=== PATIENT | male | born 1950 | race Caucasian/White ===

== ENCOUNTER 2021-12-19 13:52 | Outpatient (CLI) | payer MEDICARE, SELFPAY ==
[2021-12-19 14:27] LABS: Basophils Percent Auto 0.5 % (0.2-1.2); Eosinophils Absolute Auto 0.2 K/mm3 (0-0.3); Eosinophils Percent Auto 2.2 % (0-4.4); Hematocrit 44.2 % (42.0-52.0); Hemoglobin 14.2 g/dL (14.0-18.0); Immature Granulocyte Absolute 0.04 K/mm3 (0.00-0.031); Immature Granulocyte Percent A 0.5 % (0-0.5); Lymphocytes Absolute Auto 3.14 K/mm3 (0.9-3.2); Lymphocytes Percent Auto 37.6 % (18.3-44.2); Mean Corpuscular HGB Conc 32.1 g/dl (32-36); Mean Corpuscular Hemoglobin 26.9 pg (26-34); Mean Corpuscular Volume 83.9 fl (80-100); Mean Platelet Volume 9.1 fl (7.4-10.4); Monocytes Absolute Auto 0.8 K/mm3 (0.1-0.6); Monocytes Percent Auto 9.6 % (2.6-8.5); Neutrophils Absolute Auto 4.2 K/mm3 (1.3-6.7); Neutrophils Percent Auto 49.6 % (45.5-73.1); Platelet Count Result 243 k/mm3 (150-375); Red Blood Count 5.27 M/mm3 (4.6-6.20); Red Cell Distribution Width 14.4 % (11.5-14.5); White Blood Count 8.4 K/mm3 (4.5-10.0)
[2021-12-19 14:46] LABS: Hemoglobin A1C 7.7 % (<5.7)
[2021-12-19 14:48] LABS: Alanine Aminotransferase 40 U/L (6-50); Albumin Level 4.5 g/dL (3.5-5.1); Alkaline Phosphatase 60 U/L (38-126); Anion Gap 12 mmol/L (8-16); Aspartate Amino Transferase 33 U/L (17-59); Bilirubin,Total 0.4 mg/dL (0.2-1.3); Blood Urea Nitrogen 21 mg/dL (9-20); Calcium 9.4 mg/dL (8.4-10.2); Carbon Dioxide 25 mmol/L (22-30); Chloride 100 mmol/L (98-107); Cholesterol 183 mg/dL (0-200); Estimated Glomerular Filt Rate 46; Glucose 138 mg/dL (65-110); HDL Direct 29 mg/dL; Potassium 4.3 mmol/L (3.4-5.0); Sodium 137 mmol/L (137-145)
[2021-12-19 14:49] LABS: LDL Cholesterol Direct 67 mg/dL
[2021-12-19 15:07] LABS: Prostate Specific Antigen 0.9 ng/mL (< OR = 4.0)
[2021-12-19 15:39] LABS: Triglycerides 569 mg/dL (<150)
== END 2021-12-19 13:53 | disposition home or self-care (01) ==
PROVIDERS: PCP Internal Medicine; Visit Provider Clinical Nurse Specialist
DX: R97.20 Elevated prostate specific antigen [PSA] (principal); E11.9 Type 2 diabetes mellitus without complications
CPT/HCPCS: 36415; 80053; 80061; 83036; 84153; 85025

== ENCOUNTER 2022-04-18 13:02 | Outpatient (CLI) | payer MEDICARE, SELFPAY ==
[2022-04-18 19:33] LABS: Hemoglobin A1C 7.2 % (<5.7)
[2022-04-18 19:50] LABS: Alanine Aminotransferase 38 U/L (6-50); Albumin Level 4.6 g/dL (3.5-5.1); Alkaline Phosphatase 70 U/L (38-126); Anion Gap 11 mmol/L (8-16); Aspartate Amino Transferase 64 U/L (17-59); Bilirubin,Total 0.5 mg/dL (0.2-1.3); Blood Urea Nitrogen 22 mg/dL (9-20); Calcium 9.1 mg/dL (8.4-10.2); Carbon Dioxide 29 mmol/L (22-30); Chloride 101 mmol/L (98-107); Cholesterol 196 mg/dL (0-200); Estimated Glomerular Filt Rate 43; Glucose 130 mg/dL (65-110); HDL Direct 28 mg/dL; Potassium 4.2 mmol/L (3.4-5.0); Sodium 141 mmol/L (137-145); Triglycerides 502 mg/dL (<150)
[2022-04-18 20:03] LABS: LDL Cholesterol Direct 80 mg/dL
[2022-04-18 20:19] LABS: Prostate Specific Antigen 1.3 ng/mL (< OR = 4.0); Thyroid Stimulating Hormone 0.863 uIU/mL (0.465-4.680)
[2022-04-18 21:37] LABS: Creatinine Urine 189.5 mg/dL
[2022-04-18 21:41] LABS: MALB Creatinine Ratio 9.4 mg/g (0-30); Microalbumin Urine Random 17.9 mg/L (0-16.7)
== END 2022-04-18 13:03 | disposition home or self-care (01) ==
PROVIDERS: PCP Internal Medicine; Visit Provider Clinical Nurse Specialist
DX: I10 Essential (primary) hypertension (principal); E11.9 Type 2 diabetes mellitus without complications; R97.20 Elevated prostate specific antigen [PSA]; E55.9 Vitamin D deficiency, unspecified
CPT/HCPCS: 36415; 80053; 80061; 82043; 82306; 82607; 83036; 84153; 84443

== ENCOUNTER 2022-06-21 10:40 | Outpatient (CLI) | payer MEDICARE, SELFPAY ==
[2022-06-21 19:47] LABS: Basophils Absolute Auto 0.1 K/mm3 (0.0-0.1); Basophils Percent Auto 0.8 % (0.2-1.2); Eosinophils Absolute Auto 0.2 K/mm3 (0-0.3); Eosinophils Percent Auto 2.6 % (0-4.4); Hematocrit 45.2 % (42.0-52.0); Hemoglobin 14.7 g/dL (14.0-18.0); Immature Granulocyte Absolute 0.05 K/mm3 (0.00-0.031); Immature Granulocyte Percent A 0.5 % (0-0.5); Lymphocytes Absolute Auto 3.28 K/mm3 (0.9-3.2); Lymphocytes Percent Auto 35.6 % (18.3-44.2); Mean Corpuscular HGB Conc 32.5 g/dl (32-36); Mean Corpuscular Hemoglobin 27.5 pg (26-34); Mean Corpuscular Volume 84.6 fl (80-100); Mean Platelet Volume 9.6 fl (7.4-10.4); Monocytes Absolute Auto 0.9 K/mm3 (0.1-0.6); Monocytes Percent Auto 9.9 % (2.6-8.5); Neutrophils Absolute Auto 4.7 K/mm3 (1.3-6.7); Neutrophils Percent Auto 50.6 % (45.5-73.1); Platelet Count Result 278 k/mm3 (150-375); Red Blood Count 5.34 M/mm3 (4.6-6.20); Red Cell Distribution Width 14.4 % (11.5-14.5); White Blood Count 9.2 K/mm3 (4.5-10.0)
[2022-06-21 19:54] LABS: Alanine Aminotransferase 35 U/L (6-50); Albumin Level 4.5 g/dL (3.5-5.1); Alkaline Phosphatase 64 U/L (38-126); Anion Gap 9 mmol/L (8-16); Aspartate Amino Transferase 34 U/L (17-59); Bilirubin,Total 0.5 mg/dL (0.2-1.3); Blood Urea Nitrogen 23 mg/dL (9-20); Calcium 9.4 mg/dL (8.4-10.2); Carbon Dioxide 27 mmol/L (22-30); Chloride 103 mmol/L (98-107); Cholesterol 182 mg/dL (0-200); Estimated Glomerular Filt Rate 43; Glucose 129 mg/dL (65-110); HDL Direct 24 mg/dL; Potassium 4.2 mmol/L (3.4-5.0); Sodium 139 mmol/L (137-145); Triglycerides 497 mg/dL (<150)
[2022-06-21 20:06] LABS: LDL Cholesterol Direct 75 mg/dL
[2022-06-21 20:09] LABS: Hemoglobin A1C 6.9 % (<5.7)
== END 2022-06-21 10:41 | disposition home or self-care (01) ==
PROVIDERS: PCP Internal Medicine; Visit Provider Clinical Nurse Specialist
DX: E55.9 Vitamin D deficiency, unspecified (principal); N18.9 Chronic kidney disease, unspecified; E11.9 Type 2 diabetes mellitus without complications
CPT/HCPCS: 36415; 80053; 80061; 82306; 82607; 83036; 85025

== ENCOUNTER 2022-07-05 16:20 | Outpatient (CLI) | payer MEDICARE, SELFPAY ==
--- NOTE | ~2022-07-05 | MR_ITS ---
EXAMINATION: MR brain/brain stem wo/w con DATE: 07/05/2022 17:00 INDICATION: Tremors. TECHNIQUE: Magnetic resonance imaging (MRI) of the brain and brainstem was performed without and with 20 mL MultiHance intravenous contrast. COMPARISON: None. FINDINGS: There are scattered areas of nonspecific increased T2-weighted signal intensity in the cere bral white matter, which is within normal limits for the patient's age. There is no intracranial hemo rrhage, acute infarction, or abnormal intracranial mass lesion. The ventricles are normal in size. Th e mastoid air cells are normal. There is mild mucosal thickening in the ethmoid sinuses. The orbits a re normal. IMPRESSION: 1. Normal aging brain. Reviewed, dictated and finalized at location A. RVISOR SOLDER MAKING IMPRESSION: 1. Normal aging brain.
== END 2022-07-05 16:21 | disposition home or self-care (01) ==
LOC: ANHIMG 16:21
PROVIDERS: PCP Internal Medicine; Visit Provider Clinical Nurse Specialist
DX: G25.0 Essential tremor (principal)
CPT/HCPCS: 70553; A9577

== ENCOUNTER 2022-09-18 14:21 | Outpatient (CLI) | payer MEDICARE, SELFPAY ==
[2022-09-18 20:27] LABS: Basophils Absolute Auto 0.1 K/mm3 (0.0-0.1); Basophils Percent Auto 0.7 % (0.2-1.2); Eosinophils Absolute Auto 0.2 K/mm3 (0-0.3); Eosinophils Percent Auto 2.2 % (0-4.4); Hematocrit 42.7 % (42.0-52.0); Hemoglobin 13.7 g/dL (14.0-18.0); Immature Granulocyte Absolute 0.04 K/mm3 (0.00-0.031); Immature Granulocyte Percent A 0.5 % (0-0.5); Lymphocytes Absolute Auto 2.62 K/mm3 (0.9-3.2); Lymphocytes Percent Auto 35.8 % (18.3-44.2); Mean Corpuscular HGB Conc 32.1 g/dl (32-36); Mean Corpuscular Hemoglobin 27.1 pg (26-34); Mean Corpuscular Volume 84.4 fl (80-100); Mean Platelet Volume 9.7 fl (7.4-10.4); Monocytes Absolute Auto 0.9 K/mm3 (0.1-0.6); Monocytes Percent Auto 12.7 % (2.6-8.5); Neutrophils Absolute Auto 3.5 K/mm3 (1.3-6.7); Neutrophils Percent Auto 48.1 % (45.5-73.1); Platelet Count Result 239 k/mm3 (150-375); Red Blood Count 5.06 M/mm3 (4.6-6.20); Red Cell Distribution Width 14.3 % (11.5-14.5); White Blood Count 7.3 K/mm3 (4.5-10.0)
[2022-09-18 21:48] LABS: LDL Cholesterol Direct 98 mg/dL
[2022-09-18 21:49] LABS: Alanine Aminotransferase 47 U/L (6-50); Albumin Level 4.3 g/dL (3.5-5.1); Alkaline Phosphatase 61 U/L (38-126); Anion Gap 9 mmol/L (8-16); Aspartate Amino Transferase 57 U/L (17-59); Bilirubin,Total 0.4 mg/dL (0.2-1.3); Blood Urea Nitrogen 24 mg/dL (9-20); Calcium 9.1 mg/dL (8.4-10.2); Carbon Dioxide 26 mmol/L (22-30); Chloride 102 mmol/L (98-107); Cholesterol 219 mg/dL (0-200); Estimated Glomerular Filt Rate 46; Glucose 150 mg/dL (65-110); Potassium 4.5 mmol/L (3.4-5.0); Sodium 137 mmol/L (137-145)
[2022-09-18 22:18] LABS: Hemoglobin A1C 7.3 % (<5.7)
[2022-09-18 22:24] LABS: Triglycerides 651 mg/dL (<150)
[2022-09-18 22:36] LABS: Creatinine Urine 134.5 mg/dL
[2022-09-18 22:41] LABS: MALB Creatinine Ratio 11.4 mg/g (0-30); Microalbumin Urine Random 15.3 mg/L (0-16.7)
== END 2022-09-18 14:22 | disposition home or self-care (01) ==
PROVIDERS: PCP Internal Medicine; Visit Provider Clinical Nurse Specialist
DX: N18.9 Chronic kidney disease, unspecified (principal); E11.9 Type 2 diabetes mellitus without complications
CPT/HCPCS: 36415; 80053; 80061; 82043; 83036; 85025

== ENCOUNTER 2022-11-04 16:25 | Emergency (ER) | payer MEDICARE, SELFPAY ==
[2022-11-04 16:32] VITALS: BP 115/69; PULSE 84; RESP 18; TEMP 37.3; O2SAT 97
--- NOTE | 2022-11-04 16:48 | ED.URI ---
HPI - URI/Sore Throat General Chief Complaint: Upper Respiratory Infection Stated Complaint: Shortness of Breath/Chest Congestion History of Present Illness HPI Narrative: Patient here for complaints of cough and short of breath at times. No fever no chest pain. Patient states he does have a history of COPD and has an albuterol inhaler at home but he has not used it as prescribed. Related Data Home Medications Medication Instructions Recorded Confirmed aspirin 81 mg tablet,delayed 81 mg PO DAILY 06/10/19 11/04/22 release (Adult Low Dose Aspirin) blood sugar diagnostic (Easy Touch #10 ea 06/10/19 09/23/22 Test Strip) blood-glucose meter (Easy Touch #1 ea 06/10/19 09/23/22 Glucose Monitor) bupropion HCl 150 mg 24 hr tablet, 450 mg PO QAM 06/10/19 11/04/22 extended release (Wellbutrin XL) escitalopram oxalate 20 mg tablet 10 mg PO DAILY 06/10/19 11/04/22 (Lexapro) lancets 28 gauge (Easy Touch #25 ea 06/10/19 09/23/22 Lancets) trazodone 50 mg tablet 50 mg PO BID PRN Sleep 09/07/19 11/04/22 cetirizine 10 mg tablet (Zyrtec) 5 mg PO DAILY 04/11/20 09/23/22 Allergies Allergy/AdvReac Type Severity Reaction Status Date / Time diltiazem Allergy Rash Verified 11/04/22 16:30 Review of Systems Review of Systems: CONSTITUTIONAL: Denies chills, or sweats. Reports fever and generalized body aches EYES: Denies visual changes, redness, or discharge. ENT: Denies otalgia. Reports nasal congestion runny nose and sore throat CARDIOVASCULAR: Denies chest pain, palpitations, or edema. RESPIRATORY: Denies dyspnea. Reports occasional cough GASTROINTESTINAL: Denies abdominal pain, nausea, vomiting, or diarrhea. GENITOURINARY: Denies dysuria or hematuria. SKIN: Denies rash or itching. MUSCULOSKELETAL: Denies back pain, joint pain, or myalgia. Reports generalized body aches NEUROLOGIC: Denies headache, numbness, or weakness. PSYCHIATRIC: Denies anxiety or depression. [facility] Past Medical History Medical History Allergies Anxiety Asthma Chronic kidney disease COPD (chronic obstructive pulmonary disease) Depression Diabetes DM renal manif type II Dysmetabolic syndrome X Essential hypertension HLD (hyperlipidemia) DARVIN (obstructive sleep apnea) Shingles Family History Family History Father Hypertension Sibling Malignant neoplasm of prostate Liver cancer Social History Social History Smoking status: Former smoker Smoking end date: 05/12/98 Alcohol intake: current Alcohol use details: rarely Lack of Transportation: No Lack of Food: Never True Current Housing: I Have Housing Concerned About Future Housing: No Difficulty Paying Gas/Electric Bills: No Difficulty Paying for Meds: No Currently Unemployed: No Education: High School Diploma/GED Difficulty w/ Childcare or Family Care: No Comments At time of signature, agree with nursing past medical, surgical, social and family history. There is no relevant family history pertinent to the presenting complaint Exam Narrative: The patient is a well-developed, well-nourished in no acute distress. SKIN: Skin is warm and dry without erythema, swelling or exudate. There is good turgor. No tenting. HEAD: Atraumatic. Normocephalic. No temporal or scalp tenderness. EYES: Moist and bright. Sclera and conjunctivae normal. No discharge. PERRLA. Extraocular motions intact. Gross visual acuity intact. EARS: Pinna is normal shape and contour. Clear external auditory canals. TM pearly woods with good cone of light, no erythema or suppuration. Bilateral cerumen noted no gross hearing deficit. NOSE: pink, moist mucosa with good air movement. Clear rhinorrhea without nasal flaring. Septum midline. Mouth: moist mucous membranes. THROAT; mild erythema noted to posterior oropharynx with moderate
== END 2022-11-04 16:56 | disposition home or self-care (01) ==
PROVIDERS: Emergency Provider Nurse Practitioner Family; PCP Internal Medicine
DX: J44.0 Chronic obstructive pulmonary disease with (acute) lower respiratory infection (principal); J20.9 Acute bronchitis, unspecified; Z87.891 Personal history of nicotine dependence; I12.9 Hypertensive chronic kidney disease with stage 1 through stage 4 chronic kidney disease, or unspecified chronic kidney disease; E11.22 Type 2 diabetes mellitus with diabetic chronic kidney disease; N18.9 Chronic kidney disease, unspecified; Z79.84 Long term (current) use of oral hypoglycemic drugs; E78.5 Hyperlipidemia, unspecified; E88.81 Metabolic syndrome and other insulin resistance; F41.9 Anxiety disorder, unspecified; F32.A Depression, unspecified; Z79.82 Long term (current) use of aspirin
CPT/HCPCS: 99213; G0463

== ENCOUNTER 2023-02-21 10:12 | Outpatient (CLI) | payer MEDICARE, SELFPAY ==
[2023-02-21 19:51] LABS: Anion Gap 9 mmol/L (8-16); Blood Urea Nitrogen 26 mg/dL (9-20); Calcium 9.6 mg/dL (8.4-10.2); Carbon Dioxide 28 mmol/L (22-30); Chloride 103 mmol/L (98-107); Cholesterol 173 mg/dL (0-200); Estimated Glomerular Filt Rate 40; Glucose 116 mg/dL (65-110); HDL Direct 26 mg/dL; Potassium 4.3 mmol/L (3.4-5.0); Sodium 140 mmol/L (137-145); Triglycerides 519 mg/dL (<150)
[2023-02-21 20:03] LABS: LDL Cholesterol Direct 66 mg/dL
[2023-02-21 20:21] LABS: Creatinine Urine 177.8 mg/dL; MALB Creatinine Ratio 9.1 mg/g (0-30); Microalbumin Urine Random 16.1 mg/L (0-16.7)
[2023-02-21 20:42] LABS: Hemoglobin A1C 6.9 % (<5.7)
== END 2023-02-21 10:13 | disposition home or self-care (01) ==
PROVIDERS: PCP Internal Medicine; Visit Provider Clinical Nurse Specialist
DX: E11.9 Type 2 diabetes mellitus without complications (principal)
CPT/HCPCS: 36415; 80048; 80061; 82043; 82607; 83036

== ENCOUNTER 2024-01-19 09:37 | Outpatient (CLI) | payer MEDICARE, SELFPAY ==
[2024-01-19 18:51] LABS: Hematocrit 44.6 % (42.0-52.0); Hemoglobin 13.8 g/dL (14.0-18.0); Mean Corpuscular HGB Conc 30.9 g/dl (32-36); Mean Corpuscular Hemoglobin 27.3 pg (26-34); Mean Corpuscular Volume 88.3 fl (80-100); Red Blood Count 5.05 M/mm3 (4.6-6.20); Red Cell Distribution Width 14.6 % (11.5-14.5); White Blood Count 8.9 K/mm3 (4.5-10.0)
[2024-01-19 19:33] LABS: Creatinine Urine 107.5 mg/dL
[2024-01-19 19:39] LABS: Lymphocytes Absolute Manual 3.82 K/mm3 (1.1-4.5); Monocytes Absolute Manual 1.33 K/mm3 (0.1-0.90); Monocytes Percent Manual 15 % (3-9); Neutrophils Percent Manual 42 % (46-73); Platelet Estimate Adequate (Adequate); Total Cells Counted 100
[2024-01-19 19:40] LABS: Schistocytes None Seen
[2024-01-19 19:58] LABS: Alanine Aminotransferase 19 U/L (6-50); Albumin Level 4.3 g/dL (3.5-5.1); Alkaline Phosphatase 77 U/L (38-126); Aspartate Amino Transferase 49 U/L (17-59); Bilirubin,Total 0.3 mg/dL (0.2-1.3); Blood Urea Nitrogen 33 mg/dL (9-20); Calcium 9.4 mg/dL (8.4-10.2); Carbon Dioxide 21 mmol/L (22-30); Cholesterol 154 mg/dL (0-200); Estimated Glomerular Filt Rate 31; Glucose 95 mg/dL (65-110); HDL Direct 23 mg/dL; Potassium 4.8 mmol/L (3.4-5.0); Sodium 133 mmol/L (137-145)
[2024-01-19 20:14] LABS: Prostate Specific Antigen 1.3 ng/mL (< OR = 4.0)
[2024-01-19 20:26] LABS: LDL Cholesterol Direct 56 mg/dL
[2024-01-19 20:51] LABS: MALB Creatinine Ratio < 5.6 mg/g (0-30); Microalbumin Urine Random < 6.0 mg/L (0-16.7)
[2024-01-19 21:20] LABS: Anion Gap 7 mmol/L (4-12); Chloride 105 mmol/L (98-107)
[2024-01-19 21:21] LABS: Triglycerides 641 mg/dL (<150)
[2024-01-20 00:50] LABS: Hemoglobin A1C 6.6 % (<5.7)
[2024-01-26 18:34] LABS: Testosterone Free 60.9 pg/mL (30.0-135.0); Testosterone Total 267 ng/dL (250-1100)
== END 2024-01-19 09:38 | disposition home or self-care (01) ==
PROVIDERS: PCP Internal Medicine; Visit Provider Clinical Nurse Specialist
DX: R53.83 Other fatigue (principal); E11.9 Type 2 diabetes mellitus without complications; N18.9 Chronic kidney disease, unspecified; Z12.5 Encounter for screening for malignant neoplasm of prostate
CPT/HCPCS: 36415; 80053; 80061; 82043; 83036; 84153; 84402; 84403; 85025; G0103

== ENCOUNTER 2024-01-29 09:26 | Outpatient (CLI) | payer MEDICARE, SELFPAY ==
[2024-01-29 20:05] LABS: Creatinine Urine 89.2 mg/dL
[2024-01-29 20:11] LABS: MALB Creatinine Ratio 9.1 mg/g (0-30); Microalbumin Urine Random 8.1 mg/L (0-16.7)
[2024-01-29 23:15] LABS: Anion Gap 13 mmol/L (4-12); Blood Urea Nitrogen 27 mg/dL (9-20); Calcium 9.6 mg/dL (8.4-10.2); Carbon Dioxide 24 mmol/L (22-30); Chloride 101 mmol/L (98-107); Estimated Glomerular Filt Rate 33; Glucose 139 mg/dL (65-110); Sodium 138 mmol/L (137-145)
== END 2024-01-29 09:27 | disposition home or self-care (01) ==
PROVIDERS: PCP Internal Medicine; Visit Provider Clinical Nurse Specialist
DX: G25.0 Essential tremor (principal); E11.9 Type 2 diabetes mellitus without complications
CPT/HCPCS: 36415; 80048; 82043; 82607; 84443

== ENCOUNTER 2024-06-02 13:57 | Outpatient (CLI) | payer MEDICARE, SELFPAY ==
--- NOTE | ~2024-06-02 | CT_ITS ---
EXAMINATION: CT brain wo con DATE: 06/02/2024 14:11 INDICATION: Essential tremor TECHNIQUE: Computed tomography (CT) of the head was performed without intravenous contrast. Sagittal and coronal reconstructions were performed. Automated exposure control and iterative reconstruction t echnique were employed. The dose-length product was 645.69 mGy-cm. COMPARISON: Brain MR dated 07/05/2022 FINDINGS: No acute intracranial hemorrhage, acute infarction or abnormal extra axial fluid collection. There is mild scattered white matter hypoattenuation consistent with chronic small vessel ischemic disease. S ymmetric prominence of the sulci consistent with mild age-appropriate diffuse cerebral volume loss. V entricles are normal and symmetric. No mass/mass effect. Changes of left intraocular lens replacement . The paranasal sinuses and mastoid air cells are normal. IMPRESSION: 1. Normal aging brain. No acute intracranial process. Reviewed, dictated and finalized at location A. RNET MANAGER
== END 2024-06-02 13:58 | disposition home or self-care (01) ==
LOC: GOSHIMG 13:59
PROVIDERS: PCP Internal Medicine; Visit Provider Clinical Nurse Specialist
DX: G25.0 Essential tremor (principal)
CPT/HCPCS: 70450

== ENCOUNTER 2024-09-09 08:46 | Outpatient (CLI) | payer MEDICARE, SELFPAY ==
--- OUTSIDE RECORDS SUMMARY | 2024-09-09 08:55 | XMS_ITS ---
Author Organization [facility] Address [address] [place] [address] Phone Care Team Providers Care Band Shover Name Role Phone LAURA GUZMAN, FRITZ SAUCEDA [facility] [phone] Problems Includes: Active, inactive, and resolved Problems All Visits Onset Date Resolved Date Provider Condition S tatus Restless Legs Syndrome 02/05/2023 METOD FORTUNATO MASSEY MD Active Last Documented On 3 3:54PM ; [facility] Post-traumatic Stress Disorder 01/10/2022 Active Last Documented On 3 5:53PM ; [facility] Tremor 01/10/2019 Active Last Documented On 3 5:52PM ; [facility] Diabetes Mellitus Type 2 02/25/2017 Active Last Documented On 3 5:51PM ; [facility] Psychophysiological Insomnia 04/11/2016 Active Last Documented On 3 5:50PM ; [facility] Asthma 07/10/2012 Inactive Last Documented On 3 5:44PM ; [facility] Unspecified asthma, uncomplicated 07/10/2012 Active Last Documented On 3 5:48PM ; [facility] Nonorganic Sleep Apnea Obstructive 07/10/2012 Inactive Last Documented On 3 5:44PM ; [facility] Note: Using CPAP 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 FRITZ WORTHY MD Active Last Documented On 3 2:02PM ; [facility] Major Depression 06/22/2012 FRITZ MASSEY MD Active Last Documented On 3 2:02PM ; [facility] Major Depression, Recurrent 06/22/2012 Inactive Last Documented On 3 5:44PM ; [facility] Generalized Anxiety Disorder 06/10/2012 Inactive Last Documented On 3 5:43PM ; [facility] Generalized Anxiety Disorder 06/10/2012 FRITZ MASSEY MD Active Last Documented On 3 2:02PM ; [facility] Essential (primary) hypertension 06/10/2012 Active Last Documented On 3 5:48PM ; [facility] Hypertension Systemic 06/10/2012 Karen ctive Last Documented On 3 5:43PM ; [facility] Pure hypercholesterolemia 06/10/2012 Active Last Documented On 3 5:48PM ; [facility] Pure Hypercholesterolemia 06/10/2012 Inactive Last Documented On 3 5:43PM ; [facility] Plan of Treatment Education and Decision Aids were provided during visit for: I recommended cognitive exer cises such as reading and/or word search puzzles, etc.. Last Documented On 4 2:06PM ; [facility] Calming techniques such as b reathing exercises/meditation and other relaxation techniques Last Documented On 4 12:20AM ; [facility] Discussed good sleep hygiene habits , guided meditation, breathing exercises if and when anxious Last Documented On 3 5:28PM ; [facility] Assessments Includes: Assessments for all patient encounters Findings Encounter Date Generalized anxiety disorder TELEHEALTH ADULT PSYCH ESTABLISHED with FRITZ MASSEY MD 10/15/2023 Last Documented On 4 12:25AM ; [facility] Major depressive disorder TELEHEALTH RADHA LT PSYCH ESTABLISHED with FRITZ MASSEY MD 10/15/2023 Last Documented On 4 12:25AM ; [facility] Nonorganic sleep apnea TELEHEALTH ADULT PSYCH ESTABLISHED with FRITZ MASSEY MD 10/15/2023 Last Documented On 4 12:25AM ; [facility] Post-traumatic stress disorder TELEHEALT H ADULT PSYCH ESTABLISHED with FRITZ MASSEY MD 10/15/2023 Last Documented On 4 12:25AM ; [facility] Psychophysiological insomnia TELEHEALTH ADULT PSYCH ESTABLISHED with FRITZ MASSEY MD 10/15/2023 Last Documented On 4 12:25AM ; [facility] Tremor TELEHEALTH ADULT PSYCH ESTABLISH ED with FRITZ MASSEY MD 10/15/2023 Last Documented On 4 12:25AM ; [facility] Generalized anxiety disorder TELEHEALTH ADULT PSYCH ESTABLISHED with FRITZ MASSEY MD 06/11/2023 Last Documented On 4 2:57PM ; [facility] Major depressive disorder TELEHEALTH RADHA LT PSYCH ESTABLISHED with FRITZ MASSEY MD 06/11/2023 Last Documented On 4 2:57PM ; [facility] Nonorganic sleep apnea TELEHEALTH ADULT PSYCH ESTABLISHED with FRITZ MASSEY MD 06/11/2023 Last Documented On 4 2:57PM ; [facility] Post-traumatic stress disorder TELEHEALT H ADULT PSYCH ESTABLISHED with FRITZ MASSEY MD 06/11/2023 Last Documented On 4 2:57PM ; [facility] Psychophysiological insomnia TELEHEALTH ADULT PSYCH ESTABLISHED with FRITZ MASSEY MD 06/11/2023 Last Documented On 4 2:57PM ; [facility] Tremor TELEHEALTH ADULT PSYCH ESTABLISH ED with FRITZ MASSEY MD 06/11/2023 Last Documented On 4 2:57PM ; [facility] Restless legs syndrome * PHONE CALL with FRITZ MASSEY MD 02/05/2023 Last Documented On 3 5:27PM ; [facility] Generalized anxiety disorder TELEHEALTH ADULT PSYCH ESTABLISHED with FRITZ MASSEY MD 02/05/2023 Last Documented On 3 5:32PM ; [facility] Major depressive disorder TELEHEALTH RADHA LT PSYCH ESTABLISHED with FRITZ MASSEY MD 02/05/2023 Last Documented On 3 5:32PM ; [facility] Nonorganic sleep apnea TELEHEALTH ADULT PSYCH ESTABLISHED with FRITZ MASSEY MD 02/05/2023 Last Documented On 3 5:32PM ; [facility] Post-traumatic stress disorder TELEHEALT H ADULT PSYCH ESTABLISHED with FRITZ MASSEY MD 02/05/2023 Last Documented On 3 5:32PM ; [facility] Psychophysiological insomnia TELEHEALTH ADULT PSYCH ESTABLISHED with FRITZ MASSEY MD 02/05/2023 Last Documented On 3 5:32PM ; [facility] Tremor TELEHEALTH ADULT PSYCH ESTABLISH ED with FRITZ MASSEY MD 02/05/2023 Last Documented On 3 5:32PM ; [facility] Generalized anxiety disorder TELEHEALTH with MET ANTONIO MASSEY MD 09/11/2022 Last Documented On 3 9:32AM ; [facility] Major depressive disorder TELEHEALTH with ROSALIA MASSEY MD 09/11/2022 Last Documented On 3 9:32AM ; [facility] Nonorganic sleep apnea TELEHEALTH with FRITZ MASSEY MD 09/11/2022 Last Documented On 3 9:32AM ; [facility] Post-traumatic stress disorder TELEHEALTH with Luis Eduardo MASSEY MD 09/11/2022 Last Documented On 3 9:32AM ; [facility] Psychophysiological insomnia TELEHEALTH with MET ANTONIO MASSEY MD 09/11/2022 Last Documented On 3 9:32AM ; [facility] Tremor TELEHEALTH with FRITZ HILLS MD 09/11/2022 Last Documented On 3 9:32AM ; [facility] Instructions Includes: Instructions for all patient encounters Education and Decision Aids were provided during visit for: I recommended cognitive exer cises such as reading and/or word search puzzles, etc.. Last Documented On 4 2:06PM ; [facility] Calming techniques such as b reathing exercises/meditation and other relaxation techniques Last Documented On 4 12:20AM ; [facility] Discussed good sleep hygiene habits , guided meditation, breathing exercises if and when anxious Last Documented On 3 5:28PM ; [facility] Medical Equipment - Implanted Devices Includes: Current and historical Devices No Medical Equipment Recorded Medications Includes: Current and historical Medications Current Medications (continue as prescribed) busPIRone HCl 10 MG Oral Tablet 10/15/2023 Provider: FRITZ MASSEY MD Diagnosis: Generalized anxi ety disorder One tablet daily Last Documented On 10/15/2023 2:46PM By Teresa Massey MD ; [facility] ZyrTEC Allergy 10 MG Oral Tablet 10/15/2023 Provider : Diagnosis: 1 tab daily prn Last Documented On 10/15/2023 1:59PM By ILANA POOLE ; [facility] traZODone HCl 50 MG Oral Tablet 06/20/2023 Provider: FRITZ MASSEY MD Diagnosis: Psychophysiologi c insomnia DIRECTED 1 TAB 2 TIMES A DAY AND 1 TAB AT BEDTIME NEEDED Last Documented On 06/20/2023 8:48AM By Teresa Massey MD ; [facility] Escitalopram Oxalate 20 MG Oral Tablet 06/11/2023 Provider: FRITZ MASSEY MD Diagnosis: Generalized anxi ety disorder One tablet daily Last Documented On 06/11/2023 2:33PM By Teresa Massey MD ; [facility] buPROPion HCl ER (XL) 150 MG Oral Tablet Extended Release 24 Hour 06/11/2023 Provider: FRITZ MASSEY MD Diagnosis: Major depressive disorder, recurrent, moderate TAKE 3 TABLETS BY MOUTH IN T MORNING Last Documented On 06/11/2023 2:31PM By Teresa Massey MD ; [facility] Atorvastatin Calcium 80 MG Oral Tablet 01/08/2023 Pr ovider: CESAR CASTANO APN Diagnosis: 1 tab daily Last Documented On 02/05/2023 1:45PM By ILANA POOLE ; [facility] Lisinopril 40 MG Oral Tablet 09/11/2022 Provider: Diagnosis: 1 daily Last Documented On 09/11/2022 2:48PM By ILANA POOLE ; [facility] metFORMIN HCl 500 MG TABS 07/11/2020 Provider: Diagnosis: 4 daily Last Documented On 09/07/2022 5:28PM By ILANA POOLE ; [facility] ProAir HFA 108 (90 Base) MCG/ACT IN AERS 05/13/2018 Provider: Diagnosis: 1-2 puffs every 4-6 hours prn Last Documented On 09/07/2022 5:28PM By ILANA POOLE ; [facility] Indapamide 2.5 MG OR TABS 03/02/2015 Provider: Diagnosis: from Dr. Figueroa Last Documented On 09/07/2022 5:28PM By Teresa Massey MD ; [facility] Aspirin 81 MG OR TABS 07/10/2012 Provider: Diagnosis: Last Documented On 09/07/2022 5:28PM By LEXIE HERNANDEZ ; [facility] Past Medications on file rOPINIRole HCl 3 MG Oral Tablet 02/05/2023 - 10/15/2023 Provider: FRITZ MASSEY MD Diagnosis: Restless legs syndrome as directed - 2 tabs in the evening Last Documented On 10/15/2023 2:46PM By Teresa Massey MD ; [facility] Escitalopram Oxalate 20 MG Oral Tablet 11/29/2022 - 06/11/2023 Provider: FRITZ MASSEY MD Diagnosis: Generalized anxi ety disorder One tablet daily Last Documented On 06/11/2023 2:33PM By Teresa Massey MD ; [facility] Escitalopram Oxalate 20 MG Oral Tablet 11/29/2022 - 11/29/2022 Provider: Diagnosis: Generalized anxi ety disorder 1 tablet daily Last Documented On 11/29/2022 4:43PM By ROSEMARY PINZON ; [facility] traZODone HCl 50 MG Oral Tablet 11/29/2022 - Provider: Diagnosis: Psychophysiologi c insomnia 1 tab 2 times a day and 1 tab at bedtime as need ed Last Documented On 11/29/2022 4:43PM By ROSEMARY PINZON ; [facility] traZODone HCl 50 MG Oral Tablet 11/29/2022 - 06/20/2023 Provider: FRITZ MASSEY MD Diagnosis: Psychophysiologi c insomnia as directed 1 tab 2 times a day and 1 tab at bedtime as needed Last Documented On 06/20/2023 8:48AM By Teresa Massey MD ; [facility] traZODone HCl 50 MG Oral Tablet 09/11/2022 - 11/29/2022 Provider: FRITZ MASSEY MD Diagnosis: Psychophysiologi c insomnia as directed -- 1 tab 2 x a d ay, 1 tab at bedtime as needed Last Documented On 11/29/2022 4:43PM By ROSEMARY PINZON ; [facility] traZODone HCl 50 MG OR TABS 06/11/2022 - 09/11/2022 Provider: FRITZ MASSEY MD Diagnosis: Psychophysiologi c insomnia TAKE 1/2 (ONE-HALF) TABLET B Y MOUTH TWICE DAILY NEEDED FOR ANXIETY AND 1 TABLET AT BEDTIME NEEDED FOR SLEEP DIRECTED Last Documented On 09/11/2022 2:33PM By Teresa Massey MD ; [facility] Escitalopram Oxalate 20 MG OR TABS 06/11/2022 - 11/29/2022 Provider: FRITZ MASSEY MD Diagnosis: Generalized anxi ety disorder One tablet daily Last Documented On 11/29/2022 4:43PM By ROSEMARY PINZON ; [facility] buPROPion HCl ER (XL) 150 MG OR TB24 06/11/2022 - 06/11/2023 Provider: FRITZ MASSEY MD Diagnosis: Major depressive disorder, recurrent, moderate TAKE 3 TABLETS BY MOUTH IN THE MORNING Last Documented On 06/11/2023 2:31PM By Teresa Massey MD ; [facility] traZODone HCl 50 MG OR TABS 05/26/2022 - 06/11/2022 Provider: FRITZ MASSEY MD Diagnosis: Psychophysiologi c insomnia TAKE 1/2 (ONE-HALF) TABLET B Y MOUTH TWICE DAILY NEEDED FOR ANXIETY AND 1 TABLET AT BEDTIME NEEDED FOR SLEEP DIRECTED Last Documented On 09/07/2022 5:28PM By Teresa Massey MD ; [facility] Azelastine HCl 137 MCG/SPRAY NA SOLN 04/23/2022 - 09/11/2022 Provider: Diagnosis: Acute sinusitis, unspecified 1 spray to each nostril 2 x a day -- Hua Castano Last Documented On 09/11/2022 1:55PM By ILANA POOLE ; [facility] traZODone HCl 50 MG OR TABS 03/06/2022 - 05/26/2022 Provider: FRITZ MASSEY MD Diagnosis: Psychophysiologi c insomnia TAKE 1/2 (ONE-HALF) TABLET B Y MOUTH TWICE DAILY NEEDED FOR ANXIETY AND 1 AT BEDTIME NEEDED ONLY FOR SLEEP DIRECTED Last Documented On 09/07/2022 5:28PM By Teresa Massey MD ; [facility] Viibryd 20 MG OR TABS 12/04/2021 - 03/04/2022 Provider : FRITZ MASSEY MD Diagnosis: Major depressive disorder, recurrent, moderate as directed -- 1 tab in am with food Last Documented On 09/07/2022 5:28PM By Teresa Massey MD ; [facility] Escitalopram Oxalate 20 MG OR TABS 12/04/2021 - 06/11/2022 Provider: FRITZ MASSEY MD Diagnosis: Generalized anxi ety disorder One tablet daily Last Documented On 09/07/2022 5:28PM By Teresa Massey MD ; [facility] Escitalopram Oxalate 20 MG OR TABS 10/09/2021 - 12/04/2021 Provider: FRITZ HILLS MD Diagnosis: Take 1 tablet by mouth once daily Last Documented On 09/07/2022 5:28PM By Teresa Massey MD ; [facility] traZODone HCl 50 MG OR TABS 09/17/2021 - 03/06/2022 Provider: FRITZ MASSEY MD Diagnosis: Psychophysiologi c insomnia TAKE 1/2 (ONE-HALF) TABLET B Y MOUTH TWICE DAILY NEEDED FOR ANXIETY AND 1 TABLET AT BEDTIME NEEDED ONLY FOR SLEEP DIRECTED Last Documented On 09/07/2022 5:28PM By Teresa Massey MD ; [facility] Escitalopram Oxalate 20 MG OR TABS 09/03/2021 - 03/05/2022 Provider: FRITZ MASSEY MD Diagnosis: Generalized anxi ety disorder Take 1 tablet by mouth once daily Last Documented On 09/07/2022 5:28PM By Teresa Massey MD ; [facility] Escitalopram Oxalate 20 MG OR TABS 05/23/2021 - 09/03/2021 Provider: FRITZ MASSEY MD Diagnosis: Generalized anxi ety disorder One tablet daily Last Documented On 09/07/2022 5:28PM By Teresa Massey MD ; [facility] buPROPion HCl ER (XL) 150 MG OR TB24 05/23/2021 - 06/11/2022 Provider: FRITZ MASSEY MD Diagnosis: Major depressive disorder, recurrent, moderate TAKE 3 TABLETS BY MOUTH IN THE MORNING Last Documented On 09/07/2022 5:28PM By Teresa Massey MD ; [facility] traZODone HCl 50 MG OR TABS 04/09/2021 - 09/17/2021 Provider: FRITZ MASSEY MD Diagnosis: Psychophysiologi c insomnia TAKE 1/2 (ONE-HALF) TABLET B Y MOUTH TWICE DAILY NEEDED FOR ANXIETY AND 1 TABLET AT BEDTIME NEEDED ONLY FOR SLEEP DIRECTED Last Documented On 09/07/2022 5:28PM By Teresa Massey MD ; [facility] Escitalopram Oxalate 20 MG OR TABS 02/15/2021 - 05/23/2021 Provider: FRITZ MASSEY MD Diagnosis: Generalized anxi ety disorder Take 1 tablet by mouth once daily Last Documented On 09/07/2022 5:28PM By Teresa Massey MD ; [facility] traZODone HCl 50 MG OR TABS 10/12/2020 - 04/09/2021 Provider: FRITZ MASSEY MD Diagnosis: Psychophysiologi c insomnia TAKE ONE-HALF TO ONE TABLETS BY MOUTH TWICE DAILY NEEDED FOR ANXIETY AND ONE AT BEDTIME NEEDED ONLY FOR SLEEP DIRECTED Last Documented On 09/07/2022 5:28PM By Teresa Massey MD ; [facility] buPROPion HCl ER (XL) 150 MG OR TB24 05/10/2020 - 05/23/2021 Provider: FRITZ HILLS MD Diagnosis: TAKE 3 TABLETS BY MOUTH IN THE MORNING Last Documented On 09/07/2022 5:28PM By Teresa Massey MD ; [facility] buPROPion HCl ER (XL) 150 MG OR TB24 05/06/2020 - 03/12/2021 Provider: FRITZ MASSEY MD Diagnosis: Major depressive disorder, recurrent, moderate as directed - 3 tabs in am Last Documented On 09/07/2022 5:28PM By Teresa Massey MD ; [facility] traZODone HCl 50 MG OR TABS 10/22/2019 - 10/12/2020 Provider: FRITZ MASSEY MD Diagnosis: Psychophysiologi c insomnia TAKE ONE-HALF TO ONE TABLET BY MOUTH TWO TIMES DAILY NEEDED FOR ANXIETY AND ONE TABLET AT BEDTIME NEEDED ONLY FOR SLEEP DIRECTED Last Documented On 09/07/2022 5:28PM By Teresa Massey MD ; [facility] Lexapro 20 MG OR TABS 10/03/2019 - 02/15/2021 Provider: FRITZ HILLS MD Diagnosis: Generalized anxi ety disorder Take 1 tablet by mouth once daily Last Documented On 09/07/2022 5:28PM By Teresa Massey MD ; [facility] Atorvastatin Calcium 40 MG OR TABS 09/14/2019 - 2022 Provider: Diagnosis: Last Documented On 02/05/2023 1:45PM By ILANA POOLE ; [facility] Atorvastatin Calcium 20 MG OR TABS 03/10/2019 - 2019 Provider: Diagnosis: 1 tab at bedtime Last Documented On 09/07/2022 5:28PM By ILANA POOLE ; [facility] Wellbutrin XL 150 MG OR TB24 11/04/2018 - 05/06/2020 Provider: FRITZ MASSEY MD Diagnosis: Major depressive disorder, recurrent, moderate as directed 3 every am Last Documented On 09/07/2022 5:28PM By Teresa Massey MD ; [facility] Lexapro 20 MG OR TABS 11/04/2018 - 10/03/2019 Provider: FRITZ HILLS MD Diagnosis: Generalized anxi ety disorder One tablet daily Last Documented On 09/07/2022 5:28PM By Teresa Massey MD ; [facility] traZODone HCl 50 MG OR TABS 11/04/2018 - 10/22/2019 Provider: FRITZ MASSEY MD Diagnosis: Psychophysiologi c insomnia as directed TAKE 1/2 TO 1 TA BLET BY MOUTH 2 TIMES DAILY NEEDED FOR ANXIETY, 1 TAB at bedtime as needed only for sleep Last Documented On 09/07/2022 5:28PM By Teresa Massey MD ; [facility] Wellbutrin XL 150 MG OR TB24 09/10/2018 - 11/04/2018 Provider: FRITZ MASSEY MD Diagnosis: Major depressive disorder, recurrent, moderate as directed 3 every am Last Documented On 09/07/2022 5:28PM By Teresa Massey MD ; [facility] Lexapro 20 MG OR TABS 09/04/2018 - 11/04/2018 Provider: FRITZ HILLS MD Diagnosis: Generalized anxi ety disorder One tablet daily Last Documented On 09/07/2022 5:28PM By Teresa Massey MD ; [facility] traZODone HCl 50 MG OR TABS 08/12/2018 - 11/04/2018 Provider: FRITZ MASSEY MD Diagnosis: Psychophysiologi c insomnia as directed TAKE 1/2 TO 1 TA BLET BY MOUTH 2 TIMES DAILY NEEDED FOR ANXIETY, 1 TAB at bedtime as needed only for sleep Last Documented On 09/07/2022 5:28PM By Teresa Massey MD ; [facility] traZODone HCl 50 MG OR TABS 06/08/2018 - 08/12/2018 Provider: FRITZ MASSEY MD Diagnosis: Psychophysiologi c insomnia as directed TAKE 1/2 TO 1 TA BLET BY MOUTH 2 TIMES DAILY NEEDED FOR ANXIETY, 1 TAB at bedtime as needed only for sleep Last Documented On 09/07/2022 5:28PM By Teresa Massey MD ; [facility] Viibryd 20 MG OR TABS 06/08/2018 - 09/17/2021 Provider: FRITZ HILLS MD Diagnosis: Major depressive disorder, recurrent, unspecified 1 tablet every morning with food -- may take as needed only Last Documented On 09/07/2022 5:28PM By Teresa Massey MD ; [facility] Lexapro 20 MG OR TABS 06/08/2018 - 09/04/2018 Provider: FRITZ HILLS MD Diagnosis: Generalized anxi ety disorder One tablet daily Last Documented On 09/07/2022 5:28PM By Teresa Massey MD ; [facility] Wellbutrin XL 150 MG OR TB24 06/08/2018 - 09/10/2018 Provider: FRITZ MASSEY MD Diagnosis: Major depressive disorder, recurrent, moderate as directed 3 every am Last Documented On 09/07/2022 5:28PM By Teresa Massey MD ; [facility] Crestor 20 MG OR TABS 05/13/2018 - 11/04/2018 Provider : Diagnosis: 1 tab daily Last Documented On 09/07/2022 5:28PM By ILANA POOLE ; [facility] traZODone HCl 50 MG OR TABS 08/31/2017 - 05/13/2018 Provider: FRITZ MASSEY MD Diagnosis: Psychophysiologi c insomnia as directed TAKE 1/2 TO 1 TA BLET BY MOUTH 2 TIMES DAILY NEEDED FOR ANXIETY, 1 TAB at bedtime as needed only for sleep Last Documented On 09/07/2022 5:28PM By Teresa Massey MD ; [facility] Viibryd 20 MG OR TABS 08/31/2017 - 05/13/2018 Provider: FRITZ HILLS MD Diagnosis: Major depressive disorder, recurrent, unspecified 1 tablet every morning with food Last Documented On 09/07/2022 5:28PM By Teresa Massey MD ; [facility] Lexapro 20 MG OR TABS 08/31/2017 - 05/13/2018 Provider: FRITZ HILLS MD Diagnosis: Generalized anxi ety disorder One tablet daily Last Documented On 09/07/2022 5:28PM By Teresa Massey MD ; [facility] Wellbutrin XL 150 MG OR TB24 08/31/2017 - 05/13/2018 Provider: FRITZ MASSEY MD Diagnosis: Major depressive disorder, recurrent, moderate as directed 3 every am Last Documented On 09/07/2022 5:28PM By Teresa Massey MD ; [facility] traZODone HCl 50 MG OR TABS 07/16/2017 - 08/26/2017 Provider: FRITZ MASSEY MD Diagnosis: Psychophysiologi c insomnia as directed TAKE 1/2 TO 1 TA BLET BY MOUTH 2 TIMES DAILY NEEDED FOR ANXIETY, 1 TAB at bedtime as needed only for sleep Last Documented On 09/07/2022 5:28PM By Teresa Massey MD ; [facility] Lexapro 20 MG OR TABS 07/16/2017 - 08/26/2017 Provider: FRITZ HILLS MD Diagnosis: Generalized anxi ety disorder One tablet daily Last Documented On 09/07/2022 5:28PM By Teresa Massey MD ; [facility] Wellbutrin XL 150 MG OR TB24 07/16/2017 - 08/26/2017 Provider: FRITZ MASSEY MD Diagnosis: Major depressive disorder, recurrent, moderate as directed 3 every am Last Documented On 09/07/2022 5:28PM By Teresa Massey MD ; [facility] Viibryd 20 MG OR TABS 07/16/2017 - 08/26/2017 Provider: FRITZ HILLS MD Diagnosis: Major depressive disorder, recurrent, unspecified 1 tablet every morning with food Last Documented On 09/07/2022 5:28PM By Teresa Massey MD ; [facility] Lexapro 20 MG OR TABS 03/10/2017 - 07/16/2017 Provider: FRITZ HILLS MD Diagnosis: Generalized anxi ety disorder One tablet daily Last Documented On 09/07/2022 5:28PM By Teresa Massey MD ; [facility] traZODone HCl 50 MG OR TABS 02/25/2017 - 07/16/2017 Provider: FRITZ MASSEY MD Diagnosis: Psychophysiologi c insomnia as directed TAKE 1/2 TO 1 TA BLET BY MOUTH 2 TIMES DAILY NEEDED FOR ANXIETY, 1 TAB at bedtime as needed only for sleep Last Documented On 09/07/2022 5:28PM By Teresa Massey MD ; [facility] Wellbutrin XL 150 MG OR TB24 02/25/2017 - 07/16/2017 Provider: FRITZ MASSEY MD Diagnosis: Major depressive disorder, recurrent, moderate as directed 3 every am Last Documented On 09/07/2022 5:28PM By Teresa Massey MD ; [facility] Viibryd 20 MG OR TABS 02/25/2017 - 07/16/2017 Provider: FRITZ HILLS MD Diagnosis: Major depressive disorder, recurrent, unspecified 1 tablet every morning with food Last Documented On 09/07/2022 5:28PM By Teresa Massey MD ; [facility] Lexapro 20 MG OR TABS 02/21/2017 - 02/25/2017 Provider: FRITZ HILLS MD Diagnosis: Generalized anxi ety disorder One tablet daily Last Documented On 09/07/2022 5:28PM By Teresa Massey MD ; [facility] [facility] metFORMIN HCl ER (MOD) 500 MG TB24 02/15/2017 - 2020 Provider: Diagnosis: 4 daily Last Documented On 09/07/2022 5:28PM By REBA GARZA LPN ; [facility] Atorvastatin Calcium 10 MG OR TABS 02/14/2017 - 2018 Provider: Diagnosis: 1 daily Last Documented On 09/07/2022 5:28PM By REBA GARZA LPN ; [facility] traZODone HCl 50 MG OR TABS 01/21/2017 - 02/25/2017 Provider: FRITZ MASSEY MD Diagnosis: Psychophysiologi c insomnia as directed TAKE 1/2 TO 1 TA BLET BY MOUTH 3 TIMES DAILY NEEDED FOR ANXIETY, 1 TAB at bedtime as needed only Last Documented On 09/07/2022 5:28PM By Teresa Massey MD ; [facility] Wellbutrin XL 150 MG OR TB24 11/14/2016 - 02/25/2017 Provider: FRITZ MASSEY MD Diagnosis: Major depressive disorder, recurrent, moderate as directed 3 every am Last Documented On 09/07/2022 5:28PM By Teresa Massey MD ; [facility] Wellbutrin XL 150 MG OR TB24 09/16/2016 - 11/14/2016 Provider: FRITZ MASSEY MD Diagnosis: Major depressive disorder, recurrent, moderate as directed 3 every am Last Documented On 09/07/2022 5:28PM By Teresa Massey MD ; [facility] Lexapro 20 MG OR TABS 08/28/2016 - 02/21/2017 Provider: FRITZ HILLS MD Diagnosis: Generalized anxi ety disorder One tablet daily Last Documented On 09/07/2022 5:28PM By Teresa Massey MD ; [facility] modafinil 100mg OR TABS 08/28/2016 - 02/25/2017 Provider: FRITZ MASSEY MD Diagnosis: Obstructive slee p apnea (adult) (pediatric) as directed -- 1 tab in am Last Documented On 09/07/2022 5:28PM By Teresa Massey MD ; [facility] Viibryd 20 MG OR TABS 08/28/2016 - 02/25/2017 Provider: FRITZ MASSEY MD Diagnosis: Major depressive disorder, recurrent, unspecified 1 tablet every morning with food -- given discount coupon on 02/29/16 Last Documented On 09/07/2022 5:28PM By Teresa Massey MD ; [facility] traZODone HCl 50 MG OR TABS 08/28/2016 - 01/21/2017 Provider: FRITZ MASSEY MD Diagnosis: Psychophysiologi c insomnia as directed TAKE 1/2 TO 1 TA BLET BY MOUTH 3 TIMES DAILY NEEDED FOR ANXIETY, 1 TAB at bedtime as needed only Last Documented On 09/07/2022 5:28PM By Teresa Massey MD ; [facility] Wellbutrin XL 150 MG OR TB24 08/28/2016 - 09/16/2016 Provider: FRITZ MASSEY MD Diagnosis: Major depressive disorder, recurrent, moderate as directed 3 every am Last Documented On 09/07/2022 5:28PM By Teresa Massey MD ; [facility] Wellbutrin XL 150 MG OR TB24 07/23/2016 - 08/28/2016 Provider: FRITZ MASSEY MD Diagnosis: Major depressive disorder, recurrent, unspecified as directed 3 every am Last Documented On 09/07/2022 5:28PM By Teresa Massey MD ; [facility] Wellbutrin XL 150 MG OR TB24 05/01/2016 - 07/23/2016 Provider: FRITZ MASSEY MD Diagnosis: Major depressive disorder, recurrent, unspecified as directed 3 every am Last Documented On 09/07/2022 5:28PM By Teresa Massey MD ; [facility] Viibryd 20 MG OR TABS 02/29/2016 - 08/28/2016 Provider: FRITZ MASSEY MD Diagnosis: Major depressive disorder, recurrent, unspecified 1 tablet every morning with food -- given discount coupon on 02/29/16 Last Documented On 09/07/2022 5:28PM By Teresa Massey MD ; [facility] traZODone HCl 50 MG OR TABS 02/29/2016 - 08/28/2016 Provider: FRITZ MASSEY MD Diagnosis: Generalized anxi ety disorder as directed TAKE 1/2 TO 1 TA BLET BY MOUTH 3 TIMES DAILY NEEDED FOR ANXIETY, 1 TAB at bedtime as needed only Last Documented On 09/07/2022 5:28PM By Teresa Massey MD ; [facility] Wellbutrin XL 150 MG OR TB24 02/29/2016 - 05/01/2016 Provider: FRITZ MASSEY MD Diagnosis: Major depressive disorder, recurrent, unspecified as directed 3 every am Last Documented On 09/07/2022 5:28PM By Teresa Massey MD ; [facility] Lexapro 20 MG OR TABS 02/29/2016 - 08/28/2016 Provider: FRITZ HILLS MD Diagnosis: Generalized anxi ety disorder One tablet daily Last Documented On 09/07/2022 5:28PM By Teresa Massey MD ; [facility] Wellbutrin XL 150 MG OR TB24 02/21/2016 - 02/29/2016 Provider: FRITZ MASSEY MD Diagnosis: Major depressive disorder, recurrent, unspecified as directed 3 every am Last Documented On 09/07/2022 5:28PM By Teresa Massey MD ; [facility] Wellbutrin XL 150 MG OR TB24 11/10/2015 - 02/21/2016 Provider: FRITZ MASSEY MD Diagnosis: Major depressive disorder, recurrent, unspecified as directed 3 every am Last Documented On 09/07/2022 5:28PM By Teresa Massey MD ; [facility] traZODone HCl 50 MG OR TABS 08/30/2015 - 02/29/2016 Provider: FRITZ MASSEY MD Diagnosis: Generalized anxi ety disorder as directed TAKE 1/2 TO 1 TA BLET BY MOUTH 3 TIMES DAILY NEEDED FOR ANXIETY, 1 TAB at bedtime as needed only Last Documented On 09/07/2022 5:28PM By Teresa Massey MD ; [facility] Lexapro 20 MG OR TABS 08/30/2015 - 02/29/2016 Provider: FRITZ HILLS MD Diagnosis: Generalized anxi ety disorder One tablet daily Last Documented On 09/07/2022 5:28PM By Teresa Massey MD ; [facility] Wellbutrin XL 150 MG OR TB24 08/30/2015 - 11/10/2015 Provider: FRITZ MASSEY MD Diagnosis: Major depressive disorder, recurrent, unspecified as directed 3 every am Last Documented On 09/07/2022 5:28PM By Teresa Massey MD ; [facility] Viibryd 20 MG OR TABS 08/30/2015 - 02/29/2016 Provider: FRITZ HILLS MD Diagnosis: Major depressive disorder, recurrent, unspecified 1 tablet every morning with food Last Documented On 09/07/2022 5:28PM By Teresa Massey MD ; [facility] Lexapro 20 MG OR TABS 08/24/2015 - 08/30/2015 Provider: FRITZ HILLS MD Diagnosis: Generalized anxi ety disorder One tablet daily Last Documented On 09/07/2022 5:28PM By Teresa Massey MD ; [facility] traZODone HCl 50 MG OR TABS 08/03/2015 - 08/30/2015 Provider: FRITZ MASSEY MD Diagnosis: Generalized anxi ety disorder as directed TAKE 1/2 TO 1 TA BLET BY MOUTH 3 TIMES DAILY NEEDED FOR ANXIETY, 1 TAB at bedtime as needed only Last Documented On 09/07/2022 5:28PM By Teresa Massey MD ; [facility] Triamcinolone Acetonide 0.1% EX OINT 07/20/2015 - 02/09 Provider: Diagnosis: Use as directed Last Documented On 09/07/2022 5:28PM By REBA GARZA LPN ; [facility] Crestor 20 MG OR TABS 03/02/2015 - 02/25/2017 Provider : Diagnosis: Take 1 tablet by mouth daily Last Documented On 09/07/2022 5:28PM By REBA GARZA LPN ; [facility] traZODone HCl 50 MG OR TABS 03/02/2015 - 08/03/2015 Provider: FRITZ MASSEY MD Diagnosis: Generalized anxi ety disorder as directed TAKE 1/2 TO 1 TA BLET BY MOUTH 3 TIMES DAILY NEEDED FOR ANXIETY, 1 TAB at bedtime as needed only Last Documented On 09/07/2022 5:28PM By Teresa Massey MD ; [facility] Viibryd 20 MG OR TABS 03/02/2015 - 08/30/2015 Provider: FRITZ HILLS MD Diagnosis: Major depressive disorder, recurrent, unspecified 1 tablet every morning with food Last Documented On 09/07/2022 5:28PM By Teresa Massey MD ; [facility] Lexapro 20 MG OR TABS 03/02/2015 - 08/24/2015 Provider: FRITZ HILLS MD Diagnosis: Generalized anxi ety disorder One tablet daily Last Documented On 09/07/2022 5:28PM By Teresa Massey MD ; [facility] Wellbutrin XL 150 MG OR TB24 03/02/2015 - 08/30/2015 Provider: FRITZ MASSEY MD Diagnosis: Major depressive disorder, recurrent, unspecified as directed 3 every am Last Documented On 09/07/2022 5:28PM By Teresa Massey MD ; [facility] Wellbutrin XL 150 MG OR TB24 02/27/2015 - 03/02/2015 Provider: FRITZ MASSEY MD Diagnosis: Major depressive disorder, recurrent, unspecified as directed 3 every am Last Documented On 09/07/2022 5:28PM By Teresa Massey MD ; [facility] traZODone HCl 50 MG OR TABS 01/30/2015 - 03/02/2015 Provider: FRITZ MASSEY MD Diagnosis: Generalized anxi ety disorder as directed TAKE 1/2 TO 1 TA BLET BY MOUTH 3 TIMES DAILY NEEDED FOR ANXIETY. Last Documented On 09/07/2022 5:28PM By Teresa Massey MD ; [facility] Lexapro 20 MG OR TABS 12/20/2014 - 03/02/2015 Provider: FRITZ HILLS MD Diagnosis: GENERALIZED ANXI ETY DIS One tablet daily Last Documented On 09/07/2022 5:28PM By Teresa Massey MD ; [facility] Viibryd 20 MG OR TABS 11/09/2014 - 03/02/2015 Provider: FRITZ HILLS MD Diagnosis: MAJOR DEPRESSION DISORDER/RECURRENT 1 tablet every morning with food Last Documented On 09/07/2022 5:28PM By Teresa Massey MD ; [facility] Viibryd 20 MG OR TABS 07/19/2014 - 11/09/2014 Provider: FRITZ HILLS MD Diagnosis: MAJOR DEPRESSION DISORDER/RECURRENT 1 tablet every morning with food Last Documented On 09/07/2022 5:28PM By Teresa Massey MD ; [facility] Lexapro 20 MG OR TABS 07/19/2014 - 12/20/2014 Provider: FRITZ HILLS MD Diagnosis: GENERALIZED ANXI ETY DIS One tablet daily Last Documented On 09/07/2022 5:28PM By Teresa Massey MD ; [facility] Wellbutrin XL 150 MG OR TB24 07/19/2014 - 02/27/2015 Provider: FRITZ MASSEY MD Diagnosis: MAJOR DEPRESSION DISORDER/RECURRENT as directed 3 every am Last Documented On 09/07/2022 5:28PM By Teresa Massey MD ; [facility] Nuvigil 150 MG OR TABS 07/19/2014 - 03/02/2015 Provider: FRITZ HILLS MD Diagnosis: OBSTRUCTIVE SLEE P APNEA 1 tablet every morning with food Last Documented On 09/07/2022 5:28PM By Teresa Massey MD ; [facility] traZODone HCl 50 MG OR TABS 07/19/2014 - 01/30/2015 Provider: FRITZ MASSEY MD Diagnosis: GENERALIZED ANXI ETY DIS as directed TAKE 1/2 TO 1 TA BLET BY MOUTH 3 TIMES DAILY NEEDED FOR ANXIETY. Last Documented On 09/07/2022 5:28PM By Teresa Massey MD ; [facility] Viibryd 20 MG OR TABS 02/15/2014 - 07/19/2014 Provider: FRITZ HILLS MD Diagnosis: MAJOR DEPRESSION DISORDER/RECURRENT will try another extra 20 mg in am with food to equal 40 mg in am. Last Documented On 09/07/2022 5:28PM By Teresa Massey MD ; [facility] Lexapro 20 MG OR TABS 02/15/2014 - 07/19/2014 Provider: FRITZ HILLS MD Diagnosis: GENERALIZED ANXI ETY DIS Last Documented On 09/07/2022 5:28PM By Teresa Massey MD ; [facility] Wellbutrin XL 150 MG OR TB24 02/15/2014 - 07/19/2014 Provider: FRITZ MASSEY MD Diagnosis: MAJOR DEPRESSION DISORDER/RECURRENT 3 every am Last Documented On 09/07/2022 5:28PM By Teresa Massey MD ; [facility] Nuvigil 150 MG OR TABS 02/15/2014 - 07/19/2014 Provider: FRITZ HILLS MD Diagnosis: OBSTRUCTIVE SLEE P APNEA Last Documented On 09/07/2022 5:28PM By Teresa Massey MD ; [facility] traZODone HCl 50 MG OR TABS 02/15/2014 - 07/19/2014 Provider: FRITZ MASSEY MD Diagnosis: GENERALIZED ANXI ETY DIS TAKE 1/2 TO 1 TABLET BY MOUT H 3 TIMES DAILY NEEDED FOR ANXIETY. Last Documented On 09/07/2022 5:28PM By Teresa Massey MD ; [facility] traZODone HCl 50 MG OR TABS 02/09/2014 - 02/15/2014 Provider: FRITZ MASSEY MD Diagnosis: GENERALIZED ANXI ETY DIS TAKE 1/2 TO 1 TABLET BY MOUT H 3 TIMES DAILY NEEDED FOR ANXIETY. Last Documented On 09/07/2022 5:28PM By Teresa Massey MD ; [facility] Viibryd 20 MG OR TABS 02/09/2014 - 02/15/2014 Provider: FRITZ HILLS MD Diagnosis: MAJOR DEPRESSION DISORDER/RECURRENT Last Documented On 09/07/2022 5:28PM By Teresa Massey MD ; [facility] Lexapro 20 MG OR TABS 10/05/2013 - 02/15/2014 Provider: FRITZ HILLS MD Diagnosis: GENERALIZED ANXI ETY DIS Last Documented On 09/07/2022 5:28PM By Teresa Massey MD ; [facility] Wellbutrin XL 150 MG OR TB24 10/05/2013 - 02/15/2014 Provider: FRITZ MASSEY MD Diagnosis: MAJOR DEPRESSION DISORDER/RECURRENT 3 every am Last Documented On 09/07/2022 5:28PM By Teresa Massey MD ; [facility] Nuvigil 150 MG OR TABS 10/05/2013 - 10/05/2013 Provider: FRITZ HLILS MD Diagnosis: OBSTRUCTIVE SLEE P APNEA 1 in the morning as needed Last Documented On 09/07/2022 5:28PM By Teresa Massey MD ; [facility] traZODone HCl 50 MG OR TABS 10/05/2013 - 02/09/2014 Provider: FRTIZ MASSEY MD Diagnosis: GENERALIZED ANXI ETY DIS 1/2 to 1 tablet 3 times a da y as needed for anxiety Last Documented On 09/07/2022 5:28PM By Teresa Massey MD ; [facility] Nuvigil 150 MG OR TABS 10/05/2013 - 02/15/2014 Provider: FRITZ HILLS MD Diagnosis: OBSTRUCTIVE SLEE P APNEA 1 in the morning as needed Last Documented On 09/07/2022 5:28PM By Teresa Massey MD ; [facility] Viibryd 20 MG OR TABS 10/05/2013 - 02/09/2014 Provider: FRITZ HILLS MD Diagnosis: MAJOR DEPRESSION DISORDER/RECURRENT Last Documented On 09/07/2022 5:28PM By Teresa Massey MD ; [facility] Viibryd 20 MG OR TABS 06/07/2013 - 10/05/2013 Provider: FRITZ HILSL MD Diagnosis: MAJOR DEPRESSION DISORDER/RECURRENT Last Documented On 09/07/2022 5:28PM By Teresa Massey MD ; [facility] traZODone HCl 50 MG OR TABS 06/07/2013 - 10/05/2013 Provider: FRITZ MASSEY MD Diagnosis: GENERALIZED ANXI ETY DIS 1/2 to 1 tablet 3 times a da y as needed for anxiety Last Documented On 09/07/2022 5:28PM By Teresa Massey MD ; [facility] Lexapro 20 MG OR TABS 06/07/2013 - 10/05/2013 Provider: FRITZ HILLS MD Diagnosis: GENERALIZED ANXI ETY DIS Last Documented On 09/07/2022 5:28PM By Teresa Massey MD ; [facility] Wellbutrin XL 150 MG OR TB24 06/07/2013 - 10/05/2013 Provider: FRITZ MASSEY MD Diagnosis: MAJOR DEPRESSION DISORDER/RECURRENT 3 every am Last Documented On 09/07/2022 5:28PM By Teresa Massey MD ; [facility] Nuvigil 150 MG OR TABS 06/07/2013 - 10/05/2013 Provider: FRITZ HILLS MD Diagnosis: OBSTRUCTIVE SLEE P APNEA 1 in the morning as needed Last Documented On 09/07/2022 5:28PM By Teresa Massey MD ; [facility] Symbicort 80-4.5 MCG/ACT IN AERO 06/07/2013 - 03/02/20 15 Provider: Diagnosis: 2 puffs bid Last Documented On 09/07/2022 5:28PM By Teresa Massey MD ; [facility] Nuvigil 150 MG OR TABS 01/19/2013 - 06/07/2013 Provider: FRITZ HILLS MD Diagnosis: OBSTRUCTIVE SLEE P APNEA 1 in the morning as needed Last Documented On 09/07/2022 5:28PM By Teresa Massey MD ; [facility] Wellbutrin XL 150 MG OR TB24 01/19/2013 - 06/07/2013 Provider: FRITZ MASSEY MD Diagnosis: MAJOR DEPRESSION DISORDER/RECURRENT 3 every am Last Documented On 09/07/2022 5:28PM By Teresa Massey MD ; [facility] traZODone HCl 50 MG OR TABS 01/19/2013 - 06/07/2013 Provider: FRITZ MASSEY MD Diagnosis: GENERALIZED ANXI ETY DIS as needed Last Documented On 09/07/2022 5:28PM By Teresa Massey MD ; [facility] Lexapro 20 MG OR TABS 01/19/2013 - 06/07/2013 Provider: FRITZ HILLS MD Diagnosis: MAJOR DEPRESSION DISORDER/RECURRENT Last Documented On 09/07/2022 5:28PM By Teresa Massey MD ; [facility] Viibryd 20 MG OR TABS 01/19/2013 - 06/07/2013 Provider: FRITZ HILLS MD Diagnosis: MAJOR DEPRESSION DISORDER/RECURRENT Last Documented On 09/07/2022 5:28PM By Teresa Massey MD ; [facility] Viibryd 10 & 20 & 40 MG OR KIT 01/19/2013 - 03/02/2015 Provider: FRITZ HILLS MD Diagnosis: MAJOR DEPRESSION DISORDER/RECURRENT 10 mg in am for 1 week then 20 mg in am with food--gave 12 weeks of samples Last Documented On 09/07/2022 5:28PM By Teresa Massey MD ; [facility] Nuvigil 150 MG OR TABS 07/10/2012 - 07/10/2012 Provide r: Diagnosis: 1 in the morning as needed Last Documented On 09/07/2022 5:28PM By LEXIE HERNANDEZ ; [facility] Viibryd 10 MG OR TABS 07/10/2012 - 07/10/2012 Provider : Diagnosis: 1 in the morning-pt takes it as needed Last Documented On 09/07/2022 5:28PM By LEXIE HERNANDEZ ; [facility] Wellbutrin XL 150 MG OR TB24 07/10/2012 - 01/19/2013 Provider: FRITZ MASSEY MD Diagnosis: MAJOR DEPRESSION DISORDER/RECURRENT 3 every am Last Documented On 09/07/2022 5:28PM By Teresa Massey MD ; [facility] Viibryd 10 MG OR TABS 07/10/2012 - 06/07/2013 Provider: FRITZ HILLS MD Diagnosis: MAJOR DEPRESSION DISORDER/RECURRENT 1 in the morning-pt takes it as needed when he has bouts of down days or feeling short tempered--3 weeks sapmles given Last Documented On 09/07/2022 5:28PM By Teresa Massey MD ; [facility] Allergy 10 MG OR TABS 07/10/2012 - 09/11/2022 P rovider: Diagnosis: Last Documented On 09/11/2022 1:56PM By ILANA POOLE ; [facility] Wellbutrin XL 150 MG OR TB24 07/10/2012 - 07/10/2012 P rovider: Diagnosis: 3 every am Last Documented On 09/07/2022 5:28PM By Teresa Massey MD ; [facility] Albuterol Sulfate POWD 07/10/2012 - 05/13/2018 Provide r: Diagnosis: as needed Last Documented On 09/07/2022 5:28PM By LEXIE HERNANDEZ ; [facility] traZODone HCl 50 MG OR TABS 07/10/2012 - 01/19/2013 Pr ovider: FRITZ MASSEY MD Diagnosis: as needed Last Documented On 09/07/2022 5:28PM By Teresa Massey MD ; [facility] Lexapro 20 MG OR TABS 07/10/2012 - 01/19/2013 Provider: FRITZ HILLS MD Diagnosis: MAJOR DEPRESSION DISORDER/RECURRENT Last Documented On 09/07/2022 5:28PM By Teresa Massey MD ; [facility] Nuvigil 150 MG OR TABS 07/10/2012 - 01/19/2013 Provider: FRITZ HILLS MD Diagnosis: OBSTRUCTIVE SLEE P APNEA 1 in the morning as needed Last Documented On 09/07/2022 5:28PM By Teresa Massey MD ; [facility] Quinapril HCl 40 MG OR TABS 07/05/2012 - 09/11/2022 Pr ovider: Diagnosis: Last Documented On 09/11/2022 2:48PM By ILANA POOLE ; [facility] Indapamide 1.25 MG OR TABS 07/05/2012 - 03/02/2015 Pro vider: Diagnosis: Last Documented On 09/07/2022 5:28PM By LEXIE HERNANDEZ ; [facility] Crestor 40 MG OR TABS 07/03/2012 - 03/02/2015 Provider : Diagnosis: Last Documented On 09/07/2022 5:28PM By LEXIE HERNANDEZ ; [facility] Lexapro 20 MG OR TABS 06/10/2012 - 07/10/2012 Provider : Diagnosis: Last Documented On 09/07/2022 5:28PM By ALISSON NICOLE ; [facility] traZODone HCl 50 MG OR TABS 06/10/2012 - 07/10/2012 Pr ovider: Diagnosis: Last Documented On 09/07/2022 5:28PM By ALISSON NICOLE ; [facility] Medications Administered Includes: Administered Medications in patient's chart No Administered Medications Recorded Vital Signs Includes: Vital Signs from 09/10/2023 through 09/09/2024 Vital Name 10/15/2023 02:01P Blood Pressure Sitting L 118/64 BP Cuff Size Regular Pulse Rate-Sitting (bpm) 82 Pulse Rhythm Regular Height (in) 65.5 Weight (lb) 240 Body Mass Index 39.3 Body Surface Area 2.1 Note: self reported vitals Last Documented: On 10/15/2023 2:01PM ; [facility] Results Includes: Results from 09/10/2023 through 09/09/2024 No Results Recorded For Specified Dates History of Present Illness History of Present Illness not supported for this document type No History of Present Illness Recorded Social History Description Last Updated Current smoker for smoked for 25 years 0 10/15/2023 Last Documented On 4 12:25AM ; [facility] Former smoker - quit smoking in 09/2023 Last Documented On 4 12:25AM ; [facility] Stopped smoking years ago 10/15/2023 Last Documented On 4 12:25AM ; [facility] Alcohol 06/11/2023 Last Documented On 4 2:57PM ; [facility] Currently not in school 06/11/2023 Last Documented On 4 2:57PM ; [facility] Daily coffee consumption 06/11/2023 Last Documented On 4 2:57PM ; [facility] Lives with spouse 06/11/2023 Last Documented On 4 2:57PM ; [facility] Tobacco non-user 02/05/2023 Last Documented On 3 5:32PM ; [facility] Smoking Status Unknown Procedures and Surgical History Includes: Procedures from 09/10/2023 through 09/09/2024 Procedures Code Diagnosis Performing Provider Service Location Service Date TELEHEALTH VISIT [facility] (POLICY CRITERIA APPLIED) [id number] Major depressive disorder, recurrent, unspecified, Generalized anxiety disorder, Psychophysiologic insomnia FRITZ MASSEY MD [facility] 10/15/2023 Last Documented On 4 1:52PM ; [facility] PSYCHOTHERAPY 45 MIN W/ PT-WHEN PERFMD WITH E/ [id number] Major depressive disorder, recurrent, unspecified, Generalized anxiety disorder, Psychophysiologic insomnia FRITZ MASSEY MD [facility] 10/15/2023 Last Documented On 4 1:52PM ; [facility] Medical History Includes: Medical History in patient's chart No Medical History Recorded Family History Includes: Family History in patient's chart No Family History Recorded Review of Systems Review of Systems not supported for this document type No Review of Systems Recorded Mental Status Description Mini-mental status was perfo rmed 30/30 Was able to copy a design Oriented correctly to year Oriented correctly to season Oriented correctly to date Oriented correctly to day Oriented correctly to month Oriented correctly to state Oriented correctly to county Oriented correctly to town Oriented correctly to buildi ng Oriented correctly to floor Normal recent memory for reg istration Calculation was impaired for serial sevens Recent memory was impaired i n recall 3/3 MMSE language testing was in tact Was able to read and obey a written sentence Able to name parts of object s Was able to say no ifs, and s, or buts Was able to follow a 3-stage command Major depressive disorder Functional Status No Functional Status Recorded Physical Exam Physical Exam not supported for this document type No Physical Exam Recorded Allergies Includes: Active, inactive, and resolved Allergies Substance Type Reaction Onset Date Resolved Date Statu s Niacin Allergy skin turned red, got hot, had fever, made him anxious 08/30/2015 Active Last Documented On 10/15/2023 1:46PM ; [facility] Note: Imported from external source. Cardizem Allergy 11/04/2018 Active Last Documented On 10/15/2023 1:46PM ; [facility] Note: Imported from external source. Encounters Includes: Encounters from 09/10/2023 through 09/09/2024 Encounter Provider Location Date Check-In Time Check-Out Time Diagnosis TELEHEALTH ADULT PSYCH ESTABLISHED FRITZ MASSEY MD [facility] 10/15/19 1:42PM 12/28/2004 11:59PM Generalized Anxiety Disorder,Nonor ganic Sleep Apnea,Psychoph ysiological Insomnia,Post- traumatic Stress Disorder,Tremo r,Major Depression Insurance Includes: Active Insurance Policies Plan Name Member ID Group # Subscriber Relationship Effect marlen Dates 1 - MEDICARE PART A CLAIMS/NGS [id number] DEDE PRINGLE Self 05/12/2018 - Unknown 2 - [employer] [id number] DEDE PRINGLE Self Clinical Notes Includes: Signed Clinical Notes starting from 05/31/2022 * Progress note Date Encounter Last Documented by 10/15/2023 TELEHEALTH ADULT PSYCH ESTABLISH ED Last documented on 10/20/2023; 12:25 AM, FRITZ MASSEY MD; [facility] Top of Document Medication psychotherapy 45 minutes Patient gave verbal consent for Telehealth 10/15/23. Location of patient: patient's home Location of provider: provider's office Patient was alone for the session. This visit was conducted with use of interactive audio and video telecommunication system with real time communication between the patient and the provider. Patient consent for virtual visit obtained today. Total time spent with patient via audio and 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 Active Problems & Conditions - Diabetes Mellitus Type 2 - Essential (primary) hypertension - Generalized Anxiety Disorder - Major Depression - Nonorganic Sleep Apnea - Post-traumatic Stress Disorder - Psychophysiological Insomnia - Pure hypercholesterolemia - Restless Legs Syndrome - Tremor - Unspecified asthma, uncomplicated Chief Complaint The Chief Complaint is: Follow up for depression and anxiety. History of Present Illness DEDE PRINGLE is a 72 year old male. - Allergy list reviewed - Past medical history reviewed - Medication list reviewed Pt denied feeling down. Some days he is tired and not as motivated. Sleep is good but at times he has trouble falling asleep. He gets tired during the day. Appetite is good but at times he may overeat. At times he gets anxious and impatient. He admits to getting short tempered lately. He talked about how his has been having more memory/cognitive issues after her accident and once he relays something to her, she tends to forget since his is now having trouble absorbing things. I recommended that he accompanies his to her next dr's visit and relay his concerns about his 's issues. Otherwise he felt that the meds are still helping with his mood. He just needs to learn to be more patient with his . He denied suicidal thoughts. Although at times he can get forgetful himself, he is still able to focus and concentrate for the most part. 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 I discussed about adding Buspar to see if this will help reduce some of his stress/short temperedness. MENTAL STATUS EXAM: Sensorium - alert, oriented to name, place, and time Attitude - cooperative Gait - ambulatory Sleep - occasional difficulty falling asleep - 1 time a month -- compliant with CPAP therapy Interest/Energy/Motivation - good Guilt/Worthlessness - absent Concentration/Attention Span - able to focus and concentrate Memory Recall - fairly at times forgetful, memory recall - 07/12 MMSE - Clock - 08/13 Word Fluency - 10 Appetite - good - on 06/11/23 pt weighed 238 lbs and on 10/15/23 he weighed 240 lbs so he gained 2 lbs Suicidal Thoughts - absent Homicidal Thoughts - absent Delusions - absent Hallucinations - absent Appearance - casually groomed Motor Behavior - calm Eye Contact - intermittent Speech - fluent Mood - not depressed, getting short tempered towards Affect - occ anxious Thought Process - coherent Insight and Judgment - intact Current Medication - Aspirin 81 MG Tablet One tablet daily 0 days, 0 refills - Atorvastatin Calcium 80 MG Oral Tablet as directed 1 tab daily, 90 days, 0 refills - buPROPion HCl ER (XL) 150 MG Oral Tablet Extended Release 24 Hour TAKE 3 TABLETS BY MOUTH IN THE MORNING, 90 days, 3 refills - Escitalopram Oxalate 20 MG Oral Tablet One tablet daily, 90 days, 3 refills - Indapamide 2.5 MG Tablet One tablet daily from Dr. Figueroa, 0 days, 0 refills - Lisinopril 40 MG Oral Tablet as directed 1 daily, 0 days, 0 refills - metFORMIN HCl 500 MG Tablet as directed 4 daily, 90 days, 0 refills - ProAir HFA 108 (90 Base) MCG/ACT Aerosol Solution as directed 1-2 puffs every 4-6 hours prn, 0 days, 0 refills - traZODone HCl 50 MG Oral Tablet DIRECTED 1 TAB 2 TIMES A DAY AND 1 TAB AT BEDTIME NEEDED , 90 days, 1 refills - ZyrTEC Allergy 10 MG Oral Tablet as directed 1 tab daily prn, 0 days, 0 refills - - No side effects reported Past Medical/Surgical History Primary Care Provider: Dr. Jose Joseph Diagnoses: Bronchitis -- given Prednisone 20 mg and Doxycycline 100 mg 11/04/22 Muscle spasm in back -- 01/2023 Systemic hypertension. Asthma Obstructive sleep apnea --using CPAP had a sleep study in 2018 and as of 04/01/19 he wears his CPAP every night. Hyperlipidemia. Type 2 diabetes mellitus. Eczema Dyshidrosis -- h/o. COVID-19 infection - tested positive 01/25/21 -- fatigue. Crush injury of thumb - right thumb 09/23/18 Procedural: - Coronavirus 2019-nCoV vaccine - Pfizer #1 08/02/20 #2 08/24/20 #3 04/19/21 Surgical: - Prior Surgery: Removal of ganglion cyst from left wrist. Removal of granuloma from left upper arm User Defined 4 PREVIOUS PSYCHIATRIC HOSPITALIZATIONS: none PREVIOUS PSYCHIATRIC TREATMENT: none PREVIOUS PSYCHIATRIC MEDICATIONS: Wellbutrin SR 150mg PO BID in 1998 to help quit smoking. Viibryd 20 mg -- 11/2021 -- not taking/felt he did not need it Ropinirole 3 mg -- 04/21/23 -- did not notice a change Social History Tobacco use: Current smoker for smoked for 25 years, former smoker - quit smoking in 1999, and stopped smoking years ago 24. Caffeine use: Daily coffee consumption -- He drinks 1 cup of coffee a day, 1 glass of tea a day and an occasional soda Alcohol: Alcohol use -- none Drug Use: Not using drugs (Illicit). Work: Work history -- He retired from [employer] in 2018. Marital: Marital history Pt at 21. Housing and Economic Circumstances: Lives with spouse He was born in [place], [place] and raised in [place], [place]. He was close to his parents while growing up, they had a good relationship and they were supportive of him. He graduated high school. He worked at [employer]. He first got in 1972 at the age of 21 and had 2 children. He reported no history of verbal, physical or sexual abuse. Allergies - Cardizem - Niacin Reaction: skin turned red, got hot, had fever, made him anxious Family History Family medical history: No significant family history Review Of Systems Systemic: Feeling poorly (malaise) - occasionally tired. No fever, no chills, and no night sweats. Head: No headache. Sinus pain. Neck: No neck pain and no neck stiffness. Eyes: Vision problems and itching of the eyes. No eye pain. Otolaryngeal: No hearing loss and no earache. Tinnitus. No nasal discharge. Postnasal drip. No hoarseness and no sore throat. Cardiovascular: No chest pain or discomfort, no palpitations, and the heart rate was not fast. Pulmonary: No dyspnea. Cough and coughing up sputum. No wheezing. Gastrointestinal: No heartburn. No nausea and no vomiting. Diarrhea. No constipation. Genitourinary: No increase in urinary frequency. No dysuria. Endocrine: No polydipsia and no excessive sweating. Musculoskeletal: No muscle aches. Pain localized to one or more joints and joint stiffness localized to one or more joints. Neurological: No dizziness, no vertigo, no fainting, and no motor disturbances. Skin: No pruritus. No skin lesions and no rash. Physical Findings - Vitals taken 10/15/2023 02:01 pm self reported vitals BP-Sitting L 118/64 mmHg BP Cuff Size Regular Pulse Rate-Sitting 82 bpm Pulse Rhythm Regular Height 65.5 in Weight 240 lbs Body Mass Index 39.3 kg/m2 Body Surface Area 2.1 m2 Neurological: - Mini-mental status was performed . - Calculation was impaired for serial sevens. - Recent memory was impaired in recall 07/12. - Oriented correctly to year. - Oriented correctly to season. - Oriented correctly to date. - Oriented correctly to day. - Oriented correctly to month. - Oriented correctly to state. - Oriented correctly to county. - Oriented correctly to town. - Oriented correctly to building. - Oriented correctly to floor. - Normal recent memory for registration. - Was able to copy a design. - MMSE language testing was intact. - Able to name parts of objects. - Was able to say no ifs, ands, or buts . - Was able to follow a 3-stage command. - Was able to read and obey a written sentence. Tests Educational Testing: Questionnaires PHQ-9: Value PHQ-9: total score 5 Assessment - Nonorganic sleep apnea - Tremor - Major depressive disorder - Psychophysiological insomnia - Generalized anxiety disorder - Post-traumatic stress disorder Therapy - Dangerousness assessment: no suicide risk. - Counseling on new medication: I discussed the risks, benefits and side effects ofBuspar. Patient verbalized understanding and agreed to treatment. - Encouragement to exercise - balanced meal plan, low fat low carb diet. - Supportive care and encouragement--given positive reinforcement to keep patient motivated and active. - Education and instructions. - I recommended cognitive exercises such as reading and/or word search puzzles, etc.. - Assessment of suicide risk performed - not suicidal - Clinical summary provided to patient. * Call [phone] and /or go to the nearest emergency room or call me if suicidal/homicidal ideation or other serious concerns arise. * I gave instructions to call me should there be any questions or concerns. * Patient voiced understanding and agreed to treatment plan. Counseling/Education - Calming techniques such as breathing exercises/meditation and other relaxation techniques Plan StartCited - Generalized anxiety disorder busPIRone HCl 10 MG tablet One tablet daily, 30 days, 3 refills EndCited StartCited - Other Follow-up 03/15/24 EndCited Major Depressive disorder, recurrent - Wellbutrin XL 150 mg 3 tablets in the morning Generalized Anxiety Disorder -- Buspar 10 mg 1 tab daily, Lexapro 20 mg a day Post Traumatic Stress Disorder - Trazodone 50 mg 1 tab 2 x a day as needed for anxiety Psychophysiological Insomnia - Trazodone 50 mg 1 tab at bedtime as needed for sleep DARVIN - continue CPAP therapy Practice Management Use of tobacco assessment performed and patient screened for future fall risk documentation of any fall with injury in past year - no recent falls Review of medications documented; Standardized depression screening: positive for symptoms and for adult impression and score - please see above treatment and PHQ score.
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
--- OUTSIDE RECORDS SUMMARY | 2024-09-09 08:55 | XMS_ITS | Clinical Summary ---
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 Name Role Phone LAURA GUZMAN, FRITZ SAUCEDA [facility] [phone] Reason for Visit and Chief Complaint The Chief Complaint is: follow up for depression and anxiety Problems Includes: Problems addressed during this encounter and other active Problems Current Visit Onset Date Resolved Date Provider Conditio n Status Post-traumatic Stress Disorder 01/10/2022 Active Last Documented On 3 5:53PM ; [facility] Tremor 01/10/2019 Active Last Documented On 3 5:52PM ; [facility] Psychophysiological Insomnia 04/11/2016 Active Last Documented On 3 5:50PM ; [facility] 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 FRITZ WORTHY MD Active Last Documented On 3 2:02PM ; [facility] Major Depression 06/22/2012 FRITZ MASSEY MD Active Last Documented On 3 2:02PM ; [facility] Generalized Anxiety Disorder 06/10/2012 Inactive Last Documented On 3 5:43PM ; [facility] Generalized Anxiety Disorder 06/10/2012 FRITZ MASSEY MD Active Last Documented On 3 2:02PM ; [facility] Past Visits Onset Date Resolved Date Provider Condition Status Restless Legs Syndrome 02/05/2023 BRANDON MASSEY MD Active Last Documented On 3 3:54PM ; [facility] Diabetes Mellitus Type 2 02/25/2017 Active Last Documented On 3 5:51PM ; [facility] Unspecified asthma, uncomplicated 07/10/2012 Active Last Documented On 3 5:48PM ; [facility] Essential (primary) hypertension 06/10/2012 Active Last Documented On 3 5:48PM ; [facility] Pure hypercholesterolemia 06/10/2012 Active Last Documented On 3 5:48PM ; [facility] Plan of Treatment Major Depressive disorder, recurrent - Wellbutrin XL 150 mg 3 tablets in the morning Generalized Anxiety Disorder -- Lexapro 20 mg 1 tab daily Post Traumatic Stress Disorder - Trazodone 50 mg 1 tab 2 x a day as needed for anxiety Psychophysiological Insomnia - Trazodone 50 mg 1 tab at bedtime as needed for sleep DARVIN - continue CPAP therapy - Last Documented On 09/24/2022 9:32AM ; [facility] Assessments Includes: Assessments from this encounter Findings - Nonorganic sleep apnea - Last Documented On 09/24/2022 9:32AM ; [facility] - Tremor - Last Documented On 09/24/2022 9:32AM ; [facility] - Major depressive disorder - Last Documented On 09/24/2022 9:32AM ; [facility] - Psychophysiological insomnia - Last Documented On 09/24/2022 9:32AM ; [facility] - Generalized anxiety disorder - Last Documented On 09/24/2022 9:32AM ; [facility] - Post-traumatic stress disorder - Last Documented On 09/24/2022 9:32AM ; [facility] Medical Equipment - Implanted Devices Includes: Current Devices No Medical Equipment Recorded Medications Includes: Medications discussed during this encounter and other current Medications Discontinued / Stopped on this date on 04/23/2022 Azelastine HCl 137 MCG/SPRAY NA SOLN Prov ider: Diagnosis: Acute sinusitis, unspecified Last Documented On 09/11/2022 1:55PM By ILANA POOLE ; [facility] ZyrTEC Allergy 10 MG OR TABS Provider: Diagnosis: Last Documented On 09/11/2022 1:56PM By ILANA POOLE ; [facility] Quinapril HCl 40 MG OR TABS Provider: Diagnosis: Last Documented On 09/11/2022 2:48PM By ILANA POOLE ; [facility] New / Renewed during this visit FRITZ MASSEY MD on 09/11/2022 traZODone HCl 50 MG Oral Tablet Provider: METODIA SOHAIL MASSEY MD day supply: 240 tablet, 1 refills Diagnosis: Psychophysiologic insomnia as directed -- 1 tab 2 x a d ay, 1 tab at bedtime as needed Pharmacy: [address] [address] - Last Documented On 11/29/2022 4:43PM By ROSEMARY PINZON ; [facility] Current Medications (continue as prescribed) busPIRone HCl 10 MG Oral Tablet 10/15/2023 Provider: FRITZ MASSEY MD Diagnosis: Generalized anxi ety disorder One tablet daily Last Documented On 10/15/2023 2:46PM By Sohail Massey MD ; [facility] ZyrTEC Allergy 10 MG Oral Tablet 10/15/2023 Provider : Diagnosis: 1 tab daily prn Last Documented On 10/15/2023 1:59PM By ILANA POOLE ; [facility] traZODone HCl 50 MG Oral Tablet 06/20/2023 Provider: FRITZ MASSEY MD Diagnosis: Psychophysiologi c insomnia DIRECTED 1 TAB 2 TIMES A DAY AND 1 TAB AT BEDTIME NEEDED Last Documented On 06/20/2023 8:48AM By Sohail Massey MD ; [facility] Escitalopram Oxalate 20 MG Oral Tablet 06/11/2023 Provider: FRITZ MASSEY MD Diagnosis: Generalized anxi ety disorder One tablet daily Last Documented On 06/11/2023 2:33PM By Sohail Massey MD ; [facility] buPROPion HCl ER (XL) 150 MG Oral Tablet Extended Release 24 Hour 06/11/2023 Provider: FRITZ MASSEY MD Diagnosis: Major depressive disorder, recurrent, moderate TAKE 3 TABLETS BY MOUTH IN T HE MORNING Last Documented On 06/11/2023 2:31PM By Sohail Massey MD ; [facility] Atorvastatin Calcium 80 MG Oral Tablet 01/08/2023 Pr ovider: CESAR CASTANO APN Diagnosis: 1 tab daily Last Documented On 02/05/2023 1:45PM By ILANA POOLE ; [facility] Lisinopril 40 MG Oral Tablet 09/11/2022 Provider: Diagnosis: 1 daily Last Documented On 09/11/2022 2:48PM By ILANA POOLE ; [facility] metFORMIN HCl 500 MG TABS 07/11/2020 Provider: Diagnosis: 4 daily Last Documented On 09/07/2022 5:28PM By ILANA POOLE ; [facility] ProAir HFA 108 (90 Base) MCG/ACT IN AERS 05/13/2018 Provider: Diagnosis: 1-2 puffs every 4-6 hours prn Last Documented On 09/07/2022 5:28PM By ILANA POOLE ; [facility] Indapamide 2.5 MG OR TABS 03/02/2015 Provider: Diagnosis: from Dr. Figueroa Last Documented On 09/07/2022 5:28PM By Sohail Massey MD ; [facility] Aspirin 81 MG OR TABS 07/10/2012 Provider: Diagnosis: Last Documented On 09/07/2022 5:28PM By LEXIE HERNANDEZ ; [facility] Medications Administered Includes: Administered Medications from this encounter No Administered Medications Recorded Vital Signs Includes: Vital Signs from this encounter Vital Name 09/11/2022 02:06P Blood Pressure Sitting L 125/72 BP Cuff Size Regular Pulse Rate-Sitting (bpm) 76 Pulse Rhythm Regular Height (in) 65.5 Weight (lb) 246 Body Mass Index 40.3 Body Surface Area 2.2 Note: self reported vitals Last Documented: On 09/11/2022 2:24PM ; [facility] Results Includes: Results discussed during this encounter No Results Recorded For Specified Dates History of Present Illness Includes: History of Present Illness from this encounter DANNI PRINGLE is a 71 year old male. - Allergy list reviewed - Past medical history reviewed - Medication list reviewed Dede reported that he seemed to be coping with his current situation with his 's previous accident. His seemed to be recovering well. The combination of Bupropion XL 450 mg in the morning and Lexapro 20 mg a day seemed to be helping with his mood and anxiety. Occasionally, he may get tired. He said that he is trying his best to follow through a low fat low carb diet. He is still overweight at 245 pounds and he is diabetic. He said that he likes his sweets and bad carbohydrates and I encouraged him to follow through a low fat low carb diet and exercise. His hemoglobin A1C was 7.3 and he said that it has gone down to 6.8. He takes Trazodone 50 mg one tablet three times a day which seems to help with anxiety and sleep. He has had tremors for quite some time and he spoke to his primary care physician Dr. Joseph who ordered MRI of the brain which was essentially normally and was referred to a neurologist but has not done so. He denied having any suicidal thoughts. No delusions or hallucinations. He denied having any mood swings. There are days that he is motivated but occasionally he gets tired. He denied feeling bad about himself. He is able to focus and concentrate. He denied having any psychomotor restlessness. MENTAL STATUS EXAM: Sensorium - alert, oriented to name, place, and time Attitude - cooperative Gait - ambulatory Sleep - good - compliant with CPAP therapy Interest/Energy/Motivation - good, occ tired Guilt/Worthlessness - absent Concentration/Attention Span - able to focus and concentrate Memory Recall - fairly good Appetite - good - on 06/11/22 pt weighed 245 lbs and on 09/11/22 he weighed 246 lbs so he gained 1 lb Suicidal Thoughts - absent Homicidal Thoughts - absent Delusions - absent Hallucinations - absent Appearance - casually groomed Motor Behavior - calm Eye Contact - intermittent Speech - fluent Mood - not as depressed Affect - less anxious Thought Process - coherent Insight and Judgment - intact Social History Description Last Updated Tobacco non-user 09/12/2022 Last Documented On 3 9:32AM ; [facility] Caffeine use: Daily coffee c onsumption -- He drinks 0 - 4 cups of coffee a day, 2 glasses of tea a week and rarely, a botlle of Ski.Alcohol: Alcohol use -- <2 - 4 beers a month.Drug Use: Not using drugs (Illicit).Work: Work history -- He retired from [employer] in 2018.Marital: Marital history Pt at 21.He was born in [place], [place] and raised in [place], [place]. He was close to his parents while growing up, they had a good relationship and they were supportive of him. He graduated high school. He worked at [employer]. He first got in 1972 at the age of 21 and had 2 children. He reported no history of verbal, physical or sexual abuse. 09/12/2022 Last Documented On 3 10:33AM ; [facility] Smoking Status Unknown Procedures and Surgical History Includes: Procedures from this encounter Procedures Code Diagnosis Performing Provider Service L ocation Service Date education and instructions Last Documented On 3 1:50PM ; [facility] ~* Call [phone] and /or go t o the nearest emergency room or call me if suicidal/homicidal ideation or other serious concerns arise. ~ ~* I gave instructions to call me should there be any questions or concerns. ~ ~* Patient voiced understanding and agreed to treatment plan Last Documented On 3 2:04PM ; [facility] dangerousness assessment: no suicide risk - not suicidal 3085F Last Documented On 3 2:26PM ; [facility] use of tobacco assessment performed 1000F Last Documented On 3 2:05PM ; [facility] patient screened for future fall risk: documentation of any fall with injury in past year - no recent falls 1100F Last Documented On 3 2:04PM ; [facility] screening for adult depressi on: impression and score - please see above for treatment and PHQ score Last Documented On 3 2:05PM ; [facility] standardized depression screening: posit marlen for symptoms Last Documented On 3 2:05PM ; [facility] encouragement to exercise Last Documented On 3 1:50PM ; [facility] Clinical summary provided to patient Last Documented On 3 1:50PM ; [facility] PHQ-9: total score 4 Last Documented On 3 9:31AM ; [facility] Medical History Includes: Medical History addressed during this encounter Description Last Updated Primary Care Provider: Dr. Isaiah JosephDiagnoses: Systemic hypertension. AsthmaObstructive sleep apnea --using CPAP had a sleep study in 2018 and as of 04/01/19 he wears his CPAP every night. Hyperlipidemia. Type 2 diabetes mellitus. EczemaDyshidrosis -- h/o. COVID-19 infection - tested positive 01/25/21 -- fatigue. Crush injury of thumb - right thumb 09/23/18Procedural: Coronavirus 2019-nCoV vaccine - Clari #1 08/02/20 #2 08/24/20 #3 04/19/21Surgical: Prior Surgery: Removal of ganglion cyst from left wrist. Removal of granuloma from left upper arm 09/18/2022 Last Documented On 3 11:15AM ; [facility] Family History Includes: Family History addressed during this encounter Description Last Updated Family medical history: No significant f amily history 09/18/2022 Last Documented On 3 11:16AM ; [facility] Review of Systems Includes: Review of Systems from this encounter Systemic: Not feeling poorly (malaise). No fever, no chills, and no night sweats. Head: Headache associated with head congestion and sinus pain. Neck: No neck pain and no neck stiffness. Eyes: No vision problems, no itching of the eyes, and no eye pain. Otolaryngeal: No hearing loss, no earache, and no nasal discharge. Postnasal drip. No hoarseness and no sore throat. Bleeding gums. Cardiovascular: No chest pain or discomfort, no palpitations, and the heart rate was not fast. Pulmonary: No dyspnea, no cough, and no wheezing. Gastrointestinal: No heartburn. No nausea, no vomiting, no diarrhea, and no constipation. Genitourinary: No increase in urinary frequency. No dysuria. Endocrine: No polydipsia and no excessive sweating. Musculoskeletal: No muscle aches, no localized joint pain, and no localized joint stiffness. Neurological: No dizziness, no vertigo, and no fainting. Motor disturbances. Skin: No pruritus. No skin lesions and no rash. Mental Status Includes: Mental Status from this encounter Description Major depressive disorder Functional Status Includes: Functional Status from this encounter No Functional Status Recorded Physical Exam Includes: Physical Exam from this encounter Allergies Includes: Active Allergies Substance Type Reaction Onset Date Resolved Date Statu s Niacin Allergy skin turned red, got hot, had fever, made him anxious 08/30/2015 Active Last Documented On 10/15/2023 1:46PM ; [facility] Note: Imported from external source. Cardizem Allergy 11/04/2018 Active Last Documented On 10/15/2023 1:46PM ; [facility] Note: Imported from external source. Encounters Encounter Provider Location Date Check-In Time Check-Out Time Diagnosis TELEHEALTH FRITZ MASSEY MD [facility] 09/12/19 1:49PM 11:59PM Generalized Anxiety Disorder,Major Depression,Post -traumatic Stress Disorder,Psycho physiological Insomnia,Nonorg anic Sleep Apnea,Tremor Insurance Includes: Active Insurance Policies Plan Name Member ID Group # Subscriber Relationship Effect marlen Dates 1 - MEDICARE PART A CLAIMS/NGS [id number] DEDE PRINGLE Self 05/12/2018 - Unknown 2 - [employer] [id number] DEDE PRINGLE Self Clinical Notes Includes: Clinical Notes from this encounter * Progress note Date Encounter Last Documented by 09/11/2022 TELEHEALTH Last documented on 09/24/2022; 9:32 AM, FRITZ MASSEY MD; [facility] Top of Document Medication psychotherapy 30 minutes Patient gave verbal consent for Telehealth 09/11/22. Location of patient: patient's home Location of provider: provider's office Patient was alone for the session. This visit was conducted with use of interactive audio and video telecommunication system with real time communication between the patient and the provider. Patient consent for virtual visit obtained today. Total time spent with patient via audio and video telecommunication 30 minutes. Active Problems & Conditions - Diabetes Mellitus Type 2 - Essential (primary) hypertension - Generalized Anxiety Disorder - Major Depression - Nonorganic Sleep Apnea - Post-traumatic Stress Disorder - Psychophysiological Insomnia - Pure hypercholesterolemia - Tremor - Unspecified asthma, uncomplicated Chief Complaint The Chief Complaint is: Follow up for depression and anxiety. History of Present Illness DEDE PRINGLE is a 71 year old male. - Allergy list reviewed - Past medical history reviewed - Medication list reviewed Dede reported that he seemed to be coping with his current situation with his 's previous accident. His seemed to be recovering well. The combination of Bupropion XL 450 mg in the morning and Lexapro 20 mg a day seemed to be helping with his mood and anxiety. Occasionally, he may get tired. He said that he is trying his best to follow through a low fat low carb diet. He is still overweight at 245 pounds and he is diabetic. He said that he likes his sweets and bad carbohydrates and I encouraged him to follow through a low fat low carb diet and exercise. His hemoglobin A1C was 7.3 and he said that it has gone down to 6.8. He takes Trazodone 50 mg one tablet three times a day which seems to help with anxiety and sleep. He has had tremors for quite some time and he spoke to his primary care physician Dr. Joseph who ordered MRI of the brain which was essentially normally and was referred to a neurologist but has not done so. He denied having any suicidal thoughts. No delusions or hallucinations. He denied having any mood swings. There are days that he is motivated but occasionally he gets tired. He denied feeling bad about himself. He is able to focus and concentrate. He denied having any psychomotor restlessness. MENTAL STATUS EXAM: Sensorium - alert, oriented to name, place, and time Attitude - cooperative Gait - ambulatory Sleep - good - compliant with CPAP therapy Interest/Energy/Motivation - good, occ tired Guilt/Worthlessness - absent Concentration/Attention Span - able to focus and concentrate Memory Recall - fairly good Appetite - good - on 06/11/22 pt weighed 245 lbs and on 09/11/22 he weighed 246 lbs so he gained 1 lb Suicidal Thoughts - absent Homicidal Thoughts - absent Delusions - absent Hallucinations - absent Appearance - casually groomed Motor Behavior - calm Eye Contact - intermittent Speech - fluent Mood - not as depressed Affect - less anxious Thought Process - coherent Insight and Judgment - intact Current Medication - Aspirin 81 MG Tablet One tablet daily 0 days, 0 refills - Atorvastatin Calcium 40 MG Tablet One tablet daily 0 days, 0 refills - buPROPion HCl ER (XL) 150 MG Tablet Extended Release 24 Hour TAKE 3 TABLETS BY MOUTH IN THE MORNING, 90 days, 3 refills - Escitalopram Oxalate 20 MG Tablet One tablet daily One tablet daily, 90 days, 1 refills - Indapamide 2.5 MG Tablet One [...] 0 refills - traZODone HCl 50 MG Tablet TAKE 1/2 (ONE-HALF) TABLET BY MOUTH TWICE DAILY NEEDED FOR ANXIETY AND 1 TABLET AT BEDTIME NEEDED FOR SLEEP DIRECTED, 90 days, 1 refills - - No side effects reported Past Medical/Surgical History Primary Care Provider: Dr. Jose Joseph Diagnoses: Systemic hypertension. Asthma Obstructive sleep apnea --using [...] not taking/felt he did not need it Social History Tobacco use: Tobacco non-user. Caffeine use: Daily coffee consumption -- He drinks 0 - 4 cups of coffee a day, 2 glasses of tea a week and rarely, a botlle of Ski. Alcohol: Alcohol use -- <2 - 4 beers a month. Drug Use: Not using drugs (Illicit). Work: Work history -- He retired from [employer] in 2018. Marital: Marital history Pt at 21. He was born in [place], [place] and raised in [place], [place]. He was close to his parents while growing up, they had a good relationship and they were supportive of him. He graduated high school. He worked at [employer]. He first got in 1972 at the age of 21 and had 2 children. He reported no history of verbal, physical or sexual abuse. Allergies - Cardizem - Niacin Reaction: skin turned red, got hot, had fever, made him anxious Family History Family medical history: No significant family history Review Of Systems Systemic: Not feeling poorly (malaise). No fever, no chills, and no night sweats. Head: Headache associated with head congestion and sinus pain. Neck: No neck pain and no neck stiffness. Eyes: No vision problems, no itching of the eyes, and no eye pain. Otolaryngeal: No hearing loss, no earache, and no nasal discharge. Postnasal drip. No hoarseness and no sore throat. Bleeding gums. Cardiovascular: No chest pain or discomfort, no palpitations, and the heart rate was not fast. Pulmonary: No dyspnea, no cough, and no wheezing. Gastrointestinal: No heartburn. No nausea, no vomiting, no diarrhea, and no constipation. Genitourinary: No increase in urinary frequency. No dysuria. Endocrine: No polydipsia and no excessive sweating. Musculoskeletal: No muscle aches, no localized joint pain, and no localized joint stiffness. Neurological: No dizziness, no vertigo, and no fainting. Motor disturbances. Skin: No pruritus. No skin lesions and no rash. Physical Findings - Vitals taken 09/11/2022 02:06 pm self reported vitals BP-Sitting L 125/72 mmHg BP Cuff Size Regular Pulse Rate-Sitting 76 bpm Pulse Rhythm Regular Height 65.5 in Weight 246 lbs Body Mass Index 40.3 kg/m2 Body Surface Area 2.2 m2 Tests Educational Testing: Questionnaires PHQ-9: Value PHQ-9: total score 4 Assessment - Nonorganic sleep apnea - Tremor - Major depressive disorder - Psychophysiological insomnia - Generalized anxiety disorder - Post-traumatic stress disorder Therapy - Dangerousness assessment: no suicide risk - not suicidal. - Encouragement to exercise. - Education and instructions. - Clinical summary provided to patient. * Call [phone] and /or go to the nearest emergency room or call me if suicidal/homicidal ideation or other serious concerns arise. * I gave instructions to call me should there be any questions or concerns. * Patient voiced understanding and agreed to treatment plan. Counseling/Education - Supportive care and encouragement--given positive reinforcement to keep patient motivated and active Plan StartCited - Other Follow-up 02/05/23 EndCited StartCited - Psychophysiologic insomnia traZODone HCl 50 MG tablet as directed -- 1 tab 2 x a day, 1 tab at bedtime as needed, 90 days, 1 refills EndCited Major Depressive disorder, recurrent - Wellbutrin XL 150 mg 3 tablets in the morning Generalized Anxiety Disorder -- Lexapro 20 mg 1 tab daily Post Traumatic Stress Disorder - Trazodone 50 mg 1 tab 2 x a day as needed for anxiety Psychophysiological Insomnia - Trazodone 50 mg 1 tab at bedtime as needed for sleep DARVIN - continue CPAP therapy Practice Management Use of tobacco assessment performed and patient screened for future fall risk documentation of any fall with injury in past year - no recent falls; Standardized depression screening: positive for symptoms and for adult impression and score - please see above for treatment and PHQ score.
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
--- OUTSIDE RECORDS SUMMARY | 2024-09-09 08:55 | XMS_ITS ---
Author Organization [facility] Address [address] [place] [id number] Phone Care Team Providers Care Cloth Printer Name Role Phone LAURA GUZMAN, FRIZT SAUCEDA Unavailable [phone] Problems Includes: Active, inactive, and resolved Problems All Visits Onset Date Resolved Date Provider Condition S tatus Post-traumatic Stress Disorder 01/10/2022 FRITZ MASSEY MD Active Last Documented On 2 9:19PM ; [facility] T[facility] 01/10/2019 FRITZ MASSEY MD Ac tive Last Documented On 9 3:00AM ; [facility] Diabetes Mellitus Type 2 02/25/2017 FRITZ MASSEY MD Active Last Documented On 7 4:30PM ; [facility] Psychophysiological Insomnia 04/11/2016 FRITZ MASSEY MD Active Last Documented On 7 9:35PM ; [facility] Asthma 07/10/2012 FRITZ MASSEY MD In active Last Documented On 5 10:27AM ; [facility] Unspecified asthma, uncomplicated 07/10/2012 ME MERVAT MASSEY MD Active Last Documented On 5 10:26AM ; [facility] Nonorganic Sleep Apnea Obstructive 07/10/2012 Luis Eduardo MASSEY MD Inactive Last Documented On 5 10:26AM ; [facility] Note: Using CPAP Sleep apnea, unspecified 07/10/2012 FRITZ MASSEY MD Active Last Documented On 5 10:26AM ; [facility] Major depressive disorder, r ecurrent, unspecified 06/22/2012 FRITZ MASSEY MD Active Last Documented On 5 10:25AM ; [facility] Major Depression, Recurrent 06/22/2012 FRITZ MASSEY MD Inactive Last Documented On 5 10:25AM ; [facility] Generalized anxiety disorder 06/10/2012 FRITZ MASSEY MD Active Last Documented On 5 10:23AM ; [facility] Generalized Anxiety Disorder 06/10/2012 FRITZ MASSEY MD Inactive Last Documented On 5 10:23AM ; [facility] Essential (primary) hypertension 06/10/2012 MET ANTONIO MASSEY MD Active Last Documented On 5 10:24AM ; [facility] Hypertension Systemic 06/10/2012 FRITZ GAGNON MD Inactive Last Documented On 5 10:24AM ; [facility] Pure hypercholesterolemia 06/10/2012 FRITZ MASSEY MD Active Last Documented On 5 10:23AM ; [facility] Pure Hypercholesterolemia 06/10/2012 FRITZ MASSEY MD Inactive Last Documented On 5 10:24AM ; [facility] Plan of Treatment Instructions to patient Lose weight - pt lost 5 lbs Last Documented On 2 8:27AM ; [facility] Lose weight - portion contro l, balanced meals Last Documented On 2 2:03PM ; [facility] Lose weight Last Documented On 2 1:53PM ; [facility] Lose weight Last Documented On 1 2:06PM ; [facility] Lose weight Last Documented On 1 2:17PM ; [facility] Lose weight Last Documented On 0 1:55PM ; [facility] Education and Decision Aids were provided during visit for: Patient education about medi cation ---Education was given on medication(s) and diagnosis. I reviewed the risks, benefits and side effects of patient's medications Last Documented On 3 1:49PM ; [facility] Discussed calming techniques such as breathing exercises and other relaxation techniques Last Documented On 3 1:49PM ; [facility] Patient education about medi cation ---Education was given on medication(s) and diagnosis. I reviewed the risks, benefits and side effects of patient's medications Last Documented On 2 1:44PM ; [facility] Discussed calming techniques such as breathing exercises and other relaxation techniques Last Documented On 2 1:44PM ; [facility] Patient education about medi cation --- I educated patient on medication(s) and diagnosis. I reviewed the risks, benefits and side effects of patient's medications Last Documented On 2 1:36PM ; [facility] Discussed calming techniques such as breathing exercises and other relaxation techniques Last Documented On 2 1:36PM ; [facility] Counseling for nutrition/maci ght management provided Last Documented On 2 1:50PM ; [facility] Discussed good sleep hygiene habits Last Documented On 2 1:50PM ; [facility] Patient education about medi cation --- I educated patient on medication(s) and diagnosis. I reviewed the risks, benefits and side effects of patient's medications Last Documented On 2 1:48PM ; [facility] Discussed calming techniques such as breathing exercises and other relaxation techniques Last Documented On 2 1:48PM ; [facility] Counseling for nutrition/maci ght management provided Last Documented On 2 1:56PM ; [facility] Discussed good sleep hygiene habits Last Documented On 2 1:56PM ; [facility] Patient education about medi cation --- I educated patient on medication(s) and diagnosis. I reviewed the risks, benefits and side effects of patient's medications Last Documented On 2 1:41PM ; [facility] Discussed calming techniques such as breathing exercises and other relaxation techniques Last Documented On 2 1:41PM ; [facility] Counseling for nutrition/maci ght management provided Last Documented On 2 1:53PM ; [facility] Discussed good sleep hygiene habits Last Documented On 2 1:53PM ; [facility] Patient education about medi cation --- I educated patient on medication(s) and diagnosis. I reviewed the risks, benefits and side effects of patient's medications Last Documented On 1 1:42PM ; [facility] Discussed calming techniques such as breathing exercises and other relaxation techniques Last Documented On 1 1:42PM ; [facility] Counseling for nutrition/maci ght management provided Last Documented On 1 2:06PM ; [facility] Discussed good sleep hygiene habits Last Documented On 1 2:06PM ; [facility] Patient education about medi cation --- I educated patient on medication(s) and diagnosis. I reviewed the risks, benefits and side effects of patient's medications Last Documented On 1 1:37PM ; [facility] Discussed calming techniques such as breathing exercises and other relaxation techniques Last Documented On 1 1:37PM ; [facility] Counseling for nutrition/maci ght management provided Last Documented On 1 2:17PM ; [facility] Discussed good sleep hygiene habits Last Documented On 1 2:17PM ; [facility] Patient education about medi cation --- I educated patient on medication(s) and diagnosis. I reviewed the risks, benefits and side effects of patient's medications Last Documented On 0 1:44PM ; [facility] Discussed calming techniques such as breathing exercises and other relaxation techniques Last Documented On 0 1:44PM ; [facility] Counseling for nutrition/maci ght management provided Last Documented On 0 1:55PM ; [facility] Patient education about a pr oper diet Last Documented On 0 3:33PM ; [facility] Patient education about medi cation --- I educated patient on medication(s) and diagnosis. I reviewed the risks, benefits and side effects of patient's medications Last Documented On 0 2:48PM ; [facility] Discussed calming techniques such as breathing exercises and other relaxation techniques Last Documented On 0 2:48PM ; [facility] Counseling for nutrition/maci ght management provided Last Documented On 0 3:33PM ; [facility] Patient education about a pr oper diet Last Documented On 9 10:07AM ; [facility] Patient education about medi cation --- I educated patient on medication(s) and diagnosis. I reviewed the risks, benefits and side effects of patient's medications Last Documented On 9 9:55AM ; [facility] Discussed calming techniques such as breathing exercises and other relaxation techniques Last Documented On 9 9:55AM ; [facility] Counseling for nutrition/maci ght management provided Last Documented On 9 10:07AM ; [facility] Discussed good sleep hygiene habits Last Documented On 9 3:01AM ; [facility] Patient education about a pr oper diet Last Documented On 9 1:52PM ; [facility] Patient education about medi cation --- I educated patient on medication(s) and diagnosis. I reviewed the risks, benefits and side effects of patient's medications Last Documented On 9 1:33PM ; [facility] Discussed calming techniques such as breathing exercises and other relaxation techniques Last Documented On 9 1:33PM ; [facility] Counseling for nutrition/maci ght management provided Last Documented On 9 1:52PM ; [facility] Patient education about a pr oper diet Last Documented On 9 2:59PM ; [facility] Patient education about medi cation --- I educated patient on medication(s) and diagnosis. I reviewed the risks, benefits and side effects of patient's medications Last Documented On 9 2:57PM ; [facility] Discussed calming techniques such as breathing exercises and other relaxation techniques Last Documented On 9 2:57PM ; [facility] Counseling for nutrition/maci ght management provided Last Documented On 9 2:59PM ; [facility] Discussed good sleep hygiene habits Last Documented On 9 6:48AM ; [facility] Patient education about medi cation --- I educated patient on medication(s) and diagnosis. I reviewed the risks, benefits and side effects of patient's medications Last Documented On 8 4:45PM ; [facility] Discussed calming techniques such as breathing exercises and other relaxation techniques Last Documented On 8 4:45PM ; [facility] Counseling for nutrition/maci ght management provided Last Documented On 8 9:30AM ; [facility] Patient education about medi cation --- I educated patient on medication(s) and diagnosis. I reviewed the risks, benefits and side effects of patient's medications Last Documented On 7 4:07PM ; [facility] Discussed calming techniques such as breathing exercises and other relaxation techniques Last Documented On 7 4:07PM ; [facility] Counseling for nutrition/maci ght management provided Last Documented On 7 7:51AM ; [facility] Patient education about medi cation --- I educated patient on medication(s) and diagnosis. I reviewed the risks, benefits and side effects of patient's medications Last Documented On 7 3:59PM ; [facility] Discussed calming techniques such as breathing exercises/meditation and other relaxation techniques Last Documented On 7 3:59PM ; [facility] Counseling for nutrition/maci ght management provided Last Documented On 7 9:30PM ; [facility] Discussed good sleep hygiene habits Last Documented On 7 9:30PM ; [facility] Patient education about medi cation --- I educated patient on medication(s) and diagnosis. I reviewed the risks, benefits and side effects of patient's medications Last Documented On 6 4:25PM ; [facility] Discussed calming techniques such as breathing exercises/meditation and other relaxation techniques Last Documented On 6 4:25PM ; [facility] Counseling for nutrition/maci ght management provided Last Documented On 6 1:06AM ; [facility] Patient education about medi cation --- I educated patient on medication(s) and diagnosis. I reviewed the risks, benefits and side effects of patient's medications Last Documented On 6 4:13PM ; [facility] Discussed calming techniques such as breathing exercises/meditation and other relaxation techniques Last Documented On 6 4:13PM ; [facility] Counseling for nutrition/maci ght management provided Last Documented On 6 2:32AM ; [facility] Patient education about medi cation --- I educated patient on medication(s) and diagnosis. I reviewed the risks, benefits and side effects of patient's medications Last Documented On 5 3:53PM ; [facility] Discussed calming techniques such as breathing exercises/meditation and other relaxation techniques Last Documented On 5 3:53PM ; [facility] Counseling for nutrition/maci ght management provided Last Documented On 5 4:38PM ; [facility] Discussed good sleep hygiene habits Last Documented On 5 4:38PM ; [facility] Patient education about medi cation --- I educated patient on medication(s) and diagnosis. I reviewed the risks, benefits and side effects of patient's medications Last Documented On 5 5:22PM ; [facility] Discussed calming techniques such as breathing exercises/meditation and other relaxation techniques Last Documented On 5 4:08PM ; [facility] Counseling for nutrition/maci ght management provided Last Documented On 5 5:22PM ; [facility] Patient education about medi cation --- I educated patient on medication(s) and diagnosis. I reviewed the risks, benefits and side effects of patient's medications Last Documented On 4 8:59PM ; [facility] Discussed calming techniques such as breathing exercises/meditation and other relaxation techniques Last Documented On 4 4:36PM ; [facility] Counseling for nutrition/maci ght management provided Last Documented On 4 8:59PM ; [facility] Patient education about medi cation --- I educated patient on medication(s) and diagnosis. I reviewed the risks, benefits and side effects of patient's medications Last Documented On 4 5:28PM ; [facility] Discussed calming techniques such as breathing exercises/meditation and other relaxation techniques Last Documented On 4 3:37PM ; [facility] Counseling for nutrition/maci ght management provided Last Documented On 4 5:28PM ; [facility] Patient education about medi cation --- I educated patient on medication(s) and diagnosis. I reviewed the risks, benefits and side effects of patient's medications Last Documented On 4 1:14PM ; [facility] Discussed calming techniques such as breathing exercises/meditation and other relaxation techniques Last Documented On 4 3:28PM ; [facility] Counseling for nutrition/maci ght management provided Last Documented On 4 1:14PM ; [facility] Patient education about medi cation --- I educated patient on medication(s) and diagnosis Last Documented On 3 10:42PM ; [facility] Discussed calming techniques such as breathing exercises/meditation and other relaxation techniques Last Documented On 3 2:33PM ; [facility] Counseling for nutrition/maci ght management provided Last Documented On 3 10:42PM ; [facility] Reviewed side effects and Ri sks/Benefits analysis Last Documented On 3 10:42PM ; [facility] Patient education about medi cation --- I educated patient on medication(s) and diagnosis Last Documented On 3 11:22AM ; [facility] Discussed calming techniques such as breathing exercises and other relaxation techniques Last Documented On 3 10:50AM ; [facility] Assessments Includes: Assessments for all patient encounters Findings Encounter Date Generalized anxiety disorder TELEHEALTH with MET ANTONIO MASSEY MD 06/11/2022 Last Documented On 3 8:00AM ; [facility] Major depression, recurrent TELEHEALTH with ERUM MASSEY MD 06/11/2022 Last Documented On 3 8:00AM ; [facility] Obstructive sleep apnea TELEHEALTH with FRITZ MASSEY MD 06/11/2022 Last Documented On 3 8:00AM ; [facility] Post-traumatic stress disorder TELEHEALTH with Luis Eduardo MASSEY MD 06/11/2022 Last Documented On 3 8:00AM ; [facility] Psychophysiological insomnia TELEHEALTH with MET ANTONIO MASSEY MD 06/11/2022 Last Documented On 3 8:00AM ; [facility] Tremor TELEHEALTH with FRITZ HILLS MD 06/11/2022 Last Documented On 3 8:00AM ; [facility] Generalized anxiety disorder TELEHEALTH with MET ANTONIO MASSEY MD 03/04/2022 Last Documented On 2 9:22PM ; [facility] Major depression, recurrent TELEHEALTH with ERUM MASSEY MD 03/04/2022 Last Documented On 2 9:22PM ; [facility] Obstructive sleep apnea TELEHEALTH with FRITZ MASSEY MD 03/04/2022 Last Documented On 2 9:22PM ; [facility] Post-traumatic stress disorder TELEHEALTH with Luis Eduardo MASSEY MD 03/04/2022 Last Documented On 2 9:22PM ; [facility] Psychophysiological insomnia TELEHEALTH with MET ANTONIO MASSEY MD 03/04/2022 Last Documented On 2 9:22PM ; [facility] Tremor TELEHEALTH with FRITZ HILLS MD 03/04/2022 Last Documented On 2 9:22PM ; [facility] Generalized anxiety disorder TELEHEALTH with MET ANTONIO MASSEY MD 12/04/2021 Last Documented On 2 8:28AM ; [facility] Major depression, recurrent TELEHEALTH with ERUM MASSEY MD 12/04/2021 Last Documented On 2 8:28AM ; [facility] Obstructive sleep apnea TELEHEALTH with FRITZ MASSEY MD 12/04/2021 Last Documented On 2 8:28AM ; [facility] Psychophysiological insomnia TELEHEALTH with MET ANTONIO MASSEY MD 12/04/2021 Last Documented On 2 8:28AM ; [facility] Tremor TELEHEALTH with FRITZ HILLS MD 12/04/2021 Last Documented On 2 8:28AM ; [facility] Generalized anxiety disorder TELEHEALTH with MET ANTONIO MASSEY MD 09/17/2021 Last Documented On 2 2:07PM ; [facility] Major depression, recurrent TELEHEALTH with ERUM MASSEY MD 09/17/2021 Last Documented On 2 2:07PM ; [facility] Obstructive sleep apnea TELEHEALTH with FRITZ MASSEY MD 09/17/2021 Last Documented On 2 2:07PM ; [facility] Psychophysiological insomnia TELEHEALTH with MET ANTONIO MASSEY MD 09/17/2021 Last Documented On 2 2:07PM ; [facility] Tremor TELEHEALTH with FRITZ HILLS MD 09/17/2021 Last Documented On 2 2:07PM ; [facility] Generalized anxiety disorder TELEHEALTH with MET ANTONIO MASSEY MD 05/23/2021 Last Documented On 2 8:29AM ; [facility] Major depression, recurrent TELEHEALTH with ERUM MASSEY MD 05/23/2021 Last Documented On 2 8:29AM ; [facility] Obstructive sleep apnea TELEHEALTH with FRITZ MASSEY MD 05/23/2021 Last Documented On 2 8:29AM ; [facility] Psychophysiological insomnia TELEHEALTH with MET ANTONIO MASSEY MD 05/23/2021 Last Documented On 2 8:29AM ; [facility] Tremor TELEHEALTH with FRITZ HILLS MD 05/23/2021 Last Documented On 2 8:29AM ; [facility] Generalized anxiety disorder TELEHEALTH with MET ANTONIO MASSEY MD 03/12/2021 Last Documented On 1 2:57PM ; [facility] Major depression, recurrent TELEHEALTH with ERUM MASSEY MD 03/12/2021 Last Documented On 1 2:57PM ; [facility] Obstructive sleep apnea TELEHEALTH with FRITZ MASSEY MD 03/12/2021 Last Documented On 1 2:57PM ; [facility] Psychophysiological insomnia TELEHEALTH with MET ANTONIO MASSEY MD 03/12/2021 Last Documented On 1 2:57PM ; [facility] Tremor TELEHEALTH with FRITZ HILLS MD 03/12/2021 Last Documented On 1 2:57PM ; [facility] Generalized anxiety disorder TELEHEALTH with MET ANTONIO MASSEY MD 09/13/2020 Last Documented On 1 8:25AM ; [facility] Major depression, recurrent TELEHEALTH with ERUM MASSEY MD 09/13/2020 Last Documented On 1 8:25AM ; [facility] Obstructive sleep apnea TELEHEALTH with FRITZ MASSEY MD 09/13/2020 Last Documented On 1 8:25AM ; [facility] Psychophysiological insomnia TELEHEALTH with MET ANTONIO MASSEY MD 09/13/2020 Last Documented On 1 8:25AM ; [facility] Tremor TELEHEALTH with FRITZ HILLS MD 09/13/2020 Last Documented On 1 8:25AM ; [facility] Generalized anxiety disorder GENERAL OFF ICE VISIT with FRITZ MASSEY MD 03/15/2020 Last Documented On 0 3:57AM ; [facility] Major depression, recurrent GENERAL OFFI CE VISIT with FRITZ MASSEY MD 03/15/2020 Last Documented On 0 3:57AM ; [facility] Obstructive sleep apnea GENERAL OFFICE VISIT wit h FRITZ MASSEY MD 03/15/2020 Last Documented On 0 3:57AM ; [facility] Psychophysiological insomnia GENERAL OFF ICE VISIT with FRITZ MASSEY MD 03/15/2020 Last Documented On 0 3:57AM ; [facility] Tremor GENERAL OFFICE VISIT with ROSALIA MASSEY MD 03/15/2020 Last Documented On 0 3:57AM ; [facility] Generalized anxiety disorder GENERAL OFF ICE VISIT with FRITZ MASSEY MD 09/14/2019 Last Documented On 0 8:40AM ; [facility] Major depression, recurrent GENERAL OFFI CE VISIT with FRITZ MASSEY MD 09/14/2019 Last Documented On 0 8:40AM ; [facility] Obstructive sleep apnea GENERAL OFFICE VISIT wit h FRITZ MASSEY MD 09/14/2019 Last Documented On 0 8:40AM ; [facility] Psychophysiological insomnia GENERAL OFF ICE VISIT with FRITZ MASSEY MD 09/14/2019 Last Documented On 0 8:40AM ; [facility] T[facility]or GENERAL OFFICE VISIT with ROSALIA MASSEY MD 09/14/2019 Last Documented On 0 8:40AM ; [facility] Generalized anxiety disorder GENERAL OFF ICE VISIT with FRITZ MASSEY MD 04/01/2019 Last Documented On 9 3:02AM ; [facility] Major depression, recurrent GENERAL OFFI CE VISIT with FRITZ MASSEY MD 04/01/2019 Last Documented On 9 3:02AM ; [facility] Obstructive sleep apnea GENERAL OFFICE VISIT wit h FRITZ MASSEY MD 04/01/2019 Last Documented On 9 3:02AM ; [facility] Psychophysiological insomnia GENERAL OFF ICE VISIT with FRITZ MASSEY MD 04/01/2019 Last Documented On 9 3:02AM ; [facility] T[facility]or GENERAL OFFICE VISIT with ROSALIA MASSEY MD 04/01/2019 Last Documented On 9 3:02AM ; [facility] Generalized anxiety disorder GENERAL OFF ICE VISIT with FRITZ MASSEY MD 11/04/2018 Last Documented On 9 8:20AM ; [facility] Major depression, recurrent GENERAL OFFI CE VISIT with FRITZ MASSEY MD 11/04/2018 Last Documented On 9 8:20AM ; [facility] Obstructive sleep apnea GENERAL OFFICE VISIT wit h FRITZ MASSEY MD 11/04/2018 Last Documented On 9 8:20AM ; [facility] Psychophysiological insomnia GENERAL OFF ICE VISIT with FRITZ MASSEY MD 11/04/2018 Last Documented On 9 8:20AM ; [facility] Generalized anxiety disorder GENERAL OFF ICE VISIT with FRITZ MASSEY MD 05/13/2018 Last Documented On 9 6:49AM ; [facility] Major depression, recurrent GENERAL OFFI CE VISIT with FRITZ MASSEY MD 05/13/2018 Last Documented On 9 6:49AM ; [facility] Obstructive sleep apnea GENERAL OFFICE VISIT wit h FRITZ MASSEY MD 05/13/2018 Last Documented On 9 6:49AM ; [facility] Psychophysiological insomnia GENERAL OFF ICE VISIT with FRITZ MASSEY MD 05/13/2018 Last Documented On 9 6:49AM ; [facility] Generalized anxiety disorder GENERAL OFF ICE VISIT with FRITZ MASSEY MD 08/26/2017 Last Documented On 8 9:37AM ; [facility] Major depression, recurrent GENERAL OFFI CE VISIT with FRITZ MASSEY MD 08/26/2017 Last Documented On 8 9:37AM ; [facility] Obstructive sleep apnea GENERAL OFFICE VISIT wit h FRITZ MASSEY MD 08/26/2017 Last Documented On 8 9:37AM ; [facility] Psychophysiological insomnia GENERAL OFF ICE VISIT with FRITZ MASSEY MD 08/26/2017 Last Documented On 8 9:37AM ; [facility] Generalized anxiety disorder GENERAL OFF ICE VISIT with FRITZ MASSEY MD 02/25/2017 Last Documented On 7 7:53AM ; [facility] Major depression, recurrent GENERAL OFFI CE VISIT with FRITZ MASSEY MD 02/25/2017 Last Documented On 7 7:53AM ; [facility] Obstructive sleep apnea GENERAL OFFICE VISIT wit h FRITZ MASSEY MD 02/25/2017 Last Documented On 7 7:53AM ; [facility] Psychophysiological insomnia GENERAL OFF ICE VISIT with FRITZ MASSEY MD 02/25/2017 Last Documented On 7 7:53AM ; [facility] Generalized anxiety disorder GENERAL OFF ICE VISIT with FRITZ MASSEY MD 08/28/2016 Last Documented On 7 9:52PM ; [facility] Major depression, recurrent GENERAL OFFI CE VISIT with FRITZ MASSEY MD 08/28/2016 Last Documented On 7 9:52PM ; [facility] Obstructive sleep apnea GENERAL OFFICE VISIT wit h FRITZ MASSEY MD 08/28/2016 Last Documented On 7 9:52PM ; [facility] Psychophysiological insomnia GENERAL OFF ICE VISIT with FRITZ MASSEY MD 08/28/2016 Last Documented On 7 9:52PM ; [facility] Generalized anxiety disorder GENERAL OFF ICE VISIT with FRITZ MASSEY MD 02/29/2016 Last Documented On 6 1:09AM ; [facility] Major depression, recurrent GENERAL OFFI CE VISIT with FRITZ MASSEY MD 02/29/2016 Last Documented On 6 1:09AM ; [facility] Obstructive sleep apnea GENERAL OFFICE VISIT wit h FRITZ MASSEY MD 02/29/2016 Last Documented On 6 1:09AM ; [facility] Generalized anxiety disorder GENERAL OFF ICE VISIT with FRITZ MASSEY MD 08/30/2015 Last Documented On 6 2:33AM ; [facility] Major depression, recurrent GENERAL OFFI CE VISIT with FRITZ MASSEY MD 08/30/2015 Last Documented On 6 2:33AM ; [facility] Obstructive sleep apnea GENERAL OFFICE VISIT wit joss MASSEY MD 08/30/2015 Last Documented On 6 2:33AM ; [facility] Generalized anxiety disorder GENERAL OFF ICE VISIT with FRITZ MASSEY MD 03/02/2015 Last Documented On 5 10:40AM ; [facility] Major depression, recurrent GENERAL OFFI CE VISIT with FRITZ MASSEY MD 03/02/2015 Last Documented On 5 10:40AM ; [facility] Obstructive sleep apnea GENERAL OFFICE VISIT wit h FRITZ MASSEY MD 03/02/2015 Last Documented On 5 10:40AM ; [facility] Generalized anxiety disorder GENERAL OFF ICE VISIT with FRITZ MASSEY MD 07/19/2014 Last Documented On 5 7:10AM ; [facility] Major depression, recurrent GENERAL OFFI CE VISIT with FRITZ MASSEY MD 07/19/2014 Last Documented On 5 7:10AM ; [facility] Obstructive sleep apnea GENERAL OFFICE VISIT wit joss MASSEY MD 07/19/2014 Last Documented On 5 7:10AM ; [facility] Generalized anxiety disorder GENERAL OFF ICE VISIT with FRITZ MASSEY MD 02/15/2014 Last Documented On 4 9:00PM ; [facility] Major depression, recurrent GENERAL OFFI CE VISIT with FRITZ MASSEY MD 02/15/2014 Last Documented On 4 9:00PM ; [facility] Obstructive sleep apnea GENERAL OFFICE VISIT wit h FRITZ MASSEY MD 02/15/2014 Last Documented On 4 9:00PM ; [facility] Generalized anxiety disorder GENERAL OFF ICE VISIT with FRITZ MASSEY MD 10/05/2013 Last Documented On 4 5:30PM ; [facility] Major depression, recurrent GENERAL OFFI CE VISIT with FRITZ MASSEY MD 10/05/2013 Last Documented On 4 5:30PM ; [facility] Obstructive sleep apnea GENERAL OFFICE VISIT wit h FRITZ MASSEY MD 10/05/2013 Last Documented On 4 5:30PM ; [facility] Generalized anxiety disorder GENERAL OFF ICE VISIT with FRITZ MASSEY MD 06/07/2013 Last Documented On 4 1:21PM ; [facility] Major depression, recurrent GENERAL OFFI CE VISIT with FRITZ MASSEY MD 06/07/2013 Last Documented On 4 1:21PM ; [facility] Obstructive sleep apnea GENERAL OFFICE VISIT wit FRITZ MASSEY MD 06/07/2013 Last Documented On 4 1:21PM ; [facility] Generalized anxiety disorder GENERAL OFF ICE VISIT with FRITZ MASSEY MD 01/19/2013 Last Documented On 3 10:53PM ; [facility] Major depression, recurrent GENERAL OFFI CE VISIT with FRITZ MASSEY MD 01/19/2013 Last Documented On 3 10:53PM ; [facility] Obstructive sleep apnea GENERAL OFFICE VISIT wit FRITZ MASSEY MD 01/19/2013 Last Documented On 3 10:53PM ; [facility] Generalized anxiety disorder GENERAL OFF ICE VISIT with FRITZ MASSEY MD 07/10/2012 Last Documented On 3 11:25AM ; [facility] Major depression, recurrent GENERAL OFFI CE VISIT with FRITZ MASSEY MD 07/10/2012 Last Documented On 3 11:25AM ; [facility] Obstructive sleep apnea GENERAL OFFICE VISIT wit h FRITZ MASSEY MD 07/10/2012 Last Documented On 3 11:25AM ; [facility] Instructions Includes: Instructions for all patient encounters Instructions to patient Lose weight - pt lost 5 lbs Last Documented On 2 8:27AM ; [facility] Lose weight - portion contro l, balanced meals Last Documented On 2 2:03PM ; [facility] Lose weight Last Documented On 2 1:53PM ; [facility] Lose weight Last Documented On 1 2:06PM ; [facility] Lose weight Last Documented On 1 2:17PM ; [facility] Lose weight Last Documented On 0 1:55PM ; [facility] Education and Decision Aids were provided during visit for: Patient education about medi cation ---Education was given on medication(s) and diagnosis. I reviewed the risks, benefits and side effects of patient's medications Last Documented On 3 1:49PM ; [facility] Discussed calming techniques such as breathing exercises and other relaxation techniques Last Documented On 3 1:49PM ; [facility] Patient education about medi cation ---Education was given on medication(s) and diagnosis. I reviewed the risks, benefits and side effects of patient's medications Last Documented On 2 1:44PM ; [facility] Discussed calming techniques such as breathing exercises and other relaxation techniques Last Documented On 2 1:44PM ; [facility] Patient education about medi cation --- I educated patient on medication(s) and diagnosis. I reviewed the risks, benefits and side effects of patient's medications Last Documented On 2 1:36PM ; [facility] Discussed calming techniques such as breathing exercises and other relaxation techniques Last Documented On 2 1:36PM ; [facility] Counseling for nutrition/maci ght management provided Last Documented On 2 1:50PM ; [facility] Discussed good sleep hygiene habits Last Documented On 2 1:50PM ; [facility] Patient education about medi cation --- I educated patient on medication(s) and diagnosis. I reviewed the risks, benefits and side effects of patient's medications Last Documented On 2 1:48PM ; [facility] Discussed calming techniques such as breathing exercises and other relaxation techniques Last Documented On 2 1:48PM ; [facility] Counseling for nutrition/maci ght management provided Last Documented On 2 1:56PM ; [facility] Discussed good sleep hygiene habits Last Documented On 2 1:56PM ; [facility] Patient education about medi cation --- I educated patient on medication(s) and diagnosis. I reviewed the risks, benefits and side effects of patient's medications Last Documented On 2 1:41PM ; [facility] Discussed calming techniques such as breathing exercises and other relaxation techniques Last Documented On 2 1:41PM ; [facility] Counseling for nutrition/maci ght management provided Last Documented On 2 1:53PM ; [facility] Discussed good sleep hygiene habits Last Documented On 2 1:53PM ; [facility] Patient education about medi cation --- I educated patient on medication(s) and diagnosis. I reviewed the risks, benefits and side effects of patient's medications Last Documented On 1 1:42PM ; [facility] Discussed calming techniques such as breathing exercises and other relaxation techniques Last Documented On 1 1:42PM ; [facility] Counseling for nutrition/maci ght management provided Last Documented On 1 2:06PM ; [facility] Discussed good sleep hygiene habits Last Documented On 1 2:06PM ; [facility] Patient education about medi cation --- I educated patient on medication(s) and diagnosis. I reviewed the risks, benefits and side effects of patient's medications Last Documented On 1 1:37PM ; [facility] Discussed calming techniques such as breathing exercises and other relaxation techniques Last Documented On 1 1:37PM ; [facility] Counseling for nutrition/maci ght management provided Last Documented On 1 2:17PM ; [facility] Discussed good sleep hygiene habits Last Documented On 1 2:17PM ; [facility] Patient education about medi cation --- I educated patient on medication(s) and diagnosis. I reviewed the risks, benefits and side effects of patient's medications Last Documented On 0 1:44PM ; [facility] Discussed calming techniques such as breathing exercises and other relaxation techniques Last Documented On 0 1:44PM ; [facility] Counseling for nutrition/maci ght management provided Last Documented On 0 1:55PM ; [facility] Patient education about a pr oper diet Last Documented On 0 3:33PM ; [facility] Patient education about medi cation --- I educated patient on medication(s) and diagnosis. I reviewed the risks, benefits and side effects of patient's medications Last Documented On 0 2:48PM ; [facility] Discussed calming techniques such as breathing exercises and other relaxation techniques Last Documented On 0 2:48PM ; [facility] Counseling for nutrition/maci ght management provided Last Documented On 0 3:33PM ; [facility] Patient education about a pr oper diet Last Documented On 9 10:07AM ; [facility] Patient education about medi cation --- I educated patient on medication(s) and diagnosis. I reviewed the risks, benefits and side effects of patient's medications Last Documented On 9 9:55AM ; [facility] Discussed calming techniques such as breathing exercises and other relaxation techniques Last Documented On 9 9:55AM ; [facility] Counseling for nutrition/maci ght management provided Last Documented On 9 10:07AM ; [facility] Discussed good sleep hygiene habits Last Documented On 9 3:01AM ; [facility] Patient education about a pr oper diet Last Documented On 9 1:52PM ; [facility] Patient education about medi cation --- I educated patient on medication(s) and diagnosis. I reviewed the risks, benefits and side effects of patient's medications Last Documented On 9 1:33PM ; [facility] Discussed calming techniques such as breathing exercises and other relaxation techniques Last Documented On 9 1:33PM ; [facility] Counseling for nutrition/maci ght management provided Last Documented On 9 1:52PM ; [facility] Patient education about a pr oper diet Last Documented On 9 2:59PM ; [facility] Patient education about medi cation --- I educated patient on medication(s) and diagnosis. I reviewed the risks, benefits and side effects of patient's medications Last Documented On 9 2:57PM ; [facility] Discussed calming techniques such as breathing exercises and other relaxation techniques Last Documented On 9 2:57PM ; [facility] Counseling for nutrition/maci ght management provided Last Documented On 9 2:59PM ; [facility] Discussed good sleep hygiene habits Last Documented On 9 6:48AM ; [facility] Patient education about medi cation --- I educated patient on medication(s) and diagnosis. I reviewed the risks, benefits and side effects of patient's medications Last Documented On 8 4:45PM ; [facility] Discussed calming techniques such as breathing exercises and other relaxation techniques Last Documented On 8 4:45PM ; [facility] Counseling for nutrition/maci ght management provided Last Documented On 8 9:30AM ; [facility] Patient education about medi cation --- I educated patient on medication(s) and diagnosis. I reviewed the risks, benefits and side effects of patient's medications Last Documented On 7 4:07PM ; [facility] Discussed calming techniques such as breathing exercises and other relaxation techniques Last Documented On 7 4:07PM ; [facility] Counseling for nutrition/maci ght management provided Last Documented On 7 7:51AM ; [facility] Patient education about medi cation --- I educated patient on medication(s) and diagnosis. I reviewed the risks, benefits and side effects of patient's medications Last Documented On 7 3:59PM ; [facility] Discussed calming techniques such as breathing exercises/meditation and other relaxation techniques Last Documented On 7 3:59PM ; [facility] Counseling for nutrition/maci ght management provided Last Documented On 7 9:30PM ; [facility] Discussed good sleep hygiene habits Last Documented On 7 9:30PM ; [facility] Patient education about medi cation --- I educated patient on medication(s) and diagnosis. I reviewed the risks, benefits and side effects of patient's medications Last Documented On 6 4:25PM ; [facility] Discussed calming techniques such as breathing exercises/meditation and other relaxation techniques Last Documented On 6 4:25PM ; [facility] Counseling for nutrition/maci ght management provided Last Documented On 6 1:06AM ; [facility] Patient education about medi cation --- I educated patient on medication(s) and diagnosis. I reviewed the risks, benefits and side effects of patient's medications Last Documented On 6 4:13PM ; [facility] Discussed calming techniques such as breathing exercises/meditation and other relaxation techniques Last Documented On 6 4:13PM ; [facility] Counseling for nutrition/maci ght management provided Last Documented On 6 2:32AM ; [facility] Patient education about medi cation --- I educated patient on medication(s) and diagnosis. I reviewed the risks, benefits and side effects of patient's medications Last Documented On 5 3:53PM ; [facility] Discussed calming techniques such as breathing exercises/meditation and other relaxation techniques Last Documented On 5 3:53PM ; [facility] Counseling for nutrition/maci ght management provided Last Documented On 5 4:38PM ; [facility] Discussed good sleep hygiene habits Last Documented On 5 4:38PM ; [facility] Patient education about medi cation --- I educated patient on medication(s) and diagnosis. I reviewed the risks, benefits and side effects of patient's medications Last Documented On 5 5:22PM ; [facility] Discussed calming techniques such as breathing exercises/meditation and other relaxation techniques Last Documented On 5 4:08PM ; [facility] Counseling for nutrition/maci ght management provided Last Documented On 5 5:22PM ; [facility] Patient education about medi cation --- I educated patient on medication(s) and diagnosis. I reviewed the risks, benefits and side effects of patient's medications Last Documented On 4 8:59PM ; [facility] Discussed calming techniques such as breathing exercises/meditation and other relaxation techniques Last Documented On 4 4:36PM ; [facility] Counseling for nutrition/maci ght management provided Last Documented On 4 8:59PM ; [facility] Patient education about medi cation --- I educated patient on medication(s) and diagnosis. I reviewed the risks, benefits and side effects of patient's medications Last Documented On 4 5:28PM ; [facility] Discussed calming techniques such as breathing exercises/meditation and other relaxation techniques Last Documented On 4 3:37PM ; [facility] Counseling for nutrition/maci ght management provided Last Documented On 4 5:28PM ; [facility] Patient education about medi cation --- I educated patient on medication(s) and diagnosis. I reviewed the risks, benefits and side effects of patient's medications Last Documented On 4 1:14PM ; [facility] Discussed calming techniques such as breathing exercises/meditation and other relaxation techniques Last Documented On 4 3:28PM ; [facility] Counseling for nutrition/maci ght management provided Last Documented On 4 1:14PM ; [facility] Patient education about medi cation --- I educated patient on medication(s) and diagnosis Last Documented On 3 10:42PM ; [facility] Discussed calming techniques such as breathing exercises/meditation and other relaxation techniques Last Documented On 3 2:33PM ; [facility] Counseling for nutrition/maci ght management provided Last Documented On 3 10:42PM ; [facility] Reviewed side effects and Ri sks/Benefits analysis Last Documented On 3 10:42PM ; [facility] Patient education about medi cation --- I educated patient on medication(s) and diagnosis Last Documented On 3 11:22AM ; [facility] Discussed calming techniques such as breathing exercises and other relaxation techniques Last Documented On 3 10:50AM ; [facility] Medical Equipment - Implanted Devices Includes: Current and historical Devices No Medical Equipment Recorded Medications Includes: Current and historical Medications Current Medications (continue as prescribed) Escitalopram Oxalate 20 MG Oral Tablet 06/11/2022 Provider: FRITZ MASSEY MD Diagnosis: Generalized anxi ety disorder One tablet daily Last Documented On 06/11/2022 1:53PM By Teresa Massey MD ; [facility] buPROPion HCl ER (XL) 150 MG Oral Tablet Extended Release 24 Hour 06/11/2022 Provider: FRITZ MASSEY MD Diagnosis: Major depressive disorder, recurrent, moderate TAKE 3 TABLETS BY MOUTH IN T MORNING Last Documented On 06/11/2022 1:52PM By Teresa Massey MD ; [facility] traZODone HCl 50 MG Oral Tablet 06/11/2022 Provider: FRITZ MASSEY MD Diagnosis: Psychophysiologi c insomnia TAKE 1/2 (ONE-HALF) TABLET B Y MOUTH TWICE DAILY NEEDED FOR ANXIETY AND 1 TABLET AT BEDTIME NEEDED FOR SLEEP DIRECTED Last Documented On 06/11/2022 1:50PM By Teresa Massey MD ; [facility] Azelastine HCl 137 MCG/SPRAY Nasal Solution 04/23/2022 Provider: NALINI CASTANO APN Diagnosis: Acute sinusitis, unspecified 1 spray to each nostril 2 x a day -- Nalini Castano Last Documented On 06/11/2022 1:42PM By Teresa Massey MD ; [facility] metFORMIN HCl 500 MG Oral Tablet 07/11/2020 Provider : ERNESTO PIMENTEL MD Diagnosis: 4 daily Last Documented On 09/13/2020 1:51PM By ILANA POOLE ; [facility] Atorvastatin Calcium 40 MG Oral Tablet 09/14/2019 Pr ovider: Diagnosis: Last Documented On 09/14/2019 2:54PM By Teresa Massey MD ; [facility] ProAir HFA 108 (90 Base)MCG/ ACT Inhalation Aerosol Solution 05/13/2018 Provider: ERNESTO PIMENTEL MD Diagnosis: 1-2 puffs every 4-6 hours prn Last Documented On 05/13/2018 2:56PM By ILANA POOLE ; [facility] Indapamide 2.5 MG Tablet 03/02/2015 Provider: Diagnosis: from Dr. Figueroa Last Documented On 03/02/2015 4:30PM By Teresa Massey MD ; [facility] Aspirin 81 MG OR TABS 07/10/2012 Provider: Diagnosis: Last Documented On 3 10:24AM By LEXIE HERNANDEZ ; [facility] ZyrTEC Allergy 10 MG OR TABS 07/10/2012 Provider: Diagnosis: Last Documented On 3 10:24AM By LEXIE HERNANDEZ ; [facility] Quinapril HCl 40 MG OR TABS 07/05/2012 Provider: ERNESTO PIMENTEL MD Diagnosis: Last Documented On 3 10:22AM By LEXIE HERNANDEZ ; [facility] Past Medications on file traZODone HCl 50 MG Oral Tablet 05/26/2022 - 06/11/2022 Provider: FRITZ MASSEY MD Diagnosis: Psychophysiologi c insomnia TAKE 1/2 (ONE-HALF) TABLET B Y MOUTH TWICE DAILY NEEDED FOR ANXIETY AND 1 TABLET AT BEDTIME NEEDED FOR SLEEP DIRECTED Last Documented On 06/11/2022 1:50PM By Teresa Massey MD ; [facility] traZODone HCl 50 MG Oral Tablet 03/06/2022 - 05/26/2022 Provider: FRITZ MASSEY MD Diagnosis: Psychophysiologi c insomnia TAKE 1/2 (ONE-HALF) TABLET B Y MOUTH TWICE DAILY NEEDED FOR ANXIETY AND 1 AT BEDTIME NEEDED ONLY FOR SLEEP DIRECTED Last Documented On 05/26/2022 6:59PM By Teresa Massey MD ; [facility] Escitalopram Oxalate 20 MG Oral Tablet 12/04/2021 - 06/11/2022 Provider: FRITZ MASSEY MD Diagnosis: Generalized anxi ety disorder One tablet daily Last Documented On 06/11/2022 1:53PM By Teresa Massey MD ; [facility] Viibryd 20 MG Oral Tablet 12/04/2021 - 03/04/2022 Provider: FRITZ HILLS MD Diagnosis: Major depressive disorder, recurrent, moderate as directed -- 1 tab in am with food Last Documented On 03/04/2022 2:33PM By Teresa Massey MD ; [facility] Escitalopram Oxalate 20 MG Oral Tablet 10/09/2021 - 12/04/2021 Provider: FRITZ HILLS MD Diagnosis: Take 1 tablet by mouth once daily Last Documented On 12/04/2021 2:45PM By Teresa Massey MD ; [facility] traZODone HCl 50 MG Oral Tablet 09/17/2021 - 03/06/2022 Provider: FRITZ MASSEY MD Diagnosis: Psychophysiologi c insomnia TAKE 1/2 (ONE-HALF) TABLET B Y MOUTH TWICE DAILY NEEDED FOR ANXIETY AND 1 TABLET AT BEDTIME NEEDED ONLY FOR SLEEP DIRECTED Last Documented On 11:15AM By Teresa Massey MD ; [facility] Escitalopram Oxalate 20 MG Oral Tablet 09/03/2021 - 03/05/2022 Provider: FRITZ MASSEY MD Diagnosis: Generalized anxi ety disorder Take 1 tablet by mouth once daily Last Documented On 03/05/2022 9:12PM By Teresa Massey MD ; [facility] Escitalopram Oxalate 20 MG Oral Tablet 05/23/2021 - 09/03/2021 Provider: FRITZ MASSEY MD Diagnosis: Generalized anxi ety disorder One tablet daily Last Documented On 09/03/2021 7:45AM By Teresa Massey MD ; [facility] buPROPion HCl ER (XL) 150 MG Oral Tablet Extended Release 24 Hour 05/23/2021 - 06/11/2022 Provider: FRITZ MASSEY MD Diagnosis: Major depressive disorder, recurrent, moderate TAKE 3 TABLETS BY MOUTH IN THE MORNING Last Documented On 06/11/2022 1:51PM By Teresa Massey MD ; [facility] traZODone HCl 50 MG Oral Tablet 04/09/2021 - 09/17/2021 Provider: FRITZ MASSEY MD Diagnosis: Psychophysiologi c insomnia TAKE 1/2 (ONE-HALF) TABLET B Y MOUTH TWICE DAILY NEEDED FOR ANXIETY AND 1 TABLET AT BEDTIME NEEDED ONLY FOR SLEEP DIRECTED Last Documented On 09/17/2021 2:39PM By Teresa Massey MD ; [facility] Escitalopram Oxalate 20 MG Oral Tablet 02/15/2021 - 05/23/2021 Provider: FRITZ MASSEY MD Diagnosis: Generalized anxi ety disorder Take 1 tablet by mouth once daily Last Documented On 05/23/2021 2:40PM By Teresa Massey MD ; [facility] traZODone HCl 50 MG Oral Tablet 10/12/2020 - 04/09/2021 Provider: FRITZ MASSEY MD Diagnosis: Psychophysiologi c insomnia TAKE ONE-HALF TO ONE TABLETS BY MOUTH TWICE DAILY NEEDED FOR ANXIETY AND ONE AT BEDTIME NEEDED ONLY FOR SLEEP DIRECTED Last Documented On 04/09/2021 7:14AM By Teresa Massey MD ; [facility] buPROPion HCl ER (XL) 150 MG Oral Tablet Extended Release 24 Hour 05/10/2020 - 05/23/2021 Provider: FRITZ HILLS MD Diagnosis: TAKE 3 TABLETS BY MOUTH IN THE MORNING Last Documented On 05/23/2021 2:37PM By Teresa Massey MD ; [facility] buPROPion HCl ER (XL) 150 MG Oral Tablet Extended Release 24 Hour 05/06/2020 - 03/12/2021 Provider: FRITZ MASSEY MD Diagnosis: Major depressive disorder, recurrent, moderate as directed - 3 tabs in am Last Documented On 03/12/2021 2:05PM By ILANA POOLE ; [facility] traZODone HCl 50 MG Oral Tablet 10/22/2019 - 10/12/2020 Provider: FRITZ MASSEY MD Diagnosis: Psychophysiologi c insomnia TAKE ONE-HALF TO ONE TABLET BY MOUTH TWO TIMES DAILY NEEDED FOR ANXIETY AND ONE TABLET AT BEDTIME NEEDED ONLY FOR SLEEP DIRECTED Last Documented On 10/12/2020 8:08AM By Teresa Massey MD ; [facility] Lexapro 20 MG Oral Tablet 10/03/2019 - 02/15/2021 Provider: FRITZ HILLS MD Diagnosis: Generalized anxi ety disorder Take 1 tablet by mouth once daily Last Documented On 02/15/2021 9:32AM By Teresa Massey MD ; [facility] Atorvastatin Calcium 20 MG Oral Tablet 03/10/2019 - 09/14/2019 Provider: ERNESTO Caceres MD Diagnosis: 1 tab at bedtime Last Documented On 09/14/2019 2:54PM By Teresa Massey MD ; [facility] traZODone HCl 50MG Oral Tablet 11/04/2018 - 10/22/2019 Provider: FRITZ MASSEY MD Diagnosis: Psychophysiologi c insomnia as directed TAKE 1/2 TO 1 TA BLET BY MOUTH 2 TIMES DAILY NEEDED FOR ANXIETY, 1 TAB at bedtime as needed only for sleep Last Documented On 0 11:33AM By Teresa Massey MD ; [facility] Lexapro 20MG Oral Tablet 11/04/2018 - 10/03/2019 Provider: FRITZ HILLS MD Diagnosis: Generalized anxi ety disorder One tablet daily Last Documented On 10/03/2019 5:10PM By Teresa Massey MD ; [facility] Wellbutrin XL 150MG Oral Tablet Extended Release 24 Hour 11/04/2018 - 05/06/2020 Provider: FRITZ MASSEY MD Diagnosis: Major depressive disorder, recurrent, moderate as directed 3 every am Last Documented On 05/06/2020 8:15PM By Teresa Massey MD ; [facility] Wellbutrin XL 150MG Oral Tablet Extended Release 24 Hour 09/10/2018 - 11/04/2018 Provider: FRITZ MASSEY MD Diagnosis: Major depressive disorder, recurrent, moderate as directed 3 every am Last Documented On 11/04/2018 2:59PM By Teresa Massey MD ; [facility] Lexapro 20MG Oral Tablet 09/04/2018 - 11/04/2018 Provider: FRITZ HILLS MD Diagnosis: Generalized anxi ety disorder One tablet daily Last Documented On 11/04/2018 2:59PM By Teresa Massey MD ; [facility] traZODone HCl 50MG Oral Tablet 08/12/2018 - 11/04/2018 Provider: FRITZ MASSEY MD Diagnosis: Psychophysiologi c insomnia as directed TAKE 1/2 TO 1 TA BLET BY MOUTH 2 TIMES DAILY NEEDED FOR ANXIETY, 1 TAB at bedtime as needed only for sleep Last Documented On 11/04/2018 2:59PM By Teresa Massey MD ; [facility] Lexapro 20MG Oral Tablet 06/08/2018 - 09/04/2018 Provider: FRITZ HILLS MD Diagnosis: Generalized anxi ety disorder One tablet daily Last Documented On 9 11:42AM By Teresa Massey MD ; [facility] Viibryd 20MG Oral Tablet 06/08/2018 - 09/17/2021 Provider: FRITZ HILLS MD Diagnosis: Major depressive disorder, recurrent, unspecified 1 tablet every morning with food -- may take as needed only Last Documented On 09/17/2021 2:49PM By Teresa Massey MD ; [facility] TraZODone HCl 50MG Oral Tablet 06/08/2018 - 08/12/2018 Provider: FRITZ MASSEY MD Diagnosis: Psychophysiologi c insomnia as directed TAKE 1/2 TO 1 TA BLET BY MOUTH 2 TIMES DAILY NEEDED FOR ANXIETY, 1 TAB at bedtime as needed only for sleep Last Documented On 08/12/2018 6:37PM By Teresa Massey MD ; [facility] Wellbutrin XL 150MG Oral Tablet Extended Release 24 Hour 06/08/2018 - 09/10/2018 Provider: FRITZ MASSEY MD Diagnosis: Major depressive disorder, recurrent, moderate as directed 3 every am Last Documented On 09/10/2018 9:54AM By Teresa Massey MD ; [facility] Crestor 20MG Oral Tablet 05/13/2018 - 11/04/2018 Provi davis: ERNESTO PIMENTEL MD Diagnosis: 1 tab daily Last Documented On 11/04/2018 2:13PM By Teresa Massey MD ; [facility] Viibryd 20MG Oral Tablet 08/31/2017 - 05/13/2018 Provider: FRITZ HILLS MD Diagnosis: Major depressive disorder, recurrent, unspecified 1 tablet every morning with food Last Documented On 06/08/2018 6:32AM By Teresa Massey MD ; [facility] TraZODone HCl 50MG Oral Tablet 08/31/2017 - 05/13/2018 Provider: FRITZ MASSEY MD Diagnosis: Psychophysiologi c insomnia as directed TAKE 1/2 TO 1 TA BLET BY MOUTH 2 TIMES DAILY NEEDED FOR ANXIETY, 1 TAB at bedtime as needed only for sleep Last Documented On 06/08/2018 6:32AM By Teresa Massey MD ; [facility] Lexapro 20MG Oral Tablet 08/31/2017 - 05/13/2018 Provider: FRITZ HILLS MD Diagnosis: Generalized anxi ety disorder One tablet daily Last Documented On 06/08/2018 6:32AM By Teresa Massey MD ; [facility] Wellbutrin XL 150MG Oral Tablet Extended Release 24 Hour 08/31/2017 - 05/13/2018 Provider: FRITZ MASSEY MD Diagnosis: Major depressive disorder, recurrent, moderate as directed 3 every am Last Documented On 06/08/2018 6:32AM By Teresa Massey MD ; [facility] Viibryd 20MG Oral Tablet 07/16/2017 - 08/26/2017 Provider: FRITZ HILLS MD Diagnosis: Major depressive disorder, recurrent, unspecified 1 tablet every morning with food Last Documented On 08/31/2017 4:42PM By Teresa Massey MD ; [facility] TraZODone HCl 50MG Oral Tablet 07/16/2017 - 08/26/2017 Provider: FRITZ MASSEY MD Diagnosis: Psychophysiologi c insomnia as directed TAKE 1/2 TO 1 TA BLET BY MOUTH 2 TIMES DAILY NEEDED FOR ANXIETY, 1 TAB at bedtime as needed only for sleep Last Documented On 08/31/2017 4:42PM By Teresa Massey MD ; [facility] Wellbutrin XL 150MG Oral Tablet Extended Release 24 Hour 07/16/2017 - 08/26/2017 Provider: FRITZ MASSEY MD Diagnosis: Major depressive disorder, recurrent, moderate as directed 3 every am Last Documented On 08/31/2017 4:42PM By Teresa Massey MD ; [facility] Lexapro 20MG Oral Tablet 07/16/2017 - 08/26/2017 Provider: FRITZ HILLS MD Diagnosis: Generalized anxi ety disorder One tablet daily Last Documented On 08/31/2017 4:42PM By Teresa Massey MD ; [facility] Lexapro 20MG Oral Tablet 03/10/2017 - 07/16/2017 Provider: FRITZ HILLS MD Diagnosis: Generalized anxi ety disorder One tablet daily Last Documented On 07/16/2017 4:03PM By Teresa Massey MD ; [facility] Viibryd 20MG Oral Tablet 02/25/2017 - 07/16/2017 Provider: FRITZ HILLS MD Diagnosis: Major depressive disorder, recurrent, unspecified 1 tablet every morning with food Last Documented On 07/16/2017 4:05PM By Teresa Massey MD ; [facility] TraZODone HCl 50MG Oral Tablet 02/25/2017 - 07/16/2017 Provider: FRITZ MASSEY MD Diagnosis: Psychophysiologi c insomnia as directed TAKE 1/2 TO 1 TA BLET BY MOUTH 2 TIMES DAILY NEEDED FOR ANXIETY, 1 TAB at bedtime as needed only for sleep Last Documented On 07/16/2017 4:04PM By Teresa Massey MD ; [facility] Wellbutrin XL 150MG Oral Tablet Extended Release 24 Hour 02/25/2017 - 07/16/2017 Provider: FRITZ MASSEY MD Diagnosis: Major depressive disorder, recurrent, moderate as directed 3 every am Last Documented On 07/16/2017 4:04PM By Teresa Massey MD ; [facility] Lexapro 20MG Oral Tablet 02/21/2017 - 02/25/2017 Provider: FRITZ HILLS MD Diagnosis: Generalized anxi ety disorder One tablet daily Last Documented On 03/10/2017 7:52AM By Teresa Massey MD ; [facility] MetFORMIN HCl ER (MOD) 500MG Oral Tablet Extended Release 24 Hour 02/15/2017 - 09/13/2020 Provider: ERNESTO Caceres MD Diagnosis: 4 daily Last Documented On 09/13/2020 1:50PM By ILANA POOLE ; [facility] Atorvastatin Calcium 10MG Or al Tablet 02/14/2017 - 05/13/2018 Provider: ERNESTO Caceres MD Diagnosis: 1 daily Last Documented On 05/13/2018 2:49PM By ILANA POOLE ; [facility] TraZODone HCl 50MG Oral Tablet 01/21/2017 - 02/25/2017 Provider: FRITZ MASSEY MD Diagnosis: Psychophysiologi c insomnia as directed TAKE 1/2 TO 1 TA BLET BY MOUTH 3 TIMES DAILY NEEDED FOR ANXIETY, 1 TAB at bedtime as needed only Last Documented On 02/25/2017 5:23PM By Teresa Massey MD ; [facility] Wellbutrin XL 150MG Oral Tablet, extended-release 24 hour 11/14/2016 - 02/25/2017 Provider: FRITZ MASSEY MD Diagnosis: Major depressive disorder, recurrent, moderate as directed 3 every am Last Documented On 02/25/2017 5:23PM By Teresa Massey MD ; [facility] Wellbutrin XL 150MG Oral Tablet Extended Release 24 Hour 09/16/2016 - 11/14/2016 Provider: FRITZ MASSEY MD Diagnosis: Major depressive disorder, recurrent, moderate as directed 3 every am Last Documented On 11/14/2016 8:08PM By Teresa Massey MD ; [facility] TraZODone HCl 50MG Oral Tablet 08/28/2016 - 01/21/2017 Provider: FRITZ MASSEY MD Diagnosis: Psychophysiologi c insomnia as directed TAKE 1/2 TO 1 TA BLET BY MOUTH 3 TIMES DAILY NEEDED FOR ANXIETY, 1 TAB at bedtime as needed only Last Documented On 01/21/2017 6:28PM By Teresa Massey MD ; [facility] Lexapro 20MG Oral Tablet 08/28/2016 - 02/21/2017 Provider: FRITZ HILLS MD Diagnosis: Generalized anxi ety disorder One tablet daily Last Documented On 02/21/2017 6:30PM By Teresa Massey MD ; [facility] Wellbutrin XL 150MG Oral Tablet Extended Release 24 Hour 08/28/2016 - 09/16/2016 Provider: FRITZ MASSEY MD Diagnosis: Major depressive disorder, recurrent, moderate as directed 3 every am Last Documented On 09/16/2016 3:44PM By Teresa Massey MD ; [facility] Viibryd 20MG Oral Tablet 08/28/2016 - 02/25/2017 Provider: FRITZ MASSEY MD Diagnosis: Major depressive disorder, recurrent, unspecified 1 tablet every morning with food -- given discount coupon on 02/29/16 Last Documented On 02/25/2017 5:23PM By Teresa Massey MD ; [facility] modafinil 100mg Oral Tablet 08/28/2016 - 02/25/2017 Provider: FRITZ MASSEY MD Diagnosis: Obstructive slee p apnea (adult) (pediatric) as directed -- 1 tab in am Last Documented On 7 4:33PM By REBA GARZA LPN ; [facility] Wellbutrin XL 150MG Oral Tablet, extended-release 24 hour 07/23/2016 - 08/28/2016 Provider: FRITZ MASSEY MD Diagnosis: Major depressive disorder, recurrent, unspecified as directed 3 every am Last Documented On 08/28/2016 9:38PM By Teresa Massey MD ; [facility] Wellbutrin XL 150 MG Tablet Extended Release 24 Hour 05/01/2016 - 07/23/2016 Provider: FRITZ MASSEY MD Diagnosis: Major depressive disorder, recurrent, unspecified as directed 3 every am Last Documented On 07/23/2016 5:46PM By Teresa Massey MD ; [facility] Wellbutrin XL 150 MG Tablet, extended-release 24 hour 02/29/2016 - 05/01/2016 Provider: FRITZ MASSEY MD Diagnosis: Major depressive disorder, recurrent, unspecified as directed 3 every am Last Documented On 05/01/2016 4:23PM By Teresa Massey MD ; [facility] Viibryd 20 MG Tablet 02/29/2016 - 08/28/2016 Provider: FRITZ MASSEY MD Diagnosis: Major depressive disorder, recurrent, unspecified 1 tablet every morning with food -- given discount coupon on 02/29/16 Last Documented On 08/28/2016 5:21PM By Teresa Massey MD ; [facility] TraZODone HCl 50 MG Tablet 02/29/2016 - 08/28/2016 Provider: FRITZ MASSEY MD Diagnosis: Generalized anxi ety disorder as directed TAKE 1/2 TO 1 TA BLET BY MOUTH 3 TIMES DAILY NEEDED FOR ANXIETY, 1 TAB at bedtime as needed only Last Documented On 08/28/2016 9:38PM By Teresa Massey MD ; [facility] Lexapro 20 MG Tablet 02/29/2016 - 08/28/2016 Provider: FRITZ MASSEY MD Diagnosis: Generalized anxi ety disorder One tablet daily Last Documented On 08/28/2016 9:38PM By Teresa Massey MD ; [facility] Wellbutrin XL 150 MG Tablet, extended-release 24 hour 02/21/2016 - 02/29/2016 Provider: FRITZ MASSEY MD Diagnosis: Major depressive disorder, recurrent, unspecified as directed 3 every am Last Documented On 02/29/2016 5:28PM By Teresa Massey MD ; [facility] Wellbutrin XL 150 MG Tablet, extended-release 24 hour 11/10/2015 - 02/21/2016 Provider: FRITZ MASSEY MD Diagnosis: Major depressive disorder, recurrent, unspecified as directed 3 every am Last Documented On 02/21/2016 9:17AM By Teresa Massey MD ; [facility] Wellbutrin XL 150 MG Tablet Extended Release 24 Hour 08/30/2015 - 11/10/2015 Provider: FRITZ MASSEY MD Diagnosis: Major depressive disorder, recurrent, unspecified as directed 3 every am Last Documented On 11/10/2015 4:24PM By Teresa Massey MD ; [facility] Viibryd 20 MG Tablet 08/30/2015 - 02/29/2016 Provider: FRITZ MASSEY MD Diagnosis: Major depressive disorder, recurrent, unspecified 1 tablet every morning with food Last Documented On 02/29/2016 5:28PM By Teresa Massey MD ; [facility] TraZODone HCl 50 MG Tablet 08/30/2015 - 02/29/2016 Provider: FRITZ MASSEY MD Diagnosis: Generalized anxi ety disorder as directed TAKE 1/2 TO 1 TA BLET BY MOUTH 3 TIMES DAILY NEEDED FOR ANXIETY, 1 TAB at bedtime as needed only Last Documented On 02/29/2016 5:28PM By Teresa Massey MD ; [facility] Lexapro 20 MG Tablet 08/30/2015 - 02/29/2016 Provider: FRITZ MASSEY MD Diagnosis: Generalized anxi ety disorder One tablet daily Last Documented On 02/29/2016 5:28PM By Teresa Massey MD ; [facility] Lexapro 20 MG Tablet 08/24/2015 - 08/30/2015 Provider: FRITZ MASSEY MD Diagnosis: Generalized anxi ety disorder One tablet daily Last Documented On 08/30/2015 5:02PM By Teresa Massey MD ; [facility] TraZODone HCl 50 MG Tablet 08/03/2015 - 08/30/2015 Provider: FRITZ MASSEY MD Diagnosis: Generalized anxi ety disorder as directed TAKE 1/2 TO 1 TA BLET BY MOUTH 3 TIMES DAILY NEEDED FOR ANXIETY, 1 TAB at bedtime as needed only Last Documented On 08/30/2015 5:02PM By Teresa Massey MD ; [facility] Triamcinolone Acetonide 0.1 % Ointment 07/20/2015 - 02/25/2017 Provider: GALINDO RAMIREZ MD Diagnosis: Use as directed Last Documented On 7 4:21PM By REBA GARZA LPN ; [facility] TraZODone HCl 50 MG Tablet 03/02/2015 - 08/03/2015 Provider: FRITZ MASSEY MD Diagnosis: Generalized anxi ety disorder as directed TAKE 1/2 TO 1 TA BLET BY MOUTH 3 TIMES DAILY NEEDED FOR ANXIETY, 1 TAB at bedtime as needed only Last Documented On 6 10:11AM By Teresa Massey MD ; [facility] Lexapro 20 MG Tablet 03/02/2015 - 08/24/2015 Provider: FRITZ MASSEY MD Diagnosis: Generalized anxi ety disorder One tablet daily Last Documented On 08/24/2015 7:14PM By Teresa Massey MD ; [facility] Viibryd 20 MG Tablet 03/02/2015 - 08/30/2015 Provider: FRITZ MASSEY MD Diagnosis: Major depressive disorder, recurrent, unspecified 1 tablet every morning with food Last Documented On 08/30/2015 5:02PM By Teresa Massey MD ; [facility] Wellbutrin XL 150 MG Tablet Extended Release 24 Hour 03/02/2015 - 08/30/2015 Provider: FRITZ MASSEY MD Diagnosis: Major depressive disorder, recurrent, unspecified as directed 3 every am Last Documented On 08/30/2015 5:02PM By Teresa Massey MD ; [facility] Crestor 20 MG Tablet 03/02/2015 - 02/25/2017 Provider: ERNESTO PIMENTEL MD Diagnosis: Take 1 tablet by mouth daily Last Documented On 7 4:32PM By REBA GARZA LPN ; [facility] Wellbutrin XL 150 MG Tablet Extended Release 24 Hour 02/27/2015 - 03/02/2015 Provider: FRITZ MASSEY MD Diagnosis: Major depressive disorder, recurrent, unspecified as directed 3 every am Last Documented On 03/02/2015 4:24PM By Teresa Massey MD ; [facility] TraZODone HCl 50 MG Tablet 01/30/2015 - 03/02/2015 Provider: FRITZ MASSEY MD Diagnosis: Generalized anxi ety disorder as directed TAKE 1/2 TO 1 TA BLET BY MOUTH 3 TIMES DAILY NEEDED FOR ANXIETY. Last Documented On 03/02/2015 4:24PM By Teresa Massey MD ; [facility] Lexapro 20 MG Tablet 12/20/2014 - 03/02/2015 Provider: FRITZ MASSEY MD Diagnosis: GENERALIZED ANXI ETY DIS One tablet daily Last Documented On 03/02/2015 4:24PM By Teresa Massey MD ; [facility] Viibryd 20 MG Tablet 11/09/2014 - 03/02/2015 Provider: FRITZ MASSEY MD Diagnosis: MAJOR DEPRESSION DISORDER/RECURRENT 1 tablet every morning with food Last Documented On 03/02/2015 4:24PM By Teresa Massey MD ; [facility] Lexapro 20 MG Tablet 07/19/2014 - 12/20/2014 Provider: FRITZ MASSEY MD Diagnosis: GENERALIZED ANXI ETY DIS One tablet daily Last Documented On 12/20/2014 2:02PM By Teresa Massey MD ; [facility] TraZODone HCl 50 MG Tablet 07/19/2014 - 01/30/2015 Provider: FRITZ MASSEY MD Diagnosis: GENERALIZED ANXI ETY DIS as directed TAKE 1/2 TO 1 TA BLET BY MOUTH 3 TIMES DAILY NEEDED FOR ANXIETY. Last Documented On 01/30/2015 4:18PM By Teresa Massey MD ; [facility] Wellbutrin XL 150 MG Tablet, extended-release 24 hour 07/19/2014 - 02/27/2015 Provider: FRITZ MASSEY MD Diagnosis: MAJOR DEPRESSION DISORDER/RECURRENT as directed 3 every am Last Documented On 02/27/2015 4:27PM By Teresa Massey MD ; [facility] Nuvigil 150 MG Tablet 07/19/2014 - 03/02/2015 Provider: FRITZ HILLS MD Diagnosis: OBSTRUCTIVE SLEE P APNEA 1 tablet every morning with food Last Documented On 03/02/2015 4:27PM By Teresa Massey MD ; [facility] Viibryd 20 MG Tablet 07/19/2014 - 11/09/2014 Provider: FRITZ MASSEY MD Diagnosis: MAJOR DEPRESSION DISORDER/RECURRENT 1 tablet every morning with food Last Documented On 11/09/2014 7:46PM By Teresa Massey MD ; [facility] Lexapro 20 MG OR TABS 02/15/2014 - 07/19/2014 Provider: FRITZ HILLS MD Diagnosis: GENERALIZED ANXI ETY DIS Last Documented On 07/19/2014 5:09PM By Teresa Massey MD ; [facility] Wellbutrin XL 150 MG OR TB24 02/15/2014 - 07/19/2014 Provider: FRITZ MASSEY MD Diagnosis: MAJOR DEPRESSION DISORDER/RECURRENT 3 every am Last Documented On 07/19/2014 5:09PM By Teresa Massey MD ; [facility] Viibryd 20 MG OR TABS 02/15/2014 - 07/19/2014 Provider: FRITZ HILLS MD Diagnosis: MAJOR DEPRESSION DISORDER/RECURRENT will try another extra 20 mg in am with food to equal 40 mg in am. Last Documented On 07/19/2014 5:09PM By Teresa Massey MD ; [facility] Nuvigil 150 MG OR TABS 02/15/2014 - 07/19/2014 Provider: FRITZ HILLS MD Diagnosis: OBSTRUCTIVE SLEE P APNEA Last Documented On 07/19/2014 5:09PM By Teresa Massey MD ; [facility] traZODone HCl 50 MG OR TABS 02/15/2014 - 07/19/2014 Provider: FRITZ MASSEY MD Diagnosis: GENERALIZED ANXI ETY DIS TAKE 1/2 TO 1 TABLET BY MOUT H 3 TIMES DAILY NEEDED FOR ANXIETY. Last Documented On 07/19/2014 5:09PM By [facility] MD [facility] 02/09/2014 - 02/15/2014 Provider: FRITZ MASSEY MD Diagnosis: GENERALIZED ANXI ETY DIS TAKE 1/2 TO 1 TABLET BY MOUT H 3 TIMES DAILY NEEDED FOR ANXIETY. Last Documented On 02/15/2014 5:48PM By [facility] Massey MD ; [facility] Viib[facility]d 20 MG OR TABS 02/09/2014 - 02/15/2014 Provider: FRITZ HILLS MD Diagnosis: MAJOR DEPRESSION DISORDER/RECURRENT Last Documented On 02/15/2014 5:48PM By Teresa Mas[facility] MD ; [facility] Nuv[facility]il 150 MG OR TABS 10/05/2013 - 02/15/2014 Provider: FRITZ HILLS MD Diagnosis: OBSTRUCTIVE SLEE P APNEA 1 in the morning as needed Last Documented On 02/15/2014 5:48PM By Teresa Massey MD ; [facility] traZODone HCl 50 MG OR TABS 10/05/2013 - 02/09/2014 Provider: FRITZ MASSEY MD Diagnosis: GENERALIZED ANXI ETY DIS 1/2 to 1 tablet 3 times a da y as needed for anxiety Last Documented On 02/09/2014 5:59PM By Teresa Massey MD ; [facility] Wellbutrin XL 150 MG OR TB24 10/05/2013 - 02/15/2014 Provider: FRITZ MASSEY MD Diagnosis: MAJOR DEPRESSION DISORDER/RECURRENT 3 every am Last Documented On 02/15/2014 5:48PM By Teresa Massey MD ; [facility] Viib[facility]d 20 MG OR TABS 10/05/2013 - 02/09/2014 Provider: FRITZ HILLS MD Diagnosis: MAJOR DEPRESSION DISORDER/RECURRENT Last Documented On 02/09/2014 6:01PM By Teresa Massey MD ; [facility] Nuvigil 150 MG OR TABS 10/05/2013 - 10/05/2013 Provider: FRITZ HILLS MD Diagnosis: OBSTRUCTIVE SLEE P APNEA 1 in the morning as needed Last Documented On 10/05/2013 4:46PM By Teresa Massey MD ; [facility] Lex[facility]ro 20 MG OR TABS 10/05/2013 - 02/15/2014 Provider: FRITZ HILLS MD Diagnosis: GENERALIZED ANXI ETY DIS Last Documented On 02/15/2014 5:48PM By Teresa Massey MD ; [facility] Symbicort 80-4.5 MCG/ACT IN AERO 06/07/2013 - 03/02/20 15 Provider: Diagnosis: 2 puffs bid Last Documented On 03/02/2015 4:27PM By Teresa Massey MD ; [facility] traZODone HCl 50 MG OR TABS 06/07/2013 - 10/05/2013 Provider: FRITZ MASSEY MD Diagnosis: GENERALIZED ANXI ETY DIS 1/2 to 1 tablet 3 times a da y as needed for anxiety Last Documented On 10/05/2013 4:43PM By Teresa Massey MD ; [facility] Lexapro 20 MG OR TABS 06/07/2013 - 10/05/2013 Provider: FRITZ HILLS MD Diagnosis: GENERALIZED ANXI ETY DIS Last Documented On 10/05/2013 4:35PM By Teresa Massey MD ; [facility] Nuvigil 150 MG OR TABS 06/07/2013 - 10/05/2013 Provider: FRITZ HILLS MD Diagnosis: OBSTRUCTIVE SLEE P APNEA 1 in the morning as needed Last Documented On 10/05/2013 4:35PM By Teresa Massey MD ; [facility] Viibryd 20 MG OR TABS 06/07/2013 - 10/05/2013 Provider: FRITZ HILLS MD Diagnosis: MAJOR DEPRESSION DISORDER/RECURRENT Last Documented On 10/05/2013 4:35PM By Teresa Massey MD ; [facility] Wellbutrin XL 150 MG OR TB24 06/07/2013 - 10/05/2013 Provider: FRITZ MASSEY MD Diagnosis: MAJOR DEPRESSION DISORDER/RECURRENT 3 every am Last Documented On 10/05/2013 4:35PM By Teresa Massey MD ; [facility] Viibryd 20 MG OR TABS 01/19/2013 - 06/07/2013 Provider: FRITZ HILLS MD Diagnosis: MAJOR DEPRESSION DISORDER/RECURRENT Last Documented On 06/07/2013 4:05PM By Teresa Massey MD ; [facility] S Viibryd 10 & 20 & 40 MG OR KIT 01/19/2013 - 03/02/2015 Provider: FRITZ HILLS MD Diagnosis: MAJOR DEPRESSION DISORDER/RECURRENT 10 mg in am for 1 week then 20 mg in am with food--gave 12 weeks of samples Last Documented On 03/02/2015 4:27PM By Teresa Massey MD ; [facility] traZODone HCl 50 MG OR TABS 01/19/2013 - 06/07/2013 Provider: FRITZ MASSEY MD Diagnosis: GENERALIZED ANXI ETY DIS as needed Last Documented On 06/07/2013 4:12PM By Teresa Massey MD ; [facility] Lexapro 20 MG OR TABS 01/19/2013 - 06/07/2013 Provider: FRITZ HILLS MD Diagnosis: MAJOR DEPRESSION DISORDER/RECURRENT Last Documented On 06/07/2013 4:12PM By Teresa Massey MD ; [facility] Well[facility] 150 MG OR TB24 01/19/2013 - 06/07/2013 Provider: FRITZ MASSEY MD Diagnosis: MAJOR DEPRESSION DISORDER/RECURRENT 3 every am Last Documented On 06/07/2013 4:12PM By Teresa Massey MD ; [facility] N[facility] MG OR TABS 01/19/2013 - 06/07/2013 Provider: FRITZ HILLS MD Diagnosis: OBSTRUCTIVE SLEE P APNEA 1 in the morning as needed Last Documented On 06/07/2013 4:12PM By Teresa Massey MD ; [facility] Wellbutrin XL 150 MG OR TB24 07/10/2012 - 01/19/2013 Provider: FRITZ MASSEY MD Diagnosis: MAJOR DEPRESSION DISORDER/RECURRENT 3 every am Last Documented On 01/19/2013 3:39PM By Teresa Massey MD ; [facility] Well[facility] 150 MG OR TB24 07/10/2012 - 07/10/2012 P rovider: Diagnosis: 3 every am Last Documented On 3 11:15AM By Teresa Massey MD ; [facility] traZODone HCl 50 MG OR TABS 07/10/2012 - 01/19/2013 Pr ovider: FRITZ MASSEY MD Diagnosis: as needed Last Documented On 01/19/2013 3:39PM By Teresa Massey MD ; [facility] Viibryd 10 MG OR TABS 07/10/2012 - 07/10/2012 Provider : Diagnosis: 1 in the morning-pt takes it as needed Last Documented On 3 11:15AM By Teresa Massey MD ; [facility] N[facility] 150 MG OR TABS 07/10/2012 - 07/10/2012 Provide r: Diagnosis: 1 in the morning as needed Last Documented On 3 11:03AM By Teresa Massey MD ; [facility] Lexapro 20 MG OR TABS 07/10/2012 - 01/19/2013 Provider: FRITZ HILLS MD Diagnosis: MAJOR DEPRESSION DISORDER/RECURRENT Last Documented On 01/19/2013 3:39PM By Teresa Massey MD ; [facility] Nuv[facility]il 150 MG OR TABS 07/10/2012 - 01/19/2013 Provider: FRITZ HILLS MD Diagnosis: OBSTRUCTIVE SLEE P APNEA 1 in the morning as needed Last Documented On 01/19/2013 3:39PM By Teresa Massey MD ; [facility] Viibryd 10 MG OR TABS 07/10/2012 - 06/07/2013 Provider: FRITZ HILLS MD Diagnosis: MAJOR DEPRESSION DISORDER/RECURRENT 1 in the morning-pt takes it as needed when he has bouts of down days or feeling short tempered--3 weeks sapmles given Last Documented On 4 3:31PM By LEXIE POOLE ; [facility] Albuterol Sulfate POWD 07/10/2012 - 05/13/2018 Provide r: Diagnosis: as needed Last Documented On 05/13/2018 2:52PM By ILANA POOLE ; [facility] Indapamide 1.25 MG OR TABS 07/05/2012 - 03/02/2015 Pro vider: ERNESTO PIMENTEL MD Diagnosis: Last Documented On 03/02/2015 4:30PM By Teresa Massey MD ; [facility] Crestor 40 MG OR TABS 07/03/2012 - 03/02/2015 Provider : ERNESTO PIMENTEL MD Diagnosis: Last Documented On 5 4:18PM By REBA GARZA LPN ; [facility] traZODone HCl 50 MG OR TABS 06/10/2012 - 07/10/2012 Pr ovider: Diagnosis: Last Documented On 3 11:03AM By Teresa Massey MD ; [facility] Lexapro 20 MG OR TABS 06/10/2012 - 07/10/2012 Provider : Diagnosis: Last Documented On 3 11:03AM By Teresa Massey MD ; [facility] Medications Administered Includes: Administered Medications in patient's chart No Administered Medications Recorded Results Includes: Results from 09/10/2023 through 09/09/2024 No Results Recorded For Specified Dates History of Present Illness History of Present Illness not supported for this document type No History of Present Illness Recorded Social History Description Last Updated Former smoker - quit in 199909/13/2020 Last Documented On 1 8:25AM ; [facility] Alcohol use -- <2 - 4 beers a month 08/2019 Last Documented On 0 3:57AM ; [facility] Daily coffee consumption -- He drinks 0 - 4 cups of coffee a day, 2 glasses of tea a week and rarely, a botlle of Ski 03/15/2020 Last Documented On 0 3:57AM ; [facility] Non-smoker - quit smoking in 1999 Last Documented On 0 3:57AM ; [facility] Work history -- He retired from [employer] in 201705/13/2018 Last Documented On 9 6:49AM ; [facility] He was born in [place] and raised in [place], [place]. He was close to his parents while growing up, they had a good relationship and they were supportive of him. He graduated high school. He worked at [employer]. He first got in 1972 at the age of 21 and had 2 children. He reported no history of verbal, physical or sexual abuse 05/13/2018 Last Documented On 9 6:49AM ; [facility] No tobacco use 05/13/2018 Last Documented On 9 6:49AM ; [facility] Smoking status : Former smoker quit in 2 000 01/19/2013 Last Documented On 3 10:53PM ; [facility] Marital history Pt at 21 013 Last Documented On 3 3:03PM ; [facility] Not using drugs (Illicit) 06/10/2012 Last Documented On 3 3:03PM ; [facility] Procedures and Surgical History Surgical History Last Updated History of Prior Surgery: Re moval of ganglion cyst from left wrist. ~Removal of granuloma from left upper arm 07/10/2012 Last Documented On 3 11:25AM ; [facility] Medical History Includes: Medical History in patient's chart Description Last Updated History of coronavirus 2019- nCoV vaccine - [employer] #1 08/02/20 #2 08/24/20 #3 04/19/21 05/23/2021 Last Documented On 2 8:29AM ; [facility] History of COVID-19 infection - tested p ositive 01/25/21 -- fatigue 03/12/2021 Last Documented On 1 2:57PM ; [facility] Primary Care Provider: Dr. Ernesto maynard 09/13/2020 Last Documented On 1 8:25AM ; [facility] History of obstructive sleep apnea --using CPAP had a sleep study in 2017 and as of 04/01/19 he wears his CPAP every night 04/01/2019 Last Documented On 9 3:02AM ; [facility] History of crush injury of the thumb - r ight thumb 09/23/18 11/04/2018 Last Documented On 9 8:20AM ; [facility] History of type 2 diabetes mellitus 02/09 Last Documented On 7 7:53AM ; [facility] History of eczema 08/28/2016 Last Documented On 7 9:52PM ; [facility] History of dyshidrosis -- h/o 02/29/2016 Last Documented On 6 1:09AM ; [facility] History of asthma 10/05/2013 Last Documented On 4 5:30PM ; [facility] History of hyperlipidemia 06/10/2012 Last Documented On 3 3:03PM ; [facility] History of hypertension 06/10/2012 Last Documented On 3 3:03PM ; [facility] Family History Includes: Family History in patient's chart Description Last Updated Family medical history : No significant family history 02/25/2017 Last Documented On 7 7:53AM ; [facility] Review of Systems Review of Systems not supported for this document type No Review of Systems Recorded Mental Status Description Major depression, recurrent Functional Status No Functional Status Recorded Physical Exam Physical Exam not supported for this document type No Physical Exam Recorded Allergies Includes: Active, inactive, and resolved Allergies Substance Type Reaction Onset Date Resolved Date Statu s Niacin Allergy skin turned red, got hot, had fever, made him anxious 08/30/2015 Active Last Documented On 10/15/2023 1:46PM ; [facility] Note: Imported from external source. Cardizem Allergy 11/04/2018 Active Last Documented On 10/15/2023 1:46PM ; [facility] Note: Imported from external source. Insurance Includes: Active Insurance Policies Plan Name Member ID Group # Subscriber Relationship Effect malren Dates 1 - MEDICARE PART A CLAIMS/NGS [id number] DEDE PRINGLE Self 05/12/2018 - Unknown 2 - [employer] [id number] DEDE PRINGLE Self Clinical Notes Includes: Signed Clinical Notes starting from 05/31/2022 No Clinical Notes Recorded
--- OUTSIDE RECORDS SUMMARY | 2024-09-09 08:56 | XMS_ITS ---
Care Plan - [facility] Created on: September 09, 2024 DEDE PRINGLE : 1950 Sex: Male Author Organization [facility] Address [address] [place] [address] Phone Care Team Providers Care Wellness Coach Name Role Phone LAURA GUZMAN, FRITZ SAUCEDA [facility] [phone]
--- OUTSIDE RECORDS SUMMARY | 2024-09-09 08:56 | XMS_ITS | Clinical Summary ---
Author Organization [facility] Address [address] [place] [address] Phone Care Team Providers Care Pipe Testing Technician Name Role Phone LAURA GUZMAN, FRITZ SAUCEDA [facility] [phone] Reason for Visit and Chief Complaint The Chief Complaint is: follow up for depression and anxiety Problems Includes: Problems addressed during this encounter and other active Problems Current Visit Onset Date Resolved Date Provider Conditio n Status Post-traumatic Stress Disorder 01/10/2022 Active Last Documented On 3 5:53PM ; [facility] Tremor 01/10/2019 Active Last Documented On 3 5:52PM ; [facility] Psychophysiological Insomnia 04/11/2016 Active Last Documented On 3 5:50PM ; [facility] 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 FRITZ WORTHY MD Active Last Documented On 3 2:02PM ; [facility] Major Depression 06/22/2012 FRITZ MASSEY MD Active Last Documented On 3 2:02PM ; [facility] Generalized Anxiety Disorder 06/10/2012 Inactive Last Documented On 3 5:43PM ; [facility] Generalized Anxiety Disorder 06/10/2012 FRITZ MASSEY MD Active Last Documented On 3 2:02PM ; [facility] Past Visits Onset Date Resolved Date Provider Condition Status Restless Legs Syndrome 02/05/2023 BRANDON MASSEY MD Active Last Documented On 3 3:54PM ; [facility] Diabetes Mellitus Type 2 02/25/2017 Active Last Documented On 3 5:51PM ; [facility] Unspecified asthma, uncomplicated 07/10/2012 Active Last Documented On 3 5:48PM ; [facility] Essential (primary) hypertension 06/10/2012 Active Last Documented On 3 5:48PM ; [facility] Pure hypercholesterolemia 06/10/2012 Active Last Documented On 3 5:48PM ; [facility] Plan of Treatment Major Depressive disorder, [...] continue CPAP therapy - Last Documented On 10/20/2023 12:25AM ; [facility] Education and Decision Aids were provided during visit for: I recommended cognitive exer cises such as reading and/or word search puzzles, etc.. Last Documented On 4 2:06PM ; [facility] Calming techniques such as b reathing exercises/meditation and other relaxation techniques Last Documented On 4 12:20AM ; [facility] Assessments Includes: Assessments from this encounter Findings - Nonorganic sleep apnea - Last Documented On 10/20/2023 12:25AM ; [facility] - Tremor - Last Documented On 10/20/2023 12:25AM ; [facility] - Major depressive disorder - Last Documented On 10/20/2023 12:25AM ; [facility] - Psychophysiological insomnia - Last Documented On 10/20/2023 12:25AM ; [facility] - Generalized anxiety disorder - Last Documented On 10/20/2023 12:25AM ; [facility] - Post-traumatic stress disorder - Last Documented On 10/20/2023 12:25AM ; [facility] Instructions Includes: Instructions from this encounter Education and Decision Aids were provided during visit for: I recommended cognitive exer cises such as reading and/or word search puzzles, etc.. Last Documented On 4 2:06PM ; [facility] Calming techniques such as b reathing exercises/meditation and other relaxation techniques Last Documented On 4 12:20AM ; [facility] Medical Equipment - Implanted Devices Includes: Current Devices No Medical Equipment Recorded Medications Includes: Medications discussed during this encounter and other current Medications Discontinued / Stopped on this date FRITZ MASSEY MD on 02/05/2023 rOPINIRole HCl 3 MG Oral Tablet Provider: FRITZ MASSEY MD Diagnosis: Restless legs sy ndrome Last Documented On 10/15/2023 2:46PM By Teresa Massey MD ; [facility] New / Renewed during this visit FRITZ MASSEY MD on 10/15/2023 busPIRone HCl 10 MG Oral Tablet Provider: FRITZ MASSEY MD 30 day supply: 30 tablet, 3 refills Diagnosis: Generalized anxiety disorder One tablet daily Pharmacy: [address], [address] - Last Documented On 10/15/2023 2:46PM By Teresa Massey MD ; [facility] Current Medications (continue as prescribed) ZyrTEC Allergy 10 MG Oral Tablet 10/15/2023 Provider : Diagnosis: 1 tab daily prn Last Documented On 10/15/2023 1:59PM By ILANA POOLE ; [facility] traZODone HCl 50 MG Oral Tablet 06/20/2023 Provider: FRITZ MASSEY MD Diagnosis: Psychophysiologi c insomnia DIRECTED 1 TAB 2 TIMES A DAY AND 1 TAB AT BEDTIME NEEDED Last Documented On 06/20/2023 8:48AM By Teresa Massey MD ; [facility] Escitalopram Oxalate 20 MG Oral Tablet 06/11/2023 Provider: FRITZ MASSEY MD Diagnosis: Generalized anxi ety disorder One tablet daily Last Documented On 06/11/2023 2:33PM By Teresa Massey MD ; [facility] buPROPion HCl ER (XL) 150 MG Oral Tablet Extended Release 24 Hour 06/11/2023 Provider: FRITZ MASSEY MD Diagnosis: Major depressive disorder, recurrent, moderate TAKE 3 TABLETS BY MOUTH IN T HE MORNING Last Documented On 06/11/2023 2:31PM By Teresa Massey MD ; [facility] Atorvastatin Calcium 80 MG Oral Tablet 01/08/2023 Pr ovider: CESAR [facility]ST[facility]O [employer] Diagnosis: 1 tab daily Last Documented On 02/05/2023 1:45PM By ILANA POOLE ; [facility] Lisinopril 40 MG Oral Tablet 09/11/2022 Provider: Diagnosis: 1 daily Last Documented On 09/11/2022 2:48PM By ILANA POOLE ; [facility] metFORMIN HCl 500 MG TABS 07/11/2020 Provider: Diagnosis: 4 daily Last Documented On 09/07/2022 5:28PM By ILANA POOLE ; [facility] ProAir HFA 108 (90 Base) MCG/ACT IN AERS 05/13/2018 Provider: Diagnosis: 1-2 puffs every 4-6 hours prn Last Documented On 09/07/2022 5:28PM By ILANA POOLE ; [facility] Indapamide 2.5 MG OR TABS 03/02/2015 Provider: Diagnosis: from Dr. Figueroa Last Documented On 09/07/2022 5:28PM By Teresa Massey MD ; [facility] Aspirin 81 MG OR TABS 07/10/2012 Provider: Diagnosis: Last Documented On 09/07/2022 5:28PM By LEXIE HERNANDEZ ; [facility] Medications Administered Includes: Administered Medications from this encounter No Administered Medications Recorded Vital Signs Includes: Vital Signs from this encounter Vital Name 10/15/2023 02:01P Blood Pressure Sitting L 118/64 BP Cuff Size Regular Pulse Rate-Sitting (bpm) 82 Pulse Rhythm Regular Height (in) 65.5 Weight (lb) 240 Body Mass Index 39.3 Body Surface Area 2.1 Note: self reported vitals Last Documented: On 10/15/2023 2:01PM ; [facility] Results Includes: Results discussed during this encounter No Results Recorded For Specified Dates History of Present Illness Includes: History of Present Illness from this encounter DANNI PRINGLE is a 72 year old male. [...] - intact Social History Description Last Updated Current smoker for smoked for 25 years 0 10/15/2023 Last Documented On 4 12:25AM ; [facility] Caffeine use: Daily coffee c onsumption -- He drinks 1 cup of coffee a day, 1 glass of tea a day and an occasional sodaAlcohol: Alcohol use -- noneDrug Use: Not using drugs (Illicit).Work: Work history -- He retired from [employer] in 2018.Marital: Marital history Pt at 21.Housing and Economic Circumstances: Lives with spouseHe was born in [place], [place] and raised in [place]. He was close to his parents while growing up, they had a good relationship and they were supportive of him. He graduated high school. He worked at [employer]. He first got in 1972 at the age of 21 and had 2 children. He reported no history of verbal, physical or sexual abuse. 10/15/2023 Last Documented On 4 2:09PM ; [facility] Former smoker - quit smoking in 09/2023 Last Documented On 4 12:25AM ; [facility] Stopped smoking years ago 10/15/2023 Last Documented On 4 12:25AM ; [facility] Smoking Status Unknown Procedures and Surgical History Includes: Procedures from this encounter Procedures Code Diagnosis Performing Provider Service Location Service Date TELEHEALTH VISIT [facility] (POLICY CRITERIA APPLIED) [id number] Major depressive disorder, recurrent, unspecified, Generalized anxiety disorder, Psychophysiologic insomnia FRITZ MASSEY MD [facility]-PSY 10/15/2023 Last Documented On 4 1:52PM ; [facility] PSYCHOTHERAPY 45 MIN W/ PT-WHEN PERFMD WITH E/ [address]74 Major depressive disorder, recurrent, unspecified, Generalized anxiety disorder, Psychophysiologic insomnia FRITZ MASSEY MD [facility] 10/15/2023 Last Documented On 4 1:52PM ; [facility] education and instructions Last Documented On 4 1:42PM ; [facility] supportive care and encourag ement--given positive reinforcement to keep patient motivated and active Last Documented On 4 2:06PM ; [facility] ~* Call [phone] and /or go t o the nearest emergency room or call me if suicidal/homicidal ideation or other serious concerns arise. ~ ~* I gave instructions to call me should there be any questions or concerns. ~ ~* Patient voiced understanding and agreed to treatment plan Last Documented On 4 1:59PM ; [facility] dangerousness assessment: no suicide risk 3085F Last Documented On 4 1:42PM ; [facility] use of tobacco assessment performed 1000F Last Documented On 4 1:42PM ; [facility] patient screened for future fall risk: documentation of any fall with injury in past year - no recent falls 1100F Last Documented On 4 1:42PM ; [facility] review of medications documented 1160F Last Documented On 4 1:42PM ; [facility] assessment of suicide risk performed - n ot suicidal Last Documented On 4 2:00PM ; [facility] screening for adult depressi on: impression and score - please see above treatment and PHQ score Last Documented On 4 1:42PM ; [facility] standardized depression screening: posit marlen for symptoms Last Documented On 4 1:42PM ; [facility] encouragement to exercise - balanced arlyn l plan, low fat low carb diet Last Documented On 4 1:59PM ; [facility] Counseling on new medication : I discussed the risks, benefits and side effects ofBuspar. Patient verbalized understanding and agreed to treatment Last Documented On 4 12:23AM ; [facility] I recommended cognitive exer cises such as reading and/or word search puzzles, etc.. Last Documented On 4 2:06PM ; [facility] Clinical summary provided to patient Last Documented On 4 1:42PM ; [facility] PHQ-9: total score 5 Last Documented On 4 12:20AM ; [facility] Medical History Includes: Medical History addressed during this encounter Description Last Updated Primary Care Provider: Dr. Isaiah JosephDiagnoses:Bronchitis -- given Prednisone 20 mg and Doxycycline 100 mg 11/04/22Muscle spasm in back -- 01/2023 Systemic hypertension. AsthmaObstructive sleep apnea --using CPAP had a sleep study in 2018 and as of 04/01/19 he wears his CPAP every night. Hyperlipidemia. Type 2 diabetes mellitus. EczemaDyshidrosis -- h/o. COVID-19 infection - tested positive 01/25/21 -- fatigue. Crush injury of thumb - right thumb 09/23/18Procedural: Coronavirus 2019-nCoV vaccine - [employer] #1 08/02/20 #2 08/24/20 #3 04/19/21Surgical: Prior Surgery: Removal of ganglion cyst from left wrist. Removal of granuloma from left upper arm 10/15/2023 Last Documented On 4 1:42PM ; [facility] Family History Includes: Family History addressed during this encounter Description Last Updated Family medical history: No significant f amily history 10/15/2023 Last Documented On 1:42PM ; [facility] Review of Systems Includes: Review of Systems [...] Includes: Mental Status from this encounter Description Mini-mental status was perfo rmed 30/30 Was able to copy a design Oriented correctly to year Oriented correctly to season Oriented correctly to date Oriented correctly to day Oriented correctly to month Oriented correctly to state Oriented correctly to county Oriented correctly to town [facility]ed correctly to [facility] Oriented correctly to floor Normal recent memory [...] 3-stage command Major depressive disorder Functional Status Includes: Functional Status from this encounter No Functional Status Recorded Physical Exam Includes: Physical Exam from this encounter Allergies Includes: Active Allergies Substance Type Reaction Onset Date Resolved Date Statu s Niacin Allergy skin turned red, got hot, had fever, made him anxious 08/30/2015 Active Last Documented On 10/15/2023 1:46PM ; [facility] Note: Imported from external source. Cardizem Allergy 11/04/2018 Active Last Documented On 10/15/2023 1:46PM ; [facility] Note: Imported from external source. Encounters Encounter Provider Location Date Check-In Time Check-Out Time Diagnosis TELEHEALTH ADULT PSYCH ESTABLISHED FRITZ MASSEY MD [facility] 10/15/19 24 1:42PM 11:59PM Generalized Anxiety Disorder,Nonor ganic Sleep Apnea,Psychoph ysiological Insomnia,Post- traumatic Stress Disorder,Tremo r,Major Depression Insurance Includes: Active Insurance Policies Plan Name Member ID Group # Subscriber Relationship Effect marlen Dates 1 - MEDICARE PART A CLAIMS/NGS [id number] DEDE PRINGLE Self 05/12/2018 - Unknown 2 - [employer] [id number] DEDE PRINGLE Self Clinical Notes Includes: Clinical Notes from this encounter * Progress note Date Encounter Last Documented by 10/15/2023 TELEHEALTH ADULT PSYCH ESTABLISH ED Last documented on 10/20/2023; 12:25 AM, FRITZ MASSEY MD; [facility] Top of Document Medication psychotherapy 45 minutes [...] Work: Work history -- He retired from [employer] in 2018. Marital: Marital history Pt at 21. Housing and Economic Circumstances: Lives with spouse He was born in [place], [place] and raised in [place], [place]. He was close to his parents while growing up, they had a good relationship and they were supportive of him. He graduated high school. He worked at [employer]. He first got in 1972 at the [...] Clinical summary provided to patient. * Call [phone] and /or go to the nearest emergency [...]
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
--- OUTSIDE RECORDS SUMMARY | 2024-09-09 08:56 | XMS_ITS | Clinical Summary ---
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 Name Role Phone LAURA GUZMAN, FRITZ Nolan [phone] Reason for Visit and Chief Complaint The Chief Complaint is: follow up for depression Problems Includes: Problems addressed during this encounter and other active Problems Current Visit Onset Date Resolved Date Provider Conditio n Status Tremor 01/10/2019 FRITZ MASSEY MD Ac tive Last Documented On 9 3:00AM ; [facility] Psychophysiological Insomnia 04/11/2016 FRITZ MASSEY MD Active Last Documented On 7 9:35PM ; [facility] Nonorganic Sleep Apnea Obstructive 07/10/2012 Luis Eduardo MASSEY MD Inactive Last Documented On 5 10:26AM ; [facility] Note: Using CPAP Major Depression, Recurrent 06/22/2012 FRITZ MASSEY MD Inactive Last Documented On 5 10:25AM ; [facility] Generalized Anxiety Disorder 06/10/2012 FRITZ MASSEY MD Inactive Last Documented On 5 10:23AM ; [facility] Past Visits Onset Date Resolved Date Provider Condition Status Post-traumatic Stress Disorder 01/10/2022 FRITZ MASSEY MD Active Last Documented On 2 9:19PM ; [facility] Diabetes Mellitus Type 2 02/25/2017 FRITZ MASSEY MD Active Last Documented On 7 4:30PM ; [facility] Unspecified asthma, uncomplicated 07/10/2012 ME MERVAT MASSEY MD Active Last Documented On 5 10:26AM ; [facility] Sleep apnea, unspecified 07/10/2012 FRITZ MASSEY MD Active Last Documented On 5 10:26AM ; [facility] Major depressive disorder, r ecurrent, unspecified 06/22/2012 FRITZ MASSEY MD Active Last Documented On 5 10:25AM ; [facility] Generalized anxiety disorder 06/10/2012 FRITZ MASSEY MD Active Last Documented On 5 10:23AM ; [facility] Essential (primary) hypertension 06/10/2012 MET ANTONIO MASSEY MD Active Last Documented On 5 10:24AM ; [facility] Pure hypercholesterolemia 06/10/2012 FRITZ MASSEY MD Active Last Documented On 5 10:23AM ; [facility] Plan of Treatment Major Depressive disorder, recurrent [...] improve mental alertness - Last Documented On 06/25/2021 8:29AM ; [facility] Instructions to patient Lose weight Last Documented On 2 1:53PM ; [facility] Education and Decision Aids were provided during visit for: Patient education about [facility] --- I educated patient on medication(s) and diagnosis. I reviewed the risks, benefits and side effects of patient's medications Last Documented On 2 1:41PM ; [facility] Discussed calming techniques such as breathing exercises and other relaxation techniques Last Documented On 2 1:41PM ; [facility] Counseling for nutrition/maci ght management provided Last Documented On 2 1:53PM ; [facility] Discussed good sleep hygiene habits Last Documented On 2 1:53PM ; [facility] Assessments Includes: Assessments from this encounter Findings - Obstructive sleep apnea - Last Documented On 06/25/2021 8:29AM ; [facility] - Tremor - Last Documented On 06/25/2021 8:29AM ; [facility] - Major depression, recurrent - Last Documented On 06/25/2021 8:29AM ; [facility] - Psychophysiological insomnia - Last Documented On 06/25/2021 8:29AM ; [facility] - Generalized anxiety disorder - Last Documented On 06/25/2021 8:29AM ; [facility] Instructions Includes: Instructions from this encounter Instructions to patient Lose weight Last Documented On 2 1:53PM ; [facility] Education and Decision Aids were provided during visit for: Patient education about medi cation --- I educated patient on medication(s) and diagnosis. I reviewed the risks, benefits and side effects of patient's medications Last Documented On 2 1:41PM ; [facility] Discussed calming techniques such as breathing exercises and other relaxation techniques Last Documented On 2 1:41PM ; [facility] Counseling for nutrition/maci ght management provided Last Documented On 2 1:53PM ; [facility] Discussed good sleep hygiene habits Last Documented On 2 1:53PM ; [facility] Medical Equipment - Implanted Devices Includes: Current Devices No Medical Equipment Recorded Medications Includes: Medications discussed during this encounter and other current Medications New / Renewed during this visit FRITZ MASSEY MD on 05/23/2021 Escitalopram Oxalate 20 MG Oral Tablet Provider: FRITZ MASSEY MD 90 day supply: 90 tablet, 1 refills Diagnosis: Generalized anxiety disorder One tablet daily Pharmacy: [facility] [address], [address] - Last Documented On 09/03/2021 7:45AM By Teresa Massey MD ; [facility] buPROPion HCl ER (XL) 150 MG Oral Tablet Extended Release 24 Hour Provider: FRITZ MASSEY MD 90 day supply: 270 tablet, 3 refills Diagnosis: Major depressive disorder, recurrent, moderate TAKE 3 TABLETS BY MOUTH IN T HE MORNING Pharmacy: [facility] [place] - [address] [place] [address], [id number] - Last Documented On 06/11/2022 1:51PM By Teresa Massey MD ; [facility] Current Medications (continue as prescribed) Escitalopram Oxalate 20 MG Oral Tablet 06/11/2022 Provider: FRITZ MASSEY MD Diagnosis: Generalized anxi ety disorder One tablet daily Last Documented On 06/11/2022 1:53PM By Teresa Massey MD ; [facility] buPROPion HCl ER (XL) 150 MG Oral Tablet Extended Release 24 Hour 06/11/2022 Provider: FRITZ MASSEY MD Diagnosis: Major depressive disorder, recurrent, moderate TAKE 3 TABLETS BY MOUTH IN T HE MORNING Last Documented On 06/11/2022 1:52PM By Teresa Massey MD ; [facility] traZODone HCl 50 MG Oral Tablet 06/11/2022 Provider: FRITZ MASSEY MD Diagnosis: Psychophysiologi c insomnia TAKE 1/2 (ONE-HALF) TABLET B Y MOUTH TWICE DAILY NEEDED FOR ANXIETY AND 1 TABLET AT BEDTIME NEEDED FOR SLEEP DIRECTED Last Documented On 06/11/2022 1:50PM By Teresa Massey MD ; [facility] Azelastine HCl 137 MCG/SPRAY Nasal Solution 04/23/2022 Provider: NALINI CASTANO APN Diagnosis: Acute sinusitis, unspecified 1 spray to each nostril 2 x a day -- Nalini Castano Last Documented On 06/11/2022 1:42PM By Teresa Massey MD ; [facility] metFORMIN HCl 500 MG Oral Tablet 07/11/2020 Provider : ERNESTO PIMENTEL MD Diagnosis: 4 daily Last Documented On 09/13/2020 1:51PM By ILANA POOLE ; [facility] Atorvastatin Calcium 40 MG Oral Tablet 09/14/2019 Pr ovider: Diagnosis: Last Documented On 09/14/2019 2:54PM By Teresa Massey MD ; [facility] ProAir HFA 108 (90 Base)MCG/ ACT Inhalation Aerosol Solution 05/13/2018 Provider: ERNESTO PIMENTEL MD Diagnosis: 1-2 puffs every 4-6 hours prn Last Documented On 05/13/2018 2:56PM By ILANA POOLE ; [facility] Indapamide 2.5 MG Tablet 03/02/2015 Provider: Diagnosis: from Dr. Figueroa Last Documented On 03/02/2015 4:30PM By Teresa Massey MD ; [facility] Aspirin 81 MG OR TABS 07/10/2012 Provider: Diagnosis: Last Documented On 3 10:24AM By LEXIE HERNANDEZ ; [facility] ZyrTEC Allergy 10 MG OR TABS 07/10/2012 Provider: Diagnosis: Last Documented On 3 10:24AM By LEXIE HERNANDEZ ; [facility] Quinapril HCl 40 MG OR TABS 07/05/2012 Provider: ERNESTO PIMENTEL MD Diagnosis: Last Documented On 3 10:22AM By LEXIE HERNANDEZ ; [facility] Medications Administered Includes: Administered Medications from this encounter No Administered Medications Recorded Vital Signs Includes: Vital Signs from this encounter Vital Name 05/23/2021 02:00P Blood Pressure Sitting L 129/79 BP Cuff Size Regular Pulse Rate-Sitting (bpm) 87 Pulse Rhythm Regular Height (in) 65.5 Weight (lb) 250 Body Mass Index (kg/m2) 41.0 Body Surface Area (m2) 2.2 Note: self reported vitals Last Documented: On 05/23/2021 2:01PM ; [facility] Results Includes: Results discussed during this encounter No Results Recorded For Specified Dates History of Present Illness Includes: History of Present Illness from this encounter HPI DEDE PRINGLE is a 70 year old male. - Allergy list reviewed - Past medical history reviewed - Medication list reviewed This visit was conducted with use of interactive audio and video telecommunication system with real time communication between the patient and the provider. Patient consent for virtual visit obtained today. Total time spent with patient via audio and 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 Dede reported that he had some residual physical symptoms after having had COVID January 2021. He got vaccinated against the COVID before that and he even had a booster shot 04/19/2021. I mentioned that even though he got vaccinated. He may still have the virus but he will just have less severe symptoms and will not end up in the hospital for which he said that he just had some mild respiratory symptoms, i.e. coughing, itching, sinus issues. Although, he said that he had blood shot eyes for 2 days. He still has to help his who fractured both her tibia and fibula last March 2021. Since she has difficulty maneuvering around, he is now in charge of cooking and cleaning the household which he was not used to doing. He gained 5 pounds since he was last seen. He admitted that he overdid it last holiday and ate pumpkin pies and a variety of sugary snacks. He was reminded again that he needs to follow through a low fat low carb diet to prevent adverse consequences, i.e. cardiovascular diseases including stroke. He also has history of asthma and uses Proair. There are days where he may get down for no reason but has not been taking the extra Viibryd that I recommended. He said that the Lexapro 20 mg a day and Bupropion seemed to be sufficient at this point. He uses the Trazodone at night which helps with his sleep. Occasionally, he may get anxious for which he was given Trazodone 50 mg half tablet twice a day as needed. He is compliant in wearing his CPAP. There are days that he is more motivated than others. At times, he gets tired and occasionally wants to nap during the day but was encouraged to do low impact activity or exercise to improve his stamina. Occasionally, he gets restless. He denied having any suicidal thoughts. No delusions or hallucinations. He and his are also going through grieving period since his [id number] January 2021 but he seemed to be managing and coping with it. He is able to focus and concentrate for the most part. He denied having any suicidal thoughts. No delusions or hallucinations. He denied having any mood swings. MENTAL STATUS EXAM: Sensorium - alert, oriented to name, place, and time Attitude - cooperative Gait - ambulatory Sleep - good - compliant with CPAP therapy Interest/Energy/Motivation - good Guilt/Worthlessness - absent Concentration/Attention Span - able to focus and concentrate Memory Recall - fairly good Appetite - good - on 03/12/21 pt weighed 245 lbs and on 05/23/21 he weighed 250 lbs so he gained 5 lbs Suicidal Thoughts - absent Homicidal Thoughts - absent Delusions - absent Hallucinations - absent Appearance - casually groomed Motor Behavior - calm Eye Contact - intermittent Speech - fluent Mood - not depressed Affect - stable Thought Process - coherent Insight and Judgment - intact Social History Description Last Updated Former smoker - quit in 199909/13/2020 Last Documented On 2 1:41PM ; [facility] Alcohol use -- <2 - 4 beers a month 08/2019 Last Documented On 2 1:41PM ; [facility] Daily coffee consumption -- He drinks 0 - 4 cups of coffee a day, 2 glasses of tea a week and rarely, a botlle of Ski 03/15/2020 Last Documented On 2 1:41PM ; [facility] Work history -- He retired from [employer] in 201705/13/2018 Last Documented On 2 1:41PM ; [facility] He was born in [facility] and raised in [place], [place]. He was close to his parents while growing up, they had a good relationship and they were supportive of him. He graduated high school. He worked at [employer]. He first got in 1972 at the age of 21 and had 2 children. He reported no history of verbal, physical or sexual abuse 05/13/2018 Last Documented On 2 1:41PM ; [facility] Marital history Pt at 21 013 Last Documented On 2 1:41PM ; [facility] Not using drugs (Illicit) 06/10/2012 Last Documented On 2 1:41PM ; [facility] Smoking Status Unknown Procedures and Surgical History Includes: Procedures from this encounter Procedures Code Diagnosis Performing Provider Service L ocation Service Date education and instructions Last Documented On 2 1:41PM ; [facility] I explained the rationale fo r the [...] to treatment plan Last Documented On 2 1:41PM ; [facility] dangerousness assessment: suicide risk - not nancy cidal 3085F Last Documented On 2 2:04PM ; [facility] use of tobacco assessment performed 1000F Last Documented On 2 1:41PM ; [facility] patient screened for future fall risk - no recen t falls 3288F Last Documented On 2 1:41PM ; [facility] review of medications documented 1160F Last Documented On 2 1:41PM ; [facility] screening for adult depressi on: impression and score - please see above treatment and PHQ score Last Documented On 2 1:41PM ; [facility] standardized depression screening: posit marlen for symptoms Last Documented On 2 1:41PM ; [facility] encouragement to exercise Last Documented On 2 1:53PM ; [facility] Clinical summary provided to patient Last Documented On 2 1:53PM ; [facility] PHQ-9: total score Last Documented On 2 1:53PM ; [facility] Surgical History Last Updated History of Prior Surgery: Re moval of ganglion cyst from left wrist. ~Removal of granuloma from left upper arm 07/10/2012 Last Documented On 2 1:41PM ; [facility] Medical History Includes: Medical History addressed during this encounter Description Last Updated History of coronavirus 2019- nCoV vaccine - [employer] #1 08/02/20 #2 08/24/20 #3 04/19/21 05/23/2021 Last Documented On 2 8:29AM ; [facility] History of COVID-19 infection - tested p ositive 01/25/21 -- fatigue 03/12/2021 Last Documented On 2 1:41PM ; [facility] Primary Care Provider: Dr. Ernesto maynard 09/13/2020 Last Documented On 2 1:41PM ; [facility] History of obstructive sleep apnea --using CPAP had a sleep study in 2018 and as of 04/01/19 he wears his CPAP every night 04/01/2019 Last Documented On 2 1:41PM ; [facility] History of crush injury of the thumb - r ight thumb 09/23/18 11/04/2018 Last Documented On 2 1:41PM ; [facility] History of type 2 diabetes mellitus 02/09 Last Documented On 2 1:41PM ; [facility] History of eczema 08/28/2016 Last Documented On 2 1:41PM ; [facility] History of dyshidrosis -- h/o 02/29/2016 Last Documented On 2 1:41PM ; [facility] History of asthma 10/05/2013 Last Documented On 2 1:41PM ; [facility] History of hyperlipidemia 06/10/2012 Last Documented On 2 1:41PM ; [facility] History of hypertension 06/10/2012 Last Documented On 2 1:41PM ; [facility] Family History Includes: Family History addressed during this encounter Description Last Updated Family medical history : No significant family history 02/25/2017 Last Documented On 2 1:41PM ; [facility] Review of Systems Includes: Review of Systems from this encounter Systemic: Feeling poorly (malaise) - occasionally tired. No fever, no chills, and no night sweats. Head: No headache. Sinus pain. Neck: No neck pain and no neck stiffness. Eyes: No vision problems. Itching of the eyes. No eye pain. Otolaryngeal: [...] Documented On 10/15/2023 1:46PM ; [facility] Note: Imported from external source. Cardizem Allergy 11/04/2018 Active Last Documented On 10/15/2023 1:46PM ; [facility] Note: Imported from external source. Encounters Encounter Provider Location Date Check-In Time Check- Out Time Diagnosis [facility] [place] MASSEY MD [facility] 2 1:38PM 11:59PM Major Depression, Recurrent,Gen eralized Anxiety Disorder,Nono rganic Sleep Apnea Obstructive,P sychophysiolo gical Insomnia,Trem or Insurance Includes: Active Insurance Policies Plan Name Member ID Group # Subscriber Relationship Effect marlen Dates 1 - MEDICARE PART A CLAIMS/NGS [id number] DEDE Nguyen 05/12/2018 - Unknown 2 - [employer] [id number] DEDE Nguyen Clinical Notes Includes: Clinical Notes from this encounter No Clinical Notes Recorded
--- OUTSIDE RECORDS SUMMARY | 2024-09-09 08:57 | XMS_ITS | Clinical Summary ---
Author Organization [facility] Address [address] [place] [address] Phone Care Team Providers Care Shirt Sewer Name Role Phone LAURA GUZMAN, FRITZ ASUCEDA [facility] [phone] Reason for Visit and Chief Complaint The Chief Complaint is: follow up for depression and anxiety Problems Includes: Problems addressed during this encounter and other active Problems Current Visit Onset Date Resolved Date Provider Conditio n Status Post-traumatic Stress Disorder 01/10/2022 Active Last Documented On 3 5:53PM ; [facility] Tremor 01/10/2019 Active Last Documented On 3 5:52PM ; [facility] Psychophysiological Insomnia 04/11/2016 Active Last Documented On 3 5:50PM ; [facility] 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 FRITZ WORTHY MD Active Last Documented On 3 2:02PM ; [facility] Major Depression 06/22/2012 FRITZ MASSEY MD Active Last Documented On 3 2:02PM ; [facility] Generalized Anxiety Disorder 06/10/2012 Inactive Last Documented On 3 5:43PM ; [facility] Generalized Anxiety Disorder 06/10/2012 FRITZ MASSEY MD Active Last Documented On 3 2:02PM ; [facility] Past Visits Onset Date Resolved Date Provider Condition Status Restless Legs Syndrome 02/05/2023 BRANDON MASSEY MD Active Last Documented On 3 3:54PM ; [facility] Diabetes Mellitus Type 2 02/25/2017 Active Last Documented On 3 5:51PM ; [facility] Unspecified asthma, uncomplicated 07/10/2012 Active Last Documented On 3 5:48PM ; [facility] Essential (primary) hypertension 06/10/2012 Active Last Documented On 3 5:48PM ; [facility] Pure hypercholesterolemia 06/10/2012 Active Last Documented On 3 5:48PM ; [facility] Plan of Treatment Major Depressive [...] continue CPAP therapy - Last Documented On 03/02/2023 5:32PM ; [facility] Education and Decision Aids were provided during visit for: Discussed good sleep hygiene habits , guided meditation, breathing exercises if and when anxious Last Documented On 3 5:28PM ; [facility] Assessments Includes: Assessments from this encounter Findings - Nonorganic sleep apnea - Last Documented On 03/02/2023 5:32PM ; [facility] - Tremor - Last Documented On 03/02/2023 5:32PM ; [facility] - Major depressive disorder - Last Documented On 03/02/2023 5:32PM ; [facility] - Psychophysiological insomnia - Last Documented On 03/02/2023 5:32PM ; [facility] - Generalized anxiety disorder - Last Documented On 03/02/2023 5:32PM ; [facility] - Post-traumatic stress disorder - Last Documented On 03/02/2023 5:32PM ; [facility] Instructions Includes: Instructions from this encounter Education and Decision Aids were provided during visit for: Discussed good sleep hygiene habits , guided meditation, breathing exercises if and when anxious Last Documented On 3 5:28PM ; [facility] Medical Equipment - Implanted Devices Includes: Current Devices No Medical Equipment Recorded Medications Includes: Medications discussed during this encounter and other current Medications Discontinued / Stopped on this date on 09/14/2019 Atorvastatin Calcium 40 MG OR TABS Provid er: Diagnosis: Last Documented On 02/05/2023 1:45PM By ILANA POOLE ; [facility] Current Medications (continue as prescribed) busPIRone HCl 10 MG Oral Tablet 10/15/2023 Provider: FRITZ MASSEY MD Diagnosis: Generalized anxi ety disorder One tablet daily Last Documented On 10/15/2023 2:46PM By Teresa Massey MD ; [facility] ZyrTEC Allergy 10 MG Oral Tablet 10/15/2023 Provider : Diagnosis: 1 tab daily prn Last Documented On 10/15/2023 1:59PM By ILANA POOLE ; [facility] traZODone HCl 50 MG Oral Tablet 06/20/2023 Provider: FRITZ MASSEY MD Diagnosis: Psychophysiologi c insomnia DIRECTED 1 TAB 2 TIMES A DAY AND 1 TAB AT BEDTIME NEEDED Last Documented On 06/20/2023 8:48AM By Teresa Massey MD ; [facility] Escitalopram Oxalate 20 MG Oral Tablet 06/11/2023 Provider: FRITZ MASSEY MD Diagnosis: Generalized anxi ety disorder One tablet daily Last Documented On 06/11/2023 2:33PM By Teresa Massey MD ; [facility] buPROPion HCl ER (XL) 150 MG Oral Tablet Extended Release 24 Hour 06/11/2023 Provider: FRITZ MASSEY MD Diagnosis: Major depressive disorder, recurrent, moderate TAKE 3 TABLETS BY MOUTH IN T HE MORNING Last Documented On 06/11/2023 2:31PM By Teresa Massey MD ; [facility] Atorvastatin Calcium 80 MG Oral Tablet 01/08/2023 Pr ovider: CESAR CASTANO APN Diagnosis: 1 tab daily Last Documented On 02/05/2023 1:45PM By ILANA POOLE ; [facility] Lisinopril 40 MG Oral Tablet 09/11/2022 Provider: Diagnosis: 1 daily Last Documented On 09/11/2022 2:48PM By ILANA POOLE ; [facility] metFORMIN HCl 500 MG TABS 07/11/2020 Provider: Diagnosis: 4 daily Last Documented On 09/07/2022 5:28PM By ILANA POOLE ; [facility] ProAir HFA 108 (90 Base) MCG/ACT IN AERS 05/13/2018 Provider: Diagnosis: 1-2 puffs every 4-6 hours prn Last Documented On 09/07/2022 5:28PM By ILANA POOLE ; [facility] Indapamide 2.5 MG OR TABS 03/02/2015 Provider: Diagnosis: from Dr. Figueroa Last Documented On 09/07/2022 5:28PM By Teresa Massey MD ; [facility] Aspirin 81 MG OR TABS 07/10/2012 Provider: Diagnosis: Last Documented On 09/07/2022 5:28PM By LEXIE HERNANDEZ ; [facility] Medications Administered Includes: Administered Medications from this encounter No Administered Medications Recorded Vital Signs Includes: Vital Signs from this encounter Vital Name 02/05/2023 01:47P Blood Pressure Sitting L 144/86 BP Cuff Size Regular Pulse Rate-Sitting (bpm) 65 Pulse Rhythm Regular Height (in) 65.5 Weight (lb) 245 Body Mass Index 40.1 Body Surface Area 2.2 Note: self reported vitals Last Documented: On 03/02/2023 5:26PM ; [facility] Results Includes: Results discussed during this encounter No Results Recorded For Specified Dates History of Present Illness Includes: History of Present Illness from this encounter DANNI PRINGLE is a 72 year old male. - Allergy list reviewed - Past medical history reviewed - Medication list reviewed Pt talked about his 's health issues and although she is recuperating it is still hard on him since her accident took a toll on him where he had to do the chores that his used to do but now his is very limited in what she can do. He has to drive his to pain mgt and other dr's visits. He gets occ down but only once or 2 x a week. Pt has not been as anxious. Pt denied having any mood swings. Pt has not been as irritable. Some days pt is not as motivated doing daily tasks since he has chronic tiredness/fatigue and some days he just wants to nap. Sleep has been good but at times pt has trouble falling asleep. Pt has been napping/sleeping too much during the daytime. Pt gets tired. His labs last 12/31 showed TG 569, Hgb A1C 7.7, PSA 0.9. His Lipitor was increased to 80 mg a day. He is diabetic and was reminded to follow a low glycemic and low fat diet. He had bronchitis last 10/2022 but currently suffers from muscle spasm in his back further contributing to his tiredness and physical limitations. He also has DARVIN and uses the CPAP. Appetite is good. Pt has not been feeling as bad about self. Pt is able to focus and concentrate for the most part. Pt denied having any psychomotor restlessness. Pt denied suicidal thoughts. Pt denied having any delusions/hallucinations. Overall the Bupropion XL and Lexapro are still helping with his mood and anxiety. MENTAL STATUS EXAM: Sensorium - alert, oriented to name, place, and time Attitude - cooperative Gait - ambulatory Sleep - difficulty falling asleep at times -- compliant with CPAP therapy Interest/Energy/Motivation - good but some days tired and not as motivated Guilt/Worthlessness - absent Concentration/Attention Span - able to focus and concentrate Memory Recall - fairly good Appetite - good - on 09/11/22 pt weighed 246 lbs and on 02/05/23 he weighed 245 lbs so he lost 1 lb Suicidal Thoughts - absent Homicidal Thoughts - absent Delusions - absent Hallucinations - absent Appearance - casually groomed Motor Behavior - calm Eye Contact - intermittent Speech - fluent Mood - not depressed Affect - not as anxious Thought Process - coherent Insight and Judgment - intact Social History Description Last Updated Caffeine use: Daily coffee c onsumption -- He drinks 0 - 4 cups of coffee a day, 2 glasses of tea a week and rarely, a botlle of Ski.Alcohol: Alcohol use -- <2 - 4 beers a month.Drug Use: Not using drugs (Illicit).Work: Work history -- He retired from [employer] in 2018.Marital: Marital history Pt at 21.He was born in [place], [place] and raised in [place], [place]. He was close to his parents while growing up, they had a good relationship and they were supportive of him. He graduated high school. He worked at [employer]. He first got in 1972 at the age of 21 and had 2 children. He reported no history of verbal, physical or sexual abuse. 02/05/2023 Last Documented On 3 1:33PM ; [facility] Tobacco non-user 02/05/2023 Last Documented On 3 5:32PM ; [facility] Smoking Status Unknown Procedures and Surgical History Includes: Procedures from this encounter Procedures Code Diagnosis Performing Provider Service L ocation Service Date education and instructions Last Documented On 3 1:33PM ; [facility] supportive care and encourag ement--given positive reinforcement to keep patient motivated and active Last Documented On 3 1:51PM ; [facility] ~* Call [phone] and /or go t o the nearest emergency room or call me if suicidal/homicidal ideation or other serious concerns arise. ~ ~* I gave instructions to call me should there be any questions or concerns. ~ ~* Patient voiced understanding and agreed to treatment plan Last Documented On 3 1:46PM ; [facility] dangerousness assessment: no suicide risk 3085F Last Documented On 3 1:33PM ; [facility] use of tobacco assessment performed 1000F Last Documented On 3 1:33PM ; [facility] patient screened for future fall risk: documentation of any fall with injury in past year - no recent falls 1100F Last Documented On 3 1:33PM ; [facility] review of medications documented 1160F Last Documented On 3 1:46PM ; [facility] assessment of suicide risk performed - n ot suicidal Last Documented On 3 1:46PM ; [facility] screening for adult depressi on: impression and score - please see above for treatment and PHQ score Last Documented On 3 1:33PM ; [facility] standardized depression screening: posit marlen for symptoms Last Documented On 3 1:33PM ; [facility] encouragement to exercise - balanced arlyn l plan, low fat low carb diet Last Documented On 3 1:46PM ; [facility] Clinical summary provided to patient Last Documented On 3 1:33PM ; [facility] PHQ-9: total score 7 Last Documented On 3 5:28PM ; [facility] Medical History Includes: Medical History [...] right thumb 09/23/18Procedural: Coronavirus 2019-nCoV vaccine - Pfizer #1 08/02/20 #2 08/24/20 #3 04/19/21Surgical: Prior Surgery: Removal of ganglion cyst from left wrist. Removal of granuloma from left upper arm 02/05/2023 Last Documented On 3 3:09PM ; [facility] Family History Includes: Family History addressed during this encounter Description Last Updated Family medical history: No significant f amily history 02/05/2023 Last Documented On 3 1:33PM ; [facility] Review of Systems Includes: Review [...] Active Last Documented On 10/15/2023 1:46PM ; [facility] Note: Imported from external source. Cardizem Allergy 11/04/2018 Active Last Documented On 10/15/2023 1:46PM ; [facility] Note: Imported from external source. Encounters Encounter Provider Location Date Check-In Time Check-Out Time Diagnosis TELEHEALTH ADULT PSYCH ESTABLISHED FRITZ MASSEY MD [facility] 02/06/20 1:33PM 11:59PM Generalized Anxiety Disorder,Nonor ganic Sleep Apnea,Psychoph ysiological Insomnia,Post- traumatic Stress Disorder,Tremo r,Major Depression Insurance Includes: Active Insurance Policies Plan Name Member ID Group # Subscriber Relationship Effect marlen Dates 1 - MEDICARE PART A CLAIMS/NGS [id number] DEDE PRINGLE Self 05/12/2018 - Unknown 2 - [employer] [id number] DEDE PRINGLE Self Clinical Notes Includes: Clinical Notes from this encounter * Progress note Date Encounter Last Documented by 02/05/2023 TELEHEALTH ADULT PSYCH ESTABLISH ED Last documented on 03/02/2023; 5:32 PM, FRITZ MASSEY MD; [facility] Top of Document Medication psychotherapy 45 minutes Patient gave verbal consent for Telehealth 02/05/23. Location of patient: patient's home Location of [...] history reviewed - Medication list reviewed Pt talked about his 's health issues and although she is recuperating it is still hard on him since her accident took a toll on him where he had to do the chores that his used to do but now his is very limited in what she can do. He has to drive his to pain mgt and other dr's visits. He gets occ down but only once or 2 x a week. Pt has not been as anxious. Pt denied having any mood swings. Pt has not been as irritable. Some days pt is not as motivated doing daily tasks since he has chronic tiredness/fatigue and some days he just wants to nap. Sleep has been good but at times pt has trouble falling asleep. Pt has been napping/sleeping too much during the daytime. Pt gets tired. His labs last 12/31 showed TG 569, Hgb A1C 7.7, PSA 0.9. His Lipitor was increased to 80 mg a day. He is diabetic and was reminded to follow a low glycemic and low fat diet. He had bronchitis last 10/2022 but currently suffers from muscle spasm in his back further contributing to his tiredness and physical limitations. He also has DARVIN and uses the CPAP. Appetite is good. Pt has not been feeling as bad about self. Pt is able to focus and concentrate for the most part. Pt denied having any psychomotor restlessness. Pt denied suicidal thoughts. Pt denied having any delusions/hallucinations. Overall the Bupropion XL and Lexapro are still helping with his mood and anxiety. MENTAL STATUS EXAM: Sensorium - alert, oriented to name, place, and time Attitude - cooperative Gait - ambulatory Sleep - difficulty falling asleep at times -- compliant with CPAP therapy Interest/Energy/Motivation - good but some days tired and not as motivated Guilt/Worthlessness - absent Concentration/Attention Span - able to focus and concentrate Memory Recall - fairly good Appetite - good - on 09/11/22 pt weighed 246 lbs and on 02/05/23 he weighed 245 lbs so he lost 1 lb Suicidal Thoughts - absent Homicidal Thoughts - absent Delusions - absent Hallucinations - absent Appearance - casually groomed Motor Behavior - calm Eye Contact - intermittent Speech - fluent Mood - not depressed Affect - not as anxious Thought Process - coherent Insight and [...] Oral Tablet One tablet daily, 90 days, 1 refills [...] hours prn, 0 days, 0 refills - rOPINIRole HCl 3 MG Oral Tablet as directed - 2 tabs in the evening, 30 days, 3 refills - traZODone HCl 50 MG Oral Tablet as directed 1 tab 2 times a day and 1 tab at bedtime as needed, 90 days, 1 refills - - No [...] Work: Work history -- He retired from [employer] in 2018. Marital: Marital history Pt at 21. He was born in [place], [place] and raised in [place], [place]. He was close to his parents while growing up, they had a good relationship and they were supportive of him. He graduated high school. He worked at [employer]. He first got in 1972 at the [...] no rash. Physical Findings - Vitals taken 02/05/2023 01:47 pm self reported vitals BP-Sitting L 144/86 mmHg BP Cuff Size Regular Pulse Rate-Sitting 65 bpm Pulse Rhythm Regular Height 65.5 in Weight 245 lbs Body Mass Index 40.1 kg/m2 Body Surface Area 2.2 m2 Tests Educational Testing: Questionnaires PHQ-9: Value PHQ-9: total score 7 Assessment - Nonorganic sleep apnea - Tremor - Major depressive disorder - Psychophysiological insomnia - Generalized anxiety disorder - Post-traumatic stress disorder Therapy - Dangerousness assessment: no suicide risk. - Supportive care and encouragement--given positive reinforcement to keep patient motivated and active. - Encouragement to exercise - balanced meal plan, low fat low carb diet. - Education and instructions. - Assessment of suicide risk performed - not suicidal - Clinical summary provided to patient. * Call [phone] and /or go to the nearest emergency room or call me if suicidal/homicidal ideation or other serious concerns arise. * I gave instructions to call me should there be any questions or concerns. * Patient voiced understanding and agreed to treatment plan. Counseling/Education - Discussed good sleep hygiene habits, guided meditation, breathing exercises if and when anxious Plan StartCited - Other Follow-up 06/11/23 EndCited Major Depressive disorder, recurrent - Wellbutrin [...]
--- OUTSIDE RECORDS SUMMARY | 2024-09-09 08:57 | XMS_ITS | Clinical Summary ---
Author Organization [address] Address [address] [place] [address] Care Team Providers Care Adjunct Instructor Chemistry Name Role Phone Jose Joseph DO Primary Care Provider [phone] Allergies No known active allergies Medications atorvastatin (LIPITOR) 20 mg tablet Take 20 mg by mouth daily 0 03/10/2019 Active buPROPion XL (WELLBUTRIN XL) 150 mg 24 hr tablet TAKE 3 TABLETS BY MOUTH IN THE MORNING 3 04/07/2019 Active escitalopram (LEXAPRO) 20 mg tablet Take 20 mg by mouth daily 3 02/08/2019 Active indapamide (LOZOL) 2.5 mg tablet TAKE 1 TABLET BY MOUTH ONCE DAILY IN THE MORNING 3 03/10/2019 Active metFORMIN (GLUCOPHAGE) 500 mg tablet TAKE 2 TABLETS BY MOUTH TWICE DAILY WITH MORNING MEAL AND WITH EVENING MEAL 0 02/22/2019 Active quinapril (ACCUPRIL) 40 mg tablet 04/06/2019 Active traZODone (DESYREL) 50 mg tablet TAKE ONE HALF TO ONE TABLET BY MOUTH TWO TIMES DAILY NEEDED FOR ANXIETY AND ONE TABLET AT BEDTIME NEEDED ONLY FOR SLEEP DIRECTED 3 02/08/2019 Active aspirin 81 mg enteric coated tablet Take 81 mg by mouth daily Active ibuprofen (ADVIL,MOTRIN) 800 mg tabletIndicatio ns:De Quervain's tenosynovitis, right Take 1 tablet (800 mg total) by mouth 3 (three) times a day 21 tablet 04/21/2019 Active arm brace miscIndications :De Quervain's tenosynovitis, right 1 Units daily Right pre hodan cock up wrist splint 1 each 04/21/2019 Active Active Problems Problem Noted Date Diagnosed Date Elevated PSA 07/09/2021 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 Overview (08/15/2016): Hypersomnia with sleep apnea Obstructive sleep apnea syndrome 06/06/2011 Overview (08/15/2016): DARVIN on CPAP Adiposity 06/06/2011 Overview (08/16/2016): Obesity 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 Surgical History Surgery Date Site/Laterality Comments GANGLION CYST EXCISION Left Medical History Medical History Date Comments Hyperlipidemia Hyperlipidemia Hypertension Hypertension Depression Depression Kidney disorder Kidney disease Family History Medical History Relation Name Comments Hypertension Father Hypertension; Relation Name Status Comments Father Social History Tobacco Use Types Packs/Day Years Used Date Smoking Tobacco: Former Smokeless Tobacco: Never Alcohol Use Standard Drinks/Week Comments No 0 (1 standard drink = 0.6 oz pur e alcohol) Sex and Gender Information Value Date Recorded Sex Assigned at Not on file Legal Sex Male 11:58 PM APARTMENT MAINTENANCE TECHNICIAN Gender Identity Not on file Sexual Orientation Not on file Obstetrics History Last Filed Vital Signs Vital Sign Reading Time Taken Comments Blood Pressure 120/68 04/21/2019 4:52 PM APARTMENT MAINTENANCE TECHNICIAN Pulse 78 04/21/2019 4:52 PM APARTMENT MAINTENANCE TECHNICIAN Temperature 36.8 C (98.3 F) 04/21/2019 4:52 PM APARTMENT MAINTENANCE TECHNICIAN Respiratory Rate 16 04/21/2019 4:52 PM APARTMENT MAINTENANCE TECHNICIAN Oxygen Saturation 95% 04/21/2019 4:52 PM APARTMENT MAINTENANCE TECHNICIAN Inhaled Oxygen Concentration - - Weight 117 kg (258 lb) 04/21/2019 4:52 PM APARTMENT MAINTENANCE TECHNICIAN Height 167.6 cm (5' 6 ) 04/21/2019 4:52 PM APARTMENT MAINTENANCE TECHNICIAN Body Mass Index 41.64 04/21/2019 4:52 PM APARTMENT MAINTENANCE TECHNICIAN Plan of Treatment Health Maintenance Due Date Last Done Comments Albumin Creatinine Ratio, Urine 1952 Colon Cancer Screening-Colonoscopy 1952 Depression Screening 1952 Fall Risk Assessment 1952 Hepatitis C Screening 1952 Dilated Eye Exam 1952 Foot Exam 1952 Lipid Panel 1952 DTaP/Tdap/Td Vaccine (1 - Tdap) 12/01/1963 Hepatitis B Screening 1970 Pneumococcal vaccine 65+ (1 of 2 - PCV) 12/01/1971 Zoster Vaccine (1 of 2) 2002 Abdominal Aortic Aneurysm (A AA) Screen 2017 Well Visit 65+ 2017 Covid-19 Vaccine ( - season) 2024 04/19/2021, 08/24/2020, 08/02/2020 Influenza Vaccine (#1) 2024 , 04/07/2020, 03/24/2019 Hemoglobin A1C 10/29/2024 04/30/2024 eGFR 04/30/2025 04/30/2024, 04/30/2024 Procedures Procedure Name Priority Date/Time Associated Diagnosis Comments EGFR Routine 04/30/2024 4:00 PM APARTMENT MAINTENANCE TECHNICIAN HEMOGLOBIN A1C Routine 04/30/2024 4:00 PM APARTMENT MAINTENANCE TECHNICIAN from Last 3 Months or Most Recently Relevant to Health Maintenance Results * (ABNORMAL) eGFR (04/30/2024 4:00 PM APARTMENT MAINTENANCE TECHNICIAN) eGFR 38(L) >=60 mL/min/1. 73 m2 Comment: Interpretive Data Reference Interval Normal >/= 90 mL/min/1.73m2 Mildly decreased* 60 - 89 mL/min/1.73m2 Mildly to moderately decreased 45 - 59 mL/min/1.73m2 Moderately to severely decreased 30 - 44 mL/min/1.73m2 Severely decreased 15 - 29 mL/min/1.73m2 Kidney Failure < 15 mL/min/1.73m2 *Relative to young adult level Estimated glomerular filtration rate is determined by the 2020 CKD-EPI equation recommended by the National Kidney Foundation (A Unifying Approach to GFR Estimation: Recommendations of the NKF-ASK Task Force on Reassessing the Inclusion of Race in Diagnosing Kidney Disease, JASN 2020). The CKD-EPI equation should not be used for patients with unstable renal function and has not been validated in children and those over 70. Current interpretive data was last reviewed 2021. Urine/Blood 04/30/2024 4:00 PM APARTMENT MAINTENANCE TECHNICIAN 04/30/2024 4:13 PM APARTMENT MAINTENANCE TECHNICIAN Dick Mendoza MD LAB BLOOD ORDERABLES Final Re sult Performing Organization Address City/[facility] Co de Phone Number RADHAMES CASTRO ([place]) [address] [facility] [place] [address] * (ABNORMAL) Hemoglobin A1c (04/30/2024 4:00 PM APARTMENT MAINTENANCE TECHNICIAN) Hgb A1C 7.5(H) 4.0 - 5.6 % Estimated Average Glucose 169 mg/dL RADHAMES CASTRO ([place]) Comment: The ADA recommends reporting an estimated Average Glucose (eAG) with all Hemoglobin A1c results using the equation derived from a study of 507 normal and diabetic adults. Minority populations were underrepresented and children were not included. (Diabetes Care 31:9780-5482, 2008). The eAG is not equivalent to a fasting glucose. Blood 04/30/2024 4:00 PM APARTMENT MAINTENANCE TECHNICIAN 04/30/2024 4:13 PM APARTMENT MAINTENANCE TECHNICIAN Dick Mendoza MD LAB BLOOD ORDERABLES Final Re sult Performing Organization Address City/[facility]/ZIP Co de Phone Number RADHAMES CASTRO ([place]) 1 [facility] [place] [address] from Last 3 Months or Most Recently Relevant to Health Maintenance Insurance MEDICARE COMMERCIAL GENERIC MEDICARE COMMERCIAL GENERIC MEDICARE [facility] FINANCIAL Care Teams Adjunct Instructor Chemistry Relationship Specialty Start Date End Date Jose Joseph DO PCP - General 12/13/10
--- OUTSIDE RECORDS SUMMARY | 2024-09-09 08:57 | XMS_ITS | Clinical Summary ---
Author Organization [facility] Address [address] [place] [address] Phone Care Team Providers Care [employer] Supervisor Name Role Phone LAURA GUZMAN, FRITZ SAUCEDA [facility] [phone] Reason for Visit and Chief Complaint The Chief Complaint is: follow up for depression and anxiety Problems Includes: Problems addressed during this encounter and other active Problems Current Visit Onset Date Resolved Date Provider Conditio n Status Post-traumatic Stress Disorder 01/10/2022 Active Last Documented On 3 5:53PM ; [facility] Tremor 01/10/2019 Active Last Documented On 3 5:52PM ; [facility] Psychophysiological Insomnia 04/11/2016 Active Last Documented On 3 5:50PM ; [facility] 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 FRITZ WORTHY MD Active Last Documented On 3 2:02PM ; [facility] Major Depression 06/22/2012 FRITZ MASSEY MD Active Last Documented On 3 2:02PM ; [facility] Generalized Anxiety Disorder 06/10/2012 Inactive Last Documented On 3 5:43PM ; [facility] Generalized Anxiety Disorder 06/10/2012 FRITZ MASSEY MD Active Last Documented On 3 2:02PM ; [facility] Past Visits Onset Date Resolved Date Provider Condition Status Restless Legs Syndrome 02/05/2023 BRANDON MASSEY MD Active Last Documented On 3 3:54PM ; [facility] Diabetes Mellitus Type 2 02/25/2017 Active Last Documented On 3 5:51PM ; [facility] Unspecified asthma, uncomplicated 07/10/2012 Active Last Documented On 3 5:48PM ; [facility] Essential (primary) hypertension 06/10/2012 Active Last Documented On 3 5:48PM ; [facility] Pure hypercholesterolemia 06/10/2012 Active Last Documented On 3 5:48PM ; [facility] Plan of Treatment Major Depressive disorder, recurrent [...] continue CPAP therapy - Last Documented On 06/11/2023 2:57PM ; [facility] Assessments Includes: Assessments from this encounter Findings - Nonorganic sleep apnea - Last Documented On 06/11/2023 2:57PM ; [facility] - Tremor - Last Documented On 06/11/2023 2:57PM ; [facility] - Major depressive disorder - Last Documented On 06/11/2023 2:57PM ; [facility] - Psychophysiological insomnia - Last Documented On 06/11/2023 2:57PM ; [facility] - Generalized anxiety disorder - Last Documented On 06/11/2023 2:57PM ; [facility] - Post-traumatic stress disorder - Last Documented On 06/11/2023 2:57PM ; [facility] Medical Equipment - Implanted Devices Includes: Current Devices No Medical Equipment Recorded Medications Includes: Medications discussed during this encounter and other current Medications New / Renewed during this visit FRITZ MASSEY MD on 06/11/2023 Escitalopram Oxalate 20 MG Oral Tablet Provider: FRITZ MASSEY MD day supply: 90 tablet, 3 refills Diagnosis: Generalized anxiety disorder One tablet daily Pharmacy: [address], [address] - Last Documented On 06/11/2023 2:33PM By Teresa Massey MD ; [facility] buPROPion HCl ER (XL) 150 MG Oral Tablet Extended Release 24 Hour Provider: FRITZ MASSEY MD 90 day supply: 270 tablet, 3 refills Diagnosis: Major depressive disorder, recurrent, moderate TAKE 3 TABLETS BY MOUTH IN T HE MORNING Pharmacy: [facility] [address], [address] - Last Documented On 06/11/2023 2:31PM By Teresa Massey MD ; [facility] Current Medications (continue as prescribed) busPIRone HCl 10 MG Oral Tablet 10/15/2023 Provider: FRITZ MASSEY MD Diagnosis: Generalized anxi ety disorder One tablet daily Last Documented On 10/15/2023 2:46PM By Teresa Massey MD ; [facility] ZyrTEC Allergy 10 MG Oral Tablet 10/15/2023 Provider : Diagnosis: 1 tab daily prn Last Documented On 10/15/2023 1:59PM By ILANA POOLE ; [facility] traZODone HCl 50 MG Oral Tablet 06/20/2023 Provider: FRITZ MASSEY MD Diagnosis: Psychophysiologi c insomnia DIRECTED 1 TAB 2 TIMES A DAY AND 1 TAB AT BEDTIME NEEDED Last Documented On 06/20/2023 8:48AM By Teresa Massey MD ; [facility] Atorvastatin Calcium 80 MG Oral Tablet 01/08/2023 Pr ovider: CESAR CASTANO TEST TECH Diagnosis: 1 tab daily Last Documented On 02/05/2023 1:45PM By ILANA POOLE ; [facility] Lisinopril 40 MG Oral Tablet 09/11/2022 Provider: Diagnosis: 1 daily Last Documented On 09/11/2022 2:48PM By ILANA POOLE ; [facility] metFORMIN HCl 500 MG TABS 07/11/2020 Provider: Diagnosis: 4 daily Last Documented On 09/07/2022 5:28PM By ILANA POOLE ; [facility] ProAir HFA 108 (90 Base) MCG/ACT IN AERS 05/13/2018 Provider: Diagnosis: 1-2 puffs every 4-6 hours prn Last Documented On 09/07/2022 5:28PM By ILANA POOLE ; [facility] Indapamide 2.5 MG OR TABS 03/02/2015 Provider: Diagnosis: from Dr. Figueroa Last Documented On 09/07/2022 5:28PM By Teresa Massey MD ; [facility] Aspirin 81 MG OR TABS 07/10/2012 Provider: Diagnosis: Last Documented On 09/07/2022 5:28PM By LEXIE HERNANDEZ ; [facility] Medications Administered Includes: Administered Medications from this encounter No Administered Medications Recorded Vital Signs Includes: Vital Signs from this encounter Vital Name 06/11/2023 01:45P Blood Pressure Sitting (mmHg) 112/72 BP Cuff Size Regular Pulse Rate-Sitting (bpm) 89 Pulse Rhythm Regular Height (in) 65.5 Weight (lb) 238 Body Mass Index 39 Body Surface Area 2.1 Note: Vitals are self-repo rted by patient Last Documented: On 06/11/2023 1:45PM ; [facility] Results Includes: Results discussed during this encounter No Results Recorded For Specified Dates History of Present Illness Includes: History of Present Illness from this encounter DANNI PRINGLE is a 72 year old male. - Past medical history reviewed - Medication list reviewed Pt has not been feeling depressed. Pt has not been as anxious. Pt denied having any mood swings. Pt has not been as irritable. Pt has been motivated in general in doing daily tasks but some days he is not as motivated david. when he gets tired for some reason. He was having some right shoulder issues last Feb 2023 and went to the chiropractor for laser tx which worked for him after 5 treatments given once a week. He is supposed to do some house chores to help his out but has not been as motivated on those tired days. Sleep has been good. Pt has not been napping/sleeping too much during the daytime. Pt gets occ tired. Appetite is good but eating less and so he lost 7 lbs since last seen. He is due for labs 07/09/[address] Figueroa and he might ask for a trial of Ozempic. His last Hgb A1C was 7.7 and 7.3 and in on Metformin 500 mg 4 tabs daily. He is jsut having on and off diarrhea due to IBS-D. Pt has not been feeling as bad about self. Pt is able to focus and concentrate for the most part. Pt denied having any psychomotor restlessness. Pt denied suicidal thoughts. Pt denied having any delusions/hallucinations. Overall the Wellbutrin and Lexapro are helping with mood and anxiety. MENTAL STATUS EXAM: Sensorium - alert, oriented to name, place, and time Attitude - cooperative Gait - ambulatory Sleep - good Interest/Energy/Motivation - good but some days tired and not as motivated Guilt/Worthlessness - absent Concentration/Attention Span - able to focus and concentrate Memory Recall - at times forgetful that he cannot remember a certain name or a certain word at a certain timeline Appetite - good Suicidal Thoughts - absent Homicidal Thoughts - absent Delusions - absent Hallucinations - absent Appearance - casually groomed Motor Behavior - calm Eye Contact - intermittent Speech - fluent Mood - not depressed Affect - not as anxious Thought Process - coherent Insight and Judgment - intact Social History Description Last Updated Alcohol 06/11/2023 Last Documented On 4 2:57PM ; [facility] Current smoker for 25 06/11/2023 Last Documented On 4 2:57PM ; [facility] Currently not in school 06/11/2023 Last Documented On 4 2:57PM ; [facility] Daily coffee consumption 06/11/2023 Last Documented On 4 2:57PM ; [facility] Former smoker 06/11/2023 Last Documented On 4 2:57PM ; [facility] Lives with spouse 06/11/2023 Last Documented On 4 2:57PM ; [facility] Stopped smoking years ago 06/11/2023 Last Documented On 4 2:57PM ; [facility] Former smoker - quit smoking in 1999 Last Documented On 4 2:57PM ; [facility] Caffeine use: Daily coffee c onsumption -- He drinks 0 - 4 cups of coffee a day, 2 glasses of tea a week and rarely, a botlle of Ski.Alcohol: Alcohol use -- <2 - 4 beers a month.Drug Use: Not using drugs (Illicit).Work: Work history -- He retired from [employer] in 2018.Marital: Marital history Pt at 21.He was born in [place], [place] and raised in [place], [place]. He was close to his parents while growing up, they had a good relationship and they were supportive of him. He graduated high school. He worked at [employer]. He first got in 1972 at the age of 21 and had 2 children. He reported no history of verbal, physical or sexual abuse. 06/11/2023 Last Documented On 4 1:40PM ; [facility] Smoking Status Unknown Procedures and Surgical History Includes: Procedures from this encounter Procedures Code Diagnosis Performing Provider Service L ocation Service Date education and instructions Last Documented On 4 1:40PM ; [facility] ~* Call [phone] and /or go t o the nearest emergency room or call me if suicidal/homicidal ideation or other serious concerns arise. ~ ~* I gave instructions to call me should there be any questions or concerns. ~ ~* Patient voiced understanding and agreed to treatment plan Last Documented On 4 1:43PM ; [facility] dangerousness assessment: no suicide risk 3085F Last Documented On 4 1:40PM ; [facility] use of tobacco assessment performed 1000F Last Documented On 4 1:44PM ; [facility] patient screened for future fall risk: documentation of any fall with injury in past year - no recent falls 1100F Last Documented On 4 1:43PM ; [facility] review of medications documented 1160F Last Documented On 4 1:43PM ; [facility] assessment of suicide risk performed - n ot suicidal Last Documented On 4 1:44PM ; [facility] screening for adult depressi on: impression and score - please see above treatment and PHQ score Last Documented On 4 1:44PM ; [facility] standardized depression screening: posit marlen for symptoms Last Documented On 4 1:44PM ; [facility] encouragement to exercise - balanced meal plan, low fat low carb diet - pt lost 7 lbs since last seen Last Documented On 4 2:51PM ; [facility] Clinical summary provided to patient Last Documented On 4 1:40PM ; [facility] PHQ-9: total score 5 Last Documented On 4 2:50PM ; [facility] Medical History Includes: Medical History addressed during [...] right thumb 09/23/18Procedural: Coronavirus 2019-nCoV vaccine - [employer] #1 08/02/20 #2 08/24/20 #3 04/19/21Surgical: Prior Surgery: Removal of ganglion cyst from left wrist. Removal of granuloma from left upper arm 06/11/2023 Last Documented On 4 1:40PM ; [facility] Family History Includes: Family History addressed during this encounter Description Last Updated Family medical history: No significant f amily history 06/11/2023 Last Documented On 4 1:40PM ; [facility] Review of Systems Includes: Review of Systems from this encounter Systemic: Feeling poorly (malaise) feels tired occasionally. No fever, no chills, and no night sweats. Recent weight change. Head: No headache. Headache associated with head congestion and sinus [...] and no wheezing. Gastrointestinal: No heartburn. No nausea and [...] Active Last Documented On 10/15/2023 1:46PM ; [facility] Note: Imported from external source. Cardizem Allergy 11/04/2018 Active Last Documented On 10/15/2023 1:46PM ; [facility] Note: Imported from external source. Encounters Encounter Provider Location Date Check-In Time Check-Out Time Diagnosis TELEHEALTH ADULT PSYCH ESTABLISHED FRITZ MASSEY MD [facility] 06/11/19 24 1:35PM 11:59PM Generalized Anxiety Disorder,Nonor ganic Sleep Apnea,Psychoph ysiological Insomnia,Post- traumatic Stress Disorder,Tremo r,Major Depression Insurance Includes: Active Insurance Policies Plan Name Member ID Group # Subscriber Relationship Effect marlen Dates 1 - MEDICARE PART A CLAIMS/NGS [id number] DEDE PRINGLE Self 05/12/2018 - Unknown 2 - [employer] [id number] DEDE PRINGLE Self Clinical Notes Includes: Clinical Notes from this encounter * Progress note Date Encounter Last Documented by 06/11/2023 TELEHEALTH ADULT PSYCH ESTABLISH ED Last documented on 06/11/2023; 2:58 PM, FRITZ MASSEY MD; [facility] Top of Document Medication psychotherapy - 45 minutes Patient gave verbal consent for Telehealth 06/11/23 Location of patient: patient's home Location of [...] is a 72 year old male. - Past medical history reviewed - Medication list reviewed Pt has not been feeling depressed. Pt has not been as anxious. Pt denied having any mood swings. Pt has not been as irritable. Pt has been motivated in general in doing daily tasks but some days he is not as motivated david. when he gets tired for some reason. He was having some right shoulder issues last Feb 2023 and went to the chiropractor for laser tx which worked for him after 5 treatments given once a week. He is supposed to do some house chores to help his out but has not been as motivated on those tired days. Sleep has been good. Pt has not been napping/sleeping too much during the daytime. Pt gets occ tired. Appetite is good but eating less and so he lost 7 lbs since last seen. He is due for labs 07/09/[address] Figueroa and he might ask for a trial of Ozempic. His last Hgb A1C was 7.7 and 7.3 and in on Metformin 500 mg 4 tabs daily. He is jsut having on and off diarrhea due to IBS-D. Pt has not been feeling as bad about self. Pt is able to focus and concentrate for the most part. Pt denied having any psychomotor restlessness. Pt denied suicidal thoughts. Pt denied having any delusions/hallucinations. Overall the Wellbutrin and Lexapro are helping with mood and anxiety. MENTAL STATUS EXAM: Sensorium - alert, oriented to name, place, and time Attitude - cooperative Gait - ambulatory Sleep - good Interest/Energy/Motivation - good but some days tired and not as motivated Guilt/Worthlessness - absent Concentration/Attention Span - able to focus and concentrate Memory Recall - at times forgetful that he cannot remember a certain name or a certain word at a certain timeline Appetite - good Suicidal Thoughts - absent [...] he did not need it Social History Caffeine use: Daily coffee consumption. Tobacco use: Current smoker for 25, former smoker - quit smoking in 1999, and former smoker stopped smoking years ago 24. Alcohol: Alcohol. Housing And Economic Circumstances: Lives with spouse. Education: Currently not in school. Caffeine use: Daily coffee consumption -- He drinks 0 - 4 cups of coffee a day, 2 glasses of tea a week and rarely, a botlle of Ski. Alcohol: Alcohol use -- <2 - 4 beers a month. Drug Use: Not using drugs (Illicit). Work: Work history -- He retired from [employer] in 2018. Marital: Marital history Pt at 21. He was born in [place], [place] and raised in [place], [place]. He was close to his parents while growing up, they had a good relationship and they were supportive of him. He graduated high school. He worked at [employer]. He first got in 1972 at the age of 21 and had 2 children. He reported no history of verbal, physical or sexual abuse. Allergies - Cardizem - Niacin Reaction: skin turned red, got hot, had fever, made him anxious Family History Family medical history: No significant family history Review Of Systems Systemic: Feeling poorly (malaise) feels tired occasionally. No fever, no chills, and no night sweats. Recent weight change. Head: No headache. Headache associated with head congestion and sinus [...] and no wheezing. Gastrointestinal: No heartburn. No nausea and [...] no rash. Physical Findings - Vitals taken 06/11/2023 01:45 pm Vitals are self-reported by patient BP-Sitting 112/72 mmHg BP Cuff Size Regular Pulse Rate-Sitting 89 bpm Pulse Rhythm Regular Height 65.5 in Weight 238 lbs Body Mass Index 39 kg/m2 Body Surface Area 2.1 m2 Tests Educational Testing: Questionnaires PHQ-9: Value PHQ-9: total score 5 Assessment - Nonorganic sleep apnea - Tremor - Major depressive disorder - Psychophysiological insomnia - Generalized anxiety disorder - Post-traumatic stress disorder Therapy - Dangerousness assessment: no suicide risk. - Encouragement to exercise - balanced meal plan, low fat low carb diet - pt lost 7 lbs since last seen. - Education and instructions. - Assessment of suicide risk performed - not suicidal - Clinical summary provided to patient. * Call [phone] and /or go to the nearest emergency room or call me if suicidal/homicidal ideation or other serious concerns arise. * I gave instructions to call me should there be any questions or concerns. * Patient voiced understanding and agreed to treatment plan. Counseling/Education - Supportive care and encouragement--given positive reinforcement to keep patient motivated and active, supportive listening and validation provided Plan StartCited - Generalized anxiety disorder Escitalopram Oxalate 20 MG tablet One tablet daily, 90 days, 3 refills EndCited StartCited - Major depressive disorder, recurrent, moderate buPROPion HCl ER (XL) 150 MG tablet TAKE 3 TABLETS BY MOUTH IN THE MORNING, 90 days, 3 refills EndCited StartCited - Other Follow-up 10/15/23 EndCited Major Depressive disorder, recurrent - Wellbutrin [...]
--- OUTSIDE RECORDS SUMMARY | 2024-09-09 08:57 | XMS_ITS ---
Care Plan - [facility] Medical [facility] Created on: September 09, 2024 DEDE PRINGLE : 1950 Sex: Male Author Organization [facility] Medical [facility] Address [address] [place] [phone] Phone Care Team Providers Care Print Manager Name Role Phone FRITZ SANCHEZ MD [facility] [phone]
--- OUTSIDE RECORDS SUMMARY | 2024-09-09 08:57 | XMS_ITS | Clinical Summary ---
Author Organization [facility] Address [address] [place] [address] Phone Care Team Providers Care Continuous Process Tanner Rotary Drum Name Role Phone LAURA GUZMAN, FRITZ SAUCEDA [facility] [phone] Reason for Visit and Chief Complaint * PHONE CALL Problems Includes: Problems addressed during this encounter and other active Problems Current Visit Onset Date Resolved Date Provider Conditio n Status Restless Legs Syndrome 02/05/2023 BRANDON MASSEY MD Active Last Documented On 3 3:54PM ; [facility] Past Visits Onset Date Resolved Date Provider Condition Status Post-traumatic Stress Disorder 01/10/2022 Active Last Documented On 3 5:53PM ; [facility] Tremor 01/10/2019 Active Last Documented On 3 5:52PM ; [facility] Diabetes Mellitus Type 2 02/25/2017 Active Last Documented On 3 5:51PM ; [facility] Psychophysiological Insomnia 04/11/2016 Active Last Documented On 3 5:50PM ; [facility] Unspecified asthma, uncomplicated 07/10/2012 Active Last Documented On 3 5:48PM ; [facility] 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 FRITZ WORTHY MD Active Last Documented On 3 2:02PM ; [facility] Major Depression 06/22/2012 FRITZ MASSEY MD Active Last Documented On 3 2:02PM ; [facility] Generalized Anxiety Disorder 06/10/2012 FRITZ MASSEY MD Active Last Documented On 3 2:02PM ; [facility] Essential (primary) hypertension 06/10/2012 Active Last Documented On 3 5:48PM ; [facility] Pure hypercholesterolemia 06/10/2012 Active Last Documented On 3 5:48PM ; [facility] Plan of Treatment No Plan of Treatment Recorded Assessments Includes: Assessments from this encounter Findings - Restless legs syndrome - Last Documented On 02/05/2023 5:27PM ; [facility] Medical Equipment - Implanted Devices Includes: Current Devices No Medical Equipment Recorded Medications Includes: Medications discussed during this encounter and other current Medications Discontinued / Stopped on this date on 09/14/2019 Atorvastatin Calcium 40 MG OR TABS Provid er: Diagnosis: Last Documented On 02/05/2023 1:45PM By ILANA POOLE ; [facility] New / Renewed during this visit FRITZ MASSEY MD on 02/05/2023 rOPINIRole HCl 3 MG Oral Tablet Provider: FRITZ MASSEY MD 30 day supply: 60 tablet, 3 refills Diagnosis: Restless legs syndrome as directed - 2 tabs in the evening Pharmacy: [facility] [id number] - Last Documented On 10/15/2023 2:46PM By Teresa Massey MD ; [facility] Current Medications (continue as prescribed) busPIRone HCl 10 MG Oral Tablet 10/15/2023 Provider: FRITZ MASSEY MD Diagnosis: Generalized anxi ety disorder One tablet daily Last Documented On 10/15/2023 2:46PM By Teresa Massey MD ; [facility] ZyrTEC Allergy 10 MG Oral Tablet 10/15/2023 Provider : Diagnosis: 1 tab daily prn Last Documented On 10/15/2023 1:59PM By ILANA POOLE ; [facility] traZODone HCl 50 MG Oral Tablet 06/20/2023 Provider: FRITZ MASSEY MD Diagnosis: Psychophysiologi c insomnia DIRECTED 1 TAB 2 TIMES A DAY AND 1 TAB AT BEDTIME NEEDED Last Documented On 06/20/2023 8:48AM By Teresa Massey MD ; [facility] Escitalopram Oxalate 20 MG Oral Tablet 06/11/2023 Provider: FRITZ MASSEY MD Diagnosis: Generalized anxi ety disorder One tablet daily Last Documented On 06/11/2023 2:33PM By Teresa Massey MD ; [facility] buPROPion HCl ER (XL) 150 MG Oral Tablet Extended Release 24 Hour 06/11/2023 Provider: FRITZ MASSEY MD Diagnosis: Major depressive disorder, recurrent, moderate TAKE 3 TABLETS BY MOUTH IN T HE MORNING Last Documented On 06/11/2023 2:31PM By Teresa Massey MD ; [facility] Atorvastatin Calcium 80 MG Oral Tablet 01/08/2023 Pr ovider: CESAR CASTANO SERVER ASSISTANT Diagnosis: 1 tab daily Last Documented On 02/05/2023 1:45PM By ILANA POOLE ; [facility] Lisinopril 40 MG Oral Tablet 09/11/2022 Provider: Diagnosis: 1 daily Last Documented On 09/11/2022 2:48PM By ILANA POOLE ; [facility] metFORMIN HCl 500 MG TABS 07/11/2020 Provider: Diagnosis: 4 daily Last Documented On 09/07/2022 5:28PM By ILANA POOLE ; [facility] ProAir HFA 108 (90 Base) MCG/ACT IN AERS 05/13/2018 Provider: Diagnosis: 1-2 puffs every 4-6 hours prn Last Documented On 09/07/2022 5:28PM By ILANA POOLE ; [facility] Indapamide 2.5 MG OR TABS 03/02/2015 Provider: Diagnosis: from Dr. Figueroa Last Documented On 09/07/2022 5:28PM By Teresa Massey MD ; [facility] Aspirin 81 MG OR TABS 07/10/2012 Provider: Diagnosis: Last Documented On 09/07/2022 5:28PM By LEXIE HERNANDEZ ; [facility] Medications Administered Includes: Administered Medications from this encounter No Administered Medications Recorded Results Includes: Results discussed during this encounter No Results Recorded For Specified Dates History of Present Illness Includes: History of Present Illness from this encounter No History of Present Illness Recorded Social History No Social History Recorded - Smoking Status Unknown Medical History Includes: Medical History addressed during this encounter No Medical History Recorded Family History Includes: Family History addressed during this encounter No Family History Recorded Review of Systems Includes: Review of Systems from this encounter No Review of Systems Recorded Mental Status Includes: Mental Status from this encounter No Mental Status Recorded Functional Status Includes: Functional Status from this encounter No Functional Status Recorded Physical Exam Includes: Physical Exam from this encounter No Physical Exam Recorded Allergies Includes: Active Allergies Substance Type Reaction Onset Date Resolved Date Statu s Niacin Allergy skin turned red, got hot, had fever, made him anxious 08/30/2015 Active Last Documented On 10/15/2023 1:46PM ; [facility] Note: Imported from external source. Cardizem Allergy 11/04/2018 Active Last Documented On 10/15/2023 1:46PM ; [facility] Note: Imported from external source. Encounters Encounter Provider Location Date Check-In Time Check-Out Time Diagnosis * PHONE CALL FRITZ MASSEY MD [facility] 02/06/20 3:30PM 11:59PM Restless Legs Syndrome Insurance Includes: Active Insurance Policies Plan Name Member ID Group # Subscriber Relationship Effect marlen Dates 1 - MEDICARE PART A CLAIMS/NGS [id number] DEDE Nguyen 05/12/2018 - Unknown 2 - [employer] [id number] DEDE Nguyen Clinical Notes Includes: Clinical Notes from this encounter * Progress note Date Encounter Last Documented by 02/05/2023 * PHONE CALL Last documented on 02/05/2023; 5:27 PM, FRITZ MASESY MD; [facility] Active Problems & Conditions - Diabetes Mellitus Type 2 - Essential (primary) hypertension - Generalized Anxiety Disorder - Major Depression - Nonorganic Sleep Apnea - Post-traumatic Stress Disorder - Psychophysiological Insomnia - Pure hypercholesterolemia - Restless Legs Syndrome - Tremor - Unspecified asthma, uncomplicated Chief Complaint Phone Call - Chief Concern: Reason for call: Patient forgot to mention about his RLS. The sensation of his legs twitching and moving is getting stronger. He said he takes Ropinirole 4 mg and is wanting something stronger. pt phone # for return call: [phone] Date/Initials: 02/05/23 db. Current Medication - Aspirin 81 MG Tablet [...] bedtime as needed, 90 days, 1 refills Allergies - Cardizem - Niacin Reaction: skin turned red, got hot, had fever, made him anxious Assessment - Restless legs syndrome Plan StartCited - Other PHY ORDER/COMMENT I recommend increasing Ropinirole to 6 mg tab in evening so if he has 4 mg tabs leftover he may take 1 and 1/2 tabs in the evening 2 hours before bedtime for RLS. I escribed Ropinirole 3 mg 2 tabs in the evening as a new script. I cannot find 6 mg as option for a tablet in the EMR that is why I escribed 3 mg 2 tabs in the evening -- please relay to Dede. PHY ORDER/COMMENT I called and told Siaac he can finish any Ropinirole 4 mg tabs he has left by taking 1 and 1/2 of them 2 hours prior to bedtime. I told him you sent a new rx to the pharmacy for Ropinirole 3 mg 2 tabs in the evening. He voiced understanding and appreciated the call. EndCited StartCited - Restless legs syndrome rOPINIRole HCl 3 MG tablet as directed - 2 tabs in the evening, 30 days, 3 refills EndCited
--- OUTSIDE RECORDS SUMMARY | 2024-09-09 08:57 | XMS_ITS | Referral Summary ---
Author Organization [address] Address [address] [place] [address] Care Team Providers Care Weapons Mechanic Name Role Phone Jose Joseph DO Primary Care Provider [phone] Allergies No known active allergies Medications atorvastatin [...] 06/06/2011 Overview (08/16/2016): Shift work sleep disorder Social History Tobacco Use Types Packs/Day Years Used Date Smoking Tobacco: Former Smokeless Tobacco: Never Alcohol Use Standard Drinks/Week Comments No 0 (1 standard drink = 0.6 oz pur e alcohol) Sex and Gender Information Value Date Recorded Sex Assigned at Not on file Legal Sex Male 11:58 PM TECHNICAL SPEC Gender Identity Not on file Sexual Orientation Not on file Last Filed Vital Signs Vital Sign Reading Time Taken Comments Blood Pressure 120/68 04/21/2019 4:52 PM TECHNICAL SPEC Pulse 78 04/21/2019 4:52 PM TECHNICAL SPEC Temperature 36.8 C (98.3 F) 04/21/2019 4:52 PM TECHNICAL SPEC Respiratory Rate 16 04/21/2019 4:52 PM TECHNICAL SPEC Oxygen Saturation 95% 04/21/2019 4:52 PM TECHNICAL SPEC Inhaled Oxygen Concentration - - Weight 117 kg (258 lb) 04/21/2019 4:52 PM TECHNICAL SPEC Height 167.6 cm (5' 6 ) 04/21/2019 4:52 PM TECHNICAL SPEC Body Mass Index 41.64 04/21/2019 4:52 PM TECHNICAL SPEC Plan of Treatment Not on file Procedures Procedure Name Priority Date/Time Associated Diagnosis Comments EGFR Routine 04/30/2024 4:00 PM TECHNICAL SPEC HEMOGLOBIN A1C Routine 04/30/2024 4:00 PM TECHNICAL SPEC from Last 3 Months or Most Recently Relevant to Health Maintenance Results * (ABNORMAL) eGFR (04/30/2024 4:00 PM TECHNICAL SPEC) eGFR 38(L) >=60 mL/min/1. 73 m2 Comment: [...] last reviewed 2021. Urine/Blood 04/30/2024 4:00 PM TECHNICAL SPEC 04/30/2024 4:13 PM TECHNICAL SPEC Dick Mendoza MD LAB BLOOD ORDERABLES Final Re sult Performing Organization Address [facility]/ZIP Co de Phone Number [facility] [address] [place] [address] Department [place] [address] * (ABNORMAL) Hemoglobin A1c (04/30/2024 4:00 PM TECHNICAL SPEC) Hgb A1C 7.5(H) 4.0 - 5.6 % Estimated Average Glucose 169 mg/dL [facility] ([place]) Comment: The ADA recommends reporting an estimated Average Glucose (eAG) with all Hemoglobin A1c results using the equation derived from a study of 507 normal and diabetic adults. Minority populations were underrepresented and children were not included. (Diabetes Care 31:4426-5248, 2008). The eAG is not equivalent to a fasting glucose. Blood 04/30/2024 4:00 PM TECHNICAL SPEC 04/30/2024 4:13 PM TECHNICAL SPEC us Dick Mendoza MD LAB BLOOD ORDERABLES Final Re sult [facility] ([place] [address] [facility] [place] [facility] [place] [address] from Last 3 Months or Most Recently Relevant to Health Maintenance Insurance MEDICARE COMMERCIAL GENERIC MEDICARE COMMERCIAL GENERIC MEDICARE [facility] Care Teams Weapons Mechanic Relationship Specialty Start Date End Date Jose Joseph DO PCP - General 12/13/10
--- OUTSIDE RECORDS SUMMARY | 2024-09-09 08:57 | XMS_ITS | Clinical Summary ---
Author Organization [facility] Address [address] [place] [phone] Phone Care Team Providers Care Refining Supervisor Name Role Phone LAURA GUZMAN, FRITZ Nolan [phone] Reason for Visit and Chief Complaint The Chief Complaint is: follow up for depression Problems Includes: Problems addressed during this encounter and other active Problems Current Visit Onset Date Resolved Date Provider Conditio n Status Tremor 01/10/2019 FRITZ MASSEY MD Ac tive Last Documented On 9 3:00AM ; [facility] Psychophysiological Insomnia 04/11/2016 FRITZ MASSEY MD Active Last Documented On 7 9:35PM ; [facility] Nonorganic Sleep Apnea Obstructive 07/10/2012 Luis Eduardo MASSEY MD Inactive Last Documented On 5 10:26AM ; [facility] Note: Using CPAP Major Depression, Recurrent 06/22/2012 FRITZ MASSEY MD Inactive Last Documented On 5 10:25AM ; [facility] Generalized Anxiety Disorder 06/10/2012 FRITZ MASSEY MD Inactive Last Documented On 5 10:23AM ; [facility] Past Visits Onset Date Resolved Date Provider Condition Status Post-traumatic Stress Disorder 01/10/2022 FRITZ MASSEY MD Active Last Documented On 2 9:19PM ; [facility] Diabetes Mellitus Type 2 02/25/2017 FRITZ MASSEY MD Active Last Documented On 7 4:30PM ; [facility] Unspecified asthma, uncomplicated 07/10/2012 ME MERVAT MASSEY MD Active Last Documented On 5 10:26AM ; [facility] Sleep apnea, unspecified 07/10/2012 FRITZ MASSEY MD Active Last Documented On 5 10:26AM ; [facility] Major depressive disorder, r ecurrent, unspecified 06/22/2012 FRITZ MASSEY MD Active Last Documented On 5 10:25AM ; [facility] Generalized anxiety disorder 06/10/2012 FRITZ MASSEY MD Active Last Documented On 5 10:23AM ; [facility] Essential (primary) hypertension 06/10/2012 MET ANTONIO MASSEY MD Active Last Documented On 5 10:24AM ; [facility] Pure hypercholesterolemia 06/10/2012 FRITZ MASSEY MD Active Last Documented On 5 10:23AM ; [facility] Plan of Treatment Major Depressive disorder, [...] improve mental alertness - Last Documented On 01/09/2022 8:28AM ; [facility] Instructions to patient Lose weight - pt lost 5 lbs Last Documented On 2 8:27AM ; [facility] Education and Decision Aids were provided during visit for: Patient education about medi cation --- I educated patient on medication(s) and diagnosis. I reviewed the risks, benefits and side effects of patient's medications Last Documented On 2 1:36PM ; [facility] Discussed calming techniques such as breathing exercises and other relaxation techniques Last Documented On 2 1:36PM ; [facility] Counseling for nutrition/maci ght management provided Last Documented On 2 1:50PM ; [facility] Discussed good sleep hygiene habits Last Documented On 2 1:50PM ; [facility] Assessments Includes: Assessments from this encounter Findings - Obstructive sleep apnea - Last Documented On 01/09/2022 8:28AM ; [facility] - Tremor - Last Documented On 01/09/2022 8:28AM ; [facility] - Major depression, recurrent - Last Documented On 01/09/2022 8:28AM ; [facility] - Psychophysiological insomnia - Last Documented On 01/09/2022 8:28AM ; [facility] - Generalized anxiety disorder - Last Documented On 01/09/2022 8:28AM ; [facility] Instructions Includes: Instructions from this encounter Instructions to patient Lose weight - pt lost 5 lbs Last Documented On 8:27AM ; [facility] Education and Decision Aids were provided during visit for: Patient education about medi cation --- I educated patient on medication(s) and diagnosis. I reviewed the risks, benefits and side effects of patient's medications Last Documented On 2 1:36PM ; [facility] Discussed calming techniques such as breathing exercises and other relaxation techniques Last Documented On 2 1:36PM ; [facility] Counseling for nutrition/maci ght management provided Last Documented On 2 1:50PM ; [facility] Discussed good sleep hygiene habits Last Documented On 2 1:50PM ; [facility] Medical Equipment - Implanted Devices Includes: Current Devices No Medical Equipment Recorded Medications Includes: Medications discussed during this encounter and other current Medications New / Renewed during this visit FRITZ MASSEY MD on 12/04/2021 Escitalopram Oxalate 20 MG Oral Tablet Provider: FRITZ MASSEY MD 90 day supply: 90 tablet, 1 refills Diagnosis: Generalized anxiety disorder One tablet daily Pharmacy: [facility] [address], [address] - Last Documented On 06/11/2022 1:53PM By Teresa Massey MD ; [facility] Viibryd 20 MG Oral Tablet Provider: ME MERVAT MASSEY MD 30 day supply: 30 tablet, 2 refills Diagnosis: Major depressive disorder, recurrent, moderate as directed -- 1 tab in am with food Pharmacy: [facility] - [address] [place] [address], [id number] - Last Documented On 03/04/2022 2:33PM By Teresa Massey MD ; [facility] Current Medications (continue as prescribed) Escitalopram Oxalate 20 MG Oral Tablet 06/11/2022 Provider: FRITZ MASSEY MD Diagnosis: Generalized anxi ety disorder One tablet daily Last Documented On 06/11/2022 1:53PM By Teresa Massey MD ; [facility] buPROPion HCl ER (XL) 150 MG Oral Tablet Extended Release 24 Hour 06/11/2022 Provider: FRITZ MASSEY MD Diagnosis: Major depressive disorder, recurrent, moderate TAKE 3 TABLETS BY MOUTH IN T HE MORNING Last Documented On 06/11/2022 1:52PM By Teresa Massey MD ; [facility] traZODone HCl 50 MG Oral Tablet 06/11/2022 Provider: FRITZ MASSEY MD Diagnosis: Psychophysiologi c insomnia TAKE 1/2 (ONE-HALF) TABLET B Y MOUTH TWICE DAILY NEEDED FOR ANXIETY AND 1 TABLET AT BEDTIME NEEDED FOR SLEEP DIRECTED Last Documented On 06/11/2022 1:50PM By Teresa Massey MD ; [facility] Azelastine HCl 137 MCG/SPRAY Nasal Solution 04/23/2022 Provider: NALINI CASTANO APN Diagnosis: Acute sinusitis, unspecified 1 spray to each nostril 2 x a day -- Nalini Castano Last Documented On 06/11/2022 1:42PM By Teresa Massey MD ; [facility] metFORMIN HCl 500 MG Oral Tablet 07/11/2020 Provider : ERNESTO JOSEPH MD Diagnosis: 4 daily Last Documented On 09/13/2020 1:51PM By ILANA POOLE ; [facility] Atorvastatin Calcium 40 MG Oral Tablet 09/14/2019 Pr ovider: Diagnosis: Last Documented On 09/14/2019 2:54PM By Teresa Massey MD ; [facility] ProAir HFA 108 (90 Base)MCG/ ACT Inhalation Aerosol Solution 05/13/2018 Provider: ERNESTO JOSEPH MD Diagnosis: 1-2 puffs every 4-6 hours prn Last Documented On 05/13/2018 2:56PM By ILANA POOLE ; [facility] Indapamide 2.5 MG Tablet 03/02/2015 Provider: Diagnosis: from Dr. Figueroa Last Documented On 03/02/2015 4:30PM By Teresa Massey MD ; [facility] Aspirin 81 MG OR TABS 07/10/2012 Provider: Diagnosis: Last Documented On 3 10:24AM By LEXIE HERNANDEZ ; [facility] ZyrTEC Allergy 10 MG OR TABS 07/10/2012 Provider: Diagnosis: Last Documented On 3 10:24AM By LEXIE HERNANDEZ ; [facility] Quinapril HCl 40 MG OR TABS 07/05/2012 Provider: ERNESTO JOSEPH MD Diagnosis: Last Documented On 3 10:22AM By LEXIE HERNANDEZ ; [facility] Medications Administered Includes: Administered Medications from this encounter No Administered Medications Recorded Vital Signs Includes: Vital Signs from this encounter Vital Name 12/04/2021 01:51P Blood Pressure Sitting L 132/82 BP Cuff Size Regular Pulse Rate-Sitting (bpm) 78 Pulse Rhythm Regular Height (in) 65.5 Weight (lb) 245 Body Mass Index (kg/m2) 40.1 Body Surface Area (m2) 2.2 Note: self reported vitals Last Documented: On 12/04/2021 1:52PM ; [facility] Results Includes: Results discussed during this encounter No Results Recorded For Specified Dates History of Present Illness Includes: History of Present Illness from this encounter HPI DEDE PRINGLE is a 71 year old [...] audio and 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 Dede relayed about some of his health issues. He had some lab work done and he said that his hgb A1C is lower than before but cannot remember the number. He also said that his PSA is elevated and so he was referred to a urologist at [facility] to see the specialist. He had blood work done from Dr. Joseph and so copies of his labs will be obtained. He also reported some tremors which could be benign essential tremors and not parkinsonian in nature and I encouraged him to at least bring this up to his primary care physician who might refer him to a neurologist. He also talked about his 's health issues since unfortunately she has had accident the past year that caused her to be hospitalized and even went to the ICU. She has been discharged and is trying to do her best to maneuver and take small steps. 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 he has chronic complaints of tiredness which may be secondary to his obstructive sleep apnea but he said that he has been compliant in wearing his CPAP. He may also be tired because he has been doing quite a bit of the house chores. At times, he has trouble staying asleep. He was given Trazodone 50 mg at bedtime which he takes as needed. He has some down days but he said that in the past that it doesn't last as long. The Bupropion XL 450 mg in the morning along with Lexapro 20 mg one a day have both been helping with mood and anxiety but lately he seemed to be having more down days and so I encouraged him to get back on the Viibryd which was given to him 2 or 3 years ago but he discontinued it. He is willing to try back the Viibryd at 10 mg in the morning for a week before increasing to 20 mg in the morning to see if this will help with stabilizing his mood. It will also serve as an adjunctive therapy to his current antidepressant medications. He denied having any delusions or hallucinations. He denied having any suicidal thoughts. He is not showing any psychomotor restlessness. He is still able to focus and concentrate with his daily tasks. Appetite is good. He denied feeling bad about himself. He denied having any abrupt mood swings but at times he can get somewhat upset but it is more situational. MENTAL STATUS EXAM: Sensorium - alert, oriented to name, place, and time Attitude - cooperative Gait - ambulatory Sleep - at times he has trouble staying asleep -- compliant with CPAP therapy Interest/Energy/Motivation - there are days that he is tired and not as motivated but has been doing his day to day house chores since he had to help his due to her health issues Guilt/Worthlessness - absent Concentration/Attention Span - able to focus and concentrate Memory Recall - fairly good Appetite - good - on 09/17/21 pt weighed 250 lbs and on 12/04/21 he weighed 245 lbs so he lost 5 lbs Suicidal Thoughts - absent Homicidal Thoughts - absent Delusions - absent Hallucinations - absent Appearance - casually groomed Motor Behavior - calm Eye Contact - intermittent Speech - fluent Mood - he has some down days Affect - he worries but he has not been as anxious Thought Process - coherent Insight and Judgment - intact Social History Description Last Updated Former smoker - quit in 199909/13/2020 Last Documented On 2 1:36PM ; [facility] Alcohol use -- <2 - 4 beers a month 08/2019 Last Documented On 2 1:36PM ; [facility] Daily coffee consumption -- He drinks 0 - 4 cups of coffee a day, 2 glasses of tea a week and rarely, a botlle of Ski 03/15/2020 Last Documented On 2 1:36PM ; [facility] Work history -- He retired from [employer] in 201705/13/2018 Last Documented On 2 1:36PM ; [facility] He was born in [facility] and raised in [place], [place]. He was close to his parents while growing up, they had a good relationship and they were supportive of him. He graduated high school. He worked at [employer]. He first got in 1972 at the age of 21 and had 2 children. He reported no history of verbal, physical or sexual abuse 05/13/2018 Last Documented On 2 1:36PM ; [facility] Marital history Pt at 21 013 Last Documented On 2 1:36PM ; [facility] Not using drugs (Illicit) 06/10/2012 Last Documented On 2 1:36PM ; [facility] Smoking Status Unknown Procedures and Surgical History Includes: Procedures from this encounter Procedures Code Diagnosis Performing Provider Service L ocation Service Date education and instructions Last Documented On 2 1:36PM ; [facility] I explained the rationale fo r the [...] cannot be combined with psychotropic medications. ~ Pt to call 911 and /or go to the nearest emergency room or call me if suicidal/homicidal ideation or other serious concerns arise. ~ I gave instructions to call me should there be any questions or concerns. ~ The patient verbalized understanding and agreed to treatment plan Last Documented On 8:27AM ; [facility] dangerousness assessment: suicide risk - not nancy cidal 3085F Last Documented On 2 1:58PM ; [facility] use of tobacco assessment performed 1000F Last Documented On 2 1:36PM ; [facility] patient screened for future fall risk - no recen t falls 3288F Last Documented On 2 1:36PM ; [facility] review of medications documented 1160F Last Documented On 2 1:36PM ; [facility] screening for adult depressi on: impression and score - please see above treatment and PHQ score Last Documented On 2 1:36PM ; [facility] standardized depression screening: posit marlen for symptoms Last Documented On 2 1:36PM ; [facility] encouragement to exercise Last Documented On 2 1:50PM ; [facility] Clinical summary provided to patient Last Documented On 2 1:50PM ; [facility] PHQ-9: total score 6 Last Documented On 2 5:06PM ; [facility] Surgical History Last Updated History of Prior Surgery: Re moval of ganglion cyst from left wrist. ~Removal of granuloma from left upper arm 07/10/2012 Last Documented On 2 1:36PM ; [facility] Medical History Includes: Medical History addressed during this encounter Description Last Updated History of coronavirus 2019- nCoV vaccine - Pfizer #1 08/02/20 #2 08/24/20 #3 04/19/21 05/23/2021 Last Documented On 2 1:36PM ; [facility] History of COVID-19 infection - tested p ositive 01/25/21 -- fatigue 03/12/2021 Last Documented On 2 1:36PM ; [facility] Primary Care Provider: Dr. Ernesto maynard 09/13/2020 Last Documented On 2 1:36PM ; [facility] History of obstructive sleep apnea --using CPAP had a sleep study in 2017 and as of 04/01/19 he wears his CPAP every night 04/01/2019 Last Documented On 2 1:36PM ; [facility] History of crush injury of the thumb - r ight thumb 09/23/18 11/04/2018 Last Documented On 2 1:36PM ; [facility] History of type 2 diabetes mellitus 02/09 Last Documented On 2 1:36PM ; [facility] History of eczema 08/28/2016 Last Documented On 2 1:36PM ; [facility] History of dyshidrosis -- h/o 02/29/2016 Last Documented On 2 1:36PM ; [facility] History of asthma 10/05/2013 Last Documented On 2 1:36PM ; [facility] History of hyperlipidemia 06/10/2012 Last Documented On 2 1:36PM ; [facility] History of hypertension 06/10/2012 Last Documented On 2 1:36PM ; [facility] Family History Includes: Family History addressed during this encounter Description Last Updated Family medical history : No significant family history 02/25/2017 Last Documented On 2 1:36PM ; [facility] Review of Systems Includes: Review of Systems from this encounter Systemic: Not feeling poorly (malaise). No fever, no chills, and no night sweats. Head: Headache and sinus pain. Neck: No neck pain and no neck stiffness. Eyes: Vision problems and itching of the eyes. No eye pain. Otolaryngeal: No hearing loss. Earache. No nasal discharge. Postnasal drip and nasal passage blockage (stuffiness). No hoarseness and no sore throat. Cardiovascular: No chest pain or discomfort, no palpitations, and the heart rate was not fast. Pulmonary: No dyspnea and no cough. Coughing up sputum. No wheezing. Gastrointestinal: No heartburn. [...] Active Last Documented On 10/15/2023 1:46PM ; [facility] Note: Imported from external source. Cardizem Allergy 11/04/2018 Active Last Documented On 10/15/2023 1:46PM ; [facility] Note: Imported from external source. Encounters Encounter Provider Location Date Check-In Time Check- Out Time Diagnosis [facility] FRITZ MASSEY MD [facility] 2 1:36PM 11:59PM Major Depression, Recurrent,Gen eralized Anxiety Disorder,Nono rganic Sleep Apnea Obstructive,P sychophysiolo gical Insomnia,Trem or Insurance Includes: Active Insurance Policies Plan Name Member ID Group # Subscriber Relationship Effect marlen Dates 1 - MEDICARE PART A CLAIMS/NGS [id number] DEDE Nguyen 05/12/2018 - Unknown 2 - [employer] [id number] DEDE PRINGLE Self Clinical Notes Includes: Clinical Notes from this encounter No Clinical Notes Recorded
--- OUTSIDE RECORDS SUMMARY | 2024-09-09 08:57 | XMS_ITS | Clinical Summary ---
Author Organization [facility] Facility Address [address] [address] Care Team Providers Care Ortho Nurse Name Role Phone Jose Joseph DO Primary Care Provider [phone] Allergies No known active allergies Medications aspirin (ST ALONDRA) 81 MG EC tablet Take 81 mg by mouth 1 (one) time each day 07/10/2012 Active buPROPion SR (WELLBUTRIN SR) 150 MG 12 hr tablet Take 450 mg by mouth 1 (one) time each day Active escitalopram (LEXAPRO) 20 MG tablet Take 20 mg by mouth 1 (one) time each day 06/11/2022 Active indapamide (LOZOL) 2.5 MG tablet Take 2.5 mg by mouth 1 (one) time each day 03/02/2015 Active lisinopril 40 MG tablet Take 40 mg by mouth 1 (one) time each day 09/11/2022 Active metFORMIN XR (GLUCOPHAGE-XR) 500 MG 24 hr tablet Take 1,000 mg by mouth in the morning and 1,000 mg in the evening. Active atorvastatin (LIPITOR) 80 MG tablet Take 80 mg by mouth 1 (one) time each day 01/08/2023 Active albuterol HFA (Ventolin HFA) 108 (90 Base) MCG/ACT inhaler Inhale 2 puffs every 6 (six) hours if needed 05/13/2018 Active traZODone (DESYREL) 50 MG tablet Take 50 mg by mouth every evening and at bedtime Active Active Problems Problem Noted Date Diagnosed Date Stage 3b chronic kidney disease 01/26/2024 Type 2 diabetes mellitus 02/25/2017 Essential (primary) hypertension 06/10/2012 Family History Medical History Relation Comments Hypertension Father No Known Problems Mother Cancer Sibling liver and prosta te Relation Status Comments Father Mother Sibling Unknown Social History Tobacco Use Types Packs/Day Years Used Date Smoking Tobacco: Former Cigarettes Q uit: 05/12/1998 Tobacco Cessation:Counseling Given: Not Answered Alcohol Use Standard Drinks/Week Comments Not Currently 0 (1 standard drink = 0.6 oz pur e alcohol) rarely drinks alcohol Sex and Gender Information Value Date Recorded Sex Assigned at Not on file Legal Sex Male 11:47 AM EDT Gender Identity Not on file Sexual Orientation Not on file Last Filed Vital Signs Vital Sign Reading Time Taken Comments Blood Pressure 107/59 03/22/2024 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 [address] [place] [address] Dick Mendoza MD [address] [place] [address] Health Maintenance Due Date Last Done Comments Pneumococcal Vaccine: 50+ Ye ars (1 of 2 - PCV) 12/01/1971 Colorectal Cancer Screening: Annual FOBT 2001 Colorectal Cancer Screening: Colonoscopy 2001 Colorectal Cancer Screening: Sigmoidoscopy 2001 Diabetes: Ophthalmology Exam 01/26/2024 Diabetes: Pedal Pulse Checked 01/26/2024 Diabetes: Sensory Foot Exam 01/26/2024 Diabetes: Visual Foot Exam 01/26/2024 Diabetes: Hemoglobin A1C 07/29/2024 04/30/2024 Influenza Vaccine (Season Ended) 2025 Hepatitis B Vaccine Aged Out No longe r eligible based on patient's age to complete this topic Insurance [facility] Financial Care Teams Ortho Nurse Relationship Specialty Start Date End Date Jose Joseph DO [facility] [facility] [address] [facility] [address] [place], [place] [id number] PCP - General Internal Medicine 01/26/24
--- OUTSIDE RECORDS SUMMARY | 2024-09-09 08:57 | XMS_ITS ---
Author Organization [facility] [place] ([address]) Address [address] [place] [address] Care Team Providers Care Pediatric Urologist Name Role Phone Jose Joseph Primary Care Provider Unavailab le Kayy Logan Unavailable [phone] [facility], Provider Unavailable Unavailab le REASON FOR VISIT [facility] Conversion Encounter Medications Medication SIG (Take, [...] Date Provider Diagnosis YUNIER De La Torre [address] [place] [phone] 10/25/2023 Provider [facility] Allergic rhinitis due to [...] 6 hours Progress Notes * Robin DUQUEDOB:1950 (73 yo M)Acc No.[id number]:10/25/2023 Patient: Robin PATINO Provider: Noah Arriaza :1950 A ge:72 Y S ex:Male Date:10/25/2023 Address:[address] [place] [address], [facility] Pcp:Jose Joseph Subjective: * Chief Complaints: * 1 . [facility] Conversion Encounter. * Medical History: * [...] * Electronic signature of [facility] on 09/09/2024 at 08:57 AM CDT Sign off status: Pending * Provider: Noah Arriaza Date: 0 10/25/2023 Generated for Shannan graham/Yolanda/Michaelitting on: 0 09/09/2024 08:57 AM CDT
--- OUTSIDE RECORDS SUMMARY | 2024-09-09 08:57 | XMS_ITS | Patient Health Record ---
Author Organization [facility] [place] ([address]) Address [address] [place] [address] Care Team Providers Care Tetryl Screen Operator Name Role Phone Jose Joseph Primary Care Provider Unavailab le Kayy Logan Unavailable [phone] [employer], Provider Unavailable Unavailab le Allergies No Known Allergies Reason For Referral No Information Medications Medication SIG (Take, Route, Frequency, Duration) Notes Start Date End Date Status METFORMIN 500 mg 2 tab(s) orally bid Active AZELASTINE NASAL 137 mcg/inh 2 spray(s) intranasally 2 times a day Active VENTOLIN HFA 90 mcg/inh 2 puff(s) inhaled every 6 hours Active ESCITALOPRAM 20 mg 1 tab(s) orally once a day Active BUPROPION 150 mg/12 hours 1 tab(s) orally 2 times a day Active QUINAPRIL 40 mg 1 tab(s) orally once a day Active Azelastine HCl 137 MCG/SPRAY 2 spray(s) intranasally 2 times a day Active Ventolin HFA 108 (90 Base) MCG/ACT 2 puff(s) inhaled every 6 hours Active ATORVASTATIN 40 mg 1 tab(s) orally once a day Active Quinapril HCl 40 MG 1 tab(s) orally once a day Active metFORMIN HCl ER 500 MG 2 tab(s) [...] tab(s) orally 2 times a day Active Social History Tobacco Use: Social History Observation Description Date Details (start date - stop date) Former Smoker NA - NA Smoking Smart Form: Question Answer Notes Are you a: former smoker Section Notes: prior work in a [employer] Problems Problem Type SNOMED Code ICD Code Onset Dates Problem Status W/U Status Risk Notes Problem Chronic allergic conjunctivitis (76182409) Other chronic allergic conjunctivitis (H10.45) Active confirmed Problem Allergic rhinitis caused by pollen (disorder) (39110344) Allergic rhinitis due to pollen (J30.1) Active confirmed Problem Allergic rhinitis (75913704) Other allergic rhinitis (J30.89) Active confirmed Problem Chronic rhinitis (15770253) Chronic rhinitis (J31.0) Active confirmed Problem Uncomplicated mild persistent asthma (948603011) Mild persistent asthma, uncomplicated (J45.30) Active confirmed Encounters Encounter Location Date Provider Diagnosis [address] [address] 10/25/2023 Provider JEN-Arsalan Allergic rhinitis due to pollen J30.1 and Mild persistent asthma, uncomplicated J45.30 Assessments Encounter Date Diagnosis (ICD Code) Assessment Notes Treatment Notes Treatment Clinical Notes Section Notes 10/25/2023 Allergic rhinitis due to pollen (ICD-10 - J30.1) 10/25/2023 Mild persistent asthma, uncomplicated (ICD-10 - J45.30) Plan Of Treatment No Information Insurance Providers Payer Name Payer Address Payer Phone Subscriber Number Group Number Insured Name Patient Relationship to Insured Coverage Start Date Coverage End Date [employer] (Medicare) Attention Claims [address] [place] [address] [id number] Robin Kelly Self - patient is the insured [employer] [address] [address] [place] [address] [id number] Robin Kelly Self - patient is the insured Medical (General) History Medical History History ICD Code diabetes Atopic Dermatitis Hypertension Surgical History Surgery Date(Month/Year) ganglion cyst cat scratch fever
[2024-09-09 20:55] LABS: Anion Gap 12 mmol/L (4-12); Blood Urea Nitrogen 30 mg/dL (9-20); Calcium 8.7 mg/dL (8.4-10.2); Carbon Dioxide 19 mmol/L (22-30); Chloride 101 mmol/L (98-107); Cholesterol 160 mg/dL (0-200); Estimated Glomerular Filt Rate 35; Glucose 132 mg/dL (65-110); HDL Direct 27 mg/dL; Potassium 4.4 mmol/L (3.4-5.0); Sodium 132 mmol/L (137-145); Triglycerides 470 mg/dL (<150)
[2024-09-09 21:06] LABS: LDL Cholesterol Direct 51 mg/dL
[2024-09-09 21:38] LABS: Hemoglobin A1C 8.3 % (<5.7)
[2024-09-09 22:15] LABS: Creatinine Urine 280.8 mg/dL
[2024-09-09 22:24] LABS: MALB Creatinine Ratio 17.2 mg/g (0-30); Microalbumin Urine Random 48.2 mg/L (0-16.7)
== END 2024-09-09 08:47 | disposition home or self-care (01) ==
LOC: ANHBWCLAB 08:47
PROVIDERS: PCP Clinical Nurse Specialist; Visit Provider Clinical Nurse Specialist
DX: E78.2 Mixed hyperlipidemia (principal); E11.9 Type 2 diabetes mellitus without complications; I12.9 Hypertensive chronic kidney disease with stage 1 through stage 4 chronic kidney disease, or unspecified chronic kidney disease; N18.31 Chronic kidney disease, stage 3a
CPT/HCPCS: 36415; 80048; 80061; 82043; 83036

== ENCOUNTER 2025-03-15 01:24 | Day surgery (SDC) | payer MEDICARE, SELFPAY ==
--- OUTSIDE RECORDS SUMMARY | 2023-10-25 15:30 | XMS_ITS ---
Author Organization [facility] [place] ([address]) Address [address] [place] [address] Care Team Providers Care Shrimp Boat Captain Name Role Phone Jose Joseph Primary Care Provider Unavailab le Kayy Logan Unavailable [phone] [facility], Provider Unavailable Unavailab le REASON FOR VISIT [facility] To [facility] Conversion Encounter Medications Medication SIG (Take, Route, Frequency, Duration) Notes Start Date End Date Status metFORMIN HCl ER 500 MG 2 tab(s) orally bid Active Escitalopram Oxalate 20 MG 1 tab(s) orally once a day Active TRAZADONE 50MG 1 BY MOUTH AT BEDTIME *Please review for potential replacement for e-prescription and drug interaction check* Active Atorvastatin Calcium 40 MG 1 tab(s) orally once a day Active buPROPion HCl ER (SR) 150 MG 1 tab(s) orally 2 times a day Active Azelastine HCl 137 MCG/SPRAY 2 spray(s) intranasally 2 times a day Active Ventolin HFA 108 (90 Base) MCG/ACT 2 puff(s) inhaled every 6 hours Active Quinapril HCl 40 MG 1 tab(s) orally once a day Active Encounters Encounter Location Date Provider Diagnosis YUNIER De La Torre [address] [place] [id number] 10/25/2023 Provider [facility]Z-Migration Allergic rhinitis due to pollen J30.1 and Mild persistent asthma, uncomplicated J45.30 Assessments Encounter Date Diagnosis (ICD Code) Assessment Notes Treatment Notes Treatment Clinical Notes Section Notes 10/25/2023 Allergic rhinitis due to pollen (ICD-10 - J30.1) 10/25/2023 Mild persistent asthma, uncomplicated (ICD-10 - J45.30) Plan Of Treatment Medication Medication Name Sig Start Date Stop Date Notes Azelastine HCl 137 MCG/SPRAY 2 spray(s) intranasally 2 times a day Ventolin HFA 108 (90 Base) MCG/ACT 2 puff(s) inhaled every 6 hours Progress Notes * Robin DUQUEDOB:1950 (74 yo M)Acc No.[id number]:10/25/2023 Patient: Robin PATINO Provider: Noah Arriaza :1950 A ge:72 Y S ex:Male Date:10/25/2023 Address:[address] [place] [address], [id number] Pcp:Jose Joseph Subjective: * Chief Complaints: * 1 . [facility] Conversion Encounter. * Medical History: * Medications: T aking buPROPion HCl ER (SR) 150 MG Tablet Extended Release 12 Hour 1 tab(s) orally 2 times a day , Taking Atorvastatin Calcium 40 MG Tablet 1 tab(s) orally once a day , Taking TRAZADONE 50MG 1 BY MOUTH AT BEDTIME , Notes to Pharmacist: *Please review for potential replacement for e-prescription and drug interaction check*, Taking Escitalopram Oxalate 20 MG Tablet 1 tab(s) orally once a day , Taking metFORMIN HCl ER 500 MG Tablet Extended Release 24 Hour 2 tab(s) orally bid , Taking Quinapril HCl 40 MG Tablet 1 tab(s) orally once a day Objective: * Vitals: Assessment: * Assessment: 1. M ild persistent asthma, uncomplicated - J45.30 (Primary) 2 . A llergic rhinitis due to pollen - J30.1 Plan: * Treatment: 2. A llergic rhinitis due to pollen Continue Azelastine HCl Solution, 137 MCG/SPRAY, 2 spray(s), intranasally, 2 times a day. ? * Billing Information: * Visit Code: * Procedure Codes: * Electronic signature of Morales LI-Migration on 03/15/2025 at 01:28 AM PATIENT FINANCIAL SERVICES MANAGER Sign off status: Pending * Provider: Noah Arriaza Date: 0 10/25/2023 Generated for Shannan graham/Yolanda/Michaelitting on: 1 05/15/2024 01:28 AM PATIENT FINANCIAL SERVICES MANAGER
[2025-03-02 14:54] VITALS: BMI 39.8
--- OUTSIDE RECORDS SUMMARY | 2025-03-15 01:27 | XMS_ITS ---
Care Plan - [facility] Created on: March 15, 2025 DEDE PRINGLE : 1950 Sex: Male Author Organization [facility] Address [address] [place] [address] Phone Care Team Providers Care Educational Technician Name Role Phone LAURA GUZMAN, FRITZ SAUCEDA [facility] [phone]
--- OUTSIDE RECORDS SUMMARY | 2025-03-15 01:27 | XMS_ITS | Clinical Summary ---
Author Organization [facility] Address [address] [place] [id number] Phone Care Team Providers Care Steel Engraver Name Role Phone LAURA GUZMAN, FRITZ Nolan [phone] Reason for Visit and Chief Complaint The Chief Complaint is: follow up for depression Problems Includes: Problems addressed during this encounter and other active Problems Current Visit Onset Date Resolved Date Provider Conditio n Status Tremor 01/10/2019 FRITZ MASSEY MD Ac tive Last Documented On 9 3:00AM ; [facility] Psychophysiological Insomnia 04/11/2016 FRITZ MASSEY MD Active Last Documented On 7 9:35PM ; [facility] Nonorganic Sleep Apnea Obstructive 07/10/2012 Luis Eduardo MASSEY MD Inactive Last Documented On 5 10:26AM ; [facility] Note: Using CPAP Major Depression, Recurrent 06/22/2012 FRITZ MASSEY MD Inactive Last Documented On 5 10:25AM ; [facility] Generalized Anxiety Disorder 06/10/2012 FRITZ MASSEY MD Inactive Last Documented On 5 10:23AM ; [facility] Past Visits Onset Date Resolved Date Provider Condition Status Post-traumatic Stress Disorder 01/10/2022 FRITZ MASSEY MD Active Last Documented On 2 9:19PM ; [facility] Diabetes Mellitus Type 2 02/25/2017 FRITZ MASSEY MD Active Last Documented On 7 4:30PM ; [facility] Unspecified asthma, uncomplicated 07/10/2012 ME MERVAT MASSEY MD Active Last Documented On 5 10:26AM ; [facility] Sleep apnea, unspecified 07/10/2012 FRITZ MASSEY MD Active Last Documented On 5 10:26AM ; [facility] Major depressive disorder, r ecurrent, unspecified 06/22/2012 FRITZ MASSEY MD Active Last Documented On 5 10:25AM ; [facility] Generalized anxiety disorder 06/10/2012 FRITZ MASSEY MD Active Last Documented On 5 10:23AM ; [facility] Essential (primary) hypertension 06/10/2012 MET ANTONIO MASSEY MD Active Last Documented On 5 10:24AM ; [facility] Pure hypercholesterolemia 06/10/2012 FRITZ MASSEY MD Active Last Documented On 5 10:23AM ; [facility] Plan of Treatment Major Depressive [...] - Last Documented On 06/25/2021 8:29AM ; [facility] Instructions to patient Lose weight Last Documented On 2 1:53PM ; [facility] Education and Decision Aids were provided during visit for: Patient education about [facility] --- I educated patient on medication(s) and diagnosis. I reviewed the risks, benefits and side effects of patient's medications Last Documented On 2 1:41PM ; [facility] Discussed calming techniques such as breathing exercises and other relaxation techniques Last Documented On 2 1:41PM ; [facility] Counseling for nutrition/maci ght management provided Last Documented On 2 1:53PM ; [facility] Discussed good sleep hygiene habits Last Documented On 2 1:53PM ; [facility] Assessments Includes: Assessments from this encounter Findings - Obstructive sleep apnea - Last Documented On 06/25/2021 8:29AM ; [facility] - Tremor - Last Documented On 06/25/2021 8:29AM ; [facility] - Major depression, recurrent - Last Documented On 06/25/2021 8:29AM ; [facility] - Psychophysiological insomnia - Last Documented On 06/25/2021 8:29AM ; [facility] - Generalized anxiety disorder - Last Documented On 06/25/2021 8:29AM ; [facility] Instructions Includes: Instructions from this encounter Instructions to patient Lose weight Last Documented On 2 1:53PM ; [facility] Education and Decision Aids were provided during visit for: Patient education about medi cation --- I educated patient on medication(s) and diagnosis. I reviewed the risks, benefits and side effects of patient's medications Last Documented On 2 1:41PM ; [facility] Discussed calming techniques such as breathing exercises and other relaxation techniques Last Documented On 2 1:41PM ; [facility] Counseling for nutrition/maci ght management provided Last Documented On 2 1:53PM ; [facility] Discussed good sleep hygiene habits Last Documented On 2 1:53PM ; [facility] Medical Equipment - Implanted Devices Includes: Current Devices No Medical Equipment Recorded Medications Includes: Medications discussed during this encounter and other current Medications New / Renewed during this visit FRITZ MASSEY MD on 05/23/2021 Escitalopram Oxalate 20 MG Oral Tablet Provider: FRITZ MASSEY MD 90 day supply: 90 tablet, 1 refills Diagnosis: Generalized anxiety disorder One tablet daily Pharmacy: [facility] [address], [address] - Last Documented On 09/03/2021 7:45AM By Teresa Massey MD ; [facility] buPROPion HCl ER (XL) 150 MG Oral Tablet Extended Release 24 Hour Provider: FRITZ MASSEY MD 90 day supply: 270 tablet, 3 refills Diagnosis: Major depressive disorder, recurrent, moderate TAKE 3 TABLETS BY MOUTH IN T HE MORNING Pharmacy: [facility] [place] - [address] [place] [address], [id number] - Last Documented On 06/11/2022 1:51PM By Teresa Massey MD ; [facility] Current Medications (continue as prescribed) Escitalopram Oxalate 20 MG Oral Tablet 06/11/2022 Provider: FRITZ MASSEY MD Diagnosis: Generalized anxi ety disorder One tablet daily Last Documented On 06/11/2022 1:53PM By Teresa Massey MD ; [facility] buPROPion HCl ER (XL) 150 MG Oral Tablet Extended Release 24 Hour 06/11/2022 Provider: FRITZ MASSEY MD Diagnosis: Major depressive disorder, recurrent, moderate TAKE 3 TABLETS BY MOUTH IN T HE MORNING Last Documented On 06/11/2022 1:52PM By Teresa Massey MD ; [facility] traZODone HCl 50 MG Oral Tablet 06/11/2022 Provider: FRITZ MASSEY MD Diagnosis: Psychophysiologi c insomnia TAKE 1/2 (ONE-HALF) TABLET B Y MOUTH TWICE DAILY NEEDED FOR ANXIETY AND 1 TABLET AT BEDTIME NEEDED FOR SLEEP DIRECTED Last Documented On 06/11/2022 1:50PM By Teresa Massey MD ; [facility] Azelastine HCl 137 MCG/SPRAY Nasal Solution 04/23/2022 Provider: NALINI CASTANO APN Diagnosis: Acute sinusitis, unspecified 1 spray to each nostril 2 x a day -- Nalini Castano Last Documented On 06/11/2022 1:42PM By Teresa Massey MD ; [facility] metFORMIN HCl 500 MG Oral Tablet 07/11/2020 Provider : ERNESTO PIMENTEL MD Diagnosis: 4 daily Last Documented On 09/13/2020 1:51PM By ILANA POOLE ; [facility] Atorvastatin Calcium 40 MG Oral Tablet 09/14/2019 Pr ovider: Diagnosis: Last Documented On 09/14/2019 2:54PM By Teresa Massey MD ; [facility] ProAir HFA 108 (90 Base)MCG/ ACT Inhalation Aerosol Solution 05/13/2018 Provider: ERNESTO PIMENTEL MD Diagnosis: 1-2 puffs every 4-6 hours prn Last Documented On 05/13/2018 2:56PM By ILANA POOLE ; [facility] Indapamide 2.5 MG Tablet 03/02/2015 Provider: Diagnosis: from Dr. Figueroa Last Documented On 03/02/2015 4:30PM By Teresa Massey MD ; [facility] Aspirin 81 MG OR TABS 07/10/2012 Provider: Diagnosis: Last Documented On 3 10:24AM By LEXIE HERNANDEZ ; [facility] ZyrTEC Allergy 10 MG OR TABS 07/10/2012 Provider: Diagnosis: Last Documented On 3 10:24AM By LEXIE HERNANDEZ ; [facility] Quinapril HCl 40 MG OR TABS 07/05/2012 Provider: ERNESTO PIMENTEL MD Diagnosis: Last Documented On 3 10:22AM By LEXIE HERNANDEZ ; [facility] Medications Administered Includes: Administered Medications [...] vitals Last Documented: On 05/23/2021 2:01PM ; [facility] Results Includes: Results discussed during [...] also going through grieving period since his cehfps-wm-ack January 2021 but he seemed to be [...] 199909/13/2020 Last Documented On 2 1:41PM ; [facility] Alcohol use -- <2 - 4 beers a month 08/2019 Last Documented On 2 1:41PM ; [facility] Daily coffee consumption -- He drinks 0 - 4 cups of coffee a day, 2 glasses of tea a week and rarely, a botlle of Ski 03/15/2020 Last Documented On 2 1:41PM ; [facility] Work history -- He retired from [employer] in 201705/13/2018 Last Documented On 2 1:41PM ; [facility] He was born in [facility] [place] [facility] and raised in [place], [place]. He was close to his parents while growing up, they had a good relationship and they were supportive of him. He graduated high school. He worked at [employer]. He first got in 1972 at the age of 21 and had 2 children. He reported no history of verbal, physical or sexual abuse 05/13/2018 Last Documented On 2 1:41PM ; [facility] Marital history Pt at 21 015 Last Documented On 2 1:41PM ; [facility] Not using drugs (Illicit) 06/10/2012 Last Documented On 2 1:41PM ; [facility] Smoking Status Unknown Procedures and Surgical History Includes: Procedures from this encounter Procedures Code Diagnosis Performing Provider Service L ocation Service Date education and instructions Last Documented On 2 1:41PM ; [facility] I explained the rationale fo [...] plan Last Documented On 2 1:41PM ; [facility] dangerousness assessment: suicide risk - not nancy cidal 3085F Last Documented On 2 2:04PM ; [facility] use of tobacco assessment performed 1000F Last Documented On 2 1:41PM ; [facility] patient screened for future fall risk - no recen t falls 3288F Last Documented On 2 1:41PM ; [facility] review of medications documented 1160F Last Documented On 2 1:41PM ; [facility] screening for adult depressi on: impression and score - please see above treatment and PHQ score Last Documented On 2 1:41PM ; [facility] standardized depression screening: posit marlen for symptoms Last Documented On 2 1:41PM ; [facility] encouragement to exercise Last Documented On 2 1:53PM ; [facility] Clinical summary provided to patient Last Documented On 2 1:53PM ; [facility] PHQ-9: total score Last Documented On 2 1:53PM ; [facility] Surgical History Last Updated History of Prior Surgery: Re moval of ganglion cyst from left wrist. ~Removal of granuloma from left upper arm 07/10/2012 Last Documented On 2 1:41PM ; [facility] Medical History Includes: Medical History addressed during this encounter Description Last Updated History of coronavirus 2019- nCoV vaccine - [employer] #1 08/02/20 #2 08/24/20 #3 04/19/21 05/23/2021 Last Documented On 2 8:29AM ; [facility] History of COVID-19 infection - tested p ositive 01/25/21 -- fatigue 03/12/2021 Last Documented On 2 1:41PM ; [facility] Primary Care Provider: Dr. Ernesto maynard 09/13/2020 Last Documented On 2 1:41PM ; [facility] History of obstructive sleep apnea --using CPAP had a sleep study in 2018 and as of 04/01/19 he wears his CPAP every night 04/01/2019 Last Documented On 2 1:41PM ; [facility] History of crush injury of the thumb - r ight thumb 09/23/18 11/04/2018 Last Documented On 2 1:41PM ; [facility] History of type 2 diabetes mellitus 02/09 Last Documented On 2 1:41PM ; [facility] History of eczema 08/28/2016 Last Documented On 2 1:41PM ; [facility] History of dyshidrosis -- h/o 02/29/2016 Last Documented On 2 1:41PM ; [facility] History of asthma 10/05/2013 Last Documented On 2 1:41PM ; [facility] History of hyperlipidemia 06/10/2012 Last Documented On 2 1:41PM ; [facility] History of hypertension 06/10/2012 Last Documented On 2 1:41PM ; [facility] Family History Includes: Family History addressed during this encounter Description Last Updated Family medical history : No significant family history 02/25/2017 Last Documented On 2 1:41PM ; [facility] Review of Systems Includes: Review [...] Active Last Documented On 10/15/2023 1:46PM ; [facility] Note: Imported from external source. Cardizem Allergy 11/04/2018 Active Last Documented On 10/15/2023 1:46PM ; [facility] Note: Imported from external source. Encounters Encounter Provider Location Date Check-In Time Check- Out Time Diagnosis [facility] MET[facility] MASSEY MD [facility] 2 1:38PM 11:59PM Major Depression, Recurrent,Gen eralized Anxiety Disorder,Nono rganic Sleep Apnea Obstructive,P sychophysiolo gical Insomnia,Trem or Insurance Includes: Active Insurance Policies Plan Name Member ID Group # Subscriber Relationship Effect marlen Dates 1 - MEDICARE PART A CLAIMS/NGS [id number] DEDE Nguyen 05/12/2018 - Unknown 2 - [employer] [id number] DEDE Nguyen Clinical Notes Includes: Clinical Notes from this encounter No Clinical Notes Recorded
--- OUTSIDE RECORDS SUMMARY | 2025-03-15 01:27 | XMS_ITS | Clinical Summary ---
Author Organization [facility] Address [address] [place] [address] Phone Care Team Providers Care Polytechnic Teacher Name Role Phone LAURA GUZMAN, FRITZ SAUCEDA [facility] [phone] Reason for Visit and Chief Complaint The Chief Complaint is: follow up for depression and anxiety Problems Includes: Problems addressed during this encounter and other active Problems Current Visit Onset Date Resolved Date Provider Conditio n Status Post-traumatic Stress Disorder 01/10/2022 Active Last Documented On 3 5:53PM ; [facility] Tremor 01/10/2019 Active Last Documented On 3 5:52PM ; [facility] Psychophysiological Insomnia 04/11/2016 Active Last Documented On 3 5:50PM ; [facility] 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 Last Documented On 4 2:06PM ; [facility] Calming techniques such as b reathing exercises/meditation and other relaxation techniques Last Documented On 4 12:20AM ; [facility] Assessments Includes: Assessments from this encounter Findings - Nonorganic sleep apnea - Last Documented On 10/20/2023 12:25AM ; [facility] - Tremor - Last Documented On 10/20/2023 12:25AM ; [facility] - Major depressive disorder - Last Documented On 10/20/2023 12:25AM ; [facility] - Psychophysiological insomnia - Last Documented On 10/20/2023 12:25AM ; [facility] - Generalized anxiety disorder - Last Documented On 10/20/2023 12:25AM ; [facility] - Post-traumatic stress disorder - Last Documented On 10/20/2023 12:25AM ; [facility] Instructions Includes: Instructions from this encounter Education and Decision Aids were provided during visit for: I recommended cognitive exer cises such as reading and/or word search puzzles, etc.. Last Documented On 4 2:06PM ; [facility] Calming techniques such as b reathing exercises/meditation and other relaxation techniques Last Documented On 4 12:20AM ; [facility] Medical Equipment - Implanted Devices Includes: Current Devices No Medical Equipment Recorded Medications Includes: Medications discussed during this encounter and other current Medications Discontinued / Stopped on this date FRITZ MASSEY MD on 02/05/2023 rOPINIRole HCl 3 MG Oral Tablet Provider: FRITZ MASSEY MD Diagnosis: Restless legs sy ndrome Last Documented On 10/15/2023 2:46PM By Teresa Massey MD ; [facility] New / Renewed during this visit FRITZ MASSEY MD on 10/15/2023 busPIRone HCl 10 MG Oral Tablet Provider: FRITZ MASSEY MD 30 day supply: 30 tablet, 3 refills Diagnosis: Generalized anxiety disorder One tablet daily Pharmacy: [address], [address] - Last Documented On 10/15/2023 2:46PM By Teresa Massey MD ; [facility] Current Medications (continue as prescribed) ZyrTEC Allergy 10 MG Oral Tablet 10/15/2023 Provider : Diagnosis: 1 tab daily prn Last Documented On 10/15/2023 1:59PM By ILANA POOLE ; [facility] traZODone HCl 50 MG Oral Tablet 06/20/2023 Provider: FRITZ MASSEY MD Diagnosis: Psychophysiologi c insomnia DIRECTED 1 TAB 2 TIMES A DAY AND 1 TAB AT BEDTIME NEEDED Last Documented On 06/20/2023 8:48AM By Teresa Massey MD ; [facility] Escitalopram Oxalate 20 MG Oral Tablet 06/11/2023 Provider: FRITZ MASSEY MD Diagnosis: Generalized anxi ety disorder One tablet daily Last Documented On 06/11/2023 2:33PM By Teresa Massey MD ; [facility] buPROPion HCl ER (XL) 150 MG Oral Tablet Extended Release 24 Hour 06/11/2023 Provider: FRITZ MASSEY MD Diagnosis: Major depressive disorder, recurrent, moderate TAKE 3 TABLETS BY MOUTH IN T HE MORNING Last Documented On 06/11/2023 2:31PM By Teresa Massey MD ; [facility] Atorvastatin Calcium 80 MG Oral Tablet 01/08/2023 Pr ovider: [employer] Diagnosis: 1 tab daily Last Documented On 02/05/2023 1:45PM By ILANA POOLE ; [facility] Lisinopril 40 MG Oral Tablet 09/11/2022 Provider: Diagnosis: 1 daily Last Documented On 09/11/2022 2:48PM By ILANA POOLE ; [facility] metFORMIN HCl 500 MG TABS 07/11/2020 Provider: Diagnosis: 4 daily Last Documented On 09/07/2022 5:28PM By ILANA POOLE ; [facility] ProAir HFA 108 (90 Base) MCG/ACT IN AERS 05/13/2018 Provider: Diagnosis: 1-2 puffs every 4-6 hours prn Last Documented On 09/07/2022 5:28PM By ILANA POOLE ; [facility] Indapamide 2.5 MG OR TABS 03/02/2015 Provider: Diagnosis: from Dr. Figueroa Last Documented On 09/07/2022 5:28PM By Teresa Massey MD ; [facility] Aspirin 81 MG OR TABS 07/10/2012 Provider: Diagnosis: Last Documented On 09/07/2022 5:28PM By LEXIE HERNANDEZ ; [facility] Medications Administered Includes: Administered Medications [...] vitals Last Documented: On 10/15/2023 2:01PM ; [facility] Results Includes: Results discussed during [...] 10/15/2023 Last Documented On 4 12:25AM ; [facility] Caffeine use: Daily coffee c onsumption -- He drinks 1 cup of coffee a day, 1 glass of tea a day and an occasional sodaAlcohol: Alcohol use -- noneDrug Use: Not using drugs (Illicit).Work: Work history -- He retired from [employer] in 2018.Marital: Marital history Pt at 21.Housing and Economic Circumstances: Lives with spouseHe was born [place], [place] and raised in [place], [place]. He was close to his parents while growing up, they had a good relationship and they were supportive of him. He graduated high school. He worked at [employer]. He first got in 1972 at the age of 21 and had 2 children. He reported no history of verbal, physical or sexual abuse. 10/15/2023 Last Documented On 4 2:09PM ; [facility] Former smoker - quit smoking in 09/2023 Last Documented On 12:25AM ; [facility] Stopped smoking years ago 10/15/2023 Last Documented On 12:25AM ; [facility] Smoking Status Unknown Procedures and Surgical History Includes: Procedures from this encounter Procedures Code Diagnosis Performing Provider Service L ocation Service Date education and instructions Last Documented On 1:42PM ; [facility] supportive care and encourag ement--given positive reinforcement to keep patient motivated and active Last Documented On 2:06PM ; [facility] ~* Call [phone] and /or go t o the nearest emergency room or call me if suicidal/homicidal ideation or other serious concerns arise. ~ ~* I gave instructions to call me should there be any questions or concerns. ~ ~* Patient voiced understanding and agreed to treatment plan Last Documented On 4 1:59PM ; [facility] dangerousness assessment: no suicide risk 3085F Last Documented On 1:42PM ; [facility] use of tobacco assessment performed 1000F Last Documented On 1:42PM ; [facility] patient screened for future fall risk: documentation of any fall with injury in past year - no recent falls 1100F Last Documented On 4 1:42PM ; [facility] review of medications documented 1160F Last Documented On 1:42PM ; [facility] assessment of suicide risk performed - n ot suicidal Last Documented On 2:00PM ; [facility] screening for adult depressi on: impression and score - please see above treatment and PHQ score Last Documented On 4 1:42PM ; [facility] standardized depression screening: posit marlen for symptoms Last Documented On 1:42PM ; [facility] encouragement to exercise - balanced arlyn l plan, low fat low carb diet Last Documented On 4 1:59PM ; [facility] Counseling on new medication : I discussed the risks, benefits and side effects ofBuspar. Patient verbalized understanding and agreed to treatment Last Documented On 4 12:23AM ; [facility] I recommended cognitive exer cises such as reading and/or word search puzzles, etc.. Last Documented On 4 2:06PM ; [facility] Clinical summary provided to patient Last Documented On 4 1:42PM ; [facility] PHQ-9: total score 5 Last Documented On 4 12:20AM ; [facility] Medical History Includes: Medical History [...] right thumb 09/23/18Procedural: Coronavirus 2019-nCoV vaccine - [employer] #1 08/02/20 #2 08/24/20 #3 04/19/21Surgical: Prior Surgery: Removal of ganglion cyst from left wrist. Removal of granuloma from left upper arm 10/15/2023 Last Documented On 4 1:42PM ; [facility] Family History Includes: Family History addressed during this encounter Description Last Updated Family medical history: No significant f amily history 10/15/2023 Last Documented On 4 1:42PM ; [facility] Review of Systems Includes: Review of [...] encounter Description Mini-mental status was perfo rmed Was able to copy a design Oriented [...] TELEHEALTH ADULT PSYCH ESTABLISHED FRITZ MASSEY MD [facility] 10/15/19 24 1:42PM 11:59PM Generalized Anxiety Disorder,Nonor ganic Sleep Apnea,Psychoph ysiological Insomnia,Post- traumatic Stress Disorder,Tremo r,Major Depression Insurance Includes: Active Insurance Policies Plan Name Member ID Group # Subscriber Relationship Effect marlen Dates 1 - MEDICARE PART A CLAIMS/NGS [id number] DEDE PRINGLE Self 05/12/2018 - Unknown 2 - [employer] [id number] DEDE PRINGLE Self Clinical Notes Includes: Clinical Notes from this encounter * Progress note Date Encounter Last Documented by 10/15/2023 TELEHEALTH ADULT PSYCH ESTABLISH ED Last documented on 10/20/2023; 12:25 AM, FRITZ MASSEY MD; [facility] [...] Work: Work history -- He retired from [employer] in 2018. Marital: Marital history Pt at 21. Housing and Economic Circumstances: Lives with spouse He was born in [place], [place] and raised in [place], [place] He was close to his parents while growing up, they had a good relationship and they were supportive of him. He graduated high school. He worked at [employer]. He first got in 1972 at the [...] able to say no ifs, ands, or buts. - Was able to follow a 3-stage [...] Clinical summary provided to patient. * Call [phone] and /or go to the nearest emergency [...]
--- OUTSIDE RECORDS SUMMARY | 2025-03-15 01:27 | XMS_ITS | Clinical Summary ---
Author Organization [facility] Address [address] [place] [id number] Phone Care Team Providers Care Water Softener Servicer And Installer Name Role Phone LAURA GUZMAN, FRITZ Nolan [phone] Reason for Visit and Chief Complaint The Chief Complaint is: follow up for depression Problems Includes: Problems addressed during this encounter and other active Problems Current Visit Onset Date Resolved Date Provider Conditio n Status Post-traumatic Stress Disorder 01/10/2022 FRITZ MASSEY MD Active Last Documented On 2 9:19PM ; [facility] T[facility] 01/10/2019 FRITZ MASSEY MD Ac tive Last Documented On 9 3:00AM ; [facility] Psychophysiological Insomnia 04/11/2016 FRITZ MASSEY MD Active Last Documented On 7 9:35PM ; [facility] Nonorganic Sleep Apnea Obstructive 07/10/2012 Luis Eduardo MASSEY MD Inactive Last Documented On 5 10:26AM ; [facility] Note: Using CPAP Major Depression, Recurrent 06/22/2012 FRITZ MASSEY MD Inactive Last Documented On 5 10:25AM ; [facility] Generalized Anxiety Disorder 06/10/2012 FRITZ MASSEY MD Inactive Last Documented On 5 10:23AM ; [facility] Past Visits Onset Date Resolved Date Provider Condition Status Diabetes Mellitus Type 2 02/25/2017 FRITZ MASSEY MD Active Last Documented On 7 4:30PM ; [facility] Unspecified asthma, uncomplicated 07/10/2012 ME MERVAT MASSEY MD Active Last Documented On 5 10:26AM ; [facility] Sleep apnea, unspecified 07/10/2012 FRITZ MASSEY MD Active Last Documented On 5 10:26AM ; [facility] Major depressive disorder, r ecurrent, unspecified 06/22/2012 FRITZ MASSEY MD Active Last Documented On 5 10:25AM ; [facility] Generalized anxiety disorder 06/10/2012 FRITZ MASSEY MD Active Last Documented On 5 10:23AM ; [facility] Essential (primary) hypertension 06/10/2012 MET ANTONIO MASSEY MD Active Last Documented On 5 10:24AM ; [facility] Pure hypercholesterolemia 06/10/2012 FRITZ MASSEY MD Active Last Documented On 5 10:23AM ; [facility] Plan of Treatment Major Depressive disorder, recurrent [...] - Last Documented On 03/05/2022 9:22PM ; [facility] Education and Decision Aids were provided during visit for: Patient education about [facility] ---Education was given on medication(s) and diagnosis. I reviewed the risks, benefits and side effects of patient's medications Last Documented On 2 1:44PM ; [facility] Discussed calming techniques such as breathing exercises and other relaxation techniques Last Documented On 2 1:44PM ; [facility] Assessments Includes: Assessments from this encounter Findings - Obstructive sleep apnea - Last Documented On 03/05/2022 9:22PM ; [facility] - Tremor - Last Documented On 03/05/2022 9:22PM ; [facility] - Major depression, recurrent - Last Documented On 03/05/2022 9:22PM ; [facility] - Psychophysiological insomnia - Last Documented On 03/05/2022 9:22PM ; [facility] - Generalized anxiety disorder - Last Documented On 03/05/2022 9:22PM ; [facility] - Post-traumatic stress disorder - Last Documented On 03/05/2022 9:22PM ; [facility] Instructions Includes: Instructions from this encounter Education and Decision Aids were provided during visit for: Patient education about medi cation ---Education was given on medication(s) and diagnosis. I reviewed the risks, benefits and side effects of patient's medications Last Documented On 1:44PM ; [facility] Discussed calming techniques such as breathing exercises and other relaxation techniques Last Documented On 1:44PM ; [facility] Medical Equipment - Implanted Devices Includes: Current Devices No Medical Equipment Recorded Medications Includes: Medications discussed during this encounter and other current Medications Discontinued / Stopped on this date FRITZ MASSEY MD on 12/04/2021 Viibryd 20 MG Oral Tablet Provider: FRITZ MASSEY MD Diagnosis: Major depressive disorder, recurrent, moderate Last Documented On 03/04/2022 2:33PM By Teresa Massey MD ; [facility] Current Medications (continue as prescribed) Escitalopram Oxalate 20 MG Oral Tablet 06/11/2022 Provider: FRITZ MASSEY MD Diagnosis: Generalized anxi ety disorder One tablet daily Last Documented On 06/11/2022 1:53PM By Teresa Massey MD ; [facility] buPROPion HCl ER (XL) 150 MG Oral Tablet Extended Release 24 Hour 06/11/2022 Provider: FRITZ MASSEY MD Diagnosis: Major depressive disorder, recurrent, moderate TAKE 3 TABLETS BY MOUTH IN T MORNING Last Documented On 06/11/2022 1:52PM By Teresa Massey MD ; [facility] traZODone HCl 50 MG Oral Tablet 06/11/2022 Provider: FRITZ MASSEY MD Diagnosis: Psychophysiologi c insomnia TAKE 1/2 (ONE-HALF) TABLET B Y MOUTH TWICE DAILY NEEDED FOR ANXIETY AND 1 TABLET AT BEDTIME NEEDED FOR SLEEP DIRECTED Last Documented On 06/11/2022 1:50PM By Teresa Massey MD ; [facility] Azelastine HCl 137 MCG/SPRAY Nasal Solution 04/23/2022 Provider: NALINI CASTANO SALESPERSON [employer] Diagnosis: Acute sinusitis, unspecified 1 spray to each nostril 2 x a day -- Nalini Castano Last Documented On 06/11/2022 1:42PM By Teresa Massey MD ; [facility] metFORMIN HCl 500 MG Oral Tablet 07/11/2020 Provider : ERNESTO PIMENTEL MD Diagnosis: 4 daily Last Documented On 09/13/2020 1:51PM By ILANA POOLE ; [facility] Atorvastatin Calcium 40 MG Oral Tablet 09/14/2019 Pr ovider: Diagnosis: Last Documented On 09/14/2019 2:54PM By Teresa Massey MD ; [facility] ProAir HFA 108 (90 Base)MCG/ ACT Inhalation Aerosol Solution 05/13/2018 Provider: ERNESTO PIMENTEL MD Diagnosis: 1-2 puffs every 4-6 hours prn Last Documented On 05/13/2018 2:56PM By ILANA POOLE ; [facility] Indapamide 2.5 MG Tablet 03/02/2015 Provider: Diagnosis: from Dr. Figueroa Last Documented On 03/02/2015 4:30PM By Teresa Massey MD ; [facility] Aspirin 81 MG OR TABS 07/10/2012 Provider: Diagnosis: Last Documented On 3 10:24AM By LEXIE HERNANDEZ ; [facility] ZyrTEC Allergy 10 MG OR TABS 07/10/2012 Provider: Diagnosis: Last Documented On 3 10:24AM By LEXIE HERNANDEZ ; [facility] Quinapril HCl 40 MG OR TABS 07/05/2012 Provider: ERNESTO PIMENTEL MD Diagnosis: Last Documented On 3 10:22AM By LEXIE HERNANDEZ ; [facility] Medications Administered Includes: Administered Medications from this [...] vitals Last Documented: On 03/04/2022 1:57PM ; [facility] Results Includes: Results [...] 08/2019 Last Documented On 2 1:44PM ; [facility] Daily coffee consumption -- He drinks 0 - 4 cups of coffee a day, 2 glasses of tea a week and rarely, a botlle of Ski 03/15/2020 Last Documented On 2 1:44PM ; [facility] Work history -- He retired from [employer] in 201705/13/2018 Last Documented On 2 1:44PM ; [facility] He was born in [facility] and raised in [place], [place]. He was close to his parents while growing up, they had a good relationship and they were supportive of him. He graduated high school. He worked at [employer]. He first got in 1973 at the age of 21 and had 2 children. He reported no history of verbal, physical or sexual abuse 05/13/2018 Last Documented On 2 1:44PM ; [facility] Smoking status : Former smoker quit in 2 000 01/19/2013 Last Documented On 2 1:44PM ; [facility] Marital history Pt at 21 013 Last Documented On 2 1:44PM ; [facility] Not using drugs (Illicit) 06/10/2012 Last Documented On 2 1:44PM ; [facility] Procedures and Surgical History Includes: Procedures from this encounter Procedures Code Diagnosis Performing Provider Service L ocation Service Date education and instructions Last Documented On 2 1:44PM ; [facility] dangerousness assessment: suicide risk -not suic idal 3085F Last Documented On 2 1:44PM ; [facility] use of tobacco assessment performed 1000F Last Documented On 2 1:44PM ; [facility] patient screened for future fall risk - no recen t falls 3288F Last Documented On 2 1:44PM ; [facility] review of medications documented 1160F Last Documented On 2 1:44PM ; [facility] screening for adult depressi on: impression and score - please see above treatment and PHQ score Last Documented On 2 1:44PM ; [facility] standardized depression screening: posit marlen for symptoms Last Documented On 2 1:44PM ; [facility] encouragement to exercise Last Documented On 2 1:44PM ; [facility] Clinical summary provided to patient Last Documented On 2 1:44PM ; [facility] PHQ-9: total score 3 Last Documented On 2 9:14PM ; [facility] Surgical History Last Updated History of Prior Surgery: Re moval of ganglion cyst from left wrist. ~Removal of granuloma from left upper arm 07/10/2012 Last Documented On 2 1:44PM ; [facility] Medical History Includes: Medical History addressed during this encounter Description Last Updated History of coronavirus 2019- nCoV vaccine - Pfizer #1 08/02/20 #2 08/24/20 #3 04/19/21 05/23/2021 Last Documented On 2 1:44PM ; [facility] History of COVID-19 infection - tested p ositive 01/25/21 -- fatigue 03/12/2021 Last Documented On 2 1:44PM ; [facility] Primary Care Provider: Dr. Ernesto maynard 09/13/2020 Last Documented On 2 1:44PM ; [facility] History of obstructive sleep apnea --using CPAP had a sleep study in 2018 and as of 04/01/19 he wears his CPAP every night 04/01/2019 Last Documented On 2 1:44PM ; [facility] History of crush injury of the thumb - r ight thumb 09/23/18 11/04/2018 Last Documented On 2 1:44PM ; [facility] History of type 2 diabetes mellitus 02/09 Last Documented On 2 1:44PM ; [facility] History of eczema 08/28/2016 Last Documented On 2 1:44PM ; [facility] History of dyshidrosis -- h/o 02/29/2016 Last Documented On 2 1:44PM ; [facility] History of asthma 10/05/2013 Last Documented On 2 1:44PM ; [facility] History of hyperlipidemia 06/10/2012 Last Documented On 2 1:44PM ; [facility] History of hypertension 06/10/2012 Last Documented On 2 1:44PM ; [facility] Family History Includes: Family History addressed during this encounter Description Last Updated Family medical history : No significant family history 02/25/2017 Last Documented On 2 1:44PM ; [facility] Review of Systems Includes: Review of Systems [...] Active Last Documented On 10/15/2023 1:46PM ; [facility] Note: Imported from external source. Cardizem Allergy 11/04/2018 Active Last Documented On 10/15/2023 1:46PM ; [facility] Note: Imported from external source. Encounters Encounter Provider Location Date Check-In Time Check- Out Time Diagnosis [employer] FRITZ MASSEY MD [facility] 2 1:44PM 11:59PM Major Depression, Recurrent,Gen eralized Anxiety Disorder,Nono rganic Sleep Apnea Obstructive,P sychophysiolo gical Insomnia,Trem or,Post-traum atic Stress Disorder Insurance Includes: Active Insurance Policies Plan Name Member ID Group # Subscriber Relationship Effect marlen Dates 1 - MEDICARE PART A CLAIMS/NGS [id number] DEDE Nguyen 05/12/2018 - Unknown 2 - [employer] [id number] DEDE PRINGLE Self Clinical Notes Includes: Clinical Notes from this encounter No Clinical Notes Recorded
--- OUTSIDE RECORDS SUMMARY | 2025-03-15 01:28 | XMS_ITS | Clinical Summary ---
Author Organization [facility] Address [address] [place] [phone] Phone Care Team Providers Care Layer Up Name Role Phone LAURA GUZMAN, FRITZ Nolan [phone] Reason for Visit and Chief Complaint TELEHEALTH Problems Includes: Problems addressed during this encounter and other active Problems Current Visit Onset Date Resolved Date Provider Conditio n Status Post-traumatic Stress Disorder 01/10/2022 FRITZ MASSEY MD Active Last Documented On 2 9:19PM [facility]2019 FRITZ MASSEY MD Ac tive Last Documented On 9 3:00AM ; [facility] Psychophysiological Insomnia 04/11/2016 FRITZ MASSEY MD Active Last Documented On 7 9:35PM ; [facility] Nonorganic Sleep Apnea Obstructive 07/10/2012 Luis Eduardo MASSEY MD Inactive Last Documented On 5 10:26AM ; [facility] Note: Using CPAP Major Depression, Recurrent 06/22/2012 FRITZ MASSEY MD Inactive Last Documented On 5 10:25AM ; [facility] Generalized Anxiety Disorder 06/10/2012 FRITZ MASSEY MD Inactive Last Documented On 5 10:23AM ; [facility] Past Visits Onset Date Resolved Date Provider Condition Status Diabetes Mellitus Type 2 02/25/2017 FRITZ MASSEY MD Active Last Documented On 7 4:30PM ; [facility] Unspecified asthma, uncomplicated 07/10/2012 ME MERVAT MASSEY MD Active Last Documented On 5 10:26AM ; [facility] Sleep apnea, unspecified 07/10/2012 FRITZ MASSEY MD Active Last Documented On 5 10:26AM ; [facility] Major depressive disorder, r ecurrent, unspecified 06/22/2012 FRITZ MASSEY MD Active Last Documented On 5 10:25AM ; [facility] General[facility] disorder 06/10/2012 FRITZ MASSEY MD Active Last Documented On 5 10:23AM ; [facility] Essential (primary) hypertension 06/10/2012 MET ANTONIO MASSEY MD Active Last Documented On 5 10:24AM ; [facility] Pure hypercholesterolemia 06/10/2012 FRITZ MASSEY MD Active Last Documented On 5 10:23AM ; [facility] Plan of Treatment Major Depressive disorder, recurrent [...] - Last Documented On 06/24/2022 8:00AM ; [facility] Education and Decision Aids were provided during visit for: Patient education about [facility] ---Education was given on medication(s) and diagnosis. I reviewed the risks, benefits and side effects of patient's medications Last Documented On 3 1:49PM ; [facility] Discussed calming techniques such as breathing exercises and other relaxation techniques Last Documented On 3 1:49PM ; [facility] Assessments Includes: Assessments from this encounter Findings - Obstructive sleep apnea - Last Documented On 06/24/2022 8:00AM ; [facility] - Tremor - Last Documented On 06/24/2022 8:00AM ; [facility] - Major depression, recurrent - Last Documented On 06/24/2022 8:00AM ; [facility] - Psychophysiological insomnia - Last Documented On 06/24/2022 8:00AM ; [facility] - Generalized anxiety disorder - Last Documented On 06/24/2022 8:00AM ; [facility] - Post-traumatic stress disorder - Last Documented On 06/24/2022 8:00AM ; [facility] Instructions Includes: Instructions from this encounter Education and Decision Aids were provided during visit for: Patient education about medi cation ---Education was given on medication(s) and diagnosis. I reviewed the risks, benefits and side effects of patient's medications Last Documented On 3 1:49PM ; [facility] Discussed calming techniques such as breathing exercises and other relaxation techniques Last Documented On 3 1:49PM ; [facility] Medical Equipment - Implanted Devices Includes: Current Devices No Medical Equipment Recorded Medications Includes: Medications discussed during this encounter and other current Medications New / Renewed during this visit FRITZ MASSEY MD on 06/11/2022 Escitalopram Oxalate 20 MG Oral Tablet Provider: FRITZ MASSEY MD 90 day supply: 90 tablet, 1 refills Diagnosis: Generalized anxiety disorder One tablet daily Pharmacy: [facility] [address], [address] - Last Documented On 06/11/2022 1:53PM By Teresa Massey MD ; [facility] buPROPion HCl ER (XL) 150 MG Oral Tablet Extended Release 24 Hour Provider: FRITZ MASSEY MD 90 day supply: 270 tablet, 3 refills Diagnosis: Major depressive disorder, recurrent, moderate TAKE 3 TABLETS BY MOUTH IN T MORNING Pharmacy: [facility], [address] - Last Documented On 06/11/2022 1:52PM By Teresa Massey MD ; [facility] traZODone HCl 50 MG Oral Tablet Provider: FRITZ MASSEY MD 90 day supply: 180 tablet, 1 refills Diagnosis: Psychophysiologic insomnia TAKE 1/2 (ONE-HALF) TABLET B Y MOUTH TWICE DAILY NEEDED FOR ANXIETY AND 1 TABLET AT BEDTIME NEEDED FOR SLEEP DIRECTED Pharmacy: [facility], [address] - Last Documented On 06/11/2022 1:50PM By Teresa Massey MD ; [facility] Current Medications (continue as prescribed) Azelastine HCl 137 MCG/SPRAY Nasal Solution 04/23/2022 Provider: NALINI CASTANO APN Diagnosis: Acute sinusitis, unspecified 1 spray to each nostril 2 x a day -- Nalini Castano Last Documented On 06/11/2022 1:42PM By Teresa Massey MD ; [facility] metFORMIN HCl 500 MG Oral Tablet 07/11/2020 Provider : ERNESTO PIMENTEL MD Diagnosis: 4 daily Last Documented On 09/13/2020 1:51PM By ILANA POOLE ; [facility] Atorvastatin Calcium 40 MG Oral Tablet 09/14/2019 Pr ovider: Diagnosis: Last Documented On 09/14/2019 2:54PM By Teresa Massey MD ; [facility] ProAir HFA 108 (90 Base)MCG/ ACT Inhalation Aerosol Solution 05/13/2018 Provider: ERNESTO PIMENTEL MD Diagnosis: 1-2 puffs every 4-6 hours prn Last Documented On 05/13/2018 2:56PM By ILANA POOLE ; [facility] Indapamide 2.5 MG Tablet 03/02/2015 Provider: Diagnosis: from Dr. Figueroa Last Documented On 03/02/2015 4:30PM By Teresa Massey MD ; [facility] Aspirin 81 MG OR TABS 07/10/2012 Provider: Diagnosis: Last Documented On 3 10:24AM By LEXIE HERNANDEZ ; [facility] ZyrTEC Allergy 10 MG OR TABS 07/10/2012 Provider: Diagnosis: Last Documented On 3 10:24AM By LEXIE HERNANDEZ ; [facility] Quinapril HCl 40 MG OR TABS 07/05/2012 Provider: ERNESTO PIMENTEL MD Diagnosis: Last Documented On 3 10:22AM By LEXIE HERNANDEZ ; [facility] Medications Administered Includes: Administered Medications from this [...] patient Last Documented: On 06/11/2022 2:12PM ; [facility] Results Includes: Results discussed [...] in 199909/13/2020 Last Documented On 1:39PM ; [facility] Alcohol use -- <2 - 4 beers a month 08/2019 Last Documented On 3 1:39PM ; [facility] Daily coffee consumption -- He drinks 0 - 4 cups of coffee a day, 2 glasses of tea a week and rarely, a botlle of Ski 03/15/2020 Last Documented On 3 1:39PM ; [facility] Non-smoker - quit smoking in 1999 Last Documented On 3 1:39PM ; [facility] Work history -- He retired from [employer] in 201705/13/2018 Last Documented On 3 1:39PM ; [facility] He was born in [facility] and raised in [place], [place]. He was close to his parents while growing up, they had a good relationship and they were supportive of him. He graduated high school. He worked at [employer]. He first got in 1972 at the age of 21 and had 2 children. He reported no history of verbal, physical or sexual abuse 05/13/2018 Last Documented On 3 1:39PM ; [facility] No tobacco use 05/13/2018 Last Documented On 3 1:39PM ; [facility] Smoking status : Former smoker quit in 2 000 01/19/2013 Last Documented On 3 1:39PM ; [facility] Marital history Pt at 21 2 013 Last Documented On 3 1:39PM ; [facility] Not using drugs (Illicit) 06/10/2012 Last Documented On 3 1:39PM ; [facility] Procedures and Surgical History Includes: Procedures from this encounter Procedures Code Diagnosis Performing Provider Service L ocation Service Date education and instructions Last Documented On 3 1:49PM ; [facility] dangerousness assessment: suicide risk -not suic idal 3085F Last Documented On 3 1:49PM ; [facility] use of tobacco assessment performed 1000F Last Documented On 3 1:49PM ; [facility] patient screened for future fall risk - no recen t falls 3288F Last Documented On 3 1:49PM ; [facility] review of medications documented 1160F Last Documented On 3 1:49PM ; [facility] screening for adult depressi on: impression and score - please see above treatment and PHQ score Last Documented On 3 1:49PM ; [facility] standardized depression screening: posit marlen for symptoms Last Documented On 3 1:49PM ; [facility] encouragement to exercise Last Documented On 3 1:49PM ; [facility] Clinical summary provided to patient Last Documented On 3 1:49PM ; [facility] PHQ-9: total score 2 Last Documented On 3 7:57AM ; [facility] Surgical History Last Updated History of Prior Surgery: Re moval of ganglion cyst from left wrist. ~Removal of granuloma from left upper arm 07/10/2012 Last Documented On 3 1:39PM ; [facility] Medical History Includes: Medical History addressed during this encounter Description Last Updated History of coronavirus 2019- nCoV vaccine - [employer] #1 08/02/20 #2 08/24/20 #3 04/19/21 05/23/2021 Last Documented On 3 1:39PM ; [facility] History of COVID-19 infection - tested p ositive 01/25/21 -- fatigue 03/12/2021 Last Documented On 3 1:39PM ; [facility] Primary Care Provider: Dr. Ernesto maynard 09/13/2020 Last Documented On 3 1:39PM ; [facility] History of obstructive sleep apnea --using CPAP had a sleep study in 2017 and as of 04/01/19 he wears his CPAP every night 04/01/2019 Last Documented On 3 1:39PM ; [facility] History of crush injury of the thumb - r ight thumb 09/23/18 11/04/2018 Last Documented On 3 1:39PM ; [facility] History of type 2 diabetes mellitus 02/09 Last Documented On 3 1:39PM ; [facility] History of eczema 08/28/2016 Last Documented On 3 1:39PM ; [facility] History of dyshidrosis -- h/o 02/29/2016 Last Documented On 3 1:39PM ; [facility] History of asthma 10/05/2013 Last Documented On 3 1:39PM ; [facility] History of hyperlipidemia 06/10/2012 Last Documented On 3 1:39PM ; [facility] History of hypertension 06/10/2012 Last Documented On 3 1:39PM ; [facility] Family History Includes: Family History addressed during this encounter Description Last Updated Family medical history : No significant family history 02/25/2017 Last Documented On 3 1:39PM ; [facility] Review of Systems Includes: Review of Systems [...] Active Last Documented On 10/15/2023 1:46PM ; [facility] Note: Imported from external source. Cardizem Allergy 11/04/2018 Active Last Documented On 10/15/2023 1:46PM ; [facility] Note: Imported from external source. Encounters Encounter Provider Location Date Check-In Time Check- Out Time Diagnosis TELEHEALTH METANTONIO MASSEY MD [facility] 3 1:32PM 11:59PM Major Depression, Recurrent,Gen eralized Anxiety Disorder,Nono rganic Sleep Apnea Obstructive,P sychophysiolo gical Insomnia,Post -traumatic Stress Disorder,Trem or Insurance Includes: Active Insurance Policies Plan Name Member ID Group # Subscriber Relationship Effect marlen Dates 1 - MEDICARE PART A CLAIMS/NGS [id number] DEDE Nguyen 05/12/2018 - Unknown 2 - [employer] [id number] DEDE Nguyen Clinical Notes Includes: Clinical Notes from this encounter No Clinical Notes Recorded
--- OUTSIDE RECORDS SUMMARY | 2025-03-15 01:28 | XMS_ITS ---
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 Role Phone LAURA GUZMAN, FRITZ SAUCEDA Unavailable [phone] Problems Includes: Active, inactive, and resolved Problems All Visits Onset Date Resolved Date Provider Condition S tatus Post-traumatic Stress Disorder 01/10/2022 FRITZ MASSEY MD Active Last Documented On 2 9:19PM ; [facility]/10[facility]2019 FRITZ MASSEY MD Ac tive Last Documented On 9 3:00AM ; [facility] Diabetes Mellitus Type 2 02/25/2017 FRITZ MASSEY MD Active Last Documented On 7 4:30PM ; [facility] Psychophysiological Insomnia 04/11/2016 FRITZ MASSEY MD Active Last Documented On 7 9:35PM ; [facility] Asthma 07/10/2012 FRITZ MASSEY MD In active Last Documented On 5 10:27AM ; [facility] Unspecified asthma, uncomplicated 07/10/2012 ME MERVAT MASSEY MD Active Last Documented On 5 10:26AM ; [facility] Nonorganic Sleep Apnea Obstructive 07/10/2012 Luis Eduardo MASSEY MD Inactive Last Documented On 5 10:26AM ; [facility] Note: Using CPAP Sleep apnea, unspecified 07/10/2012 FRITZ MASSEY MD Active Last Documented On 5 10:26AM ; [facility] Major depressive disorder, r ecurrent, unspecified 06/22/2012 FRITZ MASSEY MD Active Last Documented On 5 10:25AM ; [facility] Major Depression, Recurrent 06/22/2012 FRITZ MASSEY MD Inactive Last Documented On 5 10:25AM ; [facility] Generalized anxiety disorder 06/10/2012 FRITZ MASSEY MD Active Last Documented On 5 10:23AM ; [facility] Generalized Anxiety Disorder 06/10/2012 FRITZ MASSEY MD Inactive Last Documented On 5 10:23AM ; [facility] Essential (primary) hypertension 06/10/2012 MET ANTONIO MASSEY MD Active Last Documented On 5 10:24AM ; [facility] Hypertension Systemic 06/10/2012 FRITZ GAGNON MD Inactive Last Documented On 5 10:24AM ; [facility] Pure hypercholesterolemia 06/10/2012 FRITZ MASSEY MD Active Last Documented On 5 10:23AM ; [facility] Pure Hypercholesterolemia 06/10/2012 FRITZ MASSEY MD Inactive Last Documented On 5 10:24AM ; [facility] Plan of Treatment Instructions to patient Lose weight - pt lost 5 lbs Last Documented On 2 8:27AM ; [facility] Lose weight - portion contro l, balanced meals Last Documented On 2 2:03PM ; [facility] Lose weight Last Documented On 2 1:53PM ; [facility] Lose weight Last Documented On 1 2:06PM ; [facility] Lose weight Last Documented On 1 2:17PM ; [facility] Lose weight Last Documented On 0 1:55PM ; [facility] Education and Decision Aids were provided during visit for: Patient education about medi cation ---Education was given on medication(s) and diagnosis. I reviewed the risks, benefits and side effects of patient's medications Last Documented On 3 1:49PM ; [facility] Discussed calming techniques such as breathing exercises and other relaxation techniques Last Documented On 3 1:49PM ; [facility] Patient education about medi cation ---Education was given on medication(s) and diagnosis. I reviewed the risks, benefits and side effects of patient's medications Last Documented On 2 1:44PM ; [facility] Discussed calming techniques such as breathing exercises and other relaxation techniques Last Documented On 2 1:44PM ; [facility] Patient education about medi cation --- I educated patient on medication(s) and diagnosis. I reviewed the risks, benefits and side effects of patient's medications Last Documented On 2 1:36PM ; [facility] Discussed calming techniques such as breathing exercises and other relaxation techniques Last Documented On 2 1:36PM ; [facility] Counseling for nutrition/maci ght management provided Last Documented On 2 1:50PM ; [facility] Discussed good sleep hygiene habits Last Documented On 2 1:50PM ; [facility] Patient education about medi cation --- I educated patient on medication(s) and diagnosis. I reviewed the risks, benefits and side effects of patient's medications Last Documented On 2 1:48PM ; [facility] Discussed calming techniques such as breathing exercises and other relaxation techniques Last Documented On 2 1:48PM ; [facility] Counseling for nutrition/maci ght management provided Last Documented On 2 1:56PM ; [facility] Discussed good sleep hygiene habits Last Documented On 2 1:56PM ; [facility] Patient education about medi cation --- I educated patient on medication(s) and diagnosis. I reviewed the risks, benefits and side effects of patient's medications Last Documented On 2 1:41PM ; [facility] Discussed calming techniques such as breathing exercises and other relaxation techniques Last Documented On 2 1:41PM ; [facility] Counseling for nutrition/maci ght management provided Last Documented On 2 1:53PM ; [facility] Discussed good sleep hygiene habits Last Documented On 2 1:53PM ; [facility] Patient education about medi cation --- I educated patient on medication(s) and diagnosis. I reviewed the risks, benefits and side effects of patient's medications Last Documented On 1 1:42PM ; [facility] Discussed calming techniques such as breathing exercises and other relaxation techniques Last Documented On 1 1:42PM ; [facility] Counseling for nutrition/maci ght management provided Last Documented On 1 2:06PM ; [facility] Discussed good sleep hygiene habits Last Documented On 1 2:06PM ; [facility] Patient education about medi cation --- I educated patient on medication(s) and diagnosis. I reviewed the risks, benefits and side effects of patient's medications Last Documented On 1 1:37PM ; [facility] Discussed calming techniques such as breathing exercises and other relaxation techniques Last Documented On 1 1:37PM ; [facility] Counseling for nutrition/maci ght management provided Last Documented On 1 2:17PM ; [facility] Discussed good sleep hygiene habits Last Documented On 1 2:17PM ; [facility] Patient education about medi cation --- I educated patient on medication(s) and diagnosis. I reviewed the risks, benefits and side effects of patient's medications Last Documented On 0 1:44PM ; [facility] Discussed calming techniques such as breathing exercises and other relaxation techniques Last Documented On 0 1:44PM ; [facility] Counseling for nutrition/maci ght management provided Last Documented On 0 1:55PM ; [facility] Patient education about a pr oper diet Last Documented On 0 3:33PM ; [facility] Patient education about medi cation --- I educated patient on medication(s) and diagnosis. I reviewed the risks, benefits and side effects of patient's medications Last Documented On 0 2:48PM ; [facility] Discussed calming techniques such as breathing exercises and other relaxation techniques Last Documented On 0 2:48PM ; [facility] Counseling for nutrition/maci ght management provided Last Documented On 0 3:33PM ; [facility] Patient education about a pr oper diet Last Documented On 9 10:07AM ; [facility] Patient education about medi cation --- I educated patient on medication(s) and diagnosis. I reviewed the risks, benefits and side effects of patient's medications Last Documented On 9 9:55AM ; [facility] Discussed calming techniques such as breathing exercises and other relaxation techniques Last Documented On 9 9:55AM ; [facility] Counseling for nutrition/maci ght management provided Last Documented On 9 10:07AM ; [facility] Discussed good sleep hygiene habits Last Documented On 9 3:01AM ; [facility] Patient education about a pr oper diet Last Documented On 9 1:52PM ; [facility] Patient education about medi cation --- I educated patient on medication(s) and diagnosis. I reviewed the risks, benefits and side effects of patient's medications Last Documented On 9 1:33PM ; [facility] Discussed calming techniques such as breathing exercises and other relaxation techniques Last Documented On 9 1:33PM ; [facility] Counseling for nutrition/maci ght management provided Last Documented On 9 1:52PM ; [facility] Patient education about a pr oper diet Last Documented On 9 2:59PM ; [facility] Patient education about medi cation --- I educated patient on medication(s) and diagnosis. I reviewed the risks, benefits and side effects of patient's medications Last Documented On 9 2:57PM ; [facility] Discussed calming techniques such as breathing exercises and other relaxation techniques Last Documented On 9 2:57PM ; [facility] Counseling for nutrition/maci ght management provided Last Documented On 9 2:59PM ; [facility] Discussed good sleep hygiene habits Last Documented On 9 6:48AM ; [facility] Patient education about medi cation --- I educated patient on medication(s) and diagnosis. I reviewed the risks, benefits and side effects of patient's medications Last Documented On 8 4:45PM ; [facility] Discussed calming techniques such as breathing exercises and other relaxation techniques Last Documented On 8 4:45PM ; [facility] Counseling for nutrition/maci ght management provided Last Documented On 8 9:30AM ; [facility] Patient education about medi cation --- I educated patient on medication(s) and diagnosis. I reviewed the risks, benefits and side effects of patient's medications Last Documented On 7 4:07PM ; [facility] Discussed calming techniques such as breathing exercises and other relaxation techniques Last Documented On 7 4:07PM ; [facility] Counseling for nutrition/maci ght management provided Last Documented On 7 7:51AM ; [facility] Patient education about medi cation --- I educated patient on medication(s) and diagnosis. I reviewed the risks, benefits and side effects of patient's medications Last Documented On 7 3:59PM ; [facility] Discussed calming techniques such as breathing exercises/meditation and other relaxation techniques Last Documented On 7 3:59PM ; [facility] Counseling for nutrition/maci ght management provided Last Documented On 7 9:30PM ; [facility] Discussed good sleep hygiene habits Last Documented On 7 9:30PM ; [facility] Patient education about medi cation --- I educated patient on medication(s) and diagnosis. I reviewed the risks, benefits and side effects of patient's medications Last Documented On 6 4:25PM ; [facility] Discussed calming techniques such as breathing exercises/meditation and other relaxation techniques Last Documented On 6 4:25PM ; [facility] Counseling for nutrition/maci ght management provided Last Documented On 6 1:06AM ; [facility] Patient education about medi cation --- I educated patient on medication(s) and diagnosis. I reviewed the risks, benefits and side effects of patient's medications Last Documented On 6 4:13PM ; [facility] Discussed calming techniques such as breathing exercises/meditation and other relaxation techniques Last Documented On 6 4:13PM ; [facility] Counseling for nutrition/maci ght management provided Last Documented On 6 2:32AM ; [facility] Patient education about medi cation --- I educated patient on medication(s) and diagnosis. I reviewed the risks, benefits and side effects of patient's medications Last Documented On 5 3:53PM ; [facility] Discussed calming techniques such as breathing exercises/meditation and other relaxation techniques Last Documented On 5 3:53PM ; [facility] Counseling for nutrition/maci ght management provided Last Documented On 5 4:38PM ; [facility] Discussed good sleep hygiene habits Last Documented On 5 4:38PM ; [facility] Patient education about medi cation --- I educated patient on medication(s) and diagnosis. I reviewed the risks, benefits and side effects of patient's medications Last Documented On 5 5:22PM ; [facility] Discussed calming techniques such as breathing exercises/meditation and other relaxation techniques Last Documented On 5 4:08PM ; [facility] Counseling for nutrition/maci ght management provided Last Documented On 5 5:22PM ; [facility] Patient education about medi cation --- I educated patient on medication(s) and diagnosis. I reviewed the risks, benefits and side effects of patient's medications Last Documented On 4 8:59PM ; [facility] Discussed calming techniques such as breathing exercises/meditation and other relaxation techniques Last Documented On 4 4:36PM ; [facility] Counseling for nutrition/maci ght management provided Last Documented On 4 8:59PM ; [facility] Patient education about medi cation --- I educated patient on medication(s) and diagnosis. I reviewed the risks, benefits and side effects of patient's medications Last Documented On 4 5:28PM ; [facility] Discussed calming techniques such as breathing exercises/meditation and other relaxation techniques Last Documented On 4 3:37PM ; [facility] Counseling for nutrition/maci ght management provided Last Documented On 4 5:28PM ; [facility] Patient education about medi cation --- I educated patient on medication(s) and diagnosis. I reviewed the risks, benefits and side effects of patient's medications Last Documented On 4 1:14PM ; [facility] Discussed calming techniques such as breathing exercises/meditation and other relaxation techniques Last Documented On 4 3:28PM ; [facility] Counseling for nutrition/maci ght management provided Last Documented On 4 1:14PM ; [facility] Patient education about medi cation --- I educated patient on medication(s) and diagnosis Last Documented On 3 10:42PM ; [facility] Discussed calming techniques such as breathing exercises/meditation and other relaxation techniques Last Documented On 3 2:33PM ; [facility] Counseling for nutrition/maci ght management provided Last Documented On 3 10:42PM ; [facility] Reviewed side effects and Ri sks/Benefits analysis Last Documented On 3 10:42PM ; [facility] Patient education about medi cation --- I educated patient on medication(s) and diagnosis Last Documented On 3 11:22AM ; [facility] Discussed calming techniques such as breathing exercises and other relaxation techniques Last Documented On 3 10:50AM ; [facility] Assessments Includes: Assessments for all patient encounters Findings Encounter Date Generalized anxiety disorder TELEHEALTH with MET ANTONIO MASSEY MD 06/11/2022 Last Documented On 3 8:00AM ; [facility] Major depression, recurrent TELEHEALTH with ERUM MASSEY MD 06/11/2022 Last Documented On 3 8:00AM ; [facility] Obstructive sleep apnea TELEHEALTH with FRITZ MASSEY MD 06/11/2022 Last Documented On 3 8:00AM ; [facility] Post-traumatic stress disorder TELEHEALTH with Luis Eduardo MASSEY MD 06/11/2022 Last Documented On 3 8:00AM ; [facility] Psychophysiological insomnia TELEHEALTH with MET ANTONIO MASSEY MD 06/11/2022 Last Documented On 3 8:00AM ; [facility] Tremor TELEHEALTH with FRITZ HILLS MD 06/11/2022 Last Documented On 3 8:00AM ; [facility] Generalized anxiety disorder TELEHEALTH with MET ANTONIO MASSEY MD 03/04/2022 Last Documented On 2 9:22PM ; [facility] Major depression, recurrent TELEHEALTH with ERUM MASSEY MD 03/04/2022 Last Documented On 2 9:22PM ; [facility] Obstructive sleep apnea TELEHEALTH with FRITZ MASSEY MD 03/04/2022 Last Documented On 2 9:22PM ; [facility] Post-traumatic stress disorder TELEHEALTH with Luis Eduardo MASSEY MD 03/04/2022 Last Documented On 2 9:22PM ; [facility] Psychophysiological insomnia TELEHEALTH with MET ANTONIO MASSEY MD 03/04/2022 Last Documented On 2 9:22PM ; [facility] Tremor TELEHEALTH with FRITZ HILLS MD 03/04/2022 Last Documented On 2 9:22PM ; [facility] Generalized anxiety disorder TELEHEALTH with MET ANTONIO MASSEY MD 12/04/2021 Last Documented On 2 8:28AM ; [facility] Major depression, recurrent TELEHEALTH with ERUM MASSEY MD 12/04/2021 Last Documented On 2 8:28AM ; [facility] Obstructive sleep apnea TELEHEALTH with FRITZ MASSEY MD 12/04/2021 Last Documented On 2 8:28AM ; [facility] Psychophysiological insomnia TELEHEALTH with MET ANTONIO MASSEY MD 12/04/2021 Last Documented On 2 8:28AM ; [facility] Tremor TELEHEALTH with FRITZ HILLS MD 12/04/2021 Last Documented On 2 8:28AM ; [facility] Generalized anxiety disorder TELEHEALTH with MET ANTONIO MASSEY MD 09/17/2021 Last Documented On 2 2:07PM ; [facility] Major depression, recurrent TELEHEALTH with ERUM MASSEY MD 09/17/2021 Last Documented On 2 2:07PM ; [facility] Obstructive sleep apnea TELEHEALTH with FRITZ MASSEY MD 09/17/2021 Last Documented On 2 2:07PM ; [facility] Psychophysiological insomnia TELEHEALTH with MET ANTONIO MASSEY MD 09/17/2021 Last Documented On 2 2:07PM ; [facility] Tremor TELEHEALTH with FRITZ HILLS MD 09/17/2021 Last Documented On 2 2:07PM ; [facility] Generalized anxiety disorder TELEHEALTH with MET ANTONIO MASSEY MD 05/23/2021 Last Documented On 2 8:29AM ; [facility] Major depression, recurrent TELEHEALTH with ERUM MASSEY MD 05/23/2021 Last Documented On 2 8:29AM ; [facility] Obstructive sleep apnea TELEHEALTH with FRITZ MASSEY MD 05/23/2021 Last Documented On 2 8:29AM ; [facility] Psychophysiological insomnia TELEHEALTH with MET ANTONIO MASSEY MD 05/23/2021 Last Documented On 2 8:29AM ; [facility] Tremor TELEHEALTH with FRITZ HILLS MD 05/23/2021 Last Documented On 2 8:29AM ; [facility] Generalized anxiety disorder TELEHEALTH with MET ANTONIO MASSEY MD 03/12/2021 Last Documented On 1 2:57PM ; [facility] Major depression, recurrent TELEHEALTH with ERUM MASSEY MD 03/12/2021 Last Documented On 1 2:57PM ; [facility] Obstructive sleep apnea TELEHEALTH with FRITZ MASSEY MD 03/12/2021 Last Documented On 1 2:57PM ; [facility] Psychophysiological insomnia TELEHEALTH with MET ANTONIO MASSEY MD 03/12/2021 Last Documented On 1 2:57PM ; [facility] Tremor TELEHEALTH with FRITZ HILLS MD 03/12/2021 Last Documented On 1 2:57PM ; [facility] Generalized anxiety disorder TELEHEALTH with MET ANTONIO MASSEY MD 09/13/2020 Last Documented On 1 8:25AM ; [facility] Major depression, recurrent TELEHEALTH with ERUM MASSEY MD 09/13/2020 Last Documented On 1 8:25AM ; [facility] Obstructive sleep apnea TELEHEALTH with FRITZ MASSEY MD 09/13/2020 Last Documented On 1 8:25AM ; [facility] Psychophysiological insomnia TELEHEALTH with MET ANTONIO MASSEY MD 09/13/2020 Last Documented On 1 8:25AM ; [facility] Tremor TELEHEALTH with FRITZ HILLS MD 09/13/2020 Last Documented On 1 8:25AM ; [facility] Generalized anxiety disorder GENERAL OFF ICE VISIT with FRITZ MASSEY MD 03/15/2020 Last Documented On 0 3:57AM ; [facility] Major depression, recurrent GENERAL OFFI CE VISIT with FRITZ MASSEY MD 03/15/2020 Last Documented On 0 3:57AM ; [facility] Obstructive sleep apnea GENERAL OFFICE VISIT wit h FRITZ MASSEY MD 03/15/2020 Last Documented On 0 3:57AM ; [facility] Psychophysiological insomnia GENERAL OFF ICE VISIT with FRITZ AMSSEY MD 03/15/2020 Last Documented On 0 3:57AM ; [facility] Tremor GENERAL OFFICE VISIT with ROSALIA MASSEY MD 03/15/2020 Last Documented On 0 3:57AM ; [facility] Generalized anxiety disorder GENERAL OFF ICE VISIT with FRITZ MASSEY MD 09/14/2019 Last Documented On 0 8:40AM ; [facility] Major depression, recurrent GENERAL OFFI CE VISIT with FRITZ MASSEY MD 09/14/2019 Last Documented On 0 8:40AM ; [facility] Obstructive sleep apnea GENERAL OFFICE VISIT wit h FRITZ MASSEY MD 09/14/2019 Last Documented On 0 8:40AM ; [facility] Psychophysiological insomnia GENERAL OFF ICE VISIT with FRITZ MASSEY MD 09/14/2019 Last Documented On 0 8:40AM ; [facility] T[facility]or GENERAL OFFICE VISIT with ROSALIA MASSEY MD 09/14/2019 Last Documented On 0 8:40AM ; [facility] Generalized anxiety disorder GENERAL OFF ICE VISIT with FRITZ MASSEY MD 04/01/2019 Last Documented On 9 3:02AM ; [facility] Major depression, recurrent GENERAL OFFI CE VISIT with FRITZ MASSEY MD 04/01/2019 Last Documented On 9 3:02AM ; [facility] Obstructive sleep apnea GENERAL OFFICE VISIT wit h FRITZ MASSEY MD 04/01/2019 Last Documented On 9 3:02AM ; [facility] Psychophysiological insomnia GENERAL OFF ICE VISIT with FRITZ MASSEY MD 04/01/2019 Last Documented On 9 3:02AM ; [facility] T[facility]or GENERAL OFFICE VISIT with ROSALIA MASSEY MD 04/01/2019 Last Documented On 9 3:02AM ; [facility] Generalized anxiety disorder GENERAL OFF ICE VISIT with FRITZ MASSEY MD 11/04/2018 Last Documented On 9 8:20AM ; [facility] Major depression, recurrent GENERAL OFFI CE VISIT with FRITZ MASSEY MD 11/04/2018 Last Documented On 9 8:20AM ; [facility] Obstructive sleep apnea GENERAL OFFICE VISIT wit h FRITZ MASSEY MD 11/04/2018 Last Documented On 9 8:20AM ; [facility] Psychophysiological insomnia GENERAL OFF ICE VISIT with FRITZ MASSEY MD 11/04/2018 Last Documented On 9 8:20AM ; [facility] Generalized anxiety disorder GENERAL OFF ICE VISIT with FRITZ MASSEY MD 05/13/2018 Last Documented On 9 6:49AM ; [facility] Major depression, recurrent GENERAL OFFI CE VISIT with FRITZ MASSEY MD 05/13/2018 Last Documented On 9 6:49AM ; [facility] Obstructive sleep apnea GENERAL OFFICE VISIT wit h FRITZ MASSEY MD 05/13/2018 Last Documented On 9 6:49AM ; [facility] Psychophysiological insomnia GENERAL OFF ICE VISIT with FRITZ MASSEY MD 05/13/2018 Last Documented On 9 6:49AM ; [facility] Generalized anxiety disorder GENERAL OFF ICE VISIT with FRITZ MASSEY MD 08/26/2017 Last Documented On 8 9:37AM ; [facility] Major depression, recurrent GENERAL OFFI CE VISIT with FRITZ MASSEY MD 08/26/2017 Last Documented On 8 9:37AM ; [facility] Obstructive sleep apnea GENERAL OFFICE VISIT wit h FRITZ MASSEY MD 08/26/2017 Last Documented On 8 9:37AM ; [facility] Psychophysiological insomnia GENERAL OFF ICE VISIT with FRITZ MASSEY MD 08/26/2017 Last Documented On 8 9:37AM ; [facility] Generalized anxiety disorder GENERAL OFF ICE VISIT with FRITZ MASSEY MD 02/25/2017 Last Documented On 7 7:53AM ; [facility] Major depression, recurrent GENERAL OFFI CE VISIT with FRITZ MASSEY MD 02/25/2017 Last Documented On 7 7:53AM ; [facility] Obstructive sleep apnea GENERAL OFFICE VISIT wit h FRITZ MASSEY MD 02/25/2017 Last Documented On 7 7:53AM ; [facility] Psychophysiological insomnia GENERAL OFF ICE VISIT with FRITZ MASSEY MD 02/25/2017 Last Documented On 7 7:53AM ; [facility] Generalized anxiety disorder GENERAL OFF ICE VISIT with FRITZ MASSEY MD 08/28/2016 Last Documented On 7 9:52PM ; [facility] Major depression, recurrent GENERAL OFFI CE VISIT with FRITZ MASSEY MD 08/28/2016 Last Documented On 7 9:52PM ; [facility] Obstructive sleep apnea GENERAL OFFICE VISIT wit h FRITZ MASSEY MD 08/28/2016 Last Documented On 7 9:52PM ; [facility] Psychophysiological insomnia GENERAL OFF ICE VISIT with FRITZ MASSEY MD 08/28/2016 Last Documented On 7 9:52PM ; [facility] Generalized anxiety disorder GENERAL OFF ICE VISIT with FRITZ MASSEY MD 02/29/2016 Last Documented On 6 1:09AM ; [facility] Major depression, recurrent GENERAL OFFI CE VISIT with FRITZ MASSEY MD 02/29/2016 Last Documented On 6 1:09AM ; [facility] Obstructive sleep apnea GENERAL OFFICE VISIT wit h FRITZ MASSEY MD 02/29/2016 Last Documented On 6 1:09AM ; [facility] Generalized anxiety disorder GENERAL OFF ICE VISIT with FRITZ MASSEY MD 08/30/2015 Last Documented On 6 2:33AM ; [facility] Major depression, recurrent GENERAL OFFI CE VISIT with FRITZ MASSEY MD 08/30/2015 Last Documented On 6 2:33AM ; [facility] Obstructive sleep apnea GENERAL OFFICE VISIT wit joss MASSEY MD 08/30/2015 Last Documented On 6 2:33AM ; [facility] Generalized anxiety disorder GENERAL OFF ICE VISIT with FRITZ MASSEY MD 03/02/2015 Last Documented On 5 10:40AM ; [facility] Major depression, recurrent GENERAL OFFI CE VISIT with FRITZ MASSEY MD 03/02/2015 Last Documented On 5 10:40AM ; [facility] Obstructive sleep apnea GENERAL OFFICE VISIT wit h FRITZ MASSEY MD 03/02/2015 Last Documented On 5 10:40AM ; [facility] Generalized anxiety disorder GENERAL OFF ICE VISIT with FRITZ MASSEY MD 07/19/2014 Last Documented On 5 7:10AM ; [facility] Major depression, recurrent GENERAL OFFI CE VISIT with FRITZ MASSEY MD 07/19/2014 Last Documented On 5 7:10AM ; [facility] Obstructive sleep apnea GENERAL OFFICE VISIT wit joss MASSEY MD 07/19/2014 Last Documented On 5 7:10AM ; [facility] Generalized anxiety disorder GENERAL OFF ICE VISIT with FRITZ MASSEY MD 02/15/2014 Last Documented On 4 9:00PM ; [facility] Major depression, recurrent GENERAL OFFI CE VISIT with FRITZ MASSEY MD 02/15/2014 Last Documented On 4 9:00PM ; [facility] Obstructive sleep apnea GENERAL OFFICE VISIT wit h FRITZ MASSEY MD 02/15/2014 Last Documented On 4 9:00PM ; [facility] Generalized anxiety disorder GENERAL OFF ICE VISIT with FRITZ MASSEY MD 10/05/2013 Last Documented On 4 5:30PM ; [facility] Major depression, recurrent GENERAL OFFI CE VISIT with FRITZ MASSEY MD 10/05/2013 Last Documented On 4 5:30PM ; [facility] Obstructive sleep apnea GENERAL OFFICE VISIT wit h FRITZ MASSEY MD 10/05/2013 Last Documented On 4 5:30PM ; [facility] Generalized anxiety disorder GENERAL OFF ICE VISIT with FRITZ MASSEY MD 06/07/2013 Last Documented On 4 1:21PM ; [facility] Major depression, recurrent GENERAL OFFI CE VISIT with FRITZ MASSEY MD 06/07/2013 Last Documented On 4 1:21PM ; [facility] Obstructive sleep apnea GENERAL OFFICE VISIT wit FRITZ MASSEY MD 06/07/2013 Last Documented On 4 1:21PM ; [facility] Generalized anxiety disorder GENERAL OFF ICE VISIT with FRITZ MASSEY MD 01/19/2013 Last Documented On 3 10:53PM ; [facility] Major depression, recurrent GENERAL OFFI CE VISIT with FRITZ MASSEY MD 01/19/2013 Last Documented On 3 10:53PM ; [facility] Obstructive sleep apnea GENERAL OFFICE VISIT wit FRITZ MASSEY MD 01/19/2013 Last Documented On 3 10:53PM ; [facility] Generalized anxiety disorder GENERAL OFF ICE VISIT with FRITZ MASSEY MD 07/10/2012 Last Documented On 3 11:25AM ; [facility] Major depression, recurrent GENERAL OFFI CE VISIT with FRITZ MASSEY MD 07/10/2012 Last Documented On 3 11:25AM ; [facility] Obstructive sleep apnea GENERAL OFFICE VISIT wit h FRITZ MASSEY MD 07/10/2012 Last Documented On 3 11:25AM ; [facility] Instructions Includes: Instructions for all patient encounters Instructions to patient Lose weight - pt lost 5 lbs Last Documented On 2 8:27AM ; [facility] Lose weight - portion contro l, balanced meals Last Documented On 2 2:03PM ; [facility] Lose weight Last Documented On 2 1:53PM ; [facility] Lose weight Last Documented On 1 2:06PM ; [facility] Lose weight Last Documented On 1 2:17PM ; [facility] Lose weight Last Documented On 0 1:55PM ; [facility] Education and Decision Aids were provided during visit for: Patient education about medi cation ---Education was given on medication(s) and diagnosis. I reviewed the risks, benefits and side effects of patient's medications Last Documented On 3 1:49PM ; [facility] Discussed calming techniques such as breathing exercises and other relaxation techniques Last Documented On 3 1:49PM ; [facility] Patient education about medi cation ---Education was given on medication(s) and diagnosis. I reviewed the risks, benefits and side effects of patient's medications Last Documented On 2 1:44PM ; [facility] Discussed calming techniques such as breathing exercises and other relaxation techniques Last Documented On 2 1:44PM ; [facility] Patient education about medi cation --- I educated patient on medication(s) and diagnosis. I reviewed the risks, benefits and side effects of patient's medications Last Documented On 2 1:36PM ; [facility] Discussed calming techniques such as breathing exercises and other relaxation techniques Last Documented On 2 1:36PM ; [facility] Counseling for nutrition/maci ght management provided Last Documented On 2 1:50PM ; [facility] Discussed good sleep hygiene habits Last Documented On 2 1:50PM ; [facility] Patient education about medi cation --- I educated patient on medication(s) and diagnosis. I reviewed the risks, benefits and side effects of patient's medications Last Documented On 2 1:48PM ; [facility] Discussed calming techniques such as breathing exercises and other relaxation techniques Last Documented On 2 1:48PM ; [facility] Counseling for nutrition/maci ght management provided Last Documented On 2 1:56PM ; [facility] Discussed good sleep hygiene habits Last Documented On 2 1:56PM ; [facility] Patient education about medi cation --- I educated patient on medication(s) and diagnosis. I reviewed the risks, benefits and side effects of patient's medications Last Documented On 2 1:41PM ; [facility] Discussed calming techniques such as breathing exercises and other relaxation techniques Last Documented On 2 1:41PM ; [facility] Counseling for nutrition/maci ght management provided Last Documented On 2 1:53PM ; [facility] Discussed good sleep hygiene habits Last Documented On 2 1:53PM ; [facility] Patient education about medi cation --- I educated patient on medication(s) and diagnosis. I reviewed the risks, benefits and side effects of patient's medications Last Documented On 1 1:42PM ; [facility] Discussed calming techniques such as breathing exercises and other relaxation techniques Last Documented On 1 1:42PM ; [facility] Counseling for nutrition/maci ght management provided Last Documented On 1 2:06PM ; [facility] Discussed good sleep hygiene habits Last Documented On 1 2:06PM ; [facility] Patient education about medi cation --- I educated patient on medication(s) and diagnosis. I reviewed the risks, benefits and side effects of patient's medications Last Documented On 1 1:37PM ; [facility] Discussed calming techniques such as breathing exercises and other relaxation techniques Last Documented On 1 1:37PM ; [facility] Counseling for nutrition/maci ght management provided Last Documented On 1 2:17PM ; [facility] Discussed good sleep hygiene habits Last Documented On 1 2:17PM ; [facility] Patient education about medi cation --- I educated patient on medication(s) and diagnosis. I reviewed the risks, benefits and side effects of patient's medications Last Documented On 0 1:44PM ; [facility] Discussed calming techniques such as breathing exercises and other relaxation techniques Last Documented On 0 1:44PM ; [facility] Counseling for nutrition/maci ght management provided Last Documented On 0 1:55PM ; [facility] Patient education about a pr oper diet Last Documented On 0 3:33PM ; [facility] Patient education about medi cation --- I educated patient on medication(s) and diagnosis. I reviewed the risks, benefits and side effects of patient's medications Last Documented On 0 2:48PM ; [facility] Discussed calming techniques such as breathing exercises and other relaxation techniques Last Documented On 0 2:48PM ; [facility] Counseling for nutrition/maci ght management provided Last Documented On 0 3:33PM ; [facility] Patient education about a pr oper diet Last Documented On 9 10:07AM ; [facility] Patient education about medi cation --- I educated patient on medication(s) and diagnosis. I reviewed the risks, benefits and side effects of patient's medications Last Documented On 9 9:55AM ; [facility] Discussed calming techniques such as breathing exercises and other relaxation techniques Last Documented On 9 9:55AM ; [facility] Counseling for nutrition/maci ght management provided Last Documented On 9 10:07AM ; [facility] Discussed good sleep hygiene habits Last Documented On 9 3:01AM ; [facility] Patient education about a pr oper diet Last Documented On 9 1:52PM ; [facility] Patient education about medi cation --- I educated patient on medication(s) and diagnosis. I reviewed the risks, benefits and side effects of patient's medications Last Documented On 9 1:33PM ; [facility] Discussed calming techniques such as breathing exercises and other relaxation techniques Last Documented On 9 1:33PM ; [facility] Counseling for nutrition/maci ght management provided Last Documented On 9 1:52PM ; [facility] Patient education about a pr oper diet Last Documented On 9 2:59PM ; [facility] Patient education about medi cation --- I educated patient on medication(s) and diagnosis. I reviewed the risks, benefits and side effects of patient's medications Last Documented On 9 2:57PM ; [facility] Discussed calming techniques such as breathing exercises and other relaxation techniques Last Documented On 9 2:57PM ; [facility] Counseling for nutrition/maci ght management provided Last Documented On 9 2:59PM ; [facility] Discussed good sleep hygiene habits Last Documented On 9 6:48AM ; [facility] Patient education about medi cation --- I educated patient on medication(s) and diagnosis. I reviewed the risks, benefits and side effects of patient's medications Last Documented On 8 4:45PM ; [facility] Discussed calming techniques such as breathing exercises and other relaxation techniques Last Documented On 8 4:45PM ; [facility] Counseling for nutrition/maci ght management provided Last Documented On 8 9:30AM ; [facility] Patient education about medi cation --- I educated patient on medication(s) and diagnosis. I reviewed the risks, benefits and side effects of patient's medications Last Documented On 7 4:07PM ; [facility] Discussed calming techniques such as breathing exercises and other relaxation techniques Last Documented On 7 4:07PM ; [facility] Counseling for nutrition/maci ght management provided Last Documented On 7 7:51AM ; [facility] Patient education about medi cation --- I educated patient on medication(s) and diagnosis. I reviewed the risks, benefits and side effects of patient's medications Last Documented On 7 3:59PM ; [facility] Discussed calming techniques such as breathing exercises/meditation and other relaxation techniques Last Documented On 7 3:59PM ; [facility] Counseling for nutrition/maci ght management provided Last Documented On 7 9:30PM ; [facility] Discussed good sleep hygiene habits Last Documented On 7 9:30PM ; [facility] Patient education about medi cation --- I educated patient on medication(s) and diagnosis. I reviewed the risks, benefits and side effects of patient's medications Last Documented On 6 4:25PM ; [facility] Discussed calming techniques such as breathing exercises/meditation and other relaxation techniques Last Documented On 6 4:25PM ; [facility] Counseling for nutrition/maci ght management provided Last Documented On 6 1:06AM ; [facility] Patient education about medi cation --- I educated patient on medication(s) and diagnosis. I reviewed the risks, benefits and side effects of patient's medications Last Documented On 6 4:13PM ; [facility] Discussed calming techniques such as breathing exercises/meditation and other relaxation techniques Last Documented On 6 4:13PM ; [facility] Counseling for nutrition/maci ght management provided Last Documented On 6 2:32AM ; [facility] Patient education about medi cation --- I educated patient on medication(s) and diagnosis. I reviewed the risks, benefits and side effects of patient's medications Last Documented On 5 3:53PM ; [facility] Discussed calming techniques such as breathing exercises/meditation and other relaxation techniques Last Documented On 5 3:53PM ; [facility] Counseling for nutrition/maci ght management provided Last Documented On 5 4:38PM ; [facility] Discussed good sleep hygiene habits Last Documented On 5 4:38PM ; [facility] Patient education about medi cation --- I educated patient on medication(s) and diagnosis. I reviewed the risks, benefits and side effects of patient's medications Last Documented On 5 5:22PM ; [facility] Discussed calming techniques such as breathing exercises/meditation and other relaxation techniques Last Documented On 5 4:08PM ; [facility] Counseling for nutrition/maci ght management provided Last Documented On 5 5:22PM ; [facility] Patient education about medi cation --- I educated patient on medication(s) and diagnosis. I reviewed the risks, benefits and side effects of patient's medications Last Documented On 4 8:59PM ; [facility] Discussed calming techniques such as breathing exercises/meditation and other relaxation techniques Last Documented On 4 4:36PM ; [facility] Counseling for nutrition/maci ght management provided Last Documented On 4 8:59PM ; [facility] Patient education about medi cation --- I educated patient on medication(s) and diagnosis. I reviewed the risks, benefits and side effects of patient's medications Last Documented On 4 5:28PM ; [facility] Discussed calming techniques such as breathing exercises/meditation and other relaxation techniques Last Documented On 4 3:37PM ; [facility] Counseling for nutrition/maci ght management provided Last Documented On 4 5:28PM ; [facility] Patient education about medi cation --- I educated patient on medication(s) and diagnosis. I reviewed the risks, benefits and side effects of patient's medications Last Documented On 4 1:14PM ; [facility] Discussed calming techniques such as breathing exercises/meditation and other relaxation techniques Last Documented On 4 3:28PM ; [facility] Counseling for nutrition/maci ght management provided Last Documented On 4 1:14PM ; [facility] Patient education about medi cation --- I educated patient on medication(s) and diagnosis Last Documented On 3 10:42PM ; [facility] Discussed calming techniques such as breathing exercises/meditation and other relaxation techniques Last Documented On 3 2:33PM ; [facility] Counseling for nutrition/maci ght management provided Last Documented On 3 10:42PM ; [facility] Reviewed side effects and Ri sks/Benefits analysis Last Documented On 3 10:42PM ; [facility] Patient education about medi cation --- I educated patient on medication(s) and diagnosis Last Documented On 3 11:22AM ; [facility] Discussed calming techniques such as breathing exercises and other relaxation techniques Last Documented On 3 10:50AM ; [facility] Medical Equipment - Implanted Devices Includes: Current and historical Devices No Medical Equipment Recorded Medications Includes: Current and historical Medications Current Medications (continue as prescribed) Escitalopram Oxalate 20 MG Oral Tablet 06/11/2022 Provider: FRITZ MASSEY MD Diagnosis: Generalized anxi ety disorder One tablet daily Last Documented On 06/11/2022 1:53PM By Teresa Massey MD ; [facility] buPROPion HCl ER (XL) 150 MG Oral Tablet Extended Release 24 Hour 06/11/2022 Provider: FRITZ MASSEY MD Diagnosis: Major depressive disorder, recurrent, moderate TAKE 3 TABLETS BY MOUTH IN T MORNING Last Documented On 06/11/2022 1:52PM By Teresa Massey MD ; [facility] traZODone HCl 50 MG Oral Tablet 06/11/2022 Provider: FRITZ MASSEY MD Diagnosis: Psychophysiologi c insomnia TAKE 1/2 (ONE-HALF) TABLET B Y MOUTH TWICE DAILY NEEDED FOR ANXIETY AND 1 TABLET AT BEDTIME NEEDED FOR SLEEP DIRECTED Last Documented On 06/11/2022 1:50PM By Teresa Massey MD ; [facility] Azelastine HCl 137 MCG/SPRAY Nasal Solution 04/23/2022 Provider: NALINI CASTANO APN Diagnosis: Acute sinusitis, unspecified 1 spray to each nostril 2 x a day -- Nalini Castano Last Documented On 06/11/2022 1:42PM By Teresa Massey MD ; [facility] metFORMIN HCl 500 MG Oral Tablet 07/11/2020 Provider : ERNESTO PIMENTEL MD Diagnosis: 4 daily Last Documented On 09/13/2020 1:51PM By ILANA POOLE ; [facility] Atorvastatin Calcium 40 MG Oral Tablet 09/14/2019 Pr ovider: Diagnosis: Last Documented On 09/14/2019 2:54PM By Teresa Massey MD ; [facility] ProAir HFA 108 (90 Base)MCG/ ACT Inhalation Aerosol Solution 05/13/2018 Provider: ERNESTO PIMENTEL MD Diagnosis: 1-2 puffs every 4-6 hours prn Last Documented On 05/13/2018 2:56PM By ILANA POOLE ; [facility] Indapamide 2.5 MG Tablet 03/02/2015 Provider: Diagnosis: from Dr. Figueroa Last Documented On 03/02/2015 4:30PM By Teresa Massey MD ; [facility] Aspirin 81 MG OR TABS 07/10/2012 Provider: Diagnosis: Last Documented On 3 10:24AM By LEXIE HERNANDEZ ; [facility] ZyrTEC Allergy 10 MG OR TABS 07/10/2012 Provider: Diagnosis: Last Documented On 3 10:24AM By LEXIE HERNANDEZ ; [facility] Quinapril HCl 40 MG OR TABS 07/05/2012 Provider: ERNESTO PIMENTEL MD Diagnosis: Last Documented On 3 10:22AM By LEXIE HERNANDEZ ; [facility] Past Medications on file traZODone HCl 50 MG Oral Tablet 05/26/2022 - 06/11/2022 Provider: FRITZ MASSEY MD Diagnosis: Psychophysiologi c insomnia TAKE 1/2 (ONE-HALF) TABLET B Y MOUTH TWICE DAILY NEEDED FOR ANXIETY AND 1 TABLET AT BEDTIME NEEDED FOR SLEEP DIRECTED Last Documented On 06/11/2022 1:50PM By Teresa Massey MD ; [facility] traZODone HCl 50 MG Oral Tablet 03/06/2022 - 05/26/2022 Provider: FRITZ MASSEY MD Diagnosis: Psychophysiologi c insomnia TAKE 1/2 (ONE-HALF) TABLET B Y MOUTH TWICE DAILY NEEDED FOR ANXIETY AND 1 AT BEDTIME NEEDED ONLY FOR SLEEP DIRECTED Last Documented On 05/26/2022 6:59PM By Teresa Massey MD ; [facility] Escitalopram Oxalate 20 MG Oral Tablet 12/04/2021 - 06/11/2022 Provider: FRITZ MASSEY MD Diagnosis: Generalized anxi ety disorder One tablet daily Last Documented On 06/11/2022 1:53PM By Teresa Massey MD ; [facility] Viibryd 20 MG Oral Tablet 12/04/2021 - 03/04/2022 Provider: FRITZ HILLS MD Diagnosis: Major depressive disorder, recurrent, moderate as directed -- 1 tab in am with food Last Documented On 03/04/2022 2:33PM By Teresa Massey MD ; [facility] Escitalopram Oxalate 20 MG Oral Tablet 10/09/2021 - 12/04/2021 Provider: FRITZ HILLS MD Diagnosis: Take 1 tablet by mouth once daily Last Documented On 12/04/2021 2:45PM By Teresa Massey MD ; [facility] traZODone HCl 50 MG Oral Tablet 09/17/2021 - 03/06/2022 Provider: FRITZ MASSEY MD Diagnosis: Psychophysiologi c insomnia TAKE 1/2 (ONE-HALF) TABLET B Y MOUTH TWICE DAILY NEEDED FOR ANXIETY AND 1 TABLET AT BEDTIME NEEDED ONLY FOR SLEEP DIRECTED Last Documented On 11:15AM By Teresa Massey MD ; [facility] Escitalopram Oxalate 20 MG Oral Tablet 09/03/2021 - 03/05/2022 Provider: FRITZ MASSEY MD Diagnosis: Generalized anxi ety disorder Take 1 tablet by mouth once daily Last Documented On 03/05/2022 9:12PM By Teresa Massey MD ; [facility] Escitalopram Oxalate 20 MG Oral Tablet 05/23/2021 - 09/03/2021 Provider: FRITZ MASSEY MD Diagnosis: Generalized anxi ety disorder One tablet daily Last Documented On 09/03/2021 7:45AM By Teresa Massey MD ; [facility] buPROPion HCl ER (XL) 150 MG Oral Tablet Extended Release 24 Hour 05/23/2021 - 06/11/2022 Provider: FRITZ MASSEY MD Diagnosis: Major depressive disorder, recurrent, moderate TAKE 3 TABLETS BY MOUTH IN THE MORNING Last Documented On 06/11/2022 1:51PM By Teresa Massey MD ; [facility] traZODone HCl 50 MG Oral Tablet 04/09/2021 - 09/17/2021 Provider: FRITZ MASSEY MD Diagnosis: Psychophysiologi c insomnia TAKE 1/2 (ONE-HALF) TABLET B Y MOUTH TWICE DAILY NEEDED FOR ANXIETY AND 1 TABLET AT BEDTIME NEEDED ONLY FOR SLEEP DIRECTED Last Documented On 09/17/2021 2:39PM By Teresa Massey MD ; [facility] Escitalopram Oxalate 20 MG Oral Tablet 02/15/2021 - 05/23/2021 Provider: FRITZ MASSEY MD Diagnosis: Generalized anxi ety disorder Take 1 tablet by mouth once daily Last Documented On 05/23/2021 2:40PM By Teresa Massey MD ; [facility] traZODone HCl 50 MG Oral Tablet 10/12/2020 - 04/09/2021 Provider: FRITZ MASSEY MD Diagnosis: Psychophysiologi c insomnia TAKE ONE-HALF TO ONE TABLETS BY MOUTH TWICE DAILY NEEDED FOR ANXIETY AND ONE AT BEDTIME NEEDED ONLY FOR SLEEP DIRECTED Last Documented On 04/09/2021 7:14AM By Teresa Massey MD ; [facility] buPROPion HCl ER (XL) 150 MG Oral Tablet Extended Release 24 Hour 05/10/2020 - 05/23/2021 Provider: FRITZ HILLS MD Diagnosis: TAKE 3 TABLETS BY MOUTH IN THE MORNING Last Documented On 05/23/2021 2:37PM By Teresa Massey MD ; [facility] buPROPion HCl ER (XL) 150 MG Oral Tablet Extended Release 24 Hour 05/06/2020 - 03/12/2021 Provider: FRITZ MASSEY MD Diagnosis: Major depressive disorder, recurrent, moderate as directed - 3 tabs in am Last Documented On 03/12/2021 2:05PM By ILANA POLOE ; [facility] traZODone HCl 50 MG Oral Tablet 10/22/2019 - 10/12/2020 Provider: FRITZ MASSEY MD Diagnosis: Psychophysiologi c insomnia TAKE ONE-HALF TO ONE TABLET BY MOUTH TWO TIMES DAILY NEEDED FOR ANXIETY AND ONE TABLET AT BEDTIME NEEDED ONLY FOR SLEEP DIRECTED Last Documented On 10/12/2020 8:08AM By Teresa Massey MD ; [facility] Lexapro 20 MG Oral Tablet 10/03/2019 - 02/15/2021 Provider: FRITZ HILLS MD Diagnosis: Generalized anxi ety disorder Take 1 tablet by mouth once daily Last Documented On 02/15/2021 9:32AM By Teresa Massey MD ; [facility] Atorvastatin Calcium 20 MG Oral Tablet 03/10/2019 - 09/14/2019 Provider: ERNESTO Caceres MD Diagnosis: 1 tab at bedtime Last Documented On 09/14/2019 2:54PM By Teresa Massey MD ; [facility] traZODone HCl 50MG Oral Tablet 11/04/2018 - 10/22/2019 Provider: FRITZ MASSEY MD Diagnosis: Psychophysiologi c insomnia as directed TAKE 1/2 TO 1 TA BLET BY MOUTH 2 TIMES DAILY NEEDED FOR ANXIETY, 1 TAB at bedtime as needed only for sleep Last Documented On 0 11:33AM By Teresa Massey MD ; [facility] Lexapro 20MG Oral Tablet 11/04/2018 - 10/03/2019 Provider: FRITZ HILLS MD Diagnosis: Generalized anxi ety disorder One tablet daily Last Documented On 10/03/2019 5:10PM By Teresa Massey MD ; [facility] Wellbutrin XL 150MG Oral Tablet Extended Release 24 Hour 11/04/2018 - 05/06/2020 Provider: FRITZ MASSEY MD Diagnosis: Major depressive disorder, recurrent, moderate as directed 3 every am Last Documented On 05/06/2020 8:15PM By Teresa Massey MD ; [facility] Wellbutrin XL 150MG Oral Tablet Extended Release 24 Hour 09/10/2018 - 11/04/2018 Provider: FRTIZ MASSEY MD Diagnosis: Major depressive disorder, recurrent, moderate as directed 3 every am Last Documented On 11/04/2018 2:59PM By Teresa Massey MD ; [facility] Lexapro 20MG Oral Tablet 09/04/2018 - 11/04/2018 Provider: FRITZ HILLS MD Diagnosis: Generalized anxi ety disorder One tablet daily Last Documented On 11/04/2018 2:59PM By Teresa Massey MD ; [facility] traZODone HCl 50MG Oral Tablet 08/12/2018 - 11/04/2018 Provider: FRITZ MASSEY MD Diagnosis: Psychophysiologi c insomnia as directed TAKE 1/2 TO 1 TA BLET BY MOUTH 2 TIMES DAILY NEEDED FOR ANXIETY, 1 TAB at bedtime as needed only for sleep Last Documented On 11/04/2018 2:59PM By Teresa Massey MD ; [facility] Lexapro 20MG Oral Tablet 06/08/2018 - 09/04/2018 Provider: FRITZ HILLS MD Diagnosis: Generalized anxi ety disorder One tablet daily Last Documented On 9 11:42AM By Teresa Massey MD ; [facility] Viibryd 20MG Oral Tablet 06/08/2018 - 09/17/2021 Provider: FRITZ HILLS MD Diagnosis: Major depressive disorder, recurrent, unspecified 1 tablet every morning with food -- may take as needed only Last Documented On 09/17/2021 2:49PM By Teresa Massey MD ; [facility] TraZODone HCl 50MG Oral Tablet 06/08/2018 - 08/12/2018 Provider: FRITZ MASSEY MD Diagnosis: Psychophysiologi c insomnia as directed TAKE 1/2 TO 1 TA BLET BY MOUTH 2 TIMES DAILY NEEDED FOR ANXIETY, 1 TAB at bedtime as needed only for sleep Last Documented On 08/12/2018 6:37PM By Teresa Massey MD ; [facility] Wellbutrin XL 150MG Oral Tablet Extended Release 24 Hour 06/08/2018 - 09/10/2018 Provider: FRITZ MASSEY MD Diagnosis: Major depressive disorder, recurrent, moderate as directed 3 every am Last Documented On 09/10/2018 9:54AM By Teresa Massey MD ; [facility] Crestor 20MG Oral Tablet 05/13/2018 - 11/04/2018 Provi davis: ERNESTO PIMENTEL MD Diagnosis: 1 tab daily Last Documented On 11/04/2018 2:13PM By Teresa Massey MD ; [facility] Viibryd 20MG Oral Tablet 08/31/2017 - 05/13/2018 Provider: FRITZ HILLS MD Diagnosis: Major depressive disorder, recurrent, unspecified 1 tablet every morning with food Last Documented On 06/08/2018 6:32AM By Teresa Massey MD ; [facility] TraZODone HCl 50MG Oral Tablet 08/31/2017 - 05/13/2018 Provider: FRITZ MASSEY MD Diagnosis: Psychophysiologi c insomnia as directed TAKE 1/2 TO 1 TA BLET BY MOUTH 2 TIMES DAILY NEEDED FOR ANXIETY, 1 TAB at bedtime as needed only for sleep Last Documented On 06/08/2018 6:32AM By Teresa Massey MD ; [facility] Lexapro 20MG Oral Tablet 08/31/2017 - 05/13/2018 Provider: FRITZ HILLS MD Diagnosis: Generalized anxi ety disorder One tablet daily Last Documented On 06/08/2018 6:32AM By Teresa Massey MD ; [facility] Wellbutrin XL 150MG Oral Tablet Extended Release 24 Hour 08/31/2017 - 05/13/2018 Provider: FRITZ MASSEY MD Diagnosis: Major depressive disorder, recurrent, moderate as directed 3 every am Last Documented On 06/08/2018 6:32AM By Teresa Massey MD ; [facility] Viibryd 20MG Oral Tablet 07/16/2017 - 08/26/2017 Provider: FRITZ HILLS MD Diagnosis: Major depressive disorder, recurrent, unspecified 1 tablet every morning with food Last Documented On 08/31/2017 4:42PM By Teresa Massey MD ; [facility] TraZODone HCl 50MG Oral Tablet 07/16/2017 - 08/26/2017 Provider: FRITZ MASSEY MD Diagnosis: Psychophysiologi c insomnia as directed TAKE 1/2 TO 1 TA BLET BY MOUTH 2 TIMES DAILY NEEDED FOR ANXIETY, 1 TAB at bedtime as needed only for sleep Last Documented On 08/31/2017 4:42PM By Teresa Massey MD ; [facility] Wellbutrin XL 150MG Oral Tablet Extended Release 24 Hour 07/16/2017 - 08/26/2017 Provider: FRITZ MASSEY MD Diagnosis: Major depressive disorder, recurrent, moderate as directed 3 every am Last Documented On 08/31/2017 4:42PM By Teresa Massey MD ; [facility] Lexapro 20MG Oral Tablet 07/16/2017 - 08/26/2017 Provider: FRITZ HILLS MD Diagnosis: Generalized anxi ety disorder One tablet daily Last Documented On 08/31/2017 4:42PM By Teresa Massey MD ; [facility] Lexapro 20MG Oral Tablet 03/10/2017 - 07/16/2017 Provider: FRITZ HILLS MD Diagnosis: Generalized anxi ety disorder One tablet daily Last Documented On 07/16/2017 4:03PM By Teresa Massey MD ; [facility] Viibryd 20MG Oral Tablet 02/25/2017 - 07/16/2017 Provider: FRITZ HILLS MD Diagnosis: Major depressive disorder, recurrent, unspecified 1 tablet every morning with food Last Documented On 07/16/2017 4:05PM By Teresa Massey MD ; [facility] TraZODone HCl 50MG Oral Tablet 02/25/2017 - 07/16/2017 Provider: FRITZ MASSEY MD Diagnosis: Psychophysiologi c insomnia as directed TAKE 1/2 TO 1 TA BLET BY MOUTH 2 TIMES DAILY NEEDED FOR ANXIETY, 1 TAB at bedtime as needed only for sleep Last Documented On 07/16/2017 4:04PM By Teresa Massey MD ; [facility] Wellbutrin XL 150MG Oral Tablet Extended Release 24 Hour 02/25/2017 - 07/16/2017 Provider: FRITZ MASSEY MD Diagnosis: Major depressive disorder, recurrent, moderate as directed 3 every am Last Documented On 07/16/2017 4:04PM By Teresa Massey MD ; [facility] Lexapro 20MG Oral Tablet 02/21/2017 - 02/25/2017 Provider: FRITZ HILLS MD Diagnosis: Generalized anxi ety disorder One tablet daily Last Documented On 03/10/2017 7:52AM By Teresa Massey MD ; [facility] MetFORMIN HCl ER (MOD) 500MG Oral Tablet Extended Release 24 Hour 02/15/2017 - 09/13/2020 Provider: ERNESTO Caceres MD Diagnosis: 4 daily Last Documented On 09/13/2020 1:50PM By ILANA POOLE ; [facility] Atorvastatin Calcium 10MG Or al Tablet 02/14/2017 - 05/13/2018 Provider: ERNESTO Caceres MD Diagnosis: 1 daily Last Documented On 05/13/2018 2:49PM By ILANA POOLE ; [facility] TraZODone HCl 50MG Oral Tablet 01/21/2017 - 02/25/2017 Provider: FRITZ MASSEY MD Diagnosis: Psychophysiologi c insomnia as directed TAKE 1/2 TO 1 TA BLET BY MOUTH 3 TIMES DAILY NEEDED FOR ANXIETY, 1 TAB at bedtime as needed only Last Documented On 02/25/2017 5:23PM By Teresa Massey MD ; [facility] Wellbutrin XL 150MG Oral Tablet, extended-release 24 hour 11/14/2016 - 02/25/2017 Provider: FRITZ MASSEY MD Diagnosis: Major depressive disorder, recurrent, moderate as directed 3 every am Last Documented On 02/25/2017 5:23PM By Teresa Massey MD ; [facility] Wellbutrin XL 150MG Oral Tablet Extended Release 24 Hour 09/16/2016 - 11/14/2016 Provider: FRITZ MASSEY MD Diagnosis: Major depressive disorder, recurrent, moderate as directed 3 every am Last Documented On 11/14/2016 8:08PM By Teresa Massey MD ; [facility] TraZODone HCl 50MG Oral Tablet 08/28/2016 - 01/21/2017 Provider: FRITZ MASSEY MD Diagnosis: Psychophysiologi c insomnia as directed TAKE 1/2 TO 1 TA BLET BY MOUTH 3 TIMES DAILY NEEDED FOR ANXIETY, 1 TAB at bedtime as needed only Last Documented On 01/21/2017 6:28PM By Teresa Massey MD ; [facility] Lexapro 20MG Oral Tablet 08/28/2016 - 02/21/2017 Provider: FRITZ HILLS MD Diagnosis: Generalized anxi ety disorder One tablet daily Last Documented On 02/21/2017 6:30PM By Teresa Massey MD ; [facility] Wellbutrin XL 150MG Oral Tablet Extended Release 24 Hour 08/28/2016 - 09/16/2016 Provider: FRITZ MASSEY MD Diagnosis: Major depressive disorder, recurrent, moderate as directed 3 every am Last Documented On 09/16/2016 3:44PM By Teresa Massey MD ; [facility] Viibryd 20MG Oral Tablet 08/28/2016 - 02/25/2017 Provider: FRITZ MASSEY MD Diagnosis: Major depressive disorder, recurrent, unspecified 1 tablet every morning with food -- given discount coupon on 02/29/16 Last Documented On 02/25/2017 5:23PM By Teresa Massey MD ; [facility] modafinil 100mg Oral Tablet 08/28/2016 - 02/25/2017 Provider: FRITZ MASSEY MD Diagnosis: Obstructive slee p apnea (adult) (pediatric) as directed -- 1 tab in am Last Documented On 7 4:33PM By REBA GARZA LPN ; [facility] Wellbutrin XL 150MG Oral Tablet, extended-release 24 hour 07/23/2016 - 08/28/2016 Provider: FRITZ MASSEY MD Diagnosis: Major depressive disorder, recurrent, unspecified as directed 3 every am Last Documented On 08/28/2016 9:38PM By Teresa Massey MD ; [facility] Wellbutrin XL 150 MG Tablet Extended Release 24 Hour 05/01/2016 - 07/23/2016 Provider: FRITZ MASSEY MD Diagnosis: Major depressive disorder, recurrent, unspecified as directed 3 every am Last Documented On 07/23/2016 5:46PM By Teresa Massey MD ; [facility] Wellbutrin XL 150 MG Tablet, extended-release 24 hour 02/29/2016 - 05/01/2016 Provider: FRITZ MASSEY MD Diagnosis: Major depressive disorder, recurrent, unspecified as directed 3 every am Last Documented On 05/01/2016 4:23PM By Teresa Massey MD ; [facility] Viibryd 20 MG Tablet 02/29/2016 - 08/28/2016 Provider: FRITZ MASSEY MD Diagnosis: Major depressive disorder, recurrent, unspecified 1 tablet every morning with food -- given discount coupon on 02/29/16 Last Documented On 08/28/2016 5:21PM By Teresa Massey MD ; [facility] TraZODone HCl 50 MG Tablet 02/29/2016 - 08/28/2016 Provider: FRITZ MASSEY MD Diagnosis: Generalized anxi ety disorder as directed TAKE 1/2 TO 1 TA BLET BY MOUTH 3 TIMES DAILY NEEDED FOR ANXIETY, 1 TAB at bedtime as needed only Last Documented On 08/28/2016 9:38PM By Teresa Massey MD ; [facility] Lexapro 20 MG Tablet 02/29/2016 - 08/28/2016 Provider: FRITZ MASSEY MD Diagnosis: Generalized anxi ety disorder One tablet daily Last Documented On 08/28/2016 9:38PM By Teresa Massey MD ; [facility] Wellbutrin XL 150 MG Tablet, extended-release 24 hour 02/21/2016 - 02/29/2016 Provider: FRITZ MASSEY MD Diagnosis: Major depressive disorder, recurrent, unspecified as directed 3 every am Last Documented On 02/29/2016 5:28PM By Teresa Massey MD ; [facility] Wellbutrin XL 150 MG Tablet, extended-release 24 hour 11/10/2015 - 02/21/2016 Provider: FRITZ MASSEY MD Diagnosis: Major depressive disorder, recurrent, unspecified as directed 3 every am Last Documented On 02/21/2016 9:17AM By Teresa Massey MD ; [facility] Wellbutrin XL 150 MG Tablet Extended Release 24 Hour 08/30/2015 - 11/10/2015 Provider: FRITZ MASSEY MD Diagnosis: Major depressive disorder, recurrent, unspecified as directed 3 every am Last Documented On 11/10/2015 4:24PM By Teresa Massey MD ; [facility] Viibryd 20 MG Tablet 08/30/2015 - 02/29/2016 Provider: FRITZ MASSEY MD Diagnosis: Major depressive disorder, recurrent, unspecified 1 tablet every morning with food Last Documented On 02/29/2016 5:28PM By Teresa Massey MD ; [facility] TraZODone HCl 50 MG Tablet 08/30/2015 - 02/29/2016 Provider: FRITZ MASSEY MD Diagnosis: Generalized anxi ety disorder as directed TAKE 1/2 TO 1 TA BLET BY MOUTH 3 TIMES DAILY NEEDED FOR ANXIETY, 1 TAB at bedtime as needed only Last Documented On 02/29/2016 5:28PM By Teresa Massey MD ; [facility] Lexapro 20 MG Tablet 08/30/2015 - 02/29/2016 Provider: FRITZ MASSEY MD Diagnosis: Generalized anxi ety disorder One tablet daily Last Documented On 02/29/2016 5:28PM By Teresa Massey MD ; [facility] Lexapro 20 MG Tablet 08/24/2015 - 08/30/2015 Provider: FRITZ MASSEY MD Diagnosis: Generalized anxi ety disorder One tablet daily Last Documented On 08/30/2015 5:02PM By Teresa Massey MD ; [facility] TraZODone HCl 50 MG Tablet 08/03/2015 - 08/30/2015 Provider: FRITZ MASSEY MD Diagnosis: Generalized anxi ety disorder as directed TAKE 1/2 TO 1 TA BLET BY MOUTH 3 TIMES DAILY NEEDED FOR ANXIETY, 1 TAB at bedtime as needed only Last Documented On 08/30/2015 5:02PM By Teresa Massey MD ; [facility] Triamcinolone Acetonide 0.1 % Ointment 07/20/2015 - 02/25/2017 Provider: GALINDO RAMIREZ MD Diagnosis: Use as directed Last Documented On 7 4:21PM By REBA GARZA LPN ; [facility] TraZODone HCl 50 MG Tablet 03/02/2015 - 08/03/2015 Provider: FRITZ MASSEY MD Diagnosis: Generalized anxi ety disorder as directed TAKE 1/2 TO 1 TA BLET BY MOUTH 3 TIMES DAILY NEEDED FOR ANXIETY, 1 TAB at bedtime as needed only Last Documented On 6 10:11AM By Teresa Massey MD ; [facility] Lexapro 20 MG Tablet 03/02/2015 - 08/24/2015 Provider: FRITZ MASSEY MD Diagnosis: Generalized anxi ety disorder One tablet daily Last Documented On 08/24/2015 7:14PM By Teresa Massey MD ; [facility] Viibryd 20 MG Tablet 03/02/2015 - 08/30/2015 Provider: FRITZ MASSEY MD Diagnosis: Major depressive disorder, recurrent, unspecified 1 tablet every morning with food Last Documented On 08/30/2015 5:02PM By Teresa Massey MD ; [facility] Wellbutrin XL 150 MG Tablet Extended Release 24 Hour 03/02/2015 - 08/30/2015 Provider: FRITZ MASSEY MD Diagnosis: Major depressive disorder, recurrent, unspecified as directed 3 every am Last Documented On 08/30/2015 5:02PM By Teresa Massey MD ; [facility] Crestor 20 MG Tablet 03/02/2015 - 02/25/2017 Provider: ERNESTO PIMENTEL MD Diagnosis: Take 1 tablet by mouth daily Last Documented On 7 4:32PM By REBA GARZA LPN ; [facility] Wellbutrin XL 150 MG Tablet Extended Release 24 Hour 02/27/2015 - 03/02/2015 Provider: FRITZ MASSEY MD Diagnosis: Major depressive disorder, recurrent, unspecified as directed 3 every am Last Documented On 03/02/2015 4:24PM By Teresa Massey MD ; [facility] TraZODone HCl 50 MG Tablet 01/30/2015 - 03/02/2015 Provider: FRITZ MASSEY MD Diagnosis: Generalized anxi ety disorder as directed TAKE 1/2 TO 1 TA BLET BY MOUTH 3 TIMES DAILY NEEDED FOR ANXIETY. Last Documented On 03/02/2015 4:24PM By Teresa Massey MD ; [facility] Lexapro 20 MG Tablet 12/20/2014 - 03/02/2015 Provider: FRITZ MASSEY MD Diagnosis: GENERALIZED ANXI ETY DIS One tablet daily Last Documented On 03/02/2015 4:24PM By Teresa Massey MD ; [facility] Viibryd 20 MG Tablet 11/09/2014 - 03/02/2015 Provider: FRITZ MASSEY MD Diagnosis: MAJOR DEPRESSION DISORDER/RECURRENT 1 tablet every morning with food Last Documented On 03/02/2015 4:24PM By Teresa Massey MD ; [facility] Lexapro 20 MG Tablet 07/19/2014 - 12/20/2014 Provider: FRITZ MASSEY MD Diagnosis: GENERALIZED ANXI ETY DIS One tablet daily Last Documented On 12/20/2014 2:02PM By Teresa Massey MD ; [facility] TraZODone HCl 50 MG Tablet 07/19/2014 - 01/30/2015 Provider: FRITZ MASSEY MD Diagnosis: GENERALIZED ANXI ETY DIS as directed TAKE 1/2 TO 1 TA BLET BY MOUTH 3 TIMES DAILY NEEDED FOR ANXIETY. Last Documented On 01/30/2015 4:18PM By Teresa Massey MD ; [facility] Wellbutrin XL 150 MG Tablet, extended-release 24 hour 07/19/2014 - 02/27/2015 Provider: FRITZ MASSEY MD Diagnosis: MAJOR DEPRESSION DISORDER/RECURRENT as directed 3 every am Last Documented On 02/27/2015 4:27PM By Teresa Massey MD ; [facility] Nuvigil 150 MG Tablet 07/19/2014 - 03/02/2015 Provider: FRITZ HILLS MD Diagnosis: OBSTRUCTIVE SLEE P APNEA 1 tablet every morning with food Last Documented On 03/02/2015 4:27PM By Teresa Massey MD ; [facility] Viibryd 20 MG Tablet 07/19/2014 - 11/09/2014 Provider: FRITZ MASSEY MD Diagnosis: MAJOR DEPRESSION DISORDER/RECURRENT 1 tablet every morning with food Last Documented On 11/09/2014 7:46PM By Teresa Massey MD ; [facility] Lexapro 20 MG OR TABS 02/15/2014 - 07/19/2014 Provider: FRITZ HILLS MD Diagnosis: GENERALIZED ANXI ETY DIS Last Documented On 07/19/2014 5:09PM By Teresa Massey MD ; [facility] Wellbutrin XL 150 MG OR TB24 02/15/2014 - 07/19/2014 Provider: FRITZ MASSEY MD Diagnosis: MAJOR DEPRESSION DISORDER/RECURRENT 3 every am Last Documented On 07/19/2014 5:09PM By Teresa Massey MD ; [facility] Viibryd 20 MG OR TABS 02/15/2014 - 07/19/2014 Provider: FRITZ HILLS MD Diagnosis: MAJOR DEPRESSION DISORDER/RECURRENT will try another extra 20 mg in am with food to equal 40 mg in am. Last Documented On 07/19/2014 5:09PM By Teresa Massey MD ; [facility] Nuvigil 150 MG OR TABS 02/15/2014 - 07/19/2014 Provider: FRITZ HILLS MD Diagnosis: OBSTRUCTIVE SLEE P APNEA Last Documented On 07/19/2014 5:09PM By Teresa Massey MD ; [facility] traZODone HCl 50 MG OR TABS 02/15/2014 - 07/19/2014 Provider: FRITZ MASSEY MD Diagnosis: GENERALIZED ANXI ETY DIS TAKE 1/2 TO 1 TABLET BY MOUT H 3 TIMES DAILY NEEDED FOR ANXIETY. Last Documented On 07/19/2014 5:09PM By [facility] 02/09/2014 - 02/15/2014 Provider: FRITZ MASSEY MD Diagnosis: GENERALIZED ANXI ETY DIS TAKE 1/2 TO 1 TABLET BY MOUT H 3 TIMES DAILY NEEDED FOR ANXIETY. Last Documented On 02/15/2014 5:48PM By [facility] MD [facility] Viib[facility]d [facility] TABS 02/09/2014 - 02/15/2014 Provider: FRITZ HILLS MD Diagnosis: MAJOR DEPRESSION DISORDER/RECURRENT Last Documented On 02/15/2014 5:48PM By [facility] MD [facility] Nuv[facility]il [facility] TABS 10/05/2013 - 02/15/2014 Provider: FRITZ HILLS MD Diagnosis: OBSTRUCTIVE SLEE P APNEA 1 in the morning as needed Last Documented On 02/15/2014 5:48PM By Teresa Massey MD ; [facility] traZODone HCl 50 MG OR TABS 10/05/2013 - 02/09/2014 Provider: FRITZ MASSEY MD Diagnosis: GENERALIZED ANXI ETY DIS 1/2 to 1 tablet 3 times a da y as needed for anxiety Last Documented On 02/09/2014 5:59PM By Teresa Massey MD ; [facility] Wellbutrin XL 150 MG OR TB24 10/05/2013 - 02/15/2014 Provider: FRITZ MASSEY MD Diagnosis: MAJOR DEPRESSION DISORDER/RECURRENT 3 every am Last Documented On 02/15/2014 5:48PM By [facility] MD [facility] Viib[facility]d [facility] MG OR TABS 10/05/2013 - 02/09/2014 Provider: FRITZ HILLS MD Diagnosis: MAJOR DEPRESSION DISORDER/RECURRENT Last Documented On 02/09/2014 6:01PM By [facility] MD ; [facility] Nuv[facility]il [facility] MG OR TABS 10/05/2013 - 10/05/2013 Provider: FRITZ HILLS MD Diagnosis: OBSTRUCTIVE SLEE P APNEA 1 in the morning as needed Last Documented On 10/05/2013 4:46PM By [facility] MD [facility] Lex[facility]ro 20 MG OR TABS 10/05/2013 - 02/15/2014 Provider: FRITZ HILLS MD Diagnosis: GENERALIZED ANXI ETY DIS Last Documented On 02/15/2014 5:48PM By Teresa Massey MD ; [facility] Symbicort 80-4.5 MCG/ACT IN AERO 06/07/2013 - 03/02/20 15 Provider: Diagnosis: 2 puffs bid Last Documented On 03/02/2015 4:27PM By Teresa Massey MD ; [facility] traZODone HCl 50 MG OR TABS 06/07/2013 - 10/05/2013 Provider: FRITZ MASSEY MD Diagnosis: GENERALIZED ANXI ETY DIS 1/2 to 1 tablet 3 times a da y as needed for anxiety Last Documented On 10/05/2013 4:43PM By Teresa Massey MD ; [facility] Lexapro 20 MG OR TABS 06/07/2013 - 10/05/2013 Provider: FRITZ HILLS MD Diagnosis: GENERALIZED ANXI ETY DIS Last Documented On 10/05/2013 4:35PM By Teresa Massey MD ; [facility] Nuvigil 150 MG OR TABS 06/07/2013 - 10/05/2013 Provider: FRITZ HILLS MD Diagnosis: OBSTRUCTIVE SLEE P APNEA 1 in the morning as needed Last Documented On 10/05/2013 4:35PM By Teresa Massey MD ; [facility] S Viibryd 20 MG OR TABS 06/07/2013 - 10/05/2013 Provider: FRITZ HILLS MD Diagnosis: MAJOR DEPRESSION DISORDER/RECURRENT Last Documented On 10/05/2013 4:35PM By Teresa Massey MD ; [facility] Wellbutrin XL 150 MG OR TB24 06/07/2013 - 10/05/2013 Provider: FRITZ MASSEY MD Diagnosis: MAJOR DEPRESSION DISORDER/RECURRENT 3 every am Last Documented On 10/05/2013 4:35PM By Teresa Massey MD ; [facility] S Viibryd 20 MG OR TABS 01/19/2013 - 06/07/2013 Provider: FRITZ HILLS MD Diagnosis: MAJOR DEPRESSION DISORDER/RECURRENT Last Documented On 06/07/2013 4:05PM By Teresa Massey MD ; [facility] S Viibryd 10 & 20 & 40 MG OR KIT 01/19/2013 - 03/02/2015 Provider: FRITZ HILLS MD Diagnosis: MAJOR DEPRESSION DISORDER/RECURRENT 10 mg in am for 1 week then 20 mg in am with food--gave 12 weeks of samples Last Documented On 03/02/2015 4:27PM By Teresa Massey MD ; [facility] Medical [facility] traZODone HCl 50 MG OR TABS 01/19/2013 - 06/07/2013 Provider: FRITZ MASSEY MD Diagnosis: GENERALIZED ANXI ETY DIS as needed Last Documented On 06/07/2013 4:12PM By Teresa Massey MD ; [facility] Medical [facility] Lexapro 20 MG OR TABS 01/19/2013 - 06/07/2013 Provider: FRITZ HILLS MD Diagnosis: MAJOR DEPRESSION DISORDER/RECURRENT Last Documented On 06/07/2013 4:12PM By Teresa Massey MD ; [facility] Well[facility] 150 MG OR TB24 01/19/2013 - 06/07/2013 Provider: FRITZ MASSEY MD Diagnosis: MAJOR DEPRESSION DISORDER/RECURRENT 3 every am Last Documented On 06/07/2013 4:12PM By [facility] MD [facility] N[facility] OR TABS 01/19/2013 - 06/07/2013 Provider: FRITZ HILLS MD Diagnosis: OBSTRUCTIVE SLEE P APNEA 1 in the morning as needed Last Documented On 06/07/2013 4:12PM By Teresa Massey MD ; [facility] Medical [facility] Wellbutrin XL 150 MG OR TB24 07/10/2012 - 01/19/2013 Provider: FRITZ MASSEY MD Diagnosis: MAJOR DEPRESSION DISORDER/RECURRENT 3 every am Last Documented On 01/19/2013 3:39PM By Teresa Massey MD ; [facility] Well[facility] 150 MG OR TB24 07/10/2012 - 07/10/2012 P rovider: Diagnosis: 3 every am Last Documented On 3 11:15AM By Tersea Massey MD ; [facility] Medical [facility] traZODone HCl 50 MG OR TABS 07/10/2012 - 01/19/2013 Pr ovider: FRITZ MASSEY MD Diagnosis: as needed Last Documented On 01/19/2013 3:39PM By Teresa Massey MD ; [facility] Viibryd 10 MG OR TABS 07/10/2012 - 07/10/2012 Provider : Diagnosis: 1 in the morning-pt takes it as needed Last Documented On 3 11:15AM By Teresa Mas[facility] MD ; [facility] N[facility] 150 MG OR TABS 07/10/2012 - 07/10/2012 Provide r: Diagnosis: 1 in the morning as needed Last Documented On 3 11:03AM By Teresa Massey MD ; [facility] Lexapro 20 MG OR TABS 07/10/2012 - 01/19/2013 Provider: FRITZ HILLS MD Diagnosis: MAJOR DEPRESSION DISORDER/RECURRENT Last Documented On 01/19/2013 3:39PM By Teresa Massey MD ; [facility] N[facility] 150 MG OR TABS 07/10/2012 - 01/19/2013 Provider: FRITZ HILLS MD Diagnosis: OBSTRUCTIVE SLEE P APNEA 1 in the morning as needed Last Documented On 01/19/2013 3:39PM By Teresa Massey MD ; [facility] Vi[facility]d 10 MG OR TABS 07/10/2012 - 06/07/2013 Provider: FRITZ HILLS MD Diagnosis: MAJOR DEPRESSION DISORDER/RECURRENT 1 in the morning-pt takes it as needed when he has bouts of down days or feeling short tempered--3 weeks sapmles given Last Documented On 4 3:31PM By LEXIE POOLE ; [facility] Albuterol Sulfate POWD 07/10/2012 - 05/13/2018 Provide r: Diagnosis: as needed Last Documented On 05/13/2018 2:52PM By ILANA POOLE ; [facility] Indapamide 1.25 MG OR TABS 07/05/2012 - 03/02/2015 Pro vider: ERNESTO PIMENTEL MD Diagnosis: Last Documented On 03/02/2015 4:30PM By Teresa Massey MD ; [facility] Crestor 40 MG OR TABS 07/03/2012 - 03/02/2015 Provider : ERNESTO PIMENTEL MD Diagnosis: Last Documented On 5 4:18PM By REBA GARZA LPN ; [facility] traZODone HCl 50 MG OR TABS 06/10/2012 - 07/10/2012 Pr ovider: Diagnosis: Last Documented On 3 11:03AM By Teresa Massey MD ; [facility] Lexapro 20 MG OR TABS 06/10/2012 - 07/10/2012 Provider : Diagnosis: Last Documented On 3 11:03AM By Teresa Massey MD ; [facility] Medications Administered Includes: Administered Medications in patient's chart No Administered Medications Recorded Results Includes: Results from 03/15/2024 through 03/15/2025 No Results Recorded For Specified Dates History of Present Illness History of Present Illness not supported for this document type No History of Present Illness Recorded Social History Description Last Updated Former smoker - quit in 199909/13/2020 Last Documented On 1 8:25AM ; [facility] Alcohol use -- <2 - 4 beers a month 08/2019 Last Documented On 0 3:57AM ; [facility] Daily coffee consumption -- He drinks 0 - 4 cups of coffee a day, 2 glasses of tea a week and rarely, a botlle of Ski 03/15/2020 Last Documented On 0 3:57AM ; [facility] Non-smoker - quit smoking in 1999 Last Documented On 0 3:57AM ; [facility] Work history -- He retired from [employer] in 201705/13/2018 Last Documented On 9 6:49AM ; [facility] He was born in [facility] and raised in [place], [place]. He was close to his parents while growing up, they had a good relationship and they were supportive of him. He graduated high school. He worked at [employer]. He first got in 1972 at the age of 21 and had 2 children. He reported no history of verbal, physical or sexual abuse 05/13/2018 Last Documented On 9 6:49AM ; [facility] No tobacco use 05/13/2018 Last Documented On 9 6:49AM ; [facility] Smoking status : Former smoker quit in 2 000 01/19/2013 Last Documented On 3 10:53PM ; [facility] Marital history Pt at 21 013 Last Documented On 3 3:03PM ; [facility] Not using drugs (Illicit) 06/10/2012 Last Documented On 3 3:03PM ; [facility] Procedures and Surgical History Surgical History Last Updated History of Prior Surgery: Re moval of ganglion cyst from left wrist. ~Removal of granuloma from left upper arm 07/10/2012 Last Documented On 3 11:25AM ; [facility] Medical History Includes: Medical History in patient's chart Description Last Updated History of coronavirus 2019- nCoV vaccine - [facility] #1 08/02/20 #2 08/24/20 #3 04/19/21 05/23/2021 Last Documented On 2 8:29AM ; [facility] History of COVID-19 infection - tested p ositive 01/25/21 -- fatigue 03/12/2021 Last Documented On 1 2:57PM ; [facility] Primary Care Provider: Dr. Ernesto maynard 09/13/2020 Last Documented On 1 8:25AM ; [facility] History of obstructive sleep apnea --using CPAP had a sleep study in 2017 and as of 04/01/19 he wears his CPAP every night 04/01/2019 Last Documented On 9 3:02AM ; [facility] History of crush injury of the thumb - r ight thumb 09/23/18 11/04/2018 Last Documented On 9 8:20AM ; [facility] History of type 2 diabetes mellitus 02/09 Last Documented On 7 7:53AM ; [facility] History of eczema 08/28/2016 Last Documented On 7 9:52PM ; [facility] History of dyshidrosis -- h/o 02/29/2016 Last Documented On 6 1:09AM ; [facility] History of asthma 10/05/2013 Last Documented On 4 5:30PM ; [facility] History of hyperlipidemia 06/10/2012 Last Documented On 3 3:03PM ; [facility] History of hypertension 06/10/2012 Last Documented On 3 3:03PM ; [facility] Family History Includes: Family History in patient's chart Description Last Updated Family medical history : No significant family history 02/25/2017 Last Documented On 7 7:53AM ; [facility] Review of Systems Review of Systems not [...] Last Documented On 10/15/2023 1:46PM ; [facility] Note: Imported from external source. Cardizem Allergy 11/04/2018 Active Last Documented On 10/15/2023 1:46PM ; [facility] Note: Imported from external source. Insurance Includes: Active Insurance Policies Plan Name Member ID Group # Subscriber Relationship Effect marlen Dates 1 - MEDICARE PART A CLAIMS/NGS [id number] DEDE PRINGLE Self 05/12/2018 - Unknown 2 - [employer] [id number] DEDE PRINGLE Self Clinical Notes Includes: Signed Clinical Notes starting from 05/31/2022 No Clinical Notes Recorded
--- OUTSIDE RECORDS SUMMARY | 2025-03-15 01:28 | XMS_ITS | Clinical Summary ---
Author Organization [facility] Address [address] [place] [phone] Phone Care Team Providers Care Material Cutter Name Role Phone LAURA GUZMAN, FRITZ Nolan [phone] Reason for Visit and Chief Complaint The Chief Complaint is: follow up for depression Problems Includes: Problems addressed during this encounter and other active Problems Current Visit Onset Date Resolved Date Provider Conditio n Status Tremor 01/10/2019 FRITZ MASSEY MD Ac tive Last Documented On 9 3:00AM ; [facility] Psychophysiological Insomnia 04/11/2016 FRITZ MASSEY MD Active Last Documented On 7 9:35PM ; [facility] Nonorganic Sleep Apnea Obstructive 07/10/2012 Luis Eduardo MASSEY MD Inactive Last Documented On 5 10:26AM ; [facility] Note: Using CPAP Major Depression, Recurrent 06/22/2012 FRITZ MASSEY MD Inactive Last Documented On 5 10:25AM ; [facility] Generalized Anxiety Disorder 06/10/2012 FRITZ MASSEY MD Inactive Last Documented On 5 10:23AM ; [facility] Past Visits Onset Date Resolved Date Provider Condition Status Post-traumatic Stress Disorder 01/10/2022 FRITZ MASSEY MD Active Last Documented On 2 9:19PM ; [facility] Diabetes Mellitus Type 2 02/25/2017 FRITZ MASSEY MD Active Last Documented On 7 4:30PM ; [facility] Unspecified asthma, uncomplicated 07/10/2012 ME MERVAT MASSEY MD Active Last Documented On 5 10:26AM ; [facility] Sleep apnea, unspecified 07/10/2012 FRITZ MASSEY MD Active Last Documented On 5 10:26AM ; [facility] Major depressive disorder, r ecurrent, unspecified 06/22/2012 FRITZ MASSEY MD Active Last Documented On 5 10:25AM ; [facility] Generalized anxiety disorder 06/10/2012 FRITZ MASSEY MD Active Last Documented On 5 10:23AM ; [facility] Essential (primary) hypertension 06/10/2012 MET ANTONIO MASSEY MD Active Last Documented On 5 10:24AM ; [facility] Pure hypercholesterolemia 06/10/2012 FRITZ MASSEY MD Active Last Documented On 5 10:23AM ; [facility] Plan of Treatment Major Depressive disorder, [...] - Last Documented On 10/29/2021 2:07PM ; [facility] Instructions to patient Lose weight - portion contro l, balanced meals Last Documented On 2 2:03PM ; [facility] Education and Decision Aids were provided during visit for: Patient education about [facility] --- I educated patient on medication(s) and diagnosis. I reviewed the risks, benefits and side effects of patient's medications Last Documented On 2 1:48PM ; [facility] Discussed calming techniques such as breathing exercises and other relaxation techniques Last Documented On 2 1:48PM ; [facility] Counseling for nutrition/maci ght management provided Last Documented On 2 1:56PM ; [facility] Discussed good sleep hygiene habits Last Documented On 2 1:56PM ; [facility] Assessments Includes: Assessments from this encounter Findings - Obstructive sleep apnea - Last Documented On 10/29/2021 2:07PM ; [facility] - Tremor - Last Documented On 10/29/2021 2:07PM ; [facility] - Major depression, recurrent - Last Documented On 10/29/2021 2:07PM ; [facility] - Psychophysiological insomnia - Last Documented On 10/29/2021 2:07PM ; [facility] - Generalized anxiety disorder - Last Documented On 10/29/2021 2:07PM ; [facility] Instructions Includes: Instructions from this encounter Instructions to patient Lose weight - portion contro l, balanced meals Last Documented On 2:03PM ; [facility] Education and Decision Aids were provided during visit for: Patient education about medi cation --- I educated patient on medication(s) and diagnosis. I reviewed the risks, benefits and side effects of patient's medications Last Documented On 2 1:48PM ; [facility] Discussed calming techniques such as breathing exercises and other relaxation techniques Last Documented On 2 1:48PM ; [facility] Counseling for nutrition/maci ght management provided Last Documented On 2 1:56PM ; [facility] Discussed good sleep hygiene habits Last Documented On 2 1:56PM ; [facility] Medical Equipment - Implanted Devices Includes: Current Devices No Medical Equipment Recorded Medications Includes: Medications discussed during this encounter and other current Medications Discontinued / Stopped on this date FRITZ MASSEY MD on 06/08/2018 Viibryd 20MG Oral Tablet Provider: MET ANTONIO MASSEY MD Diagnosis: Major depressive disorder, recurrent, unspecified Last Documented On 09/17/2021 2:49PM By Teresa Massey MD ; [facility] New / Renewed during this visit FRITZ MASSEY MD on 09/17/2021 traZODone HCl 50 MG Oral Tablet Provider: FRITZ MASSEY MD 90 day supply: 180 tablet, 1 refills Diagnosis: Psychophysiologic insomnia TAKE 1/2 (ONE-HALF) TABLET B Y MOUTH TWICE DAILY NEEDED FOR ANXIETY AND 1 TABLET AT BEDTIME NEEDED ONLY FOR SLEEP DIRECTED Pharmacy: [address], [address] - Last Documented On 11:15AM By Teresa Massey MD ; [facility] Current Medications (continue as prescribed) Escitalopram Oxalate 20 MG Oral Tablet 06/11/2022 Provider: FRITZ MASSEY MD Diagnosis: Generalized anxi ety disorder One tablet daily Last Documented On 06/11/2022 1:53PM By Teresa Massey MD ; [facility] buPROPion HCl ER (XL) 150 MG Oral Tablet Extended Release 24 Hour 06/11/2022 Provider: FRITZ MASSEY MD Diagnosis: Major depressive disorder, recurrent, moderate TAKE 3 TABLETS BY MOUTH IN T MORNING Last Documented On 06/11/2022 1:52PM By Teresa Massey MD ; [facility] traZODone HCl 50 MG Oral Tablet 06/11/2022 Provider: FRITZ MASSEY MD Diagnosis: Psychophysiologi c insomnia TAKE 1/2 (ONE-HALF) TABLET B Y MOUTH TWICE DAILY NEEDED FOR ANXIETY AND 1 TABLET AT BEDTIME NEEDED FOR SLEEP DIRECTED Last Documented On 06/11/2022 1:50PM By Teresa Massey MD ; [facility] Azelastine HCl 137 MCG/SPRAY Nasal Solution 04/23/2022 Provider: NALINI CASTANO APN Diagnosis: Acute sinusitis, unspecified 1 spray to each nostril 2 x a day -- Nalini Castano Last Documented On 06/11/2022 1:42PM By Teresa Massey MD ; [facility] metFORMIN HCl 500 MG Oral Tablet 07/11/2020 Provider : ERNESTO PIMENTEL MD Diagnosis: 4 daily Last Documented On 09/13/2020 1:51PM By ILANA POOLE ; [facility] Atorvastatin Calcium 40 MG Oral Tablet 09/14/2019 Pr ovider: Diagnosis: Last Documented On 09/14/2019 2:54PM By Teresa Massey MD ; [facility] ProAir HFA 108 (90 Base)MCG/ ACT Inhalation Aerosol Solution 05/13/2018 Provider: ERNESTO PIMENTEL MD Diagnosis: 1-2 puffs every 4-6 hours prn Last Documented On 05/13/2018 2:56PM By ILANA POOLE ; [facility] Indapamide 2.5 MG Tablet 03/02/2015 Provider: Diagnosis: from Dr. Figueroa Last Documented On 03/02/2015 4:30PM By Teresa Massey MD ; [facility] Aspirin 81 MG OR TABS 07/10/2012 Provider: Diagnosis: Last Documented On 3 10:24AM By LEXIE HERNANDEZ ; [facility] ZyrTEC Allergy 10 MG OR TABS 07/10/2012 Provider: Diagnosis: Last Documented On 3 10:24AM By LEXIE HERNANDEZ ; [facility] Quinapril HCl 40 MG OR TABS 07/05/2012 Provider: ERNESTO PIMENTEL MD Diagnosis: Last Documented On 3 10:22AM By LEXIE HERNANDEZ ; [facility] Medications Administered Includes: Administered Medications from [...] vitals Last Documented: On 09/17/2021 1:58PM ; [facility] Results Includes: Results discussed during this [...] 08/2019 Last Documented On 2 1:48PM ; [facility] Daily coffee consumption -- He drinks 0 - 4 cups of coffee a day, 2 glasses of tea a week and rarely, a botlle of Ski 03/15/2020 Last Documented On 2 1:48PM ; [facility] Work history -- He retired from [employer] in 201705/13/2018 Last Documented On 2 1:48PM ; [facility] He was born in [facility] and raised in [place], [place]. He was close to his parents while growing up, they had a good relationship and they were supportive of him. He graduated high school. He worked at [employer]. He first got in 1972 at the age of 21 and had 2 children. He reported no history of verbal, physical or sexual abuse 05/13/2018 Last Documented On 2 1:48PM ; [facility] Smoking status : Former smoker quit in 2 000 01/19/2013 Last Documented On 2 1:48PM ; [facility] Marital history Pt at 21 013 Last Documented On 2 1:48PM ; [facility] Not using drugs (Illicit) 06/10/2012 Last Documented On 2 1:48PM ; [facility] Procedures and Surgical History Includes: Procedures from this encounter Procedures Code Diagnosis Performing Provider Service L ocation Service Date education and instructions Last Documented On 1:48PM ; [facility] I explained the rationale fo r [...] plan Last Documented On 2 1:48PM ; [facility] dangerousness assessment: suicide risk - not nancy cidal 3085F Last Documented On 2 2:04PM ; [facility] use of tobacco assessment performed 1000F Last Documented On 2 1:48PM ; [facility] patient screened for future fall risk - no recen t falls 3288F Last Documented On 2 1:48PM ; [facility] review of medications documented 1160F Last Documented On 2 1:48PM ; [facility] screening for adult depressi on: impression and score - please see above treatment and PHQ score Last Documented On 2 1:48PM ; [facility] standardized depression screening: posit marlen for symptoms Last Documented On 2 1:48PM ; [facility] encouragement to exercise Last Documented On 2 1:56PM ; [facility] Clinical summary provided to patient Last Documented On 2 1:56PM ; [facility] PHQ-9: total score 5 Last Documented On 2 2:03PM ; [facility] Surgical History Last Updated History of Prior Surgery: Re moval of ganglion cyst from left wrist. ~Removal of granuloma from left upper arm 07/10/2012 Last Documented On 2 1:48PM ; [facility] Medical History Includes: Medical History addressed during this encounter Description Last Updated History of coronavirus 2019- nCoV vaccine - [facility] #1 08/02/20 #2 08/24/20 #3 04/19/21 05/23/2021 Last Documented On 2 1:48PM ; [facility] History of COVID-19 infection - tested p ositive 01/25/21 -- fatigue 03/12/2021 Last Documented On 2 1:48PM ; [facility] Primary Care Provider: Dr. Ernesto maynard 09/13/2020 Last Documented On 2 1:48PM ; [facility] History of obstructive sleep apnea --using CPAP had a sleep study in 2018 and as of 04/01/19 he wears his CPAP every night 04/01/2019 Last Documented On 2 1:48PM ; [facility] History of crush injury of the thumb - r ight thumb 09/23/18 11/04/2018 Last Documented On 2 1:48PM ; [facility] History of type 2 diabetes mellitus 02/09 Last Documented On 2 1:48PM ; [facility] History of eczema 08/28/2016 Last Documented On 2 1:48PM ; [facility] History of dyshidrosis -- h/o 02/29/2016 Last Documented On 2 1:48PM ; [facility] History of asthma 10/05/2013 Last Documented On 2 1:48PM ; [facility] History of hyperlipidemia 06/10/2012 Last Documented On 2 1:48PM ; [facility] History of hypertension 06/10/2012 Last Documented On 2 1:48PM ; [facility] Family History Includes: Family History addressed during this encounter Description Last Updated Family medical history : No significant family history 02/25/2017 Last Documented On 2 1:48PM ; [facility] Review of Systems Includes: Review of [...] Active Last Documented On 10/15/2023 1:46PM ; [facility] Note: Imported from external source. Cardizem Allergy 11/04/2018 Active Last Documented On 10/15/2023 1:46PM ; [facility] Note: Imported from external source. Encounters Encounter Provider Location Date Check-In Time Check- Out Time Diagnosis [employer] METANTONIO MASSEY MD [facility] 2 1:47PM 11:59PM Major Depression, Recurrent,Gen eralized Anxiety Disorder,Nono rganic Sleep Apnea Obstructive,P sychophysiolo gical Insomnia,Trem or Insurance Includes: Active Insurance Policies Plan Name Member ID Group # Subscriber Relationship Effect marlen Dates 1 - MEDICARE PART A CLAIMS/NGS [id number] DEDE Nguyen 05/12/2018 - Unknown 2 - [employer] [id number] DEDE Nguyen Clinical Notes Includes: Clinical Notes from this encounter No Clinical Notes Recorded
--- OUTSIDE RECORDS SUMMARY | 2025-03-15 01:28 | XMS_ITS | Clinical Summary ---
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 Encounters Date Type Department Care Team Description 02/15/2025 2:43 PM CDT - 02/15/2025 11:59 PM CDT Hospital Encounter [address] [address] Essential (primary) hypertension; Stage 3b chronic kidney disease (HCC); Acute renal failure with pathological lesion in kidney; 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); Acquired complex renal cyst Discharge Disposition: Discharge to home or self care 01/05/2025 3:24 PM CDT - 01/05/2025 11:59 PM CDT Hospital Encounter [facility] [address] [place] [address] Stage 3b chronic kidney disease (HCC); Hypertension, unspecified type; Acquired complex renal cyst; Type 2 diabetes mellitus with diabetic nephropathy, unspecified whether residential insulin use (HCC) Discharge Disposition: Discharge to home or self care from Last 3 Months Surgical History Surgery Date Site/Laterality Comments GANGLION [...] on file Legal 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 Gender Identity Not on file Sexual Orientation Not on file Last Filed Vital Signs Vital Sign Reading Time Taken Comments Blood Pressure 120/68 04/21/2019 4:52 PM PEACH GROWER Pulse 78 04/21/2019 4:52 PM PEACH GROWER Temperature 36.8 C (98.3 F) 04/21/2019 4:52 PM PEACH GROWER Respiratory Rate 16 04/21/2019 4:52 PM PEACH GROWER Oxygen Saturation 95% 04/21/2019 4:52 PM PEACH GROWER Inhaled Oxygen Concentration - - Weight 117 kg (258 lb) 04/21/2019 4:52 PM PEACH GROWER Height 167.6 cm (5' 6) 04/21/2019 4:52 PM PEACH GROWER Body Mass Index 41.64 04/21/2019 4:52 PM PEACH GROWER Plan of Treatment Health Maintenance Due Date [...] Well Visit 65+ 2017 Covid-19 Vaccine ( season) 2025 04/19/2021, 08/24/2020, 08/02/2020 Influenza Vaccine (#1) 2025 , 04/07/2020, 03/24/2019 Hemoglobin A1C 06/11/2025 12/09/2024, 04/30/2024 eGFR 12/09/2025 12/09/2024, 04/12, 04/30/2024 Procedures Procedure Name Priority Date/Time Associated Diagnosis Comments MRI ABDOMEN W WO CONTRAST Schedule Routine, Read Routine (OP Routine) 02/15/2025 4:29 PM CDT Essential (primary) hypertension Stage 3b chronic kidney disease (HCC) Acute renal failure with pathological lesion in kidney 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) Acquired complex renal cyst US KIDNEY COMPLETE Schedule Routine, Read Routine (OP Routine) 01/05/2025 3:53 PM CDT Stage 3b chronic kidney disease (HCC) Hypertension, unspecified type Acquired complex renal cyst Type 2 diabetes mellitus with diabetic nephropathy, unspecified whether termite technician insulin use (HCC) EGFR Routine 12/09/2024 9:32 AM CDT HEMOGLOBIN A1C Routine 12/09/2024 9:32 AM CDT from Last 3 Months or Most Recently Relevant to Health Maintenance Results * MRI Abdomen W WO Contrast (02/15/2025 4:29 PM CDT) Anatomical Region Laterality Modality Body N/A Magnetic Resonan ce 02/16/2025 5:20 PM CDT Narrative 02/16/2025 5:32 PM CDT EXAM DESCRIPTION: MRI ABDOMEN W WO CONTRAST REASON FOR STUDY: Hypertension, CKD, T2DM lesion in kidney follow up no pain, no symptoms TECHNIQUE: MR images of the abdomen were acquired without and with intravenous contrast according to the renal mass abdominal protocol. All images stored on PACS. CONTRAST TYPE/DOSE: 18mL of GADOTERATE MEGLUMINE 0.5 MMOL/ML INTRAVENOUS SOLUTION (SO) injected via intravenous COMPARISON: Renal ultrasound 01/05/2025 FINDINGS: KIDNEYS: Redemonstrated exophytic lesion at the posterior left renal upper pole (note that this was imaged at the left renal upper pole on the prior ultrasound, though described as at the right renal pole in the corresponding report). Artifact significantly limits evaluation. The lesion measures approximately 2.5 x 2.1 x 2.5 cm. Post-contrast enhancement is limited, though there appears to be nodular wall enhancement as well as enhancing thickened septations. Additional left renal simple cyst. LIVER: Not well evaluated. There is apparent hepatic steatosis. GALLBLADDER: Focal multi cystic region along the gallbladder fundus, consistent with adenomyomatosis. Cholelithiasis. No wall thickening or pericholecystic fluid. BILE DUCTS: No intrahepatic or extrahepatic ductal dilatation. SPLEEN: Normal size. No focal lesions. PANCREAS: No masses. No significant calcifications. No adjacent inflammation or peripancreatic fluid collections. Pancreatic duct not dilated. ADRENALS: Normal. GI: No visualized abnormality. PERITONEUM: No ascites. RETROPERITONEUM: No mass or adenopathy. VASCULATURE: No abdominal aortic aneurysm. MUSCULOSKELETAL: No acute findings. OTHER: No other abnormality. IMPRESSION: Significantly limited exam due to motion artifact. However, an exophytic left renal upper pole 2.5 cm cystic lesion is concerning for renal cell carcinoma. THIS IS AN ELECTRONICALLY VERIFIED FINAL REPORT 02/16/2025 5:32 PM - Electronically signed by Matt Hawk M.D. KR: CARLOS MANUEL Report ID: [id number] Reading Location: [id number] Procedure Note Matt Hawk MD - 02/16/2025 EXAM DESCRIPTION: MRI ABDOMEN W WO CONTRAST REASON FOR STUDY: Hypertension, CKD, T2DM lesion in kidney follow up no pain, no symptoms TECHNIQUE: MR images of the abdomen were acquired without and with intravenous contrast according to the renal mass abdominal protocol. All images stored on PACS. CONTRAST TYPE/DOSE: 18mL of GADOTERATE MEGLUMINE 0.5 MMOL/ML INTRAVENOUS SOLUTION (SO) injected via intravenous COMPARISON: Renal ultrasound 01/05/2025 FINDINGS: KIDNEYS: Redemonstrated exophytic lesion at the posterior left renalupper pole (note that this was imaged at the left renal upper pole on the prior ultrasound, though described as at the right renal pole in thecorresponding report). Artifact significantly limits evaluation. The lesion measures approximately 2.5 x 2.1 x 2.5 cm. Post-contrast enhancement is limited, though there appears to be nodular wall enhancement as well as enhancing thickened septations. Additional left renal simple cyst. LIVER: Not well evaluated. There is apparent hepatic steatosis. GALLBLADDER: Focal multi cystic region along the gallbladder fundus, consistent with adenomyomatosis. Cholelithiasis. No wall thickening or pericholecystic fluid. BILE DUCTS: No intrahepatic or extrahepatic ductal dilatation. SPLEEN: Normal size. No focal lesions. PANCREAS: No masses. No significant calcifications. No adjacentinflammation or peripancreatic fluid collections. Pancreatic duct not dilated. ADRENALS: Normal. GI: No visualized abnormality. PERITONEUM: No ascites. RETROPERITONEUM: No mass or adenopathy. VASCULATURE: No abdominal aortic aneurysm. MUSCULOSKELETAL: No acute findings. OTHER: No other abnormality. IMPRESSION: Significantly limited exam due to motion artifact. However, an exophyticleft renal upper pole 2.5 cm cystic lesion is concerning for renal cellcarcinoma. THIS IS AN ELECTRONICALLY VERIFIED FINAL REPORT 02/16/2025 5:32 PM - Electronically signed by Matt Hawk M.D. KR: CARLOS MANUEL Report ID: [id number] Reading Location: [place] [address] us Dick Mendoza MD IMG MRI PROCEDURES Final Resu lt * US Kidney Complete (01/05/2025 3:53 PM CDT) Anatomical Region Laterality Modality Kidney N/A Ultrasound 01/14/2025 11:1 8 PM CDT Narrative 01/14/2025 11:22 PM CDT EXAM DESCRIPTION: US KIDNEY COMPLETE REASON FOR STUDY: stage 3b chronic kidney disease TECHNIQUE: Ultrasound of the kidneys and urinary bladder was performed with grayscale imaging. COMPARISON: 04/28/2024 FINDINGS: RIGHT KIDNEY: The right kidney measures 11.6 cm in length. There is no hydronephrosis. There is normal cortical thickness and echogenicity. LEFT KIDNEY: The left kidney measures 11.4 cm in length. There is no hydronephrosis. There is normal cortical thickness and echogenicity. 1.1 cm exophytic cyst left kidney is stable compared with 04/28/2024. There is a 3 cm indeterminate hypoechoic lesion containing internal echoes on the upper pole of the right kidney which can not be classified as a simple cyst on the basis of this examination. A solid lesion is not excluded. Recommend correlation with renal MRI with contrast for characterization. URINARY BLADDER: The urinary bladder, as visualized, appears unremarkable. Only the right ureteral jet was visualized. OTHER: No other additional findings. IMPRESSION: 1. 3 cm indeterminate hypoechoic lesion containing internal echoes on the upper pole of the right kidney which can not be classified as a simple cyst on the basis of this examination. A solid lesion is not excluded. Recommend correlation with renal MRI with contrast for characterization. 2. Stable 1.1 cm exophytic cyst left kidney. THIS IS AN ELECTRONICALLY VERIFIED FINAL REPORT 01/14/2025 11:22 PM - Electronically signed by Matt Renner M.D. KT: PRESTON Report ID: [id number] Reading Location: [id number] Procedure Note Matt Renner MD - 01/14/2025 EXAM DESCRIPTION: US KIDNEY COMPLETE REASON FOR STUDY: stage 3b chronic kidney disease TECHNIQUE: Ultrasound of the kidneys and urinary bladder was performedwith grayscale imaging. COMPARISON: 04/28/2024 FINDINGS: RIGHT KIDNEY: The right kidney measures 11.6 cm in length. There is no hydronephrosis. There is normal cortical thickness and echogenicity. LEFT KIDNEY: The left kidney measures 11.4 cm in length. There is no hydronephrosis. There is normal cortical thickness and echogenicity. 1.1cm exophytic cyst left kidney is stable compared with 04/28/2024. There is a3 cm indeterminate hypoechoic lesion containing internal echoes on the upper pole of the right kidney which can not be classified as a simple cyst onthe basis of this examination. A solid lesion is not excluded. Recommend correlation with renal MRI with contrast for characterization. URINARY BLADDER: The urinary bladder, as visualized, appearsunremarkable. Only the right ureteral jet was visualized. OTHER: No other additional findings. IMPRESSION: 1. 3 cm indeterminate hypoechoic lesion containing internal echoes onthe upper pole of the right kidney which can not be classified as a simplecyst on the basis of this examination. A solid lesion is not excluded. Recommend correlation with renal MRI with contrast for characterization. 2. Stable 1.1 cm exophytic cyst left kidney. THIS IS AN ELECTRONICALLY VERIFIED FINAL REPORT 01/14/2025 11:22 PM - Electronically signed by Matt Renner M.D. KT: PRESTON Report ID: [id number] Reading Location: [id number] us Dick Mendoza MD IMG US PROCEDURES Final Resul t * (ABNORMAL) eGFR (12/09/2024 9:32 AM CDT) eGFR 37(L) >=60 mL/min/1. 73 m2 Comment: Interpretive Data [...] Current interpretive data was last reviewed 2021. Blood 12/09/2024 9:32 AM CDT 12/09/2024 10:12 AM CDT us Dick Mendoza MD LAB BLOOD ORDERABLES Final Re sult [facility] [address] [place] [address] Department [place] [address] * (ABNORMAL) Hemoglobin A1c (12/09/2024 9:32 AM CDT) Hgb A1C 7.4(H) 4.0 - 5.6 % [facility] Estimated Average Glucose 166 mg/dL [facility] Comment: The ADA recommends reporting an estimated Average Glucose (eAG) with all Hemoglobin A1c results using the equation derived from a study of 507 normal and diabetic adults. Minority populations were underrepresented and children were not included. (Diabetes Care 31:5916-7044, 2008). The eAG is not equivalent to a fasting glucose. Testing performed by: [facility], [address] [facility], [place], [address] Blood 12/09/2024 9:32 AM CDT 12/09/2024 10:12 AM CDT us Dick Mendoza MD LAB BLOOD ORDERABLES Final Re sult [facility] ([place]) [address] [facility] Department [place] [address] from Last 3 Months or Most Recently Relevant to Health Maintenance Insurance MEDICARE COMMERCIAL GENERIC MEDICARE COMMERCIAL GENERIC MEDICARE [employer] Care Teams Wrapper Operator Relationship Specialty Start Date End Date Jose Joseph DO PCP - General 12/13/10
--- OUTSIDE RECORDS SUMMARY | 2025-03-15 01:28 | XMS_ITS | Clinical Summary ---
Author Organization [facility] Address [address] [place] [address] Phone Care Team Providers Care Aircraft Maintenance Director Name Role Phone LAURA GUZMAN, FRITZ SAUCEDA [facility] [phone] Reason for Visit and Chief Complaint The Chief Complaint is: follow up for depression and anxiety Problems Includes: Problems addressed during this encounter and other active Problems Current Visit Onset Date Resolved Date Provider Conditio n Status Post-traumatic Stress Disorder 01/10/2022 Active Last Documented On 3 5:53PM ; [facility] Tremor 01/10/2019 Active Last Documented On 3 5:52PM ; [facility] Psychophysiological Insomnia 04/11/2016 Active Last Documented On 3 5:50PM ; [facility] 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 FRITZ WORTHY MD Active Last Documented On 3 2:02PM ; [facility] Major Depression 06/22/2012 FRITZ MASSEY MD Active Last Documented On 3 2:02PM ; [facility] Generalized Anxiety Disorder 06/10/2012 Inactive Last Documented On 3 5:43PM ; [facility] Generalized Anxiety Disorder 06/10/2012 FRITZ MASSEY MD Active Last Documented On 3 2:02PM ; [facility] Past Visits Onset Date Resolved Date Provider Condition Status Restless Legs Syndrome 02/05/2023 BRANDON MASSEY MD Active Last Documented On 3 3:54PM ; [facility] Diabetes Mellitus Type 2 02/25/2017 Active Last Documented On 3 5:51PM ; [facility] Unspecified asthma, uncomplicated 07/10/2012 Active Last Documented On 3 5:48PM ; [facility] Essential (primary) hypertension 06/10/2012 Active Last Documented On 3 5:48PM ; [facility] Pure hypercholesterolemia 06/10/2012 Active Last Documented On 3 5:48PM ; [facility] Plan of Treatment Major Depressive disorder, recurrent [...] - Last Documented On 09/24/2022 9:32AM ; [facility] Assessments Includes: Assessments from this encounter Findings - Nonorganic sleep apnea - Last Documented On 09/24/2022 9:32AM ; [facility] - Tremor - Last Documented On 09/24/2022 9:32AM ; [facility] - Major depressive disorder - Last Documented On 09/24/2022 9:32AM ; [facility] - Psychophysiological insomnia - Last Documented On 09/24/2022 9:32AM ; [facility] - Generalized anxiety disorder - Last Documented On 09/24/2022 9:32AM ; [facility] - Post-traumatic stress disorder - Last Documented On 09/24/2022 9:32AM ; [facility] Medical Equipment - Implanted Devices Includes: Current Devices No Medical Equipment Recorded Medications Includes: Medications discussed during this encounter and other current Medications Discontinued / Stopped on this date on 04/23/2022 Azelastine HCl 137 MCG/SPRAY NA SOLN Prov ider: Diagnosis: Acute sinusitis, unspecified Last Documented On 09/11/2022 1:55PM By ILANA POOLE ; [facility] ZyrTEC Allergy 10 MG OR TABS Provider: Diagnosis: Last Documented On 09/11/2022 1:56PM By ILANA POOLE ; [facility] Quinapril HCl 40 MG OR TABS Provider: Diagnosis: Last Documented On 09/11/2022 2:48PM By ILANA POOLE ; [facility] New / Renewed during this visit FRITZ MASSEY MD on 09/11/2022 traZODone HCl 50 MG Oral Tablet Provider: METODIA TERESA MASSEY MD day supply: 240 tablet, 1 refills Diagnosis: Psychophysiologic insomnia as directed -- 1 tab 2 x a d ay, 1 tab at bedtime as needed Pharmacy: [address] [address] - Last Documented On 11/29/2022 4:43PM By ROSEMARY PINZON ; [facility] Current Medications (continue as prescribed) busPIRone HCl 10 MG Oral Tablet 10/15/2023 Provider: FRITZ MASSEY MD Diagnosis: Generalized anxi ety disorder One tablet daily Last Documented On 10/15/2023 2:46PM By Teresa Massey MD ; [facility] ZyrTEC Allergy 10 MG Oral Tablet 10/15/2023 Provider : Diagnosis: 1 tab daily prn Last Documented On 10/15/2023 1:59PM By ILANA POOLE ; [facility] traZODone HCl 50 MG Oral Tablet 06/20/2023 Provider: FRITZ MASSEY MD Diagnosis: Psychophysiologi c insomnia DIRECTED 1 TAB 2 TIMES A DAY AND 1 TAB AT BEDTIME NEEDED Last Documented On 06/20/2023 8:48AM By Teresa Massey MD ; [facility] Escitalopram Oxalate 20 MG Oral Tablet 06/11/2023 Provider: FRITZ MASSEY MD Diagnosis: Generalized anxi ety disorder One tablet daily Last Documented On 06/11/2023 2:33PM By Teresa Massey MD ; [facility] buPROPion HCl ER (XL) 150 MG Oral Tablet Extended Release 24 Hour 06/11/2023 Provider: FRITZ MASSEY MD Diagnosis: Major depressive disorder, recurrent, moderate TAKE 3 TABLETS BY MOUTH IN T HE MORNING Last Documented On 06/11/2023 2:31PM By Teresa Massey MD ; [facility] Atorvastatin Calcium 80 MG Oral Tablet 01/08/2023 Pr ovider: CESAR CASTANO APN Diagnosis: 1 tab daily Last Documented On 02/05/2023 1:45PM By ILANA POOLE ; [facility] Lisinopril 40 MG Oral Tablet 09/11/2022 Provider: Diagnosis: 1 daily Last Documented On 09/11/2022 2:48PM By ILANA POOLE ; [facility] metFORMIN HCl 500 MG TABS 07/11/2020 Provider: Diagnosis: 4 daily Last Documented On 09/07/2022 5:28PM By ILANA POOLE ; [facility] ProAir HFA 108 (90 Base) MCG/ACT IN AERS 05/13/2018 Provider: Diagnosis: 1-2 puffs every 4-6 hours prn Last Documented On 09/07/2022 5:28PM By ILANA POOLE ; [facility] Indapamide 2.5 MG OR TABS 03/02/2015 Provider: Diagnosis: from Dr. Figueroa Last Documented On 09/07/2022 5:28PM By Teresa Massey MD ; [facility] Aspirin 81 MG OR TABS 07/10/2012 Provider: Diagnosis: Last Documented On 09/07/2022 5:28PM By LEXIE HERNANDEZ ; [facility] Medications Administered Includes: Administered Medications from this [...] vitals Last Documented: On 09/11/2022 2:24PM ; [facility] Results Includes: Results discussed during this encounter [...] 09/12/2022 Last Documented On 3 9:32AM ; [facility] Caffeine use: Daily coffee c onsumption -- He drinks 0 - 4 cups of coffee a day, 2 glasses of tea a week and rarely, a botlle of Ski.Alcohol: Alcohol use -- <2 - 4 beers a month.Drug Use: Not using drugs (Illicit).Work: Work history -- He retired from [employer] in 2018.Marital: Marital history Pt at 21.He was born in [place], [place] and raised in [place], [place] He was close to his parents while growing up, they had a good relationship and they were supportive of him. He graduated high school. He worked at [employer]. He first got in 1972 at the age of 21 and had 2 children. He reported no history of verbal, physical or sexual abuse. 09/12/2022 Last Documented On 3 10:33AM ; [facility] Smoking Status Unknown Procedures and Surgical History Includes: Procedures from this encounter Procedures Code Diagnosis Performing Provider Service L ocation Service Date education and instructions Last Documented On 3 1:50PM ; [facility] ~* Call [phone] and /or go t o the nearest emergency room or call me if suicidal/homicidal ideation or other serious concerns arise. ~ ~* I gave instructions to call me should there be any questions or concerns. ~ ~* Patient voiced understanding and agreed to treatment plan Last Documented On 3 2:04PM ; [facility] dangerousness assessment: no suicide risk - not suicidal 3085F Last Documented On 3 2:26PM ; [facility] use of tobacco assessment performed 1000F Last Documented On 3 2:05PM ; [facility] patient screened for future fall risk: documentation of any fall with injury in past year - no recent falls 1100F Last Documented On 3 2:04PM ; [facility] screening for adult depressi on: impression and score - please see above for treatment and PHQ score Last Documented On 3 2:05PM ; [facility] standardized depression screening: posit marlen for symptoms Last Documented On 3 2:05PM ; [facility] encouragement to exercise Last Documented On 3 1:50PM ; [facility] Clinical summary provided to patient Last Documented On 3 1:50PM ; [facility] PHQ-9: total score 4 Last Documented On 3 9:31AM ; [facility] Medical History Includes: Medical History addressed during [...] right thumb 09/23/18Procedural: Coronavirus 2019-nCoV vaccine - Onit #1 08/02/20 #2 08/24/20 #3 04/19/21Surgical: Prior Surgery: Removal of ganglion cyst from left wrist. Removal of granuloma from left upper arm 09/18/2022 Last Documented On 3 11:15AM ; [facility] Family History Includes: Family History addressed during this encounter Description Last Updated Family medical history: No significant f amily history 09/18/2022 Last Documented On 3 11:16AM ; [facility] Review of Systems Includes: Review of Systems [...] Active Last Documented On 10/15/2023 1:46PM ; [facility] Note: Imported from external source. Cardizem Allergy 11/04/2018 Active Last Documented On 10/15/2023 1:46PM ; [facility] Note: Imported from external source. Encounters Encounter Provider Location Date Check-In Time Check-Out Time Diagnosis TELEHEALTH FRITZ MASSEY MD [facility] 09/12/19 1:49PM 11:59PM Generalized Anxiety Disorder,Major Depression,Post -traumatic Stress Disorder,Psycho physiological Insomnia,Nonorg anic Sleep Apnea,Tremor Insurance Includes: Active Insurance Policies Plan Name Member ID Group # Subscriber Relationship Effect marlen Dates 1 - MEDICARE PART A CLAIMS/NGS [id number] DEDE PRINGLE Self 05/12/2018 - Unknown 2 - [employer] [id number] DEDE PRINGLE Self Clinical Notes Includes: Clinical Notes from this encounter * Progress note Date Encounter Last Documented by 09/11/2022 TELEHEALTH Last documented on 09/24/2022; 9:32 AM, FRITZ MASSEY MD; [facility] Top of Document Medication psychotherapy [...] Work: Work history -- He retired from [employer] in 2018. Marital: Marital history Pt at 21. He was born in [place], [place] and raised in [place], [place]. He was close to his parents while growing up, they had a good relationship and they were supportive of him. He graduated high school. He worked at [employer]. He first got in 1972 at the [...] Clinical summary provided to patient. * Call [phone] and /or go to the nearest emergency [...]
--- OUTSIDE RECORDS SUMMARY | 2025-03-15 01:28 | XMS_ITS ---
Care Plan - [facility] Medical [facility]ly [facility] Created on: March 15, 2025 DEDE PRINGLE : 1950 Sex: Male Author Organization [facility] Medical [facility] Address [address] [place] [phone] Phone Care Team Providers Care Telecommunications Repairer Name Role Phone FRITZ SANCHEZ MD [facility] [phone]
--- OUTSIDE RECORDS SUMMARY | 2025-03-15 01:28 | XMS_ITS | Patient Health Record ---
Author Organization Formerly [facility] [place] ([address]) Address [address] [place] [address] Care Team Providers Care Painter Ski Edge Name Role Phone Jose Joseph Primary Care Provider Unavailab Kayy Miller Unavailable [phone] Allergies No Known Allergies Reason For Referral [...] smoker Section Notes: prior work in a [employer] y Problems Problem Type SNOMED Code ICD Code Onset Dates Problem Status W/U Status Risk Notes Problem Chronic allergic conjunctivitis (47022087) Other chronic allergic conjunctivitis (H10.45) Active confirmed Problem Allergic rhinitis caused by pollen (disorder) (30279017) Allergic rhinitis due to pollen (J30.1) Active confirmed Problem Allergic rhinitis (70294605) Other allergic rhinitis (J30.89) Active confirmed Problem Chronic rhinitis (15455552) Chronic rhinitis (J31.0) Active confirmed Problem Uncomplicated mild persistent asthma (918970605) Mild persistent asthma, uncomplicated (J45.30) Active confirmed Plan Of Treatment No Information Insurance Providers Payer Name Payer Address Payer Phone Subscriber Number Group Number Insured Name Patient Relationship to Insured Coverage Start Date Coverage End Date [employer] (Medicare) Attention Claims [address] [place] [address] [id number] Robin Kelly Self - patient is the insured [facility] [address] [address] [place] [address] [id number] Robin Kelly Self - patient is the insured Medical (General) History Medical History History ICD Code diabetes Atopic Dermatitis Hypertension Surgical History Surgery Date(Month/Year) ganglion cyst cat scratch fever
--- OUTSIDE RECORDS SUMMARY | 2025-03-15 01:28 | XMS_ITS | Clinical Summary ---
Author Organization [facility] Address [address] [address] Care Team Providers Care Furnace Utility Operator Name Role Phone Jose Joseph DO Primary Care Provider [phone] Allergies No known active allergies Medications aspirin [...] MG tablet Take 50 mg by mouth in the morning and 50 mg in the evening. Active primidone (MYSOLINE) 50 MG tablet Take 50 mg by mouth in the morning and 50 mg in the evening. Active Active Problems Problem Noted Date Diagnosed Date Stage 3b chronic kidney disease 01/26/2024 Type 2 diabetes mellitus 02/25/2017 Essential (primary) hypertension 06/10/2012 Encounters Date Type Department Care Team Description 01/28/2025 Documentation Only [facility] [address] [place] [address] Dick Mendoza MD 01/27/2025 Orders Only [facility] [address] [place] [address] Ceci Spence MA Essential (primary) hypertension (Primary Dx); Stage 3b chronic kidney disease (HCC); Acute kidney failure with other specified pathological lesion in kidney (HCC); Type 2 diabetes mellitus with diabetic nephropathy (HCC); Acquired complex renal cyst 01/18/2025 Orders Only [facility] [address] [place] [address] Ceci Spence MA 12/28/2024 1:15 PM CDT Office Visit [facility] [address] [place] [address] Dick Mendoza MD Stage 3b chronic kidney disease (HCC) (Primary Dx); Hypertension; Acquired complex renal cyst; Type 2 diabetes mellitus with diabetic nephropathy (HCC) 12/23/2024 Orders Only [facility] [address] [place] [address] Taya Gibbons RN 12/13/2024 Documentation Only [facility] [address] [place] [address] Dick Mendoza MD from Last 3 Months Family History Medical History Relation Comments Hypertension [...] Comments Blood Pressure 107/59 03/22/2024 2:14 PM PLASTERER TENDER Pulse 91 03/22/2024 2:14 PM PLASTERER TENDER Temperature 36.6 C (97.8 F) 03/22/2024 2:14 PM PLASTERER TENDER Respiratory Rate - - Oxygen Saturation 97% 03/22/2024 2:14 PM PLASTERER TENDER Inhaled Oxygen Concentration - - Weight 113 kg (248 lb 8 oz) 03/22/2024 2:[address] Height 167.6 cm (5' 6) 03/22/2024 2:14 PM PLASTERER TENDER Body Mass Index 40.11 03/22/2024 2:14 PM PLASTERER TENDER Plan of Treatment Upcoming Encounters Date Type Department Care Team (Late st Contact Info) Description 07/05/2025 10:15 AM PLASTERER TENDER Office Visit [facility] [address] [place] [address] Dick Mendoza MD [address] [place] [address] Health Maintenance Due Date Last Done Comments Pneumococcal Vaccine: 50+ Years (1 of 2 - PCV) 12/01/1971 Colorectal Cancer Screening: Annual FOBT 2001 Colorectal Cancer Screening: Colonoscopy 2001 Colorectal Cancer Screening: Sigmoidoscopy 2001 Diabetes: Ophthalmology Exam 01/26/2024 Diabetes: Pedal Pulse Checked 01/26/2024 Diabetes: Sensory Foot Exam 01/26/2024 Diabetes: Visual Foot Exam 01/26/2024 Influenza Vaccine (#1) 2025 2, 04/19/2021, 03/24/2019 Diabetes: Hemoglobin A1C 03/11/2025 025, 04/30/2024 Hepatitis B Vaccine Aged Out No longe r eligible based on patient's age to complete this topic Insurance Medicare [facility] Financial Care Teams Furnace Utility Operator Relationship Specialty Start Date End Date Jose Joseph DO [address] [place] [address] PCP - General Internal Medicine 01/26/24
--- OUTSIDE RECORDS SUMMARY | 2025-03-15 01:28 | XMS_ITS | Clinical Summary ---
Author Organization [facility] Address [address] [place] [address] Phone Care Team Providers Care Coin Box Collector Name Role Phone LAURA GUZMAN, FRITZ SAUCEDA [facility] [phone] Reason for Visit and Chief Complaint * PHONE CALL Problems Includes: Problems addressed during this encounter and other active Problems Current Visit Onset Date Resolved Date Provider Conditio n Status Restless Legs Syndrome 02/05/2023 METNICOLA MASSEY MD Active Last Documented On 3 3:54PM ; [facility] Past Visits Onset Date Resolved Date Provider Condition Status Post-traumatic Stress Disorder 01/10/2022 Active Last Documented On 3 5:53PM ; [facility] Tremor 01/10/2019 Active Last Documented On 3 5:52PM ; [facility] Diabetes Mellitus Type 2 02/25/2017 Active Last Documented On 3 5:51PM ; [facility] Psychophysiological Insomnia 04/11/2016 Active Last Documented On 3 5:50PM ; [facility] Unspecified asthma, uncomplicated 07/10/2012 Active Last Documented On 3 5:48PM ; [facility] 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 FRITZ WORTHY MD Active Last Documented On 3 2:02PM ; [facility] Major Depression 06/22/2012 FRITZ MASSEY MD Active Last Documented On 3 2:02PM ; [facility] Generalized Anxiety Disorder 06/10/2012 FRITZ MASSEY MD Active Last Documented On 3 2:02PM ; [facility] Essential (primary) hypertension 06/10/2012 Active Last Documented On 3 5:48PM ; [facility] Pure hypercholesterolemia 06/10/2012 Active Last Documented On 3 5:48PM ; [facility] Plan of Treatment No Plan of Treatment Recorded Assessments Includes: Assessments from this encounter Findings - Restless legs syndrome - Last Documented On 02/05/2023 5:27PM ; [facility] Medical Equipment - Implanted Devices Includes: Current Devices No Medical Equipment Recorded Medications Includes: Medications discussed during this encounter and other current Medications Discontinued / Stopped on this date on 09/14/2019 Atorvastatin Calcium 40 MG OR TABS Provid er: Diagnosis: Last Documented On 02/05/2023 1:45PM By ILANA POOLE ; [facility] New / Renewed during this visit FRITZ MASSEY MD on 02/05/2023 rOPINIRole HCl 3 MG Oral Tablet Provider: FRITZ MASSEY MD 30 day supply: 60 tablet, 3 refills Diagnosis: Restless legs syndrome as directed - 2 tabs in the evening Pharmacy: [facility] [id number] - Last Documented On 10/15/2023 2:46PM By Teresa Massey MD ; [facility] Current Medications (continue as prescribed) busPIRone HCl 10 MG Oral Tablet 10/15/2023 Provider: FRITZ MASSEY MD Diagnosis: Generalized anxi ety disorder One tablet daily Last Documented On 10/15/2023 2:46PM By Teresa Massey MD ; [facility] ZyrTEC Allergy 10 MG Oral Tablet 10/15/2023 Provider : Diagnosis: 1 tab daily prn Last Documented On 10/15/2023 1:59PM By ILANA POOLE ; [facility] traZODone HCl 50 MG Oral Tablet 06/20/2023 Provider: FRITZ MASSEY MD Diagnosis: Psychophysiologi c insomnia DIRECTED 1 TAB 2 TIMES A DAY AND 1 TAB AT BEDTIME NEEDED Last Documented On 06/20/2023 8:48AM By Teresa Massey MD ; [facility] Escitalopram Oxalate 20 MG Oral Tablet 06/11/2023 Provider: FRITZ MASSEY MD Diagnosis: Generalized anxi ety disorder One tablet daily Last Documented On 06/11/2023 2:33PM By Teresa Massey MD ; [facility] buPROPion HCl ER (XL) 150 MG Oral Tablet Extended Release 24 Hour 06/11/2023 Provider: FRITZ MASSEY MD Diagnosis: Major depressive disorder, recurrent, moderate TAKE 3 TABLETS BY MOUTH IN T HE MORNING Last Documented On 06/11/2023 2:31PM By Teresa Massey MD ; [facility] Atorvastatin Calcium 80 MG Oral Tablet 01/08/2023 Pr ovider: CESAR CASTANO CLERK TELEVISION PRODUCTION Diagnosis: 1 tab daily Last Documented On 02/05/2023 1:45PM By ILANA POOLE ; [facility] Lisinopril 40 MG Oral Tablet 09/11/2022 Provider: Diagnosis: 1 daily Last Documented On 09/11/2022 2:48PM By ILANA POOLE ; [facility] metFORMIN HCl 500 MG TABS 07/11/2020 Provider: Diagnosis: 4 daily Last Documented On 09/07/2022 5:28PM By ILANA POOLE ; [facility] ProAir HFA 108 (90 Base) MCG/ACT IN AERS 05/13/2018 Provider: Diagnosis: 1-2 puffs every 4-6 hours prn Last Documented On 09/07/2022 5:28PM By ILANA POOLE ; [facility] Indapamide 2.5 MG OR TABS 03/02/2015 Provider: Diagnosis: from Dr. Figueroa Last Documented On 09/07/2022 5:28PM By Teresa Massey MD ; [facility] Aspirin 81 MG OR TABS 07/10/2012 Provider: Diagnosis: Last Documented On 09/07/2022 5:28PM By LEXIE HERNANDEZ ; [facility] Medications Administered Includes: Administered Medications from this [...] Active Last Documented On 10/15/2023 1:46PM ; [facility] Note: Imported from external source. Cardizem Allergy 11/04/2018 Active Last Documented On 10/15/2023 1:46PM ; [facility] Note: Imported from external source. Encounters Encounter Provider Location Date Check-In Time Check-Out Time Diagnosis * PHONE CALL FRITZ MASSEY MD [facility] 02/06/20 3:30PM 11:59PM Restless Legs Syndrome Insurance Includes: Active Insurance Policies Plan Name Member ID Group # Subscriber Relationship Effect marlen Dates 1 - MEDICARE PART A CLAIMS/NGS [id number] DEDE Nguyen 05/12/2018 - Unknown 2 - [employer] [id number] DEDE Nguyen Clinical Notes Includes: Clinical Notes from this encounter * Progress note Date Encounter Last Documented by 02/05/2023 * PHONE CALL Last documented on 02/05/2023; 5:27 PM, FRITZ MASSEY MD; [facility] Active Problems & Conditions - Diabetes Mellitus [...] stronger. pt phone # for return call: [phone] Date/Initials: 02/05/23 db. Current Medication - Aspirin [...] Dede. PHY ORDER/COMMENT I called and told Isaac he can finish any Ropinirole 4 mg [...]
--- OUTSIDE RECORDS SUMMARY | 2025-03-15 01:28 | XMS_ITS | Clinical Summary ---
Author Organization [facility] Address [address] [place] [address] Phone Care Team Providers Care Director Of Recruitment Name Role Phone LAURA GUZMAN, FRITZ SAUCEDA [facility] [phone] Reason for Visit and Chief Complaint The Chief Complaint is: follow up for depression and anxiety Problems Includes: Problems addressed during this encounter and other active Problems Current Visit Onset Date Resolved Date Provider Conditio n Status Post-traumatic Stress Disorder 01/10/2022 Active Last Documented On 3 5:53PM ; [facility] Tremor 01/10/2019 Active Last Documented On 3 5:52PM ; [facility] Psychophysiological Insomnia 04/11/2016 Active Last Documented On 3 5:50PM ; [facility] 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 FRITZ WORTHY MD Active Last Documented On 3 2:02PM ; [facility] Major Depression 06/22/2012 FRITZ MASSEY MD Active Last Documented On 3 2:02PM ; [facility] Generalized Anxiety Disorder 06/10/2012 Inactive Last Documented On 3 5:43PM ; [facility] Generalized Anxiety Disorder 06/10/2012 FRITZ MASSEY MD Active Last Documented On 3 2:02PM ; [facility] Past Visits Onset Date Resolved Date Provider Condition Status Restless Legs Syndrome 02/05/2023 BRANDON MASSEY MD Active Last Documented On 3 3:54PM ; [facility] Diabetes Mellitus Type 2 02/25/2017 Active Last Documented On 3 5:51PM ; [facility] Unspecified asthma, uncomplicated 07/10/2012 Active Last Documented On 3 5:48PM ; [facility] Essential (primary) hypertension 06/10/2012 Active Last Documented On 3 5:48PM ; [facility] Pure hypercholesterolemia 06/10/2012 Active Last Documented On 3 5:48PM ; [facility] Plan of Treatment Major Depressive disorder, recurrent [...] - Last Documented On 06/11/2023 2:57PM ; [facility] Assessments Includes: Assessments from this encounter Findings - Nonorganic sleep apnea - Last Documented On 06/11/2023 2:57PM ; [facility] - Tremor - Last Documented On 06/11/2023 2:57PM ; [facility] - Major depressive disorder - Last Documented On 06/11/2023 2:57PM ; [facility] - Psychophysiological insomnia - Last Documented On 06/11/2023 2:57PM ; [facility] - Generalized anxiety disorder - Last Documented On 06/11/2023 2:57PM ; [facility] - Post-traumatic stress disorder - Last Documented On 06/11/2023 2:57PM ; [facility] Medical Equipment - Implanted Devices Includes: Current Devices No Medical Equipment Recorded Medications Includes: Medications discussed during this encounter and other current Medications New / Renewed during this visit FRITZ MASSEY MD on 06/11/2023 Escitalopram Oxalate 20 MG Oral Tablet Provider: FRITZ MASSEY MD day supply: 90 tablet, 3 refills Diagnosis: Generalized anxiety disorder One tablet daily Pharmacy: [address], [address] - Last Documented On 06/11/2023 2:33PM By Teresa Massey MD ; [facility] buPROPion HCl ER (XL) 150 MG Oral Tablet Extended Release 24 Hour Provider: FRITZ MASSEY MD 90 day supply: 270 tablet, 3 refills Diagnosis: Major depressive disorder, recurrent, moderate TAKE 3 TABLETS BY MOUTH IN T HE MORNING Pharmacy: [facility] [address], [address] - Last Documented On 06/11/2023 2:31PM By Teresa Massey MD ; [facility] Current Medications (continue as prescribed) busPIRone HCl 10 MG Oral Tablet 10/15/2023 Provider: FRITZ MASSEY MD Diagnosis: Generalized anxi ety disorder One tablet daily Last Documented On 10/15/2023 2:46PM By Teresa Massey MD ; [facility] ZyrTEC Allergy 10 MG Oral Tablet 10/15/2023 Provider : Diagnosis: 1 tab daily prn Last Documented On 10/15/2023 1:59PM By ILANA POOLE ; [facility] traZODone HCl 50 MG Oral Tablet 06/20/2023 Provider: FRITZ MASSEY MD Diagnosis: Psychophysiologi c insomnia DIRECTED 1 TAB 2 TIMES A DAY AND 1 TAB AT BEDTIME NEEDED Last Documented On 06/20/2023 8:48AM By Teresa Massey MD ; [facility] Atorvastatin Calcium 80 MG Oral Tablet 01/08/2023 Pr ovider: CESAR CASTANO GRANITE SANDBLASTER APPRENTICE Diagnosis: 1 tab daily Last Documented On 02/05/2023 1:45PM By ILANA POOLE ; [facility] Lisinopril 40 MG Oral Tablet 09/11/2022 Provider: Diagnosis: 1 daily Last Documented On 09/11/2022 2:48PM By ILANA POOLE ; [facility] metFORMIN HCl 500 MG TABS 07/11/2020 Provider: Diagnosis: 4 daily Last Documented On 09/07/2022 5:28PM By ILANA POOLE ; [facility] ProAir HFA 108 (90 Base) MCG/ACT IN AERS 05/13/2018 Provider: Diagnosis: 1-2 puffs every 4-6 hours prn Last Documented On 09/07/2022 5:28PM By ILANA POOLE ; [facility] Indapamide 2.5 MG OR TABS 03/02/2015 Provider: Diagnosis: from Dr. Figueroa Last Documented On 09/07/2022 5:28PM By Teresa Massey MD ; [facility] Aspirin 81 MG OR TABS 07/10/2012 Provider: Diagnosis: Last Documented On 09/07/2022 5:28PM By LEXIE HERNANDEZ ; [facility] Medications Administered Includes: Administered [...] patient Last Documented: On 06/11/2023 1:45PM ; [facility] Results Includes: Results discussed during [...] 06/11/2023 Last Documented On 4 2:57PM ; [facility] Current smoker for 25 06/11/2023 Last Documented On 4 2:57PM ; [facility] Currently not in school 06/11/2023 Last Documented On 4 2:57PM ; [facility] Daily coffee consumption 06/11/2023 Last Documented On 4 2:57PM ; [facility] Former smoker 06/11/2023 Last Documented On 4 2:57PM ; [facility] Lives with spouse 06/11/2023 Last Documented On 4 2:57PM ; [facility] Stopped smoking years ago 06/11/2023 Last Documented On 4 2:57PM ; [facility] Former smoker - quit smoking in 1999 Last Documented On 4 2:57PM ; [facility] Caffeine use: Daily coffee c onsumption -- He drinks 0 - 4 cups of coffee a day, 2 glasses of tea a week and rarely, a botlle of Ski.Alcohol: Alcohol use -- <2 - 4 beers a month.Drug Use: Not using drugs (Illicit).Work: Work history -- He retired from [employer] in 2018.Marital: Marital history Pt at 21.He was born in [place], [place] and raised in [place], [place]. He was close to his parents while growing up, they had a good relationship and they were supportive of him. He graduated high school. He worked at [employer]. He first got in 1972 at the age of 21 and had 2 children. He reported no history of verbal, physical or sexual abuse. 06/11/2023 Last Documented On 4 1:40PM ; [facility] Smoking Status Unknown Procedures and Surgical History Includes: Procedures from this encounter Procedures Code Diagnosis Performing Provider Service L ocation Service Date education and instructions Last Documented On 4 1:40PM ; [facility] ~* Call 911/[phone] and /or go t o the nearest emergency room or call me if suicidal/homicidal ideation or other serious concerns arise. ~ ~* I gave instructions to call me should there be any questions or concerns. ~ ~* Patient voiced understanding and agreed to treatment plan Last Documented On 4 1:43PM ; [facility] dangerousness assessment: no suicide risk 3085F Last Documented On 4 1:40PM ; [facility] use of tobacco assessment performed 1000F Last Documented On 4 1:44PM ; [facility] patient screened for future fall risk: documentation of any fall with injury in past year - no recent falls 1100F Last Documented On 4 1:43PM ; [facility] review of medications documented 1160F Last Documented On 4 1:43PM ; [facility] assessment of suicide risk performed - n ot suicidal Last Documented On 4 1:44PM ; [facility] screening for adult depressi on: impression and score - please see above treatment and PHQ score Last Documented On 4 1:44PM ; [facility] standardized depression screening: posit marlen for symptoms Last Documented On 4 1:44PM ; [facility] encouragement to exercise - balanced meal plan, low fat low carb diet - pt lost 7 lbs since last seen Last Documented On 4 2:51PM ; [facility] Clinical summary provided to patient Last Documented On 4 1:40PM ; [facility] PHQ-9: total score 5 Last Documented On 4 2:50PM ; [facility] Medical History Includes: Medical [...] right thumb 09/23/18Procedural: Coronavirus 2019-nCoV vaccine - [employer] 28 #1 08/02/20 #2 08/24/20 #3 04/19/21Surgical: Prior Surgery: Removal of ganglion cyst from left wrist. Removal of granuloma from left upper arm 06/11/2023 Last Documented On 4 1:40PM ; [facility] Family History Includes: Family History addressed during this encounter Description Last Updated Family medical history: No significant f amily history 06/11/2023 Last Documented On 4 1:40PM ; [facility] Review of Systems Includes: [...] Active Last Documented On 10/15/2023 1:46PM ; [facility] Note: Imported from external source. Cardizem Allergy 11/04/2018 Active Last Documented On 10/15/2023 1:46PM ; [facility] Note: Imported from external source. Encounters Encounter Provider Location Date Check-In Time Check-Out Time Diagnosis [facility] ADULT [facility]YCH ESTABLISHED FRITZ MASSEY MD [facility] 06/11/19 24 1:35PM 11:59PM Generalized Anxiety Disorder,Nonor ganic Sleep Apnea,Psychoph ysiological Insomnia,Post- traumatic Stress Disorder,Tremo r,Major Depression Insurance Includes: Active Insurance Policies Plan Name Member ID Group # Subscriber Relationship Effect marlen Dates 1 - MEDICARE PART A CLAIMS/NGS [id number] DEDE PRINGLE Self 05/12/2018 - Unknown 2 - [employer] [id number] DEDE PRINGLE Self Clinical Notes Includes: Clinical Notes from this encounter * Progress note Date Encounter Last Documented by 06/11/2023 TELEHEALTH ADULT PSYCH ESTABLISH ED Last documented on 06/11/2023; 2:58 PM, FRITZ MASSEY MD; [facility] Top of Document Medication psychotherapy - 47 [...] Work: Work history -- He retired from [employer] in 2018. Marital: Marital history Pt at 21. He was born in [place], [place] and raised in [place], [place]. He was close to his parents while growing up, they had a good relationship and they were supportive of him. He graduated high school. He worked at [employer]. He first got in 1972 at the [...] Clinical summary provided to patient. * Call [phone] and /or go to the nearest emergency [...]
--- OUTSIDE RECORDS SUMMARY | 2025-03-15 01:29 | XMS_ITS | Clinical Summary ---
Author Organization [facility] Address [address] [place] [phone] Phone Care Team Providers Care Cutter Finisher Name Role Phone LAURA GUZMAN, FRITZ Nolan [...] Documented On 2 9:19PM ; [facility] Diabetes Mellitus Type 2 02/25/2017 FRITZ MASSEY MD Active Last Documented On 7 4:30PM ; [facility] Unspecified asthma, uncomplicated 07/10/2012 ME MERVAT MASSEY MD Active Last Documented On 5 10:26AM ; [facility] Sleep apnea, unspecified 07/10/2012 FRITZ MASSEY MD Active Last Documented On 5 10:26AM ; [facility] Major depressive disorder, r ecurrent, unspecified 06/22/2012 FRITZ MASSEY MD Active Last Documented On 5 10:25AM ; [facility] Generalized anxiety disorder 06/10/2012 FRITZ MASSEY MD Active Last Documented On 5 10:23AM ; [facility] Essential (primary) hypertension 06/10/2012 MET ANTONIO MASSEY MD Active Last Documented On 5 10:24AM ; [facility] Pure hypercholesterolemia 06/10/2012 FRITZ MASSEY [...] - Last Documented On 01/09/2022 8:28AM ; [facility] Instructions to patient Lose weight - pt lost 5 lbs Last Documented On 2 8:27AM ; [facility] Education and Decision Aids were provided during visit for: Patient education about medi cation --- I educated patient on medication(s) and diagnosis. I reviewed the risks, benefits and side effects of patient's medications Last Documented On 2 1:36PM ; [facility] Discussed calming techniques such as breathing exercises and other relaxation techniques Last Documented On 2 1:36PM ; [facility] Counseling for nutrition/maci ght management provided Last Documented On 2 1:50PM ; [facility] Discussed good sleep hygiene habits Last Documented On 2 1:50PM ; [facility] Assessments Includes: Assessments from this encounter Findings - Obstructive sleep apnea - Last Documented On 01/09/2022 8:28AM ; [facility] - Tremor - Last Documented On 01/09/2022 8:28AM ; [facility] - Major depression, recurrent - Last Documented On 01/09/2022 8:28AM ; [facility] - Psychophysiological insomnia - Last Documented On 01/09/2022 8:28AM ; [facility] - Generalized anxiety disorder - Last Documented On 01/09/2022 8:28AM ; [facility] Instructions Includes: Instructions from this encounter Instructions to patient Lose weight - pt lost 5 lbs Last Documented On 8:27AM ; [facility] Education and Decision Aids were provided during visit for: Patient education about medi cation --- I educated patient on medication(s) and diagnosis. I reviewed the risks, benefits and side effects of patient's medications Last Documented On 2 1:36PM ; [facility] Discussed calming techniques such as breathing exercises and other relaxation techniques Last Documented On 2 1:36PM ; [facility] Counseling for nutrition/maci ght management provided Last Documented On 2 1:50PM ; [facility] Discussed good sleep hygiene habits Last Documented On 2 1:50PM ; [facility] Medical Equipment - [...] disorder One tablet daily Pharmacy: [facility] [address], [address] - Last Documented On 06/11/2022 1:53PM By Teresa Massey MD ; [facility] Viibryd 20 MG Oral Tablet Provider: ME MERVAT MASSEY MD 30 day supply: 30 tablet, 2 refills Diagnosis: Major depressive disorder, recurrent, moderate as directed -- 1 tab in am with food Pharmacy: [facility] - [address] [place] [address], [id number] - Last Documented On 03/04/2022 2:33PM By [...] vitals Last Documented: On 12/04/2021 1:52PM ; [facility] Results Includes: Results discussed during this [...] he was referred to a urologist at [facility] to see the specialist. 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 He was close to his parents while growing up, they had a good relationship and they were supportive of him. He graduated high school. He worked at [employer]. He first got in 1972 at the age of 21 and had 2 children. He reported no history of verbal, physical or sexual abuse 05/13/2018 Last Documented On 2 1:36PM ; [facility] Marital history Pt at 21 013 Last Documented On 2 1:36PM ; [facility] Not using drugs (Illicit) 06/10/2012 Last Documented On 2 1:36PM ; [facility] Smoking Status Unknown Procedures and Surgical History Includes: Procedures from this encounter Procedures Code Diagnosis Performing Provider Service L ocation Service Date education and instructions Last Documented On 2 1:36PM ; [facility] I explained the rationale fo r [...] treatment plan Last Documented On 8:27AM ; [facility] dangerousness assessment: suicide risk - not nancy cidal 3085F Last Documented On 2 1:58PM ; [facility] use of tobacco assessment performed 1000F Last Documented On 2 1:36PM ; [facility] patient screened for future fall risk - no recen t falls 3288F Last Documented On 2 1:36PM ; [facility] review of medications documented 1160F Last Documented On 2 1:36PM ; [facility] screening for adult depressi on: impression and score - please see above treatment and PHQ score Last Documented On 2 1:36PM ; [facility] standardized depression screening: posit marlen for symptoms Last Documented On 2 1:36PM ; [facility] encouragement to exercise Last Documented On 2 1:50PM ; [facility] Clinical summary provided to patient Last Documented On 2 1:50PM ; [facility] PHQ-9: total score 6 Last Documented On 2 5:06PM ; [facility] Surgical History Last Updated History of Prior Surgery: Re moval of ganglion cyst from left wrist. ~Removal of granuloma from left upper arm 07/10/2012 Last Documented On 2 1:36PM ; [facility] Medical History Includes: Medical History addressed during this encounter Description Last Updated History of coronavirus 2019- nCoV vaccine - Pfizer #1 08/02/20 #2 08/24/20 #3 04/19/21 05/23/2021 Last Documented On 2 1:36PM ; [facility] History of COVID-19 infection - tested p ositive 01/25/21 -- fatigue 03/12/2021 Last Documented On 2 1:36PM ; [facility] Primary Care Provider: Dr. Ernesto maynard 09/13/2020 Last Documented On 2 1:36PM ; [facility] History of obstructive sleep apnea --using CPAP had a sleep study in 2017 and as of 04/01/19 he wears his CPAP every night 04/01/2019 Last Documented On 2 1:36PM ; [facility] History of crush injury of the thumb - r ight thumb 09/23/18 11/04/2018 Last Documented On 2 1:36PM ; [facility] History of type 2 diabetes mellitus 02/09 Last Documented On 2 1:36PM ; [facility] History of eczema 08/28/2016 Last Documented On 2 1:36PM ; [facility] History of dyshidrosis -- h/o 02/29/2016 Last Documented On 2 1:36PM ; [facility] History of asthma 10/05/2013 Last Documented On 2 1:36PM ; [facility] History of hyperlipidemia 06/10/2012 Last Documented On 2 1:36PM ; [facility] History of hypertension 06/10/2012 Last Documented On 2 1:36PM ; [facility] Family History Includes: Family History addressed during this encounter Description Last Updated Family medical history : No significant family history 02/25/2017 Last Documented On 2 1:36PM ; [facility] Review of Systems Includes: [...] Active Last Documented On 10/15/2023 1:46PM ; [facility] Note: Imported from external source. Cardizem Allergy 11/04/2018 Active Last Documented On 10/15/2023 1:46PM ; [facility] Note: Imported from external source. Encounters Encounter Provider Location Date Check-In Time Check- Out Time Diagnosis TELEHEALTH FRITZ MASSEY MD [facility] 2 1:36PM 11:59PM Major Depression, Recurrent,Gen eralized Anxiety Disorder,Nono rganic Sleep Apnea Obstructive,P sychophysiolo gical Insomnia,Trem or Insurance Includes: Active Insurance Policies Plan Name Member ID Group # Subscriber Relationship Effect marlen Dates 1 - MEDICARE PART A CLAIMS/NGS [id number] DEDE Nguyen 05/12/2018 - Unknown 2 - [employer] [id number] DEDE PRINGLE Self Clinical Notes Includes: Clinical Notes from this encounter No Clinical Notes Recorded
--- OUTSIDE RECORDS SUMMARY | 2025-03-15 01:29 | XMS_ITS | Clinical Summary ---
Author Organization [facility] Address [address] [place] [address] Phone Care Team Providers Care Geriatric Social Work Professor Name Role Phone LAURA GUZMAN, FRITZ SAUCEDA [facility] [phone] Reason for Visit and Chief Complaint The Chief Complaint is: follow up for depression and anxiety Problems Includes: Problems addressed during this encounter and other active Problems Current Visit Onset Date Resolved Date Provider Conditio n Status Post-traumatic Stress Disorder 01/10/2022 Active Last Documented On 3 5:53PM ; [facility] Tremor 01/10/2019 Active Last Documented On 3 5:52PM ; [facility] Psychophysiological Insomnia 04/11/2016 Active Last Documented On 3 5:50PM ; [facility] 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 FRITZ WORTHY MD Active Last Documented On 3 2:02PM ; [facility] Major Depression 06/22/2012 FRITZ MASSEY MD Active Last Documented On 3 2:02PM ; [facility] Generalized Anxiety Disorder 06/10/2012 Inactive Last Documented On 3 5:43PM ; [facility] Generalized Anxiety Disorder 06/10/2012 FRITZ MASSEY MD Active Last Documented On 3 2:02PM ; [facility] Past Visits Onset Date Resolved Date Provider Condition Status Restless Legs Syndrome 02/05/2023 BRANDON MASSEY MD Active Last Documented On 3 3:54PM ; [facility] Diabetes Mellitus Type 2 02/25/2017 Active Last Documented On 3 5:51PM ; [facility] Unspecified asthma, uncomplicated 07/10/2012 Active Last Documented On 3 5:48PM ; [facility] Essential (primary) hypertension 06/10/2012 Active Last Documented On 3 5:48PM ; [facility] Pure hypercholesterolemia 06/10/2012 Active Last Documented On 3 5:48PM ; [facility] Plan of Treatment Major Depressive disorder, [...] - Last Documented On 03/02/2023 5:32PM ; [facility] Education and Decision Aids were provided during visit for: Discussed good sleep hygiene habits , guided meditation, breathing exercises if and when anxious Last Documented On 3 5:28PM ; [facility] Assessments Includes: Assessments from this encounter Findings - Nonorganic sleep apnea - Last Documented On 03/02/2023 5:32PM ; [facility] - Tremor - Last Documented On 03/02/2023 5:32PM ; [facility] - Major depressive disorder - Last Documented On 03/02/2023 5:32PM ; [facility] - Psychophysiological insomnia - Last Documented On 03/02/2023 5:32PM ; [facility] - Generalized anxiety disorder - Last Documented On 03/02/2023 5:32PM ; [facility] - Post-traumatic stress disorder - Last Documented On 03/02/2023 5:32PM ; [facility] Instructions Includes: Instructions from this encounter Education and Decision Aids were provided during visit for: Discussed good sleep hygiene habits , guided meditation, breathing exercises if and when anxious Last Documented On 3 5:28PM ; [facility] Medical Equipment - Implanted Devices Includes: Current Devices No Medical Equipment Recorded Medications Includes: Medications discussed during this encounter and other current Medications Discontinued / Stopped on this date on 09/14/2019 Atorvastatin Calcium 40 MG OR TABS Provid er: Diagnosis: Last Documented On 02/05/2023 1:45PM By ILANA POOLE ; [facility] Current Medications (continue as prescribed) busPIRone HCl 10 MG Oral Tablet 10/15/2023 Provider: FRITZ MASSEY MD Diagnosis: Generalized anxi ety disorder One tablet daily Last Documented On 10/15/2023 2:46PM By Teresa Massey MD ; [facility] ZyrTEC Allergy 10 MG Oral Tablet 10/15/2023 Provider : Diagnosis: 1 tab daily prn Last Documented On 10/15/2023 1:59PM By ILANA POOLE ; [facility] traZODone HCl 50 MG Oral Tablet 06/20/2023 Provider: FRITZ MASSEY MD Diagnosis: Psychophysiologi c insomnia DIRECTED 1 TAB 2 TIMES A DAY AND 1 TAB AT BEDTIME NEEDED Last Documented On 06/20/2023 8:48AM By Teresa Massey MD ; [facility] Escitalopram Oxalate 20 MG Oral Tablet 06/11/2023 Provider: FRITZ MASSEY MD Diagnosis: Generalized anxi ety disorder One tablet daily Last Documented On 06/11/2023 2:33PM By Teresa Massey MD ; [facility] buPROPion HCl ER (XL) 150 MG Oral Tablet Extended Release 24 Hour 06/11/2023 Provider: FRITZ MASSEY MD Diagnosis: Major depressive disorder, recurrent, moderate TAKE 3 TABLETS BY MOUTH IN T HE MORNING Last Documented On 06/11/2023 2:31PM By Teresa Massey MD ; [facility] Atorvastatin Calcium 80 MG Oral Tablet 01/08/2023 Pr ovider: CESAR CASTANO APN Diagnosis: 1 tab daily Last Documented On 02/05/2023 1:45PM By ILANA POOLE ; [facility] Lisinopril 40 MG Oral Tablet 09/11/2022 Provider: Diagnosis: 1 daily Last Documented On 09/11/2022 2:48PM By ILANA POOLE ; [facility] metFORMIN HCl 500 MG TABS 07/11/2020 Provider: Diagnosis: 4 daily Last Documented On 09/07/2022 5:28PM By ILANA POOLE ; [facility] ProAir HFA 108 (90 Base) MCG/ACT IN AERS 05/13/2018 Provider: Diagnosis: 1-2 puffs every 4-6 hours prn Last Documented On 09/07/2022 5:28PM By ILANA POOLE ; [facility] Indapamide 2.5 MG OR TABS 03/02/2015 Provider: Diagnosis: from Dr. Figueroa Last Documented On 09/07/2022 5:28PM By Teresa Massey MD ; [facility] Aspirin 81 MG OR TABS 07/10/2012 Provider: Diagnosis: Last Documented On 09/07/2022 5:28PM By LEXIE HERNANDEZ ; [facility] Medications Administered Includes: Administered [...] vitals Last Documented: On 03/02/2023 5:26PM ; [facility] Results Includes: Results discussed during [...] (Illicit).Work: Work history -- He retired from [employer] in 2018.Marital: Marital history Pt at 21.He was born in [place], [place] and raised in [place], [place]. He was close to his parents while growing up, they had a good relationship and they were supportive of him. He graduated high school. He worked at [employer]. He first got in 1972 at the age of 21 and had 2 children. He reported no history of verbal, physical or sexual abuse. 02/05/2023 Last Documented On 3 1:33PM ; [facility] Tobacco non-user 02/05/2023 Last Documented On 3 5:32PM ; [facility] Smoking Status Unknown Procedures and Surgical History Includes: Procedures from this encounter Procedures Code Diagnosis Performing Provider Service L ocation Service Date education and instructions Last Documented On 3 1:33PM ; [facility] supportive care and encourag ement--given positive reinforcement to keep patient motivated and active Last Documented On 3 1:51PM ; [facility] ~* Call [phone] and /or go t o the nearest emergency room or call me if suicidal/homicidal ideation or other serious concerns arise. ~ ~* I gave instructions to call me should there be any questions or concerns. ~ ~* Patient voiced understanding and agreed to treatment plan Last Documented On 3 1:46PM ; [facility] dangerousness assessment: no suicide risk 3085F Last Documented On 3 1:33PM ; [facility] use of tobacco assessment performed 1000F Last Documented On 3 1:33PM ; [facility] patient screened for future fall risk: documentation of any fall with injury in past year - no recent falls 1100F Last Documented On 3 1:33PM ; [facility] review of medications documented 1160F Last Documented On 3 1:46PM ; [facility] assessment of suicide risk performed - n ot suicidal Last Documented On 3 1:46PM ; [facility] screening for adult depressi on: impression and score - please see above for treatment and PHQ score Last Documented On 3 1:33PM ; [facility] standardized depression screening: posit marlen for symptoms Last Documented On 3 1:33PM ; [facility] encouragement to exercise - balanced arlyn l plan, low fat low carb diet Last Documented On 3 1:46PM ; [facility] Clinical summary provided to patient Last Documented On 3 1:33PM ; [facility] PHQ-9: total score 7 Last Documented On 3 5:28PM ; [facility] Medical History Includes: Medical History addressed during [...] 02/05/2023 Last Documented On 3 3:09PM ; [facility] Family History Includes: Family History addressed during this encounter Description Last Updated Family medical history: No significant f amily history 02/05/2023 Last Documented On 3 1:33PM ; [facility] Review of Systems Includes: [...] Active Last Documented On 10/15/2023 1:46PM ; [facility] Note: Imported from external source. Cardizem Allergy 11/04/2018 Active Last Documented On 10/15/2023 1:46PM ; [facility] Note: Imported from external source. Encounters Encounter Provider Location Date Check-In Time Check-Out Time Diagnosis TELEHEALTH ADULT PSYCH ESTABLISHED FRITZ MASSEY MD [facility] 02/06/20 1:33PM 11:59PM Generalized Anxiety Disorder,Nonor ganic Sleep Apnea,Psychoph ysiological Insomnia,Post- traumatic Stress Disorder,Tremo r,Major Depression Insurance Includes: Active Insurance Policies Plan Name Member ID Group # Subscriber Relationship Effect marlen Dates 1 - MEDICARE PART A CLAIMS/NGS [id number] DEDE PRINGLE Self 05/12/2018 - Unknown 2 - [employer] [id number] DEDE PRINGLE Self Clinical Notes Includes: Clinical Notes from this encounter * Progress note Date Encounter Last Documented by 02/05/2023 [facility] ADULT [facility] ESTABLISH ED Last documented on 03/02/2023; 5:32 PM, FRITZ MASSEY MD; [facility] Top of Document Medication psychotherapy 45 minutes [...] Work: Work history -- He retired from [employer] in 2018. Marital: Marital history Pt at 21. He was born in [place], [place] and raised in [place], [place]. He was close to his parents while growing up, they had a good relationship and they were supportive of him. He graduated high school. He worked at [employer]. He first got in 1972 at the [...] Clinical summary provided to patient. * Call [phone] and /or go to the nearest emergency [...]
[2025-03-15 09:58] VITALS: BP 128/79; PULSE 79; RESP 20; TEMP 36.3; O2SAT 98
[2025-03-15] MEDS: LACTATED RINGERS 1,000 ML 150 ML IV CONT (10:12)
--- NOTE | 2025-03-15 10:27 | WPDANESEPPF ---
Anes - Initial Pre Proc Eval Procedure: Operation Date: 03/15/25 11:00 Proposed Procedures p Screening Colonoscopy - Aidan Fernandez MD Date/Time: 03/15/25 10:27 Surgeon: Aidan Fernandez MD Pre Op Diagnosis: Personal history of colon polyps, unspecified Patient Data Age: 74 Gender: M Height: 1.68 m Weight: 110.7 kg Last Vital Signs Temp 36.3 C L 03/15/25 09:58 Pulse 79 03/15/25 09:58 Resp 20 03/15/25 09:58 BP 128/79 03/15/25 09:58 Pulse Ox 98 03/15/25 09:58 O2 Del Method Room Air 03/15/25 09:58 Allergies Allergy/AdvReac Type Severity Reaction Status Date / Time diltiazem Allergy Rash Verified 03/15/25 09:56 Home Medications ?Medication ?Instructions ?Recorded ?Confirmed ?Type aspirin 81 mg tablet,delayed 81 mg PO DAILY 06/10/19 03/15/25 History release (Adult Low Dose Aspirin) blood sugar diagnostic (Easy Touch #10 ea 06/10/19 03/02/25 History Test Strip) blood-glucose meter (Easy Touch #1 ea 06/10/19 03/02/25 History Glucose Monitor) bupropion HCl 150 mg 24 hr tablet, 450 mg PO QAM 06/10/19 03/15/25 History extended release (Wellbutrin XL) escitalopram oxalate 20 mg tablet 10 mg PO DAILY 06/10/19 03/15/25 History (Lexapro) lancets 28 gauge (Easy Touch #25 ea 06/10/19 03/02/25 History Lancets) trazodone 50 mg tablet 50 mg PO BID PRN Sleep 09/07/19 03/15/25 History albuterol sulfate 90 mcg/actuation 2 puff inhalation Q4-6H PRN 08/17/21 03/15/25 Rx aerosol inhaler (Ventolin HFA) shortness of breath or wheezing #8.5 grams atorvastatin 80 mg tablet 80 mg PO QHS #90 tabs 07/06/24 03/15/25 Rx indapamide 2.5 mg tablet 2.5 mg PO DAILY #90 tabs 07/06/24 03/15/25 Rx primidone 50 mg tablet 50 mg PO BID 09/06/24 03/15/25 History semaglutide 0.25 mg or 0.5 mg (2 0.25 mg (0.368 mL) subcut WEEKLY 09/10/24 03/02/25 Rx mg/3 mL) subcutaneous pen injector #3 mL (Ozempic) lisinopril 20 mg tablet 20 mg PO DAILY #90 tabs 01/17/25 03/15/25 Rx metformin 500 mg tablet 500 mg PO DAILY #90 tabs 01/17/25 03/15/25 Rx Laboratory Tests 03/15/25 10:10 POC Capillary Glucose 195 H mg/dl (65-105) Patient hx anesthesia problems: none Family hx anesthesia problems: none Results Review: All pre-operative results and documents have been reviewed as part of the pre-operative evaluation. [facility] Past Medical History Medical History Abdominal hernia Fatigue Trigger finger, left middle finger Decreased GFR Severe obesity with body mass index (BMI) of 35.0 to 39.9 with serious comorbidity Asthma Anxiety Allergies Diabetes Depression Shingles Dysmetabolic syndrome X COPD (chronic obstructive pulmonary disease) HLD (hyperlipidemia) Chronic kidney disease Essential hypertension DARVIN (obstructive sleep apnea) DM renal manif type II Family History Family History Father Hypertension Sibling Malignant neoplasm of prostate Liver cancer Mother No problems noted. Social History Social History Smoking packs per day: 1.5 Smoking cigarettes per day: 30.0 Years smoked: 30 Smoking pack-years: 45.00 Smoking status: Former smoker Smoking end date: 05/12/98 Alcohol intake: current Alcohol use details: rarely Substance use: never Lack of Transportation: No Lack of Food: Never True Current Housing: I Have Housing Concerned About Future Housing: No Difficulty Paying Gas/Electric Bills: No Difficulty Paying for Meds: No Currently Unemployed: No Education: High School Diploma/GED Difficulty w/ Childcare or Family Care: No Living arrangements: with family Spiritual care concerns: No Anes - Eval Final PreProcedure Day of Procedure 03/15/25 10:27 Patient weight: obese Heart: regular rate and rhythm Lungs: decreased breath sounds Airway: Mallampati scale class III Neurological: alert and oriented Last oral intake: >/= 8 hours ASA classification: III Emergent: no Anesthetic plan: proceed Anesthesia type and monitoring: general GIVS and standard monitoring Results Review: All pre-operative results and documents have been reviewed as part of the pre-operative evaluation. Informed Consent: The patient's anesthetic plan and its attendant risks and benefits were discussed with the patient/family/POA. Questions were solicited and answers provided to the satisfaction of the patient/family/POA.
--- NOTE | 2025-03-15 10:32 | PM.HPGS ---
History of Present Illness History of Present Illness Consent: Risks, benefits, and alternatives have been discussed and questions answered. Patient agrees to proceed with procedure. Chief complaint: Personal history of colon polyps, unspecified Narrative: Robin Duque is a 74 year old male here for colonoscopy, h/o colon polyp Review of Systems Review of Systems: All systems reviewed & are unremarkable except as noted in HPI and below PMFSH Past Medical History Medical History Abdominal hernia Fatigue Trigger finger, left middle finger Decreased GFR Severe obesity with body mass index (BMI) of 35.0 to 39.9 with serious comorbidity Asthma Anxiety Allergies Diabetes Depression Shingles Dysmetabolic syndrome X COPD (chronic obstructive pulmonary disease) HLD (hyperlipidemia) Chronic kidney disease Essential hypertension DARVIN (obstructive sleep apnea) DM renal manif type II Family History Family History Father Hypertension Sibling Malignant neoplasm of prostate Liver cancer Mother No problems noted. Social History Social History Smoking packs per day: 1.5 Smoking cigarettes per day: 30.0 Years smoked: 30 Smoking pack-years: 45.00 Smoking status: Former smoker Smoking end date: 05/12/98 Alcohol intake: current Alcohol use details: rarely Substance use: never Lack of Transportation: No Lack of Food: Never True Current Housing: I Have Housing Concerned About Future Housing: No Difficulty Paying Gas/Electric Bills: No Difficulty Paying for Meds: No Currently Unemployed: No Education: High School Diploma/GED Difficulty w/ Childcare or Family Care: No Living arrangements: with family Spiritual care concerns: No Meds Home Medications and Allergies Home Medications ?Medication ?Instructions ?Recorded ?Confirmed ?Type aspirin 81 mg tablet,delayed 81 mg PO DAILY 06/10/19 03/15/25 History release (Adult Low Dose Aspirin) blood sugar diagnostic (Easy Touch #10 ea 06/10/19 03/02/25 History Test Strip) blood-glucose meter (Easy Touch #1 ea 06/10/19 03/02/25 History Glucose Monitor) bupropion HCl 150 mg 24 hr tablet, 450 mg PO QAM 06/10/19 03/15/25 History extended release (Wellbutrin XL) escitalopram oxalate 20 mg tablet 10 mg PO DAILY 06/10/19 03/15/25 History (Lexapro) lancets 28 gauge (Easy Touch #25 ea 06/10/19 03/02/25 History Lancets) trazodone 50 mg tablet 50 mg PO BID PRN Sleep 09/07/19 03/15/25 History albuterol sulfate 90 mcg/actuation 2 puff inhalation Q4-6H PRN 08/17/21 03/15/25 Rx aerosol inhaler (Ventolin HFA) shortness of breath or wheezing #8.5 grams atorvastatin 80 mg tablet 80 mg PO QHS #90 tabs 07/06/24 03/15/25 Rx indapamide 2.5 mg tablet 2.5 mg PO DAILY #90 tabs 07/06/24 03/15/25 Rx primidone 50 mg tablet 50 mg PO BID 09/06/24 03/15/25 History semaglutide 0.25 mg or 0.5 mg (2 0.25 mg (0.368 mL) subcut WEEKLY 09/10/24 03/02/25 Rx mg/3 mL) subcutaneous pen injector #3 mL ([employer]) lisinopril 20 mg tablet 20 mg PO DAILY #90 tabs 01/17/25 03/15/25 Rx metformin 500 mg tablet 500 mg PO DAILY #90 tabs 01/17/25 03/15/25 Rx Allergies Allergy/AdvReac Type Severity Reaction Status Date / Time diltiazem Allergy Rash Verified 03/15/25 09:56 Vital Signs Vital Signs - 24 hr 03/15/25 09:58 Temperature 97.4 F L Pulse Rate 79 Respiratory Rate 20 Blood Pressure 128/79 Pulse Oximetry 98 Oxygen Delivery Room Air Exam Const: General: comfortable and no acute distress HENMT: Face/Nose/Sinus: Normal nares present Eyes: General: appearance normal, both eyes and all related structures Neck: Neck: no JVD Resp: Auscultation: clear to auscultation bilaterally Cardio: Rate: regular rate Rhythm: regular rhythm GI: Inspection: non-distended GI Palp: Yes Soft to palpation Skin: General skin exam: normal color Extrem: General: normal to inspection Psych: Mental Status: mental status grossly normal Assessment and Plan Assessment and plan (1) H/O adenomatous polyp of colon: Code(s): Z86.010 - Personal history of colon polyps Status: Acute Assessment and Plan: colonoscopy
[2025-03-15 10:53] VITALS: BP 103/72; PULSE 77; RESP 20; O2SAT 97
[2025-03-15 11:03] VITALS: BP 118/77; PULSE 82; RESP 19; O2SAT 97
[2025-03-15 11:13] VITALS: BP 122/84; PULSE 75; RESP 14; O2SAT 98
== END 2025-03-15 11:29 | disposition home or self-care (01) ==
PROVIDERS: PCP Clinical Nurse Specialist; Referring Provider Clinical Nurse Specialist; Visit Provider Internal Medicine Gastroenterology
PROC: 0DJD8ZZ Inspection of Lower Intestinal Tract, Via Natural or Artificial Opening Endoscopic (ICD-10-PCS; CPT 45378; principal; 2025-03-15 11:00)
DX: Z12.11 Encounter for screening for malignant neoplasm of colon (principal); K57.30 Diverticulosis of large intestine without perforation or abscess without bleeding; E78.5 Hyperlipidemia, unspecified; E11.22 Type 2 diabetes mellitus with diabetic chronic kidney disease; I12.9 Hypertensive chronic kidney disease with stage 1 through stage 4 chronic kidney disease, or unspecified chronic kidney disease; N18.9 Chronic kidney disease, unspecified; R53.83 Other fatigue; F41.9 Anxiety disorder, unspecified; F32.A Depression, unspecified; E88.810 Metabolic syndrome; J44.9 Chronic obstructive pulmonary disease, unspecified; Q27.33 Arteriovenous malformation of digestive system vessel; Z79.82 Long term (current) use of aspirin; Z79.51 Long term (current) use of inhaled steroids; Z79.85 Long-term (current) use of injectable non-insulin antidiabetic drugs; Z79.84 Long term (current) use of oral hypoglycemic drugs; Z86.0100 Personal history of colon polyps, unspecified; Z87.891 Personal history of nicotine dependence; Z80.42 Family history of malignant neoplasm of prostate; Z80.0 Family history of malignant neoplasm of digestive organs
CPT/HCPCS: G0105; 82948; J2003; J2704; J7120

== ENCOUNTER 2025-03-21 09:45 | Outpatient (CLI) | payer MEDICARE, SELFPAY ==
--- OUTSIDE RECORDS SUMMARY | 2025-03-21 10:30 | XMS_ITS | Clinical Summary ---
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 [address] [place] [address] Stage 3b chronic kidney disease (HCC); Hypertension, unspecified type; Acquired complex renal cyst; Type 2 diabetes mellitus with diabetic nephropathy, unspecified whether senior care insulin use (HCC) Discharge Disposition: Discharge to [...] on file Legal Sex Male 11:58 PM DELPHI PROGRAMMER Gender Identity Not on file Sexual Orientation Not on file Last Filed Vital Signs Vital Sign Reading Time Taken Comments Blood Pressure 120/68 04/21/2019 4:52 PM DELPHI PROGRAMMER Pulse 78 04/21/2019 4:52 PM DELPHI PROGRAMMER Temperature 36.8 C (98.3 F) 04/21/2019 4:52 PM DELPHI PROGRAMMER Respiratory Rate 16 04/21/2019 4:52 PM DELPHI PROGRAMMER Oxygen Saturation 95% 04/21/2019 4:52 PM DELPHI PROGRAMMER Inhaled Oxygen Concentration - - Weight 117 kg (258 lb) 04/21/2019 4:52 PM DELPHI PROGRAMMER Height 167.6 cm (5' 6) 04/21/2019 4:52 PM DELPHI PROGRAMMER Body Mass Index 41.64 04/21/2019 4:52 PM DELPHI PROGRAMMER Plan of Treatment Health Maintenance Due Date [...] diabetes mellitus with diabetic nephropathy, unspecified whether senior care insulin use (HCC) EGFR Routine 12/09/2024 9:32 [...] Hawk M.D. KR: CARLOS MANUEL Report ID: [id number] Reading Location: [id number] Procedure Note Matt Hawk MD - 02/16/2025 [...] Hawk M.D. KR: CARLOS MANUEL Report ID: [id number] Reading Location: [place] [address] us Dick Mendoza MD IMG MRI PROCEDURES [...] Matt Renner M.D. KT: PRESTON Report ID: [id number] Reading Location: [id number] Procedure Note Matt Renner MD - 01/14/2025 [...] Matt Renner M.D. KT: PRESTON Report ID: [id number] Reading Location: [id number] us Dick Mendoza MD IMG US PROCEDURES [...] MD LAB BLOOD ORDERABLES Final Re sult [facility] [address] [place] [address] [place] [address] * (ABNORMAL) Hemoglobin A1c (12/09/2024 9:32 AM CDT) Hgb A1C 7.4(H) 4.0 - 5.6 % [facility] Estimated Average Glucose 166 mg/dL [facility] Comment: The ADA recommends reporting an estimated Average Glucose (eAG) with all Hemoglobin A1c results using the equation derived from a study of 507 normal and diabetic adults. Minority populations were underrepresented and children were not included. (Diabetes Care 31:1780-5001, 2008). The eAG is not equivalent to a fasting glucose. Testing performed by: [facility], [address], [place], [address] Blood 12/09/2024 9:32 AM CDT 12/09/2024 10:12 AM CDT us Dick Mendoza MD LAB BLOOD ORDERABLES Final Re sult [facility] ([place]) [address] Department [place] [address] from Last 3 Months or Most Recently Relevant to Health Maintenance Insurance MEDICARE COMMERCIAL GENERIC MEDICARE COMMERCIAL GENERIC MEDICARE [employer] Care Teams Trash Collector Truck Driver Relationship Specialty Start Date End Date Jose Joseph DO PCP - General 12/13/10
--- OUTSIDE RECORDS SUMMARY | 2025-03-21 10:30 | XMS_ITS | Clinical Summary ---
Author Organization [facility] Facility Address [address] [address] Care Team Providers Care Continuous Yarn Dyeing Machine Operator Name Role Phone Jose Joseph DO Primary Care Provider [phone]- [phone] Allergies No known active allergies Medications aspirin [...] Encounters Date Type Department Care Team Description 03/15/2025 Documentation Only [facility] [address] [place] [address] Dick Mendoza MD 01/28/2025 Documentation Only [facility] [address] [place] [address] Dick Mendoza MD 01/27/2025 Orders Only [facility] [address] [place] [address] Ceci Spence MA Essential (primary) hypertension (Primary Dx); Stage 3b chronic kidney disease (HCC); Acute kidney failure with other specified pathological lesion in kidney (HCC); Type 2 diabetes mellitus with diabetic nephropathy (HCC); Acquired complex renal cyst 01/18/2025 Orders Only [facility] [address] [place] [address] Ceci Spence MA 12/28/2024 1:15 PM CDT Office Visit [facility] [address] [place] [address] Dick Mendoza MD Stage 3b chronic kidney disease (HCC) (Primary Dx); Hypertension; Acquired complex renal cyst; Type 2 diabetes mellitus with diabetic nephropathy (HCC) 12/23/2024 Orders Only [facility] [address] [place] [address] Taya Gibbons RN from Last 3 Months Family History Medical [...] Comments Blood Pressure 107/59 03/22/2024 2:14 PM CIGARETTE LIGHTER REPAIRER Pulse 91 03/22/2024 2:14 PM CIGARETTE LIGHTER REPAIRER Temperature 36.6 C (97.8 F) 03/22/2024 2:14 PM CIGARETTE LIGHTER REPAIRER Respiratory Rate - - Oxygen Saturation 97% 03/22/2024 2:14 PM CIGARETTE LIGHTER REPAIRER Inhaled Oxygen Concentration - - Weight 113 kg (248 lb 8 oz) 03/22/2024 2:[address] Height 167.6 cm (5' 6) 03/22/2024 2:14 PM CIGARETTE LIGHTER REPAIRER Body Mass Index 40.11 03/22/2024 2:14 PM CIGARETTE LIGHTER REPAIRER Plan of Treatment Upcoming Encounters Date Type Department Care Team (Late st Contact Info) Description 07/05/2025 10:15 AM CIGARETTE LIGHTER REPAIRER Office Visit [facility] [address] [place] [id number] Dick Mendoza MD [address] [place] [phone] Health Maintenance Due Date Last Done Comments [...] age to complete this topic Insurance Medicare [facility] Financial Care Teams Continuous Yarn Dyeing Machine Operator Relationship Specialty Start Date End Date Jose Joseph DO [address] [place] [address] PCP - General Internal Medicine 01/26/24
[2025-03-21 18:56] LABS: Hematocrit 42.1 % (42.0-52.0); Hemoglobin 13.7 g/dL (14.0-18.0); Immature Granulocyte Percent A 0.4 % (0-0.5); Lymphocytes Absolute Auto 3.20 K/mm3 (0.9-3.2); Mean Corpuscular HGB Conc 32.5 g/dl (32-36); Mean Corpuscular Hemoglobin 27.7 pg (26-34); Mean Corpuscular Volume 85.1 fl (80-100); Nucleated Red Blood Cells Absolute Auto 0.000 K/mm3 (0.0-0.012); Nucleated Red Blood Cells Perc 0.0 % (0.0-0.2); Platelet Count Result 266 k/mm3 (150-375); Red Blood Count 4.95 M/mm3 (4.6-6.20); White Blood Count 8.1 K/mm3 (4.5-10.0)
[2025-03-21 19:02] LABS: Alanine Aminotransferase 35 U/L (6-50); Albumin Level 4.3 g/dL (3.5-5.1); Alkaline Phosphatase 84 U/L (38-126); Anion Gap 9 mmol/L (4-12); Aspartate Amino Transferase 52 U/L (17-59); Bilirubin,Total 0.4 mg/dL (0.2-1.3); Blood Urea Nitrogen 29 mg/dL (9-20); Calcium 8.7 mg/dL (8.4-10.2); Carbon Dioxide 22 mmol/L (22-30); Chloride 102 mmol/L (98-107); Cholesterol 193 mg/dL (0-200); Estimated Glomerular Filt Rate 36; Glucose 166 mg/dL (65-110); HDL Direct 25 mg/dL; Potassium 4.5 mmol/L (3.4-5.0); Sodium 133 mmol/L (137-145); Total Protein 8.0 g/dL (6.3-8.2)
[2025-03-21 19:35] LABS: Triglycerides 679 mg/dL (<150)
[2025-03-21 19:37] LABS: Prostate Specific Antigen 1.9 ng/mL (< OR = 4.0)
[2025-03-21 19:53] LABS: MALB Creatinine Ratio 13.1 mg/g (0-30)
[2025-03-21 19:56] LABS: Vitamin B12 902.0 pg/mL (239-931)
[2025-03-21 20:09] LABS: Hemoglobin A1C 9.6 % (<5.7)
== END 2025-03-21 09:46 | disposition home or self-care (01) ==
PROVIDERS: PCP Clinical Nurse Specialist; Visit Provider Clinical Nurse Specialist
DX: Z12.5 Encounter for screening for malignant neoplasm of prostate (principal); E11.22 Type 2 diabetes mellitus with diabetic chronic kidney disease; I12.9 Hypertensive chronic kidney disease with stage 1 through stage 4 chronic kidney disease, or unspecified chronic kidney disease; N18.31 Chronic kidney disease, stage 3a; E78.2 Mixed hyperlipidemia; E78.1 Pure hyperglyceridemia; J44.9 Chronic obstructive pulmonary disease, unspecified; G25.0 Essential tremor; E66.01 Morbid (severe) obesity due to excess calories; Z68.41 Body mass index [BMI] 40.0-44.9, adult
CPT/HCPCS: 36415; 80053; 80061; 82043; 82607; 83036; 84153; 85025; G0103